=== PATIENT | female | born 1955 | race Caucasian/White ===

== ENCOUNTER 2017-07-15 08:37 | Day surgery (SDC) | payer OTHER, SELFPAY ==
[2017-07-15] VITALS (7 sets, daily range): BP systolic 91–105; BP diastolic 48–87; PULSE 56–84; RESP 14–16; TEMP 35.9–36.3; O2SAT 100; BMI 25.7
--- NOTE | 2017-07-15 | IMM_PTH ---
PATIENT: KRYS CANCINO LOC: EN U#:[id number] AGE/SX: 62/F ROOM: RE07/15/[address]: Dr. Sylvie Mireles MD : 1955 BED: DIS: 07/15/2017 SPEC #: [id number] RECD: 07/17/17 10:19 STATUS: TEAGAN REDemetris #: [id number] OPHELIA: 07/15/17 00:[address]: Sylvie Mireles DEPT: IMMUNOHISTOCHEMISTRY RECD BY: Quynh Talbert ENTERED: 07/17/17 10:20 SP TYPE: IMMUNO OTHR DR: Dr. Steven Rojas, Tissues: A - Stomach, NOS Procedures: H Pylori (initial) PHYSICIAN & INSTITUTION [place] [id number] SPECIMEN INFORMATION: Tissue Source: A ? Antral biopsy Clinical Info: GERD Specimen Number: [id number] CPT code: 47673 METHODOLOGY: Deparaffinized sections of prefer/formalin-fixed tissue or PAP/DQ stained slides are incubated with monoclonal/polyclonal antibodies/oligonucleotide probes. Localization is made via biotin free immunoperoxidase method. Appropriate controls are performed and reacted as expected. Results on target cell population are indicated in the following table: RESULTS: ANTIBODY / CLONE RESULT Block A H Pylori (polyclonal) negative These tests were developed and their performance characteristics determined by [facility]. They may not have been cleared or approved by the U.S. Food and Drug Administration. The FDA has determined that such clearance or approval is not necessary. INTERPRETATION: A. Antral biopsy: Negative for Helicobacter pylori organisms. SJ:alyssa 07/17/17
--- NOTE | 2017-07-15 10:23 | EGD_PTH ---
PATIENT: KRYS CANCINO LOC: EN U#:[id number] AGE/SX: 62/F ROOM: RE07/15/[address]: Dr. Sylvie Mireles MD : 1955 BED: DIS: 07/15/2017 SPEC #: [id number] RECD: 07/15/17 15:18 STATUS: TEAGAN UMANG #: [id number] OPHELIA: 07/15/17 10:[address]: Sylvie Mireles DEPT: SURGICAL PATHOLOGY RECD BY: Clarke Lai ENTERED: 07/16/17 09:26 SP TYPE: EGD BIOPSY KAY DR: Dr. Steven Rojas DO Tissues: A - Gastric mucous membrane B - Gastric mucous membrane Procedures: Special Stain Group II Surgery Specimen Level IV Alcian Blue/PAS (control) HEADER OPERATION: EGD PRE-OP DIAGNOSIS: GERD TISSUE SUBMITTED: A ? Antral biopsy for path and H. pylori, B ? GE junction biopsy MICROSCOPIC DIAGNOSIS A. Antral biopsy: Mild gastritis. B. GE junction, biopsy: Fragments of gastroesophageal mucosa with mild chronic inflammation. Intestinal metaplasia (goblet cell metaplasia) is not identified. SJ:rg 07/17/17 COMMENT A. The results of immunohistochemistry for Helicobacter pylori will be reported separately ([id number]). B. Alcian blue/PAS stain with matched control is used in the evaluation of the specimen. MICROSCOPIC DESCRIPTION Slides are reviewed. A. The specimen shows fragments of gastric mucosa with chronic inflammatory cell infiltrates in the lamina propria consisting of lymphocytes and plasma cells, consistent with mild chronic gastritis. GROSS DESCRIPTION A - Received in fixative is one container labeled with the patient's name and designated antral biopsy for path and H. pylori. The specimen consists of two irregular fragments of light haskins soft tissue that in aggregate measure 0.3 x 0.2 x 0.1 cm. The specimen is totally submitted in one cassette. B - Received in fixative is one container labeled with the patient's name and designated GE junction biopsy. The specimen consists of multiple irregular fragments of light haskins soft tissue that in aggregate measure 0.8 x 0.2 x 0.1 cm. The specimen is totally submitted in one cassette. / MADINA:alyssa 07/16/17 TC:3 CPT: 48218 x2, 70061
--- NOTE | 2017-07-15 13:05 | PCM.OPRPT ---
Report of Operation Date of Procedure: 07/15/17 Pre-Operative Diagnosis: GERD, screening for colon cancer Post-Operative Diagnosis: GERD, small hiatal hernia, normal colon Surgery/Procedure Performed:: EGD with cold forceps biopsy, colonoscopy Type of Anesthesia:: MAC Anesthesiologist: Dimitrios Guerrero Specimen's removed: 1. Antral biopsy, 2. GE junction biopsy Estimated Blood Loss (mL): Minimal Description of Procedure: Procedure: EGD with biopsy After obtaining informed consent, the endoscope was passed under direct visualization. Throughout the procedure, patient's blood pressure, pulse, oxygen saturations were monitored continuously by anesthesia. The endoscope was introduced through the mouth and advanced to the 2nd part of the duodenum. The upper GI endoscopy was accomplished without difficulty. Patient tolerated procedure well. Findings: Small hiatal hernia was present. Minimal erythematous mucosa found gastric antrum and change of mucosa was noted at the GE junction. Biopsies were taken with cold biopsy for histology. Estimated blood loss was minimal. The duodenum was normal. Impression: 1. Small hiatal hernia 2. Erythematous mucosa in the antrum and GE junction. Biopsied. 3. Normal examined duodenum Recommendations: Continue PPI and raniditine Await biopsies Procedure: Colonoscopy After reviewing the risks benefits, the patient was deemed in satisfactory condition to undergo procedure. After obtaining informed consent, the scope was passed under direct visualization. Throughout the procedure, the patient's blood pressure pulse and position saturations were monitored continuously anesthesia. The colonoscope was introduced through the anus and advanced to the cecum, identified by the appendiceal orifice, IC valve and transillumination. The colonoscopy was performed without difficulty. The patient tolerated procedure well. Quality of bowel prep was good. Findings: The perianal and digital rectal exam were normal. The colon (entire examined portion) appeared normal. Retroflexed view of the distal rectum and anal verge was normal and showed no anal or rectal abnormalities Impression: 1. The entire colon is normal. 2. The distal rectal and anal verge were normal on retroflexed view. Recommendations: Repeat colonoscopy in 10 years for screening purposes - Complications none
== END 2017-07-15 12:29 | disposition home or self-care (01) ==
LOC: EN 08:37 → AC 08:39
PROVIDERS: Family Provider Family Medicine; PCP Family Medicine; Visit Provider Surgery
PROC: 0DJD8ZZ Inspection of Lower Intestinal Tract, Via Natural or Artificial Opening Endoscopic (ICD-10-PCS; CPT 45378; principal; 2017-07-15 09:55)
DX: Z12.11 Encounter for screening for malignant neoplasm of colon (principal); K21.9 Gastro-esophageal reflux disease without esophagitis; K44.9 Diaphragmatic hernia without obstruction or gangrene; K29.70 Gastritis, unspecified, without bleeding; Z87.891 Personal history of nicotine dependence; Z79.899 Other long term (current) drug therapy; E78.00 Pure hypercholesterolemia, unspecified; E03.9 Hypothyroidism, unspecified; K58.1 Irritable bowel syndrome with constipation
CPT/HCPCS: 43239; 45378; 88305; 88313; 88342; J7120

== ENCOUNTER → 2017-10-18 06:19 | Outpatient (CLI) | payer OTHER, SELFPAY ==
[2017-10-18 09:27] LABS: Cholesterol 171 mg/dL (200); High Density Lipoprotein 66 mg/dL; Thyroid Stim Hormone (TSH) 0.63 uIU/mL (0.358-3.74); Triglycerides 77 mg/dL; Very Low Density Lipoprotein 15 mg/dL (5-40)
== END ==
PROVIDERS: Family Provider Family Medicine; PCP Family Medicine; Visit Provider Family Medicine
DX: E03.9 Hypothyroidism, unspecified (principal); E78.5 Hyperlipidemia, unspecified
CPT/HCPCS: 36415; 80061; 84443

== ENCOUNTER → 2017-11-26 12:10 | Outpatient (CLI) | payer OTHER, SELFPAY ==
--- NOTE | 2017-11-26 12:20 | BD_ITS ---
STUDY: DUAL ENERGY X-RAY ABSORPTIOMETRY / DXA REASON FOR EXAM: Female, 62 years old. The patient is postmenopausal. Loss of height. TECHNIQUE: Bone Mineral Density (BMD) measurements of lumbar spine and bilateral hips were obtained. COMPARISON: Comparison is made with prior study dated May 17, 2015. FINDINGS: Lumbar Spine (L1-L4): g/cm2 (1.049) / T-score (-1.3) / Z-score (0.1) Findings are suggestive of osteopenia with a moderate fracture risk. Left Femur Total: g/cm2 (0.936) / T-score (-0.6) / Z-score (0.4) Left Femoral Neck: g/cm2 (0.838) / T-score (-1.4) / Z-score (-0.1) Right Femur Total: g/cm2 (0.889) / T-score (-0.9) / Z-score (0.1) Right Femoral Neck: g/cm2 (0.821) / T-score (-1.6) / Z-score (-0.2) The T-Scores on the most recent prior examination were: Lumbar Spine (L1-L4): There has been improvement of bone density since the previous examination. Left Femur Total: which represents an improvement of 1.3%. Right Femur Total: which represents a worsening of 3.2%. BD/Dexa Bone Density Study IMPRESSION: The patient is considered osteopenic as outlined below according to World Ken Organization (WHO) criteria with a moderate fracture risk. There has been improvement of bone density since the previous examination. Reference Information: The T-score is the number of standard deviations above or below the standard which is normal for young adults at their peak bone mineral density. The World Health Organization (WHO) interprets the T-scores as follows: Above -1 Normal bone density Between -1 and -2.5 Osteopenia Equal to / or below -2.5 Osteoporosis As a practical clinical guideline, osteopenia may be graded as follows: Mild -1 through -1.5 Moderate -1.6 through -2.0 Severe -2.1 through -2.4 The Z-score is the number of standard deviations above or below age-matched controls. A Z-score of less than -1.5 would be considered abnormal. References: 1. NIH Osteoporosis and Related Bone Diseases http://www.osteo.org 2. International Society for Clinical Densitometry http://www.iscd.org 3. National Osteoporosis Foundation http://www.nof.org Electronically Signed: Andrae Jonas MD at 8:40 EDT Tel [phone], Service support ,
== END ==
PROVIDERS: Family Provider Family Medicine; PCP Family Medicine; Visit Provider Family Medicine
DX: Z13.820 Encounter for screening for osteoporosis (principal)
CPT/HCPCS: 77080

== ENCOUNTER → 2017-12-13 10:09 | Outpatient (CLI) | payer OTHER, SELFPAY ==
[2017-12-13 12:28] LABS: Absolute Lymphocyte Count 1.32 X10^3/ul (0.83-4.51); Absolute Neutrophil Count 2.5 X10^3/uL (2.0-7.7); Basophil# 0.01 X10^3/uL; Basophil% 0.2 % (0-1); Eosinophil# 0.08 X10^3/uL; Eosinophils% 1.9 % (0-5); Hematocrit 42.3 % (37-47); Hemoglobin 13.9 g/dl (12.0-15.0); Lymphocyte # 1.32 X10^3/ul (4.0); Lymphocyte % 30.8 % (19-41); Mean Corp Hgb Conc 32.9 g/gl (32-36); Mean Corpuscular Hgb 28.8 pg (27.0-32.0); Mean Corpuscular Volume 87.8 fL (81-99); Mean Platelet Vol. 11.9 fl (6.2-12.0); Monocyte# 0.38 X10^3/uL; Monocyte% 8.9 % (0-10); Neutrophil # 2.49 X10^3/uL (2.7-7.7); Neutrophil % 58.2 % (47-70); Platelet Count 181 K/mm3 (150-450); RBC Distribution Width CV 13.4 % (11.6-14.6); RBC Distribution Width SD 42.7 fl (35.1-43.9); Red Blood Count 4.82 M/mm3 (4.2-5.4); White Blood Count 4.3 K/mm3 (4.4-11.0)
[2017-12-13 12:30] LABS: Erythrocyte Sedimentation Rate 8 mm/hr (0-30); POSITIVE COUNT NO; POSITIVE DIFFERENTIAL NO; POSITIVE MORPHOLOGY NO
[2017-12-13 12:43] LABS: ALB/GLOB Ratio 1.2 RATIO (0.9-2.4); AST(SGOT) 21 U/L (15-37); Alanine Aminotransfer ALT/SGPT 21 U/L (13-56); Albumin, Serum 4.1 g/dL (3.2-5.0); Alkaline Phosphatase 62 U/L (45-117); Anion Gap 7 (5-15); BUN 10 mg/dL (7-18); BUN/Creat Ratio 11.3 RATIO (10-20); Calcium,Total 8.9 mg/dL (8.5-10.1); Chloride 106 mmol/L (98-107); Cholesterol 203 mg/dL (200); Creatinine, Serum 0.89 mg/dL (0.55-1.02); EST Glomerular Filtration Rate 69 mL/min (>60); Est Glom Filt Rate - Afr Amer 83 mL/min (>60); Globulin 3.5 g/dL (2.2-4.2); Glucose 83 mg/dL (74-106); High Density Lipoprotein 63 mg/dL; Protein, Total 7.6 g/dL (6.4-8.2); Sodium Level 142 mmol/L (136-145); T4 Free Direct 1.28 ng/dL (0.76-1.46); Thyroid Stim Hormone (TSH) 1.57 uIU/mL (0.358-3.74); Triglycerides 100 mg/dL; Very Low Density Lipoprotein 20 mg/dL (5-40)
== END ==
PROVIDERS: Family Provider Family Medicine; PCP Family Medicine; Visit Provider Family Medicine
DX: Z00.00 Encounter for general adult medical examination without abnormal findings (principal); R51 Headache; R42 Dizziness and giddiness; E78.5 Hyperlipidemia, unspecified; E03.9 Hypothyroidism, unspecified
CPT/HCPCS: 36415; 80053; 80061; 84439; 84443; 85025; 85652

== ENCOUNTER → 2017-12-25 16:42 | Outpatient (CLI) | payer OTHER, SELFPAY ==
--- NOTE | 2017-12-25 16:56 | MRI_ITS ---
STUDY: MRI BRAIN WITH AND WITHOUT CONTRAST REASON FOR EXAM: Female, 62 years old. Headache with intermittent vertigo. TECHNIQUE: Standardized multiplanar fat and water weighted pulse sequences were obtained. 7 ml of Gadavist contrast material was administered intravenously for the contrast portion of the examination. COMPARISON: None. FINDINGS: Normal size of the ventricles and extra-axial spaces for the patient's age. There are multiple white matter hyperintensities, distributed throughout the deep white matter tracts of the cerebral hemispheres, consistent with moderate chronic white matter ischemic changes. There is no evidence for recent intracranial ischemia or other cause of cytotoxic edema on diffusion weighted imaging (DWI). Normal T2* images of the brain without demonstrated susceptibility artifact. There is no demonstrated hemosiderin stain. Normal bilateral basal ganglia. Normal thalami. There is no extra-axial fluid accumulation. Normal flow voids within the major intracranial circulation suggesting patency by spin echo criteria. Normal venous enhancement. There is no enhancing intra-axial or extra-axial abnormality. Normal sella turcica, pituitary gland, infundibular stalk, optic chiasm and hypothalamus. Normal tectal plate and pineal gland. Normal midbrain, raffi and medulla. Normal cerebellum. Normal basal cisterns. Normal bilateral temporal bones. Normal bilateral internal auditory canals. Right mastoid effusion is present. No demonstrated orbital abnormality, within the constraints of a routine brain study. Normal visualized paranasal sinuses. Normal calvarium and skull base. Normal visualized soft tissue structures. Normal visualized upper cervical spine. MRI/Brain W/WO Contrast IMPRESSION: 1. Senescent changes with no evidence of acute intracranial bleed, mass or ischemia. 2. Right mastoid effusion, clinically correlate for congestive versus inflammatory process. Electronically Signed: Rick Cesar DO at 21:32 EDT , Service support ,
== END ==
PROVIDERS: Family Provider Family Medicine; PCP Family Medicine; Visit Provider Family Medicine
DX: R51 Headache (principal); R42 Dizziness and giddiness
CPT/HCPCS: 70553; A9585

== ENCOUNTER → 2018-01-17 07:05 | Outpatient (CLI) | payer OTHER, SELFPAY ==
--- NOTE | 2018-01-17 07:08 | CT_ITS ---
STUDY: CT TEMPORAL BONES WITH AND WITHOUT CONTRAST - ATTN: I.A.C. S REASON FOR EXAM: Female, 63 years old. Right mastoid effusion on MRI with vertigo for 7 weeks RADIATION DOSAGE (If Supplied By Facility): CTDIvol = ( 82.28 ) mGy, DLP = ( 1736.98 ) mGycm TECHNIQUE: The patient was scanned in a multi detector CT scanner. Transaxial imaging was performed prior to and following the administration of 100 ml of Isovue 370 intravenous contrast material. Sagittal and coronal images were reconstructed. Individualized dose optimization techniques were used for this CT. COMPARISON: MRI brain 12/25/2017 FINDINGS: RIGHT TEMPORAL BONE Normal right internal auditory canal. There is no demonstrated enhancing abnormality. Normal visualized ossicles and tympanic cavity. Normal right cochlea and semicircular canals. Normal vestibular aqueduct. Normal right petrous carotid artery. Normal right jugular fossa. Mild inferior right-sided mastoiditis without coalescence. No extension into the aditus ad antrum. The adjacent transverse and sigmoid venous sinuses are patent. No Bezoldt abscess is seen. Normal right petrous apex. LEFT TEMPORAL BONE Normal left internal auditory canal. There is no demonstrated enhancing abnormality. Normal visualized ossicles and tympanic cavity. Normal left cochlea and semicircular canals. Normal vestibular aqueduct. Normal left petrous carotid artery. Normal right jugular fossa. Normal left mastoid air cells. Normal left petrous apex. CT/Orb Sella Post Fossa Ear W/WO IMPRESSION: Mild inferior right-sided mastoiditis without coalescence or adjacent complication. Electronically Signed: Ross Mcmahan MD at 6:23 EDT Tel , Service support ,
== END ==
PROVIDERS: Family Provider Family Medicine; PCP Family Medicine; Visit Provider Family Medicine
DX: H70.11 Chronic mastoiditis, right ear (principal); R51 Headache
CPT/HCPCS: 70482; Q9967

== ENCOUNTER → 2018-02-07 07:00 | Outpatient (CLI) | payer OTHER, SELFPAY | PROVIDERS: Family Provider Family Medicine; PCP Family Medicine; Visit Provider Obstetrics & Gynecology | DX: Z12.31 Encounter for screening mammogram for malignant neoplasm of breast (principal) | CPT/HCPCS: 77063; 77067 ==

== ENCOUNTER 2018-03-19 17:30 | Outpatient (RCR) | payer OTHER, SELFPAY ==
--- NOTE | 2018-02-21 09:00 | HP.PTEVAL_ITS ---
Patient's Visit Information KRYS CANCINO is a 63 year old F referred to Physical Therapy by Steven Rojas DO with a diagnosis of dizziness and giddiness. Date of Evaluation: 02/21/18 Physical Therapist: Fariba Gee - Visit Plan Frequency: 1-2x /Week Duration: 4 Weeks Plan: 1-2X/ week for re-testing positional vertigo, checking VOR, FGA, balance with HEP - Subjective Subjective: Pt reports that in her late 's she experienced positional vertigo that lasted a few years and then did not have it at all but lately at the end of November laying on Couch and rolled to R and got dizzy and then started to get dizziness. Her last dizzy spell was in the fall. MRI was done and read effusion in R mastoid. Her positional vertigo had gone away but she still had the motion sickness ( FERRO and nausea and funny feeling in eyes). If at grocery store she would feel awful almost like an overload but around her apartment she feels ok. They did a CATSCAN and all came back clear.... mild mastosis...nothing to treat. Positional vertigo comes back again and physician puts her on valium and made it worse and then she was on diazapam and that made her worse too and goes for a car ride and looks R and L and made her ill and nauseated. She takes the bonine and has felt better and able to get through the day. Looking up and down from the black board and down to the paper and would get dizzy. Sometimes putting make up on she will get dizzy. Sometimes getting onthe computer scrolling it makes her dizzy. Saw Dr Rojas because she is getting through the day but she is tired and wants to close her eyes. Sometimes still dizzy when roll to the R. No dizziness in morning when she gets up. Getting up out of a tanning bed is worse than getting out of bed. No falls. - Objective + R Hallpike for dizziness and upward torsional nystagmus that lasted about 20 seconds and stopped. Performed R Eply from the Hallpike position. Re-tested R Hallpike and pt had no dizziness and no nystagmus...went ahead and did the R Eply again - Goals Goal 1:: I HEP Goal Time Frame: 4-6 Weeks Goal 2:: Abolish dizziness with rolling in bed Goal Time Frame: 4-6 Weeks Goal 3:: Test FGA Goal Time Frame: 1 Week - Rehabilitation Potential Rehabilitation Potential: Good - Anticipated Interventions Patient/Client Instruction: Educate patient on: Condition, Plan of Care For the Purpose of:: To increase ROM, To improve muscle performance and motor function, To improve ability to perform ADL's, To increase tolerance to activity /condition/position, To improve performance and independence with ADL's, To improve balance Therapeutic Exercise to Include: Strength training, Balance training, Coordination, Gait and locomotor training, Passive ROM, Active ROM For the Purpose of:: To improve muscle performance and motor function, To improve ability to perform ADL's, To increase tolerance to activity/condition/ position, To improve performance and independence with ADL's, To improve ability of physical actions for home/community/work/leisure, To improve balance Manual Therapy Techniques to Include: Other Comment: EPLY For the Purpose of:: To improve muscle performance and motor function, To improve ability to perform ADL's, To increase tolerance to activity/condition/ position, To improve performance and independence with ADL's, To improve ability of physical actions for home/community/work/leisure Thank you for the opportunity to evaluate your patient. For Medicare and Medicare HMO plans, please review the plan of care and approve it. It will need to be FAXED BACK to us at [phone] for Medicare purposes. Please let me know if there are questions or concerns regarding this plan of care. Physician Signature: Date:
--- NOTE | 2018-03-19 18:51 | HP.PTDCSUM ---
HP - PT D/C Summary It has been my pleasure to treat KRYS CANCINO under orders from Steven Rojas DO, for the diagnosis of dizziness and giddiness for a total of 5 visit(s). Discharge Date: 03/19/18 Please see the following information for a summary of their discharge status. - Subjective Subjective: Pt reports that she slipped on spilled liquid in the cafeteria and hurt her L hip and back and she is probably going to see MD about it. Pt reports that she only gets a slight sign of any dizziness once in awhile and she is continuing to do her exercises. - Pain R hip and back Pain Intensity (Out of 10): Unrated - Overall Improvement % Improvement: 90 - Objective Objective/Function: No dizziness today with any dynamic VOR exercises - Goals Goal 1:: I HEP Goal Progress: Goal Met Goal 2:: Abolish dizziness with rolling in bed Goal Progress: Goal Met Goal 3:: Test FGA - Plan Plan: DC PT to HEP - D/C Information Discharge Comments: DC PT to HEP If there are questions or concerns regarding this patient's physical therapy, please feel free to call me at [phone]. Thank you for the referral of this patient. Sincerely, Fariba Gee
== END 2018-03-19 19:00 | disposition home or self-care (01) ==
LOC: PT 17:30
PROVIDERS: Family Provider Family Medicine; PCP Family Medicine; Visit Provider Family Medicine
DX: R42 Dizziness and giddiness (principal)
CPT/HCPCS: 97161; 97530

== ENCOUNTER → 2018-04-19 07:12 | Outpatient (CLI) | payer OTHER, SELFPAY ==
[2018-04-19 07:47] LABS: Absolute Lymphocyte Count 1.54 X10^3/ul (0.83-4.51); Absolute Neutrophil Count 1.5 X10^3/uL (2.0-7.7); Basophil# 0.03 X10^3/uL; Basophil% 0.9 % (0-1); Eosinophil# 0.14 X10^3/uL; Hematocrit 40.9 % (37-47); Hemoglobin 13.4 g/dl (12.0-15.0); Lymphocyte # 1.54 X10^3/ul (4.0); Lymphocyte % 44.1 % (19-41); Mean Corp Hgb Conc 32.8 g/gl (32-36); Mean Corpuscular Hgb 29.2 pg (27.0-32.0); Mean Corpuscular Volume 89.1 fL (81-99); Mean Platelet Vol. 11.3 fl (6.2-12.0); Monocyte# 0.29 X10^3/uL; Monocyte% 8.3 % (0-10); Neutrophil # 1.49 X10^3/uL (2.7-7.7); Neutrophil % 42.7 % (47-70); Platelet Count 194 K/mm3 (150-450); RBC Distribution Width CV 13.1 % (11.6-14.6); RBC Distribution Width SD 42.5 fl (35.1-43.9); Red Blood Count 4.59 M/mm3 (4.2-5.4); White Blood Count 3.5 K/mm3 (4.4-11.0)
[2018-04-19 07:48] LABS: POSITIVE COUNT NO; POSITIVE DIFFERENTIAL NO; POSITIVE MORPHOLOGY NO
[2018-04-19 08:21] LABS: AST(SGOT) 17 U/L (15-37); Alanine Aminotransfer ALT/SGPT 19 U/L (13-56); Albumin, Serum 3.6 g/dL (3.2-5.0); Alkaline Phosphatase 111 U/L (45-117); Anion Gap 5 (5-15); BUN 16 mg/dL (7-18); BUN/Creat Ratio 19.6 RATIO (10-20); Calcium,Total 8.5 mg/dL (8.5-10.1); Chloride 107 mmol/L (98-107); Cholesterol 160 mg/dL (200); Creatinine, Serum 0.82 mg/dL (0.55-1.02); EST Glomerular Filtration Rate 75 mL/min (>60); Est Glom Filt Rate - Afr Amer 91 mL/min (>60); Globulin 3.7 g/dL (2.2-4.2); Glucose 77 mg/dL (74-106); High Density Lipoprotein 65 mg/dL; Potassium 4.5 mmol/L (3.5-5.1); Protein, Total 7.3 g/dL (6.4-8.2); Sodium Level 142 mmol/L (136-145); T4 Free Direct 1.35 ng/dL (0.76-1.46); Thyroid Stim Hormone (TSH) 1.38 uIU/mL (0.358-3.74); Triglycerides 40 mg/dL; Very Low Density Lipoprotein 8 mg/dL (5-40)
[2018-04-19 12:54] LABS: Vitamin D,25 Hydroxy 54.5 ng/mL (29.95-100.01)
== END ==
PROVIDERS: Family Provider Family Medicine; PCP Family Medicine; Referring Provider Family Medicine; Visit Provider Family Medicine
DX: E78.5 Hyperlipidemia, unspecified (principal); E03.9 Hypothyroidism, unspecified; D72.819 Decreased white blood cell count, unspecified; E55.9 Vitamin D deficiency, unspecified
CPT/HCPCS: 36415; 80053; 80061; 82306; 84439; 84443; 85025

== ENCOUNTER → 2018-06-24 13:29 | Outpatient (CLI) | payer OTHER, SELFPAY ==
--- NOTE | 2018-06-24 | EMB_PTH ---
PATIENT: KRYS CANCINO LOC: ANA U#:[id number] AGE/SX: 70/F ROOM: RE06/24/[address]: ROLY Vega : 1955 BED: DIS: SPEC #: [id number] RECD: 06/24/18 13:37 STATUS: TEAGAN UMANG #: [id number] OPHELIA: 06/24/18 00:[address]: Juana Quintanilla NP DEPT: SURGICAL PATHOLOGY RECD BY: Quan Muir ENTERED: 06/24/18 13:37 SP TYPE: ENDOM BX/C KAY DR: Dr. Steven Rojas, Tissues: Endometrium, NOS Procedures: Surgery Specimen Level IV HEADER OPERATION: Endometrial biopsy PRE-OP DIAGNOSIS: Abnormal uterine bleeding TISSUE SUBMITTED: Endometrial lining MICROSCOPIC DIAGNOSIS Endometrial lining, biopsy: Scant fragments of superficial benign squamous and glandular epithelium. AM:alyssa 06/25/18 MICROSCOPIC DESCRIPTION Slides are reviewed. GROSS DESCRIPTION Received in fixative is one container labeled with the patient's name and designated endometrial lining. The specimen consists of scant fragments of mucoid tissue. The entire specimen is submitted for cell block preparation. / MADINA:alyssa 06/24/18 TC:5 CPT: 45835
[2018-06-24 11:21] VITALS: BMI 30.5
== END ==
PROVIDERS: Family Provider Family Medicine; PCP Family Medicine; Referring Provider Nurse Practitioner Women's Health; Visit Provider Nurse Practitioner Women's Health
DX: N93.9 Abnormal uterine and vaginal bleeding, unspecified (principal)
CPT/HCPCS: 88305

== ENCOUNTER → 2018-07-01 11:17 | Outpatient (CLI) | payer OTHER, SELFPAY ==
[2018-06-24 11:21] VITALS: BMI 30.5
--- NOTE | 2018-07-01 11:19 | US_ITS ---
HISTORY: POST MENOPAUSAL BLEEDING STARTED ESTROGEN CREAM TECHNIQUE: Transabdominal and transvaginal pelvic ultrasound was performed. Grayscale, spectral and color flow Doppler evaluation of the adnexa. COMPARISON: Pelvic MRI 10/28/2014 and pelvic ultrasound 10/04/2014 FINDINGS: The uterus is anteverted and mildly atrophic, consistent with the patient's age. The uterus measures 5.8 x 2.6 x 4.5 cm in longitudinal, AP, and transverse dimensions, respectively. The uterus shows mildly heterogenous echotexture without dominant or suspicious lesion. The endometrium is uniform and measures 2-3 mm in diameter which is normal. The right and left ovaries are not visualized. No free pelvic fluid. US/Pelvic (Non ) IMPRESSION: 1. Postmenopausal pelvis. No endometrial thickening, free fluid, or suspicious findings. 2. Nonvisualization of the ovaries. at 0635 Reported and signed by: Luís Becerra MD Electronically Signed: Luís Becerra, at 6:34 EST Tel , Service support ,
--- NOTE | 2018-07-01 11:19 | US_ITS ---
HISTORY: POST MENOPAUSAL BLEEDING STARTED ESTROGEN CREAM TECHNIQUE: Transabdominal and transvaginal pelvic ultrasound was performed. Grayscale, spectral and color flow Doppler evaluation of the adnexa. COMPARISON: Pelvic MRI 10/28/2014 and pelvic ultrasound 10/04/2014 FINDINGS: The uterus is anteverted and mildly atrophic, consistent with the patient's age. The uterus measures 5.8 x 2.6 x 4.5 cm in longitudinal, AP, and transverse dimensions, respectively. The uterus shows mildly heterogenous echotexture without dominant or suspicious lesion. The endometrium is uniform and measures 2-3 mm in diameter which is normal. The right and left ovaries are not visualized. No free pelvic fluid. US/Transvaginal Non- IMPRESSION: 1. Postmenopausal pelvis. No endometrial thickening, free fluid, or suspicious findings. 2. Nonvisualization of the ovaries. at 0635 Reported and signed by: Luís Becerra MD Electronically Signed: Luís Becerra, at 6:34 EST Tel , Service support ,
--- OUTSIDE RECORDS SUMMARY | 2018-09-02 15:06 | XMS RPT_ITS ---
:1955 Author Organization OHIP Support Name Relationship Address Phone NAVEEN HENDERSON Unavailable Unavailable + JONNA PIERCE Unavailable Unavailable + WOOCISCH Unavailable [address] + [place] [address] NAVEEN HENDERSON Unavailable Unavailable + JONNA PIERCE Unavailable Unavailable + [place] Unavailable [address] + [place] [address] NAVEEN HENDERSON Unavailable Unavailable + [place] [address] JONNA PIERCE Unavailable Unavailable + [place] [address] WO[place] Unavailable [address] + [place] [address] NAVEEN HENDERSON Unavailable 0 + [place] [address] JONNA PIERCE Unavailable 0 + [place] [address] WO[place] Unavailable [address] + [place] [address] SIMMAKNAVEEN BOB Unavailable 0 + [place] [address] JONNA PIERCE Unavailable 0 + [place] [address] WO[place] Unavailable [address] + [place] [address] SIMMAKKARLENE BOBIME Unavailable Unavailable + [place] [address] JONNA PIERCE Unavailable Unavailable + [place] [address] WO[place]ISCH Unavailable [address] + [place] [address] MELLISANAVEEN BOB Unavailable Unavailable + [place] [address] JONNA PIERCE Unavailable Unavailable + [place] [address] WO[place]ISCH Unavailable [address] + [place] [address] GLORIOSO, NAVEEN Unavailable Unavailable + [place] [address] [address]ONNA PIERCE Un[address] + [place] [address] WOOCISCH Unavailable [address] + [place] [address] GLORIOSO, NAVEEN Unavailable . + [place] [address] JONES PIERCEON Unavailable [address] + [place] [address] WOOCISCH Unavailable [address] + [place] [address] GLORIOSO, NAVEEN Unavailable Unavailable + MD STAN GARDUNOJONNA Unavailable [address] + [place] [address] WOOCISCH Unavailable [address] + [place] [address] JONES PIERCEON Unavailable [address] + [place] [address] WOOCISCH Unavailable [address] + [place] [address] JONES PIERCEON Unavailable [address] + [place] [address] WOOCISCH Unavailable [address] + [place] [address] GLORIOSO, NAVEEN Unavailable . + [place] [address] JONNA PIERCE Unavailable [address] + [place] [address] WOOCISCH Unavailable [address] + [place] [address] JONES PIERCEON Unavailable [address] + [place] [address] WOOCISCH Unavailable [address] + [place] [address] JONES PIERCEON Unavailable [address] + [place] [address] WOOCISCH Unavailable [address] + [place] [address] JONNA PIERCE Un[address] + [place] [address] WOOCISCH Unavailable [address] [address] + [place] [address] Care Team Providers Name Role Phone Juana Quintanilla Attending Unavailable Crystal, Steven Referring Unavailable Socorro, Juana Attending Unavailable Crystal, Steven Referring Unavailable Socorro, Juana Attending Unavailable Athelstane, Juana Referring Unavailable Crystal, Steven Primary Care Unavailable Socorro, Juana Attending Unavailable Socorro, Juana Referring Unavailable Crystal, Steven Primary Care Unavailable Crystal, Steven Attending Unavailable Crystal, Steven Primary Care Unavailable Crystal, Steven Referring Unavailable Robotham, Sylvie Attending Unavailable Robotham, Sylvie Referring Unavailable Crystal, Steven Primary Care Unavailable Robotham, Sylvie Attending Unavailable Robotham, Sylvie Referring Unavailable Crystal, Steven Primary Care Unavailable Robotham, Sylvie Consulting Unavailable Crystal, Steven Attending Unavailable Crystal, Steven Primary Care Unavailable Crystal, Steven Referring Unavailable Crystal, Steven Attending Unavailable Crystal, Steven Primary Care Unavailable Raegan Doshi Consulting Unavailable Crystal, Steven Consulting Unavailable Crystal, Steven Attending Unavailable Crystal, Steven Primary Care Unavailable Crystal, Steven Attending Unavailable Crystal, Steven Referring Unavailable Crystal, Steven Primary Care Unavailable Jacinta Jackson Attending Unavailable Jacinta Jackson Referring Unavailable Crystal, Steven Primary Care Unavailable Jonna Khan Attending Unavailable Crystal, Steven Referring Unavailable Crystal, Steven Primary Care Unavailable Jonna Khan Attending Unavailable Crystal, Steven Primary Care Unavailable CrystalSteven boyce Attending Unavailable Crystal, Steven Referring Unavailable Crystal, Steven Primary Care Unavailable Crystal, Steven Attending Unavailable Crystal, Steven Referring Unavailable Crystal, Steven Primary Care Unavailable PROBLEMS PROBLEMS DATE TYPE CONDITION / CODE ATTENDING STATUS SOURCE 07/02/2018 Unknown R42 - Dizziness and CrystalSteven pelaez Active [place] giddiness / Community R42(ICD-10) Hospital Repository 07/01/2018 Unknown N95.0 - Juana Quintanilla Active [facility] Postmenopausal Community bleeding / Hospital N95.0(ICD-10) Repository 06/12/2018 Unknown N95.2 - Athelstane, Juana Active [place] Postmenopausal Community atrophic vaginitis / Hospital N95.2(ICD-10) Repository 06/12/2018 Unknown N81.11 - Cystocele, Socorro Juana Active [facility] midline / Community N81.11(ICD-10) Hospital Repository 04/19/2018 Unknown E78.5 - Steven Rojas Active [place] Hyperlipidemia, Community unspecified / Hospital E78.5(ICD-10) Repository 04/19/2018 Unknown E03.9 - Steven Rojas Active [facility] Hypothyroidism, Community unspecified / Hospital E03.9(ICD-10) Repository 04/19/2018 Unknown D72.819 - Decreased Steven Rojas Active [facility] white blood cell Community count, unspecified / Hospital D72.819(ICD-10) Repository 04/19/2018 Unknown E55.9 - Vitamin D Steven Rojas Active [place] deficiency, Community unspecified / Hospital E55.9(ICD-10) Repository 01/21/2018 Unknown Z01.419 - Encounter Rai Khan for gynecological [facility] (general) (routine) Repository without abnormal findings / Z01.419(ICD-10) 01/21/2018 Unknown Z12.31 - Encounter Rai Khan [facility] for screening [facility] mammogram for [facility] malignant neoplasm Repository of breast / Z12.31(ICD-10) 01/21/2018 Unknown Z13.820 - Encounter Steven Rojas Active [facility] for screening for Community osteoporosis / Hospital Z13.820(ICD-10) Repository PROCEDURES PROCEDURES No Procedure Records FoundRESULTS RESULTS TRANSVAGINAL Observed: 07/01/2018 Status: F Source: [place] NON- 11:19 AM [facility] REPOSITORY [facility] Imaging Services [address] [place] [address] Transvaginal Non- MR#: [id number] Acct: [id number] Name: BARAKADRIANAKRYS Niranjan Rep #: [id number] : 1955 F 63 From: Luís Becerra MD PCP: Steven Rojas DO Status: REG CLI Study: Transvaginal Non- Date of Exam: 07/01/18 Exam# [id number] Ordering Dr: Juana Quintanilla PROJECT MANAGEMENT CONSULTANTJuan Diego HISTORY: POST MENOPAUSAL BLEEDING STARTED ESTROGEN CREAM TECHNIQUE: Transabdominal and transvaginal pelvic ultrasound was performed. Grayscale, spectral and color flow Doppler evaluation of the adnexa. COMPARISON: Pelvic MRI 10/28/2014 and pelvic ultrasound 10/04/2014 FINDINGS: The uterus is anteverted and mildly atrophic, consistent with the patient's age. The uterus measures 5.8 x 2.6 x 4.5 cm in longitudinal, AP, and transverse dimensions, respectively. The uterus shows mildly heterogenous echotexture without dominant or suspicious lesion. The endometrium is uniform and measures 2-3 mm in diameter which is normal. The right and left ovaries are not visualized. No free pelvic fluid. US/Transvaginal Non- IMPRESSION: 1. Postmenopausal pelvis. No endometrial thickening, free fluid, or suspicious findings. 2. Nonvisualization of the ovaries. at 0635 Reported and signed by: Luís Becerra MD Electronically Signed: Luís Becerra, at 6:34 EST Tel , Service support , CC: JELANI Quintanilla; Steven Rojas DO Fire Fighter: Signed PELVIC (NON ) Observed: 07/01/2018 Status: F Source: [place] 11:19 AM [facility] Imaging Services [address] [place] [address] Pelvic (Non ) MR#: [id number] Acct: [id number] Name: KRYS CANCINO Rep #: [id number] : 1955 F 63 From: Luís Becerra MD PCP: Steven Rojas DO Status: REG CLI Study: Pelvic (Non ) Date of Exam: 07/01/18 Exam# [id number] Ordering Dr: Juana Quintanilla PROJECT MANAGEMENT CONSULTANTJuan Diego HISTORY: POST MENOPAUSAL BLEEDING STARTED ESTROGEN CREAM TECHNIQUE: Transabdominal and transvaginal pelvic ultrasound was performed. Grayscale, spectral and color flow Doppler evaluation of the adnexa. COMPARISON: Pelvic MRI 10/28/2014 and pelvic ultrasound 10/04/2014 FINDINGS: The uterus is anteverted and mildly atrophic, consistent with the patient's age. The uterus measures 5.8 x 2.6 x 4.5 cm in longitudinal, AP, and transverse dimensions, respectively. The uterus shows mildly heterogenous echotexture without dominant or suspicious lesion. The endometrium is uniform and measures 2-3 mm in diameter which is normal. The right and left ovaries are not visualized. No free pelvic fluid. US/Pelvic (Non ) IMPRESSION: 1. Postmenopausal pelvis. No endometrial thickening, free fluid, or suspicious findings. 2. Nonvisualization of the ovaries. at 0635 Reported and signed by: Luís Becerra MD Electronically Signed: Luís Becerra, at 6:34 EST Tel , Service support , CC: JELANI Quintanilla; Steven Rojas DO Fire Fighter: Signed PLASTIC PRESS MOLDER OFFICE VISIT Observed: 06/24/2018 Status: F Source: [place] REPORT 1:15 PM [facility] REPOSITORY [facility] [address] [place] [address]. [address] [place] [address] OFFICE VISIT Date of Service: 06/24/18 MR#: [id number] Acct: [id number] Name: BARAKKRYS Niranjan Rep #: [id number] : 1955 Provider: JELANI Quintanilla Age/Sex: 63/F [place] [facility] [place]: Signed Intake Vital Signs06/24/18 Height 5 ft 3 in 06/24/18 Weight: 172 lb 6 oz 06/24/18 Body Mass Index (BMI) 30.5 06/24/18 Blood Pressure 138/84 H Intake Visit Reasons: EMB Fertilizing Machine Operator Required: No Is patient in pain?: No Allergies dextromethorphan [From Vicks NyQuil Cold/Flu Liquicap] Allergy (Mild, Verified 06/24/18 11:22) Unknown doxylamine [From Vicks NyQuil Cold/Flu Liquicap] Allergy (Mild, Verified 06/24/18 11:22) Unknown Medications cholecalciferol (vitamin D3) 1,000 unit capsule 1,000 unit PO ONCE 07/02/17 [History Confirmed 06/24/18] lactobacillus combination no.8 3 billion cell capsule 1 tab PO QDAY 07/02/17 [History Confirmed 06/24/18] levothyroxine 88 mcg tablet 88 mcg PO DAILY 07/02/17 [History Confirmed 06/24/18] pantoprazole 40 mg tablet,delayed release 40 mg PO QHS 07/02/17 [History Confirmed 06/24/18] simvastatin 10 mg tablet 10 mg PO QHS 07/02/17 [History Confirmed 06/24/18] Calcium Carbonate [Calcium] 600 mg PO DAILY 07/12/17 [History Confirmed 06/24/18] estradiol 0.01% (0.1 mg/gram) vaginal cream See Rx Instructions VAGINAL .COMPLEX #42.5 g 06/12/18 [Rx Confirmed 06/24/18] Is last menstrual period known: No Post menopausal: No Patient : No : No PFSH PFSH Medical History GERD (gastroesophageal reflux disease) (Acute) Hypercholesterolemia (Acute) Hypothyroid (Acute) Surgical History History of section (Acute) History of colonoscopy (Acute) History of esophagogastroduodenoscopy (EGD) (Acute) History of mandibular surgery (Acute) Family History Mother Diabetes Hypertension Thyroid disorder CAD (coronary artery disease) Father Heart disease CAD (coronary artery disease) Sister Breast cancer Hypertension Brother Hypertension CAD (coronary artery disease) Social History Smoking Status: Former smoker alcohol intake: never substance use type: does not use caffeine: Yes what type of physical activity do you participate in: walking frequency: 5-6 times per week seatbelt use: always do you feel safe at home: Yes additional social history: - [place] [employer] Pregancy History 2 Elective abortions Hx Para 2 Spontaneous abortions Past Pregnancies Del. DatName GA/WeeksOutcome Route [facility] LocaProviderFOB e ht en th ia tn Unknown 1981 Koby me Unknown 1986 Alfred sey HPI EMB: Details: KRYS CANCINO is a 63 year old who presents for endometrial biopsy. States start estrace cream 06/12/18(see OV) for atrophic vaginitis. Has light spotting 06/18 and 06/19. No pain or cramping. Stopped cream at that time. Exam Const General: cooperative Nutritional Appearance: well nourished External Female Exam: erythema (left inner labia, appears irritated. Denies itching. ) Speculum Exam - Vagina: atrophic vaginal mucosa (erythema inner left wall. ) Speculum Exam - Cervix: normal appearance of the cervix Bimanual Exam- Vagina AND Uterus: normal bimanual exam Bimanual Exam- Adnexa, other: normal adnexae Office Procedures Endometrial Biopsy Endometrial Biopsy Test: Yes Not Applicable Consent Signed: Yes Time out checklist: patient, procedure, site marked/identified, positioning of patient, supplies available, allergies confirmed, team agrees on procedure Time out time: 11:50 tenaculum used: Yes dilator used: No Details: Cervix prepped with betadine and pipelle inserted into uterus without complication 7cm. Minimal specimen obtained and sent to lab for analysis. All instruments removed from vagina without complications. Excellent hemostasis noted. Patient tolerated well Assessment AND Plan Problems 1. Postmenopausal bleeding N95.0 Plan Notify of EMB results Ultrasound If above normal may start back on estrogen cream Orders Orders: Coding Level of Care Code No Charge Diagnoses Postmenopausal bleeding N95.0 Additional Codes Endometrial Biopsy (15561) 06/24/18 1315 <Electronically signed by Juana DUNHAM> Date Juana DUNHAM Cosigner Signature: Date (if applicable) CC: ENDOMETRIAL BX/CURETTINGS Observed: 06/24/2018 Status: F Source: [place] 12:00 AM [facility] REPOSITORY Patient: KRYS CANCINO : 1955 (63/F) Acct Num: [id number] Phys: Juana Quintanilla NP Unit Num: [id number] Loc: LABSPEC Specimen: [id number] Received: 06/24/181336 Spec Type: ENDOM BX/C TISSUES 1 TISSUES: Endometrium, NOS GROSS DESCRIPTION Received in fixative is one container labeled with the patient's name and designated endometrial lining. The specimen consists of scant fragments of mucoid tissue. The entire specimen is submitted for cell block preparation. / SJ:alyssa 06/24/18 TC:5 CPT: 59411 HEADER OPERATION: Endometrial biopsy PRE-OP DIAGNOSIS: Abnormal uterine bleeding TISSUE SUBMITTED: Endometrial lining MICROSCOPIC DESCRIPTION Slides are reviewed. MICROSCOPIC DIAGNOSIS Endometrial lining, biopsy: Scant fragments of superficial benign squamous and glandular epithelium. AM:al[place] 06/25/18 Signed Rudy Lo DO 06/25/18 <signature on file> Performed By: #### PEMB #### [facility] [address] [place], [place], [address] PLASTIC PRESS MOLDER OFFICE VISIT Observed: 06/12/2018 Status: F Source: [place] REPORT 11:47 AM [facility] REPOSITORY [facility] [address] [place] [address] OFFICE VISIT Date of Service: 06/12/18 MR#: [id number] Acct: [id number] Name: KRYS CANCINO Rep #: [id number] : 1955 Provider: JELANI Quintanilla Age/Sex: 63/F [place] [facility] [place] Status: Signed Intake Vital Signs06/12/18 Body Mass Index (BMI) 25.7 06/12/18 Height 5 ft 3 in 06/12/18 Weight: 174 lb 2 oz 06/12/18 Body Mass Index (BMI) 30.8 06/12/18 Blood Pressure 128/84 H Intake Visit Reasons: Feels something in vagina Fertilizing Machine Operator Required: No Is patient in pain?: Yes Allergies dextromethorphan [From Vicks NyQuil Cold/Flu Liquicap] Allergy (Mild, Verified 01/21/18 10:30) Unknown doxylamine [From Vicks NyQuil Cold/Flu Liquicap] Allergy (Mild, Verified 01/21/18 10:30) Unknown Medications cholecalciferol (vitamin D3) 1,000 unit capsule 1,000 unit PO ONCE 07/02/17 [History Confirmed 06/12/18] lactobacillus combination no.8 3 billion cell capsule 1 tab PO QDAY 07/02/17 [History Confirmed 06/12/18] levothyroxine 88 mcg tablet 88 mcg PO DAILY 07/02/17 [History Confirmed 06/12/18] pantoprazole 40 mg tablet,delayed release 40 mg PO QHS 07/02/17 [History Confirmed 06/12/18] simvastatin 10 mg tablet 10 mg PO QHS 07/02/17 [History Confirmed 06/12/18] Calcium Carbonate [Calcium] 600 mg PO DAILY 07/12/17 [History Confirmed 06/12/18] estradiol 0.01% (0.1 mg/gram) vaginal cream See Rx Instructions VAGINAL .COMPLEX #42.5 g 06/12/18 [Rx Confirmed 06/12/18] Is last menstrual period known: No Post menopausal: No Patient : No : No Nurse's Note: Pt states she is not having pain, but is seeing something in her vagina and has been kind of achy [facility] Medical History GERD (gastroesophageal reflux disease) (Acute) Hypercholesterolemia (Acute) Hypothyroid (Acute) Surgical History History of section (Acute) History of colonoscopy (Acute) History of esophagogastroduodenoscopy (EGD) (Acute) History of mandibular surgery (Acute) Family History Mother Diabetes Hypertension Thyroid disorder CAD (coronary artery disease) Father Heart disease CAD (coronary artery disease) Sister Breast cancer Hypertension Brother Hypertension CAD (coronary artery disease) Social History Smoking Status: Former smoker alcohol intake: never substance use type: does not use caffeine: Yes what type of physical activity do you participate in: walking frequency: 5-6 times per week seatbelt use: always do you feel safe at home: Yes additional social history: - [place] [employer] HPI Feels something in vagina: Details: KRYS CANCINO is a 63 year old who presents for feels something in vaginal area and states something looks different when checked with mirror. Denies pain, irritation or bleeding. Pregancy History 2 Elective abortions Hx Para 2 Spontaneous abortions Past Pregnancies Del. DatName GA/WeeksOutcome Route Bth WeigInfant GLabor LgAnesthesDel LocaProviderFOB e ht en ia tn Unknown 1981 Koby me Unknown 1986 Alfred sey ROS Const Constitutional: Reports system reviewed and no additional complaints, except as docu GI GI: Denies abdominal pain or change in bowel habits Exam Const General: cooperative, no acute distress Nutritional Appearance: well nourished Orientation: oriented x3 External Female Exam: other (atrophic changes; urethra dilated- area of concern) Speculum Exam - Vagina: atrophic vaginal mucosa Speculum Exam - Cervix: normal appearance of the cervix (stenotic) Bimanual Exam- Vagina AND Uterus: uterine size normal, uterus non-tender Bimanual Exam- Adnexa, other: normal adnexae, cystocele Pelvic Support: cystocele mild Assessment AND Plan Problems 1. Atrophic vaginitis N95.2 2. Midline cystocele N81.11 Plan Area of concern is dilated urethra without caruncle due to atrophic changes. She does have mild cystocele with atrophic vaginal changes. Rx estrace cream as directed and also kegels encouraged RTO prn Medications New: estradiol 0.01%(0.1mg/gram) (Estrace) pea sized amount VAGINAL every other day X 4 weeks t hen twice a week; 42.5 grams 2RF Coding Level of Care Code Off vis,est,level 3 Diagnoses Atrophic vaginitis N95.2 Midline cystocele N81.11 Cystocele location: midline 06/12/18 1147 <Electronically signed by Juana DUNHAM> Date Juana DUNHAM Cosigner Signature: Date (if applicable) CC: INITAL EVALUATION (1) Observed: 04/22/2018 Status: F Source: [place] - PT 12:02 PM [facility] REPOSITORY [facility] [address] [place], [place] [address] Fax REHABILITATION SERVICES INITIAL EVALUATION MR#: [id number] Acct: [id number] Name: KRYS CANCINO Rep #: [id number] : 1955 63 From: Fariba Gee MPT Referring Dr.: Steven Rojas DO Status: REG RCR Insurance: [facility] SELF PAY INSURANCE Patient's Visit Information KRYS CANCINO is a 63 year old F referred to Physical Therapy by Steven Rojas DO with a diagnosis of vertigo. Date of Evaluation: 04/22/18 Physical Therapist: Fariba Gee - Visit Plan Frequency: 1x/Week Duration: 4 Weeks Plan: Pt to call in next week after increaseing the frequency of her VOR cx exercises while walking at home and see if that helps her balance and the occassional dizziness/nausea feeling that she is having. - Subjective Subjective: Pt reports that she is doing her VOR exercises and she was goos when she was in here last time. She had hurt her leg at her last visit at work...she could barely walk because the pain was so intense. When she was in a lot of pain and not doing her exercises standing but doing them sitting. 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 She was starting getting the nauseated feeling again. She is better but still there and she has resumed her standing exercises again. She does not feels that her eyes are jumping. She has been ok with taking notes from the board. She might hace some issue with scrolling onthe Ipad. No room spinning. Her eyes feel floating. She sees neurologist May 16. - Objective - B HALLPIKE B FOR DIZZINESS AND NYSTAGMUS. no dizziness with smooth pursuit, saccades, VOR cx in sitting or standing. no dizziness with picking ball up from the floor and up overhead X 15. Some unsteadiness with standing on foam with doing VOR Cx but she was able to correct her balance - Goals Goal 1:: I HEP Goal Time Frame: 1 Week Goal 2:: Abolish dizziness with ADL's both dynamic and static Goal Time Frame: 2-4 Weeks Goal 3:: Be able to perform dynamic balance and VOR exercises standing on foam without LOB Goal Time Frame: 2-4 Weeks - Rehabilitation Potential Rehabilitation Potential: Good - Anticipated Interventions Patient/Client Instruction: Educate patient on: Condition, Plan of Care For the Purpose of:: To improve muscle performance and motor function, To increase tolerance to activity/condition/position, To improve performance and independence with ADL's, To improve ability of physical actions for home/community/work/leisure, To improve gait and locomotor functions, To decrease soft tissue restriction Therapeutic Exercise to Include: Strength training, Balance training, Coordination, Gait and locomotor training For the Purpose of:: To improve nutrient delivery to tissue, To improve ability to perform ADL's, To increase tolerance to activity/condition/position, To improve gait and locomotor functions, To improve balance Thank you for the opportunity to evaluate your patient. For Medicare and Medicare HMO plans, please review the plan of care and approve it. It will need to be FAXED BACK to us at [phone] for Medicare purposes. Please let me know if there are questions or concerns regarding this plan of care. Physician Signature: Date: <Electronically signed by Fariba Gee MPT> 04/22/18 1202 CC: Steven Rojas DO Signed For Medicare only, by signing this I certify the plan of care. Physicians Signature Date CBC W/DIFF, AUTOMATED Collected: 04/19/2018 Status: F Source: [place] 7:19 AM [facility] REPOSITORY TYPE CODE TESTS RESULT OUT OF RANGE REFERENCE UNITS LAB L100.1000 4.4-11.0 K/mm3 Low WBC 3.5 LAB L100.1200 4.2-5.4 M/mm3 Normal RBC 4.59 LAB L100.1300 12.0-15.0 g/dl Normal HGB 13.4 LAB L100.1400 37-47 % Normal HCT 40.9 LAB L100.1500 81-99 fL Normal MCV 89.1 LAB L100.1600 27.0-32.0 pg Normal MCH 29.2 LAB L100.1700 32-36 g/gl Normal MCHC 32.8 LAB L100.1810 11.6-14.6 % Normal RDW CV 13.1 LAB L100.1820 35.1-43.9 fl Normal RDW SD 42.5 LAB L100.1900 150-450 K/mm3 Normal PLT 194 LAB L100.2000 6.2-12.0 fl Normal MPV 11.3 LAB L100.2100 47-70 % Low NEUT% 42.7 LAB L100.2200 19-41 % High LY% 44.1 LAB L100.2300 0-10 % Normal MONO% 8.3 LAB L100.2400 0-5 % Normal EO% 4.0 LAB L100.2500 0-1 % Normal BASO% 0.9 LAB L100.2550 0.0-0.9 % Normal IM GRAN % 0.000 Result Comment: IG% - Immature Granulocytes (promyelocytes, myelocytes and metamyelocytes) > 1% indicates that a LEFT SHIFT is Present. LAB L100.2620 2.0-7.7 X10 3/uL Low Absolute Neut 1.5 LAB L100.2720 0.83-4.51 X10 3/ul Normal Absolute Lymph 1.54 Performed By: #### L100.0100 #### [facility] [address] [place], [place], [id number] COMPREHENSIVE METABOLIC Collected: 04/19/2018 Status: F Source: [place] [facility] 7:19 AM [facility] REPOSITORY TYPE CODE TESTS RESULT OUT OF RANGE REFERENCE UNITS LAB L501.0100 74-106 mg/dL Normal GLU 77 Result Comment: Please note revised GLUCOSE reference range effective 2017. LAB L501.1000 7-18 mg/dL Normal BUN 16 LAB L501.1100 0.55-1.02 mg/dL Normal CREAT,SERUM 0.82 Result Comment: The validity of the calculated GFR AND GFRAA in patients over 70 years has not been determined. Clinical correlation is essential. LAB L501.1110 >60 mL/min Normal EST GFR 75 Result Comment: Non- GFR Calc LAB L501.1115 >60 mL/min Normal EST GFR - AA 91 Result Comment: GFR Calc LAB L501.1300 10-20 RATIO Normal BUN/CRE 19.6 LAB L501.1500 6.4-8.2 g/dL T Normal PROT 7.3 LAB L501.1800 3.2-5.0 g/dL Normal ALB 3.6 LAB L501.1950 2.2-4.2 g/dL Normal GLOB 3.7 LAB L501.2000 0.9-2.4 RATIO Normal A/G 1.0 LAB L501.2200 8.5-10.1 mg/dL CA Normal 8.5 LAB L501.4100 15-37 U/L Normal AST 17 LAB L501.4305 45-117 U/L Normal ALK P 111 LAB L501.4405 13-56 U/L Normal ALT 19 LAB L501.4600 0.20-1.00 mg/dL T Normal BILI 0.40 LAB L501.5300 136-145 mmol/L NA Normal 142 LAB L501.5600 3.5-5.1 mmol/L K Normal 4.5 LAB L501.5900 98-107 mmol/L CL Normal 107 LAB L501.6100 21.0-32.0 mmol/L Normal CO2 30.0 LAB L501.6200 5-15 Normal GAP 5 Performed By: #### L500.4050, L500.4100, L501.9520, L506.0400 #### [facility] [address] [place], [address] LIPID PROFILE Collected: 04/19/2018 Status: F Source: ALIS 7:19 AM [facility] REPOSITORY TYPE CODE TESTS RESULT OUT OF RANGE REFERENCE UNITS LAB L501.4900 200 mg/dL Normal CHOL 160 Result Comment: <200 mg/dL Desirable 200-240 mg/dL Borderline >240 mg/dL High Risk LAB L501.5000 mg/dL Normal TRIG 40 Result Comment: The drugs N-Acetylcysteine and Metamizole may falsely depress this assay. Serum Triglycerides Reference Interval Normal <150 mg/dL Borderline high 150 - 199 mg/dL High 200 - 499 mg/dL Very High > or = 500 mg/dL LAB L501.6400 mg/dL Normal HDL 65 Result Comment: The drugs N-Acetylcysteine and Metamizole may falsely depress this assay. Reference Range HDL <40 mg/dL Low HDL Cholesterol HDL >or= 60 mg/dL High HDL Cholesterol LAB L501.6500 0-130 mg/dL Normal LDL 87 LAB L501.6600 5-40 mg/dL Normal VLDL 8 Performed By: #### L500.4050, L500.4100, L501.9520, L506.0400 #### [facility] [address] [place], [address] THYROID STIM HORMONE Collected: 04/19/2018 Status: F Source: FOLCROFT (TSH) 7:19 AM [facility] REPOSITORY TYPE CODE TESTS RESULT OUT OF RANGE REFERENCE UNITS LAB L501.9520 0.358-3.74 uIU/mL Normal TSH 1.38 Performed By: #### L500.4050, L500.4100, L501.9520, L506.0400 #### [facility] [address] [place], [address] T4 FREE DIRECT Collected: 04/19/2018 Status: F Source: [place]FT 7:19 AM [facility] REPOSITORY TYPE CODE TESTS RESULT OUT OF RANGE REFERENCE UNITS LAB L506.0400 0.76-1.46 ng/dL Normal T4 FREE 1.35 DIRECT Performed By: #### L500.4050, L500.4100, L501.9520, L506.0400 #### [facility] [address] [place], [address] VITAMIN D,25 HYDROXY Collected: 04/19/2018 Status: F Source: [place] 7:19 AM [facility] REPOSITORY TYPE CODE TESTS RESULT OUT OF RANGE REFERENCE UNITS LAB L506.1000 29.95-100.01 ng/mL Normal Vitamin D 54.5 25-OH Result Comment: Vitamin D 25(OH) Status Range Deficiency <20 ng/mL (50nmol/L) Insuffciency 20 - 30 ng/mL (50 - 75 nmol/L) Sufficiency 30 - 100 ng/mL (75 - 250 nmol/L) Toxicity >100 ng/mL (>250 nmol/L) Performed By: #### L506.1000 #### [facility] [address] [place], [address] PT D/C SUMMARY (1) Observed: 03/19/2018 Status: F Source: [place] 6:57 PM [facility] REPOSITORY [facility] [address] [place] [address] Fax REHABILITATION SERVICES DISCHARGE SUMMARY MR#: [id number] Acct: [id number] Name: KRYS CANCINO Rep #: [id number] : 1955 63 From: Fariba Gee MPT Referring Dr.: Steven Rojas DO Status: REG RCR Insurance: [facility] SEL[employer] PAY INSURANCE HP - PT D/C Summary It has been my pleasure to treat KRYS CANCINO under orders from Steven Rojas DO, for the diagnosis of dizziness and giddiness for a total of 5 visit(s). Discharge Date: 03/19/18 Please see the following information for a summary of their discharge status. - Subjective Subjective: Pt reports that she slipped on spilled liquid in the cafeteria and hurt her L hip and back and she is probably going to see MD about it. Pt reports that she only gets a slight sign of any dizziness once in awhile and she is continuing to do her exercises. - Pain R hip and back Pain Intensity (Out of 10): Unrated - Overall Improvement % Improvement: 90 - Objective Objective/Function: No dizziness today with any dynamic VOR exercises - Goals Goal 1:: I HEP Goal Progress: Goal Met Goal 2:: Abolish dizziness with rolling in bed Goal Progress: Goal Met Goal 3:: Test FGA - Plan Plan: DC PT to HEP - D/C Information Discharge Comments: DC PT to HEP If there are questions or concerns regarding this patient's physical therapy, please feel free to call me at [phone]. Thank you for the referral of this patient. Sincerely, Fariba Gee <Electronically signed by Fariba FISHER> 03/19/18 1857 CC: Steven Rojas DO Signed INITAL EVALUATION (1) Observed: 02/21/2018 Status: F Source: ALIS - PT 1:54 PM [facility] REPOSITORY [facility] [address]. [address] [place] [address] Fax REHABILITATION SERVICES INITIAL EVALUATION MR#: [id number] Acct: [id number] Name: KRYS CANCINO Rep #: [id number] : 1955 63 From: Fariba FISHER Referring Dr.: Steven Rojas DO Status: REG RCR Insurance: [facility] [employer]EL[employer] PAY INSURANCE Patient's Visit Information KRYS CANCINO is a 63 year old F referred to Physical Therapy by Steven Rojas DO with a diagnosis of dizziness and giddiness. Date of Evaluation: 02/21/18 Physical Therapist: Fariba Gee - Visit Plan Frequency: 1-2x /Week Duration: 4 Weeks Plan: 1-2X/ week for re-testing positional vertigo, checking VOR, FGA, balance with HEP - Subjective Subjective: Pt reports that in her late 20's she experienced positional vertigo that lasted a few years and then did not have it at all but lately at the end of November laying on Couch and rolled to R and got dizzy and then started to get dizziness. Her last dizzy spell was in the fall. MRI was done and read effusion in R mastoid. Her positional vertigo had gone away but she still had the motion sickness ( FERRO and nausea and funny feeling in eyes). If at grocery store she would feel awful almost like an overload but around her apartment she feels ok. They did a CATSCAN and all came back clear.... mild mastosis...nothing to treat. Positional vertigo comes back again and physician puts her on valium and made it worse and then she was on diazapam and that made her worse too and goes for a car ride and looks R and L and made her ill and nauseated. She takes the bonine and has felt better and able to get through the day. Looking up and down from the black board and down to the paper and would get dizzy. Sometimes putting make up on she will get dizzy. Sometimes getting onthe computer scrolling it makes her dizzy. Saw Dr Rojas because she is getting through the day but she is tired and wants to close her eyes. Sometimes still dizzy when roll to the R. No dizziness in morning when she gets up. Getting up out of a tanning bed is worse than getting out of bed. No falls. - Objective + R Hallpike for dizziness and upward torsional nystagmus that lasted about 20 seconds and stopped. Performed R Eply from the Hallpike position. Re- tested R Hallpike and pt had no dizziness and no nystagmus...went ahead and did the R Eply again - Goals Goal 1:: I HEP Goal Time Frame: 4-6 Weeks Goal 2:: Abolish dizziness with rolling in bed Goal Time Frame: 4-6 Weeks Goal 3:: Test FGA Goal Time Frame: 1 Week - Rehabilitation Potential Rehabilitation Potential: Good - Anticipated Interventions Patient/Client Instruction: Educate patient on: Condition, Plan of Care For the Purpose of:: To increase ROM, To improve muscle performance and motor function, To improve ability to perform ADL's, To increase tolerance to activity/condition/position, To improve performance and independence with ADL's, To improve balance Therapeutic Exercise to Include: Strength training, Balance training, Coordination, Gait and locomotor training, Passive ROM, Active ROM For the Purpose of:: To improve muscle performance and motor function, To improve ability to perform ADL's, To increase tolerance to activity/condition/position, To improve performance and independence with ADL's, To improve ability of physical actions for home/community/work/leisure, To improve balance Manual Therapy Techniques to Include: Other Comment: EPLY For the Purpose of:: To improve muscle performance and motor function, To improve ability to perform ADL's, To increase tolerance to activity/condition/position, To improve performance and independence with ADL's, To improve ability of physical actions for home/community/work/leisure Thank you for the opportunity to evaluate your patient. For Medicare and Medicare HMO plans, please review the plan of care and approve it. It will need to be FAXED BACK to us at [phone] for Medicare purposes. Please let me know if there are questions or concerns regarding this plan of care. Physician Signature: Date: <Electronically signed by Fariba eGe MPT> 02/21/18 1354 CC: Steven Rojas DO Signed For Medicare only, by signing this I certify the plan of care. Physicians Signature Date SCREENING MAMM (CAD), Observed: 02/07/2018 Status: F Source: [facility] 6:57 AM [facility] REPOSITORY [facility] Imaging Services [address] [place] [address] SCREENING MAMM (CAD), BIL MR#: [id number] Acct: [id number] Name: KRYS CANCINO Rep #: [id number] : 1955 F 63 From: Andrae Jonas MD PCP: Steven Rojas DO Status: REG CLI Study: SCREENING MAMM (CAD), BILAT Date of Exam: 02/07/18 Exam# [id number] Ordering Dr: Jonna Khan MD MAMMOGRAPHY - BILATERAL SCREENING REASON FOR EXAM: Female, 63 years old. Routine annual screening examination. PERTINENT HISTORY: Sister with breast cancer. TECHNIQUE: Digital bilateral breast chetan (3D mammographic acquisition) in the CC and MLO projections. 2-D mediolateral oblique (MLO) and craniocaudad (CC) views of both breasts were obtained. CAD: Full Field Digital Mammography with Computer Added Detection was performed. COMPARISON: Comparison is made with prior examination dated October 24, 2016 and October 04, 2015. FINDINGS: Breast Composition: There are scattered areas of fibroglandular density. There are no dominant masses or suspicious calcifications. Stable benign-appearing bilateral axillary lymph nodes. No other significant abnormalities are identified. There has been no significant change since the prior study. BI/SCREENING MAMM (CAD), BILAT IMPRESSION: Stable bilateral screening mammogram. Yearly follow-up mammogram recommended. (A) ASSESSMENT CATEGORY: BIRADS Category 2: Benign. A letter regarding these results will be sent to the patient by the facility within 30 days. Approximately 10% of breast cancers are not detected by mammography. A normal mammogram should not delay biopsy of a clinically suspicious abnormality. 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 Is patient in pain?: No Allergies dextromethorphan [From [facility]icks NyQuil Cold/Flu Liquicap] Allergy (Mild, Verified 01/21/18 10:30) Unknown doxylamine [From [facility]icks NyQuil Cold/Flu Liquicap] Allergy (Mild, Verified 01/21/18 10:30) Unknown Medications cholecalciferol (vitamin D3) 1,000 unit capsule 1,000 unit PO ONCE 07/02/17 [History Confirmed 01/21/18] lactobacillus combination no.8 3 billion cell capsule 1 tab PO QDAY 07/02/17 [History Confirmed 01/21/18] levothyroxine 88 mcg tablet 88 mcg PO DAILY 07/02/17 [History Confirmed 01/21/18] pantoprazole 40 mg tablet,delayed release 40 mg PO QHS 07/02/17 [History Confirmed 01/21/18] simvastatin 10 mg tablet 10 mg PO QHS 07/02/17 [History Confirmed 01/21/18] Calcium Carbonate [Calcium] 600 mg PO DAILY 07/12/17 [History Confirmed 01/21/18] Is last menstrual period known: No Post menopausal: Yes Patient : No : No PFSH Medical History GERD (gastroesophageal reflux disease) (Acute) Hypercholesterolemia (Acute) Hypothyroid (Acute) Surgical History History of section (Acute) History of colonoscopy (Acute) History of esophagogastroduodenoscopy (EGD) (Acute) History of mandibular surgery (Acute) Family History Mother Diabetes Hypertension Thyroid disorder CAD (coronary artery disease) Father Heart disease CAD (coronary artery disease) Sister Breast cancer Hypertension Brother Hypertension CAD (coronary artery disease) Social History Smoking Status: Former smoker alcohol intake: never substance use type: does not use caffeine: Yes what type of physical activity do you participate in: walking frequency: 5-6 times per week seatbelt use: always do you feel safe at home: Yes additional social history: - [employer] Pregancy History 2 Elective abortions Hx Para 2 Spontaneous abortions Past Pregnancies Del. DatName KAREN/WeeksOutcome Route [facility] LgAnesthesDel LocaProviderFOB e ht en ia tn Unknown 1981 Koby me Unknown 1986 Alfred sey HPI ANNUAL: Details: KRYS CANCINO is a 63 year old who presents for annual exam. sees Steven Rojas. 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 Encounter for gynecological examination without abnormal finding Z01.419 2. Encounter for screening mammogram for malignant neoplasm of breast Z. Plan Cervical cancer screening: pap u pto date 2016 Breast cancer screening: mamm other health maintenance examination reviewed and orders placed if needed. Encouraged maintenance of a healthy weight and active lifestyle and handout given. Annual exam handout including recommendations for good health guidelines, Calcium/vitamin D recommendations, and basic screening information given. Problem list up to date, see problem list details for any additional plan information. Follow up in one year for annual health maintenance exam or sooner if needed. Orders Orders: Coding Level of Care Code Off vis,new,prev 40-64yrs Diagnoses Encounter for gynecological examination without abnormal finding Z01.419 Gynecological examination findings: abnormal findings ABSENT Encounter for screening mammogram for malignant neoplasm of breast Z12.31 01/21/18 1116 <Electronically signed by Jonna Khan MD> Date Jonna Khan MD Cosigner Signature: Date (if applicable) CC: ABA HERNANDEZ Observed: 01/17/2018 Status: F Source: ALIS FOSSA EAR W/WO 7:08 AM [facility] REPOSITORY [facility] Imaging Services [address] [place] [address] [place] [address] Orb Selltristen Post Fossa Ear W/WO MR#: [id number] Acct: [id number] Name: KRYS CANCINO Rep #: [id number] : 1955 F 63 From: Ross Mcmahan MD PCP: Steven Rojas DO Status: REG CLI Study: Orb Sella Post Fossa Ear W/WO Date of Exam: 01/17/18 Exam# [id number] Ordering Dr: Jacinta Jackson MD STUDY: CT TEMPORAL BONES WITH AND WITHOUT CONTRAST - ATTN: I.A.C. S REASON FOR EXAM: Female, 63 years old. Right mastoid effusion on MRI with vertigo for 7 weeks RADIATION DOSAGE (If Supplied By Facility): CTDIvol = ( 82.28 ) mGy, DLP = ( 1736.98 ) mGycm TECHNIQUE: The patient was scanned in a multi detector CT scanner. Transaxial imaging was performed prior to and following the administration of 100 ml of Isovue 370 intravenous contrast material. Sagittal and coronal images were reconstructed. Individualized dose optimization techniques were used for this CT. COMPARISON: MRI brain 12/25/2017 FINDINGS: RIGHT TEMPORAL BONE Normal right internal auditory canal. There is no demonstrated enhancing abnormality. Normal visualized ossicles and tympanic cavity. Normal right cochlea and semicircular canals. Normal vestibular aqueduct. Normal right petrous carotid artery. Normal right jugular fossa. Mild inferior right-sided mastoiditis without coalescence. No extension into the aditus ad antrum. The adjacent transverse and sigmoid venous sinuses are patent. No Bezoldt abscess is seen. Normal right petrous apex. LEFT TEMPORAL BONE Normal left internal auditory canal. There is no demonstrated enhancing abnormality. Normal visualized ossicles and tympanic cavity. Normal left cochlea and semicircular canals. Normal vestibular aqueduct. Normal left petrous carotid artery. Normal right jugular fossa. Normal left mastoid air cells. Normal left petrous apex. CT/Orb Sella Post Fossa Ear W/WO IMPRESSION: Mild inferior right-sided mastoiditis without coalescence or adjacent complication. Electronically Signed: Ross Mcmahan MD at 6:23 EDT Tel , Service support , CC: Jacinta Jackson MD; Steven Rojas DO Fire Fighter: Signed BRAIN W/WO CONTRAST Observed: 12/25/2017 Status: F Source: [place]OL[place]FT 4:57 PM [facility] REPOSITORY [facility] Imaging Services [address] [place] [address] Brain W/WO Contrast MR#: [id number] Acct: [id number] Name: KRYS CANCINO Rep #: [id number] : 1955 F 62 From: Rick Cesar DO PCP: Steven Rojas DO Status: REG CLI Study: Brain W/WO Contrast Date of Exam: 12/25/17 Exam# [id number] Ordering Dr: Steven Rojas DO STUDY: MRI BRAIN WITH AND WITHOUT CONTRAST REASON FOR EXAM: Female, 62 years old. Headache with intermittent vertigo. TECHNIQUE: Standardized multiplanar fat and water weighted pulse sequences were obtained. 7 ml of Gadavist contrast material was administered intravenously for the contrast portion of the examination. COMPARISON: None. FINDINGS: Normal size of the ventricles and extra-axial spaces for the patient's age. There are multiple white matter hyperintensities, distributed throughout the deep white matter tracts of the cerebral hemispheres, consistent with moderate chronic white matter ischemic changes. There is no evidence for recent intracranial ischemia or other cause of cytotoxic edema on diffusion weighted imaging (DWI). Normal T2* images of the brain without demonstrated susceptibility artifact. There is no demonstrated hemosiderin stain. Normal bilateral basal ganglia. Normal thalami. There is no extra-axial fluid accumulation. Normal flow voids within the major intracranial circulation suggesting patency by spin echo criteria. Normal venous enhancement. There is no enhancing intra-axial or extra-axial abnormality. Normal sella turcica, pituitary gland, infundibular stalk, optic chiasm and hypothalamus. Normal tectal plate and pineal gland. Normal midbrain, raffi and medulla. Normal cerebellum. Normal basal cisterns. Normal bilateral temporal bones. Normal bilateral internal auditory canals. Right mastoid effusion is present. No demonstrated orbital abnormality, within the constraints of a routine brain study. Normal visualized paranasal sinuses. Normal calvarium and skull base. Normal visualized soft tissue structures. Normal visualized upper cervical spine. MRI/Brain W/WO Contrast IMPRESSION: 1. Senescent changes with no evidence of acute intracranial bleed, mass or ischemia. 2. Right mastoid effusion, clinically correlate for congestive versus inflammatory process. Electronically Signed: Rick Cesar DO at 21:32 EDT , Service support , CC: Steven Rojas DO Fire Fighter: Signed CBC W/DIFF, AUTOMATED Collected: 12/13/2017 Status: F Source: ALIS 10:11 AM [facility] REPOSITORY TYPE CODE TESTS RESULT OUT OF RANGE REFERENCE UNITS LAB L100.1000 4.4-11.0 K/mm3 Low WBC 4.3 LAB L100.1200 4.2-5.4 M/mm3 Normal RBC 4.82 LAB L100.1300 12.0-15.0 g/dl Normal HGB 13.9 LAB L100.1400 37-47 % Normal HCT 42.3 LAB L100.1500 81-99 fL Normal MCV 87.8 LAB L100.1600 27.0-32.0 pg Normal MCH 28.8 LAB L100.1700 32-36 g/gl Normal MCHC 32.9 LAB L100.1810 11.6-14.6 % Normal RDW CV 13.4 LAB L100.1820 35.1-43.9 fl Normal RDW SD 42.7 LAB L100.1900 150-450 K/mm3 Normal PLT 181 LAB L100.2000 6.2-12.0 fl Normal MPV 11.9 LAB L100.2100 47-70 % Normal NEUT% 58.2 LAB L100.2200 19-41 % Normal LY% 30.8 LAB L100.2300 0-10 % Normal MONO% 8.9 LAB L100.2400 0-5 % Normal EO% 1.9 LAB L100.2500 0-1 % Normal BASO% 0.2 LAB L100.2550 0.0-0.9 % Normal IM GRAN % 0.000 Result Comment: IG% - Immature Granulocytes (promyelocytes, myelocytes and metamyelocytes) > 1% indicates that a LEFT SHIFT is Present. LAB L100.2620 2.0-7.7 X10 3/uL Normal Absolute Neut 2.5 LAB L100.2720 0.83-4.51 X10 3/ul Normal Absolute Lymph 1.32 Performed By: #### L100.0100, L101.9900 #### [facility] [address] [place], [place], [address] ERYTHROCYTE SED RATE Collected: 12/13/2017 Status: F Source: [place] 10:11 AM [facility] REPOSITORY TYPE CODE TESTS RESULT OUT OF RANGE REFERENCE UNITS LAB L102.0000 0-30 mm/hr Normal SED RATE 8 Performed By: #### L100.0100, L101.9900 #### [facility] [address] [facility] [address] [place], [place], [address] COMPREHENSIVE METABOLIC Collected: 12/13/2017 Status: F Source: [facility] 10:11 AM [facility] REPOSITORY TYPE CODE TESTS RESULT OUT OF RANGE REFERENCE UNITS LAB L501.0100 74-106 mg/dL Normal GLU 83 Result Comment: Please note revised GLUCOSE reference range effective 2017. LAB L501.1000 7-18 mg/dL Normal BUN 10 LAB L501.1100 0.55-1.02 mg/dL Normal CREAT,SERUM 0.89 Result Comment: The validity of the calculated GFR AND GFRAA in patients over 70 years has not been determined. Clinical correlation is essential. LAB L501.1110 >60 mL/min Normal EST GFR 69 Result Comment: Non- GFR Calc LAB L501.1115 >60 mL/min Normal EST GFR - AA 83 Result Comment: GFR Calc LAB L501.1300 10-20 RATIO Normal BUN/CRE 11.3 LAB L501.1500 6.4-8.2 g/dL T Normal PROT 7.6 LAB L501.1800 3.2-5.0 g/dL Normal ALB 4.1 LAB L501.1950 2.2-4.2 g/dL Normal GLOB 3.5 LAB L501.2000 0.9-2.4 RATIO Normal A/G 1.2 LAB L501.2200 8.5-10.1 mg/dL CA Normal 8.9 LAB L501.4100 15-37 U/L Normal AST 21 LAB L501.4305 45-117 U/L Normal ALK P 62 LAB L501.4405 13-56 U/L Normal ALT 21 LAB L501.4600 0.20-1.00 mg/dL T Normal BILI 0.80 LAB L501.5300 136-145 mmol/L NA Normal 142 LAB L501.5600 3.5-5.1 mmol/L K Normal 4.0 LAB L501.5900 98-107 mmol/L CL Normal 106 LAB L501.6100 21.0-32.0 mmol/L Normal CO2 29.0 LAB L501.6200 5-15 Normal GAP 7 Performed By: #### L500.4050, L500.4100, L501.9520, L506.0400 #### [facility] [address] [place], [address] LIPID PROFILE Collected: 12/13/2017 Status: F Source: [facility] 10:11 AM [facility] REPOSITORY TYPE CODE TESTS RESULT OUT OF RANGE REFERENCE UNITS LAB L501.4900 200 mg/dL High CHOL 203 Result Comment: <200 mg/dL Desirable 200-240 mg/dL Borderline >240 mg/dL High Risk LAB L501.5000 mg/dL Normal TRIG 100 Result Comment: The drugs N-Acetylcysteine and Metamizole may falsely depress this assay. Serum Triglycerides Reference Interval Normal <150 mg/dL Borderline high 150 - 199 mg/dL High 200 - 499 mg/dL Very High > or = 500 mg/dL LAB L501.6400 mg/dL Normal HDL 63 Result Comment: The drugs N-Acetylcysteine and Metamizole may falsely depress this assay. Reference Range HDL <40 mg/dL Low HDL Cholesterol HDL >or= 60 mg/dL High HDL Cholesterol LAB L501.6500 0-130 mg/dL Normal LDL 120 LAB L501.6600 5-40 mg/dL Normal VLDL 20 Performed By: #### L500.4050, L500.4100, L501.9520, L506.0400 #### [facility] [address] [place], [address] THYROID STIM HORMONE Collected: 12/13/2017 Status: F Source: ALIS (TSH) 10:11 AM [facility] REPOSITORY TYPE CODE TESTS RESULT OUT OF RANGE REFERENCE UNITS LAB L501.9520 0.358-3.74 uIU/mL Normal TSH 1.57 Performed By: #### L500.4050, L500.4100, L501.9520, L506.0400 #### [facility] [address] [place], [address] T4 FREE DIRECT Collected: 12/13/2017 Status: F Source: ALIS 10:11 AM [facility] REPOSITORY TYPE CODE TESTS RESULT OUT OF RANGE REFERENCE UNITS LAB L506.0400 0.76-1.46 ng/dL Normal T4 FREE 1.28 DIRECT Performed By: #### L500.4050, L500.4100, L501.9520, L506.0400 #### [facility] [address] [place], [address] DEXA BONE DENSITY Observed: 11/26/2017 Status: F Source: ALIS STUDY 12:13 PM [facility] REPOSITORY [facility] Imaging Services [address] [place] [address] Dexa Bone Density Study MR#: [id number] Acct: [id number] Name: KRYS CANCINO Rep #: [id number] : 1955 F 62 From: Andrae Jonas MD PCP: Steven Rojas DO Status: REG CLI Study: Dexa Bone Density Study Date of Exam: 11/26/17 Exam# [id number] Ordering Dr: Steven Rojas DO STUDY: DUAL ENERGY X-RAY ABSORPTIOMETRY / DXA REASON FOR EXAM: Female, 62 years old. The patient is postmenopausal. Loss of height. TECHNIQUE: Bone Mineral Density (BMD) measurements of lumbar spine and bilateral hips were obtained. COMPARISON: Comparison is made with prior study dated May 17, 2015. FINDINGS: Lumbar Spine (L1-L4): g/cm2 (1.049) / T-score (-1.3) / Z-score (0.1) Findings are suggestive of osteopenia with a moderate fracture risk. Left Femur Total: g/cm2 (0.936) / T-score (-0.6) / Z- score (0.4) Left Femoral Neck: g/cm2 (0.838) / T-score (-1.4) / Z- score (-0.1) Right Femur Total: g/cm2 (0.889) / T-score (-0.9) / Z- score (0.1) Right Femoral Neck: g/cm2 (0.821) / T-score (-1.6) / Z-score (-0.2) The T-Scores on the most recent prior examination were: Lumbar Spine (L1-L4): There has been improvement of bone density since the previous examination. Left Femur Total: which represents an improvement of 1.3%. Right Femur Total: which represents a worsening of 3.2%. BD/Dexa Bone Density Study IMPRESSION: The patient is considered osteopenic as outlined below according to World Ken Organization (WHO) criteria with a moderate fracture risk. There has been improvement of bone density since the previous examination. Reference Information: The T-score is the number of standard deviations above or below the standard which is normal for young adults at their peak bone mineral density. The World Health Organization (WHO) interprets the T-scores as follows: Above -1 Normal bone density Between -1 and -2.5 Osteopenia Equal to / or below -2.5 Osteoporosis As a practical clinical guideline, osteopenia may be graded as follows: Mild -1 through -1.5 Moderate -1.6 through -2.0 Severe -2.1 through -2.4 The Z-score is the number of standard deviations above or below age-matched controls. A Z-score of less than -1.5 would be considered abnormal. References: 1. NIH Osteoporosis and Related Bone Diseases http://www.osteo.org 2. International Society for Clinical Densitometry http://www.iscd.org 3. National Osteoporosis Foundation http://www.nof.org Electronically Signed: Andrae Jonas MD at 8:40 EDT Tel [phone], Service support , CC: Steven Rojas DO Fire Fighter: Signed LIPID PROFILE Collected: 10/18/2017 Status: F Source: ALIS 6:27 AM [facility] REPOSITORY TYPE CODE TESTS RESULT OUT OF RANGE REFERENCE UNITS LAB L501.4900 200 mg/dL Normal CHOL 171 Result Comment: <200 mg/dL Desirable 200-240 mg/dL Borderline >240 mg/dL High Risk LAB L501.5000 mg/dL Normal TRIG 77 Result Comment: The drugs N-Acetylcysteine and Metamizole may falsely depress this assay. Serum Triglycerides Reference Interval Normal <150 mg/dL Borderline high 150 - 199 mg/dL High 200 - 499 mg/dL Very High > or = 500 mg/dL LAB L501.6400 mg/dL Normal HDL 66 Result Comment: The drugs N-Acetylcysteine and Metamizole may falsely depress this assay. Reference Range HDL <40 mg/dL Low HDL Cholesterol HDL >or= 60 mg/dL High HDL Cholesterol LAB L501.6500 0-130 mg/dL Normal LDL 90 LAB L501.6600 5-40 mg/dL Normal VLDL 15 Performed By: #### L500.4100, L501.9520 #### [facility] [address] [place], [address] THYROID STIM HORMONE Collected: 10/18/2017 Status: F Source: ALIS (TSH) 6:27 AM [facility] REPOSITORY TYPE CODE TESTS RESULT OUT OF RANGE REFERENCE UNITS LAB L501.9520 0.358-3.74 uIU/mL Normal TSH 0.63 Performed By: #### L500.4100, L501.9520 #### [facility] [address] [place], [address] OPERATIVE REPORT Observed: 07/15/2017 Status: F Source: ALIS 1:08 PM [facility] REPOSITORY [facility] Medical Records Department [address] [place] [address] Operative Report 07/15/17 1305 MR#: [id number] Acct: [id number] Name: KRYS CANCINO Rep #: [id number] : 1955 62 From: Sylvie Mireles MD PCP: Steven Rojas DO Status: DEP [facility] Y Location: EN Report of Operation Date of Procedure: 07/15/17 Pre-Operative Diagnosis: GERD, screening for colon cancer Post-Operative Diagnosis: GERD, small hiatal hernia, normal colon Surgery/Procedure Performed:: EGD with cold forceps biopsy, colonoscopy Type of Anesthesia:: MAC Anesthesiologist: Dimitrios Guerrero Specimen's removed: 1. Antral biopsy, 2. GE junction biopsy Estimated Blood Loss (mL): Minimal Description of Procedure: Procedure: EGD with biopsy After obtaining informed consent, the endoscope was passed under direct visualization. Throughout the procedure, patient's blood pressure, pulse, oxygen saturations were monitored continuously by anesthesia. The endoscope was introduced through the mouth and advanced to the 2nd part of the duodenum. The upper GI endoscopy was accomplished without difficulty. Patient tolerated procedure well. Findings: Small hiatal hernia was present. Minimal erythematous mucosa found gastric antrum and change of mucosa was noted at the GE junction. Biopsies were taken with cold biopsy for histology. Estimated blood loss was minimal. The duodenum was normal. Impression: 1. Small hiatal hernia 2. Erythematous mucosa in the antrum and GE junction. Biopsied. 3. Normal examined duodenum Recommendations: Continue PPI and raniditine Await biopsies Procedure: Colonoscopy After reviewing the risks benefits, the patient was deemed in satisfactory condition to undergo procedure. After obtaining informed consent, the scope was passed under direct visualization. Throughout the procedure, the patient's blood pressure pulse and position saturations were monitored continuously anesthesia. The colonoscope was introduced through the anus and advanced to the cecum, identified by the appendiceal orifice, IC valve and transillumination. The colonoscopy was performed without difficulty. The patient tolerated procedure well. Quality of bowel prep was good. Findings: The perianal and digital rectal exam were normal. The colon (entire examined portion) appeared normal. Retroflexed view of the distal rectum and anal verge was normal and showed no anal or rectal abnormalities Impression: 1. The entire colon is normal. 2. The distal rectal and anal verge were normal on retroflexed view. Recommendations: Repeat colonoscopy in 10 years for screening purposes - Complications none 07/15/17 1308 <Electronically signed by Sylvie Mireles MD> Date Sylvie Mireles MD CC: Steven Rojas DO; Sylvie Mireles MD Signed EGD ([facility] SITE) Observed: 07/15/2017 Status: F Source: ALIS 10:23 AM [facility] REPOSITORY Patient: KRYS CANCINO : 1955 (62/F) Acct Num: [id number] Phys: Sylvie Mireles MD Unit Num: [id number] Loc: EN Specimen: [id number] Received: 07/15/171517 Spec Type: EGD BIOPSY TISSUES TISSUES: A. Gastric mucous membrane B. Gastric mucous membrane COMMENT A. The results of immunohistochemistry for Helicobacter pylori will be reported separately ([id number]). B. Alcian blue/PAS stain with matched control is used in the evaluation of the specimen. GROSS DESCRIPTION A - Received in fixative is one container labeled with the patient's name and designated antral biopsy for path and H. pylori. The specimen consists of two irregular fragments of light haskins soft tissue that in aggregate measure 0.3 x 0.2 x 0.1 cm. The specimen is totally submitted in one cassette. B - Received in fixative is one container labeled with the patient's name and designated GE junction biopsy. The specimen consists of multiple irregular fragments of light haskins soft tissue that in aggregate measure 0.8 x 0.2 x 0.1 cm. The specimen is totally submitted in one cassette. / SJ:alyssa 07/16/17 TC:3 CPT: 97101 x2, 83010 HEADER OPERATION: EGD PRE-OP DIAGNOSIS: GERD TISSUE SUBMITTED: A Antral biopsy for path and H. pylori, B GE junction biopsy MICROSCOPIC DESCRIPTION Slides are reviewed. A. The specimen shows fragments of gastric mucosa with chronic inflammatory cell infiltrates in the lamina propria consisting of lymphocytes and plasma cells, consistent with mild chronic gastritis. MICROSCOPIC DIAGNOSIS A. Antral biopsy: Mild gastritis. B. GE junction, biopsy: Fragments of gastroesophageal mucosa with mild chronic inflammation. Intestinal metaplasia (goblet cell metaplasia) is not identified. SJ:alyssa 07/17/17 Signed Terence Hernandez 07/17/17 <signature on file> Performed By: #### PEGD #### [facility] [address] [place] [address]. [place], [place], [address] IMMUNOHISTOCHEMISTRY Observed: 07/15/2017 Status: F Source: FOLCROFT 12:00 AM [facility] REPOSITORY Patient: KRYS CANCINO : 1955 (62/F) Acct Num: [id number] Phys: Chi AVINA,Sylvie Unit Num: [id number] Loc: EN Specimen: [id number] Received: 07/17/17 - 1019 Spec Type: IMMUNO TISSUES TISSUES: A. Stomach, NOS SPECIMEN INFORMATION: Tissue Source: A Antral biopsy Clinical Info: GERD Specimen Number: [id number] CPT code: 36164 METHODOLOGY: Deparaffinized sections of prefer/formalin-fixed tissue or PAP/DQ stained slides are incubated with monoclonal/polyclonal antibodies/oligonucleotide probes. Localization is made via biotin free immunoperoxidase method. Appropriate controls are performed and reacted as expected. Results on target cell population are indicated in the following table: RESULTS: ANTIBODY / CLONE RESULT Block A H Pylori (polyclonal) negative These tests were developed and their performance characteristics determined by [facility]. They may not have been cleared or approved by the U.S. Food and Drug Administration. The FDA has determined that such clearance or approval is not necessary. INTERPRETATION: A. Antral biopsy: Negative for Helicobacter pylori organisms. SJ:alyssa 07/17/17 PHYSICIAN AND INSTITUTION [address] [address] Signed Terence Hernandez 07/17/17 <signature on file> Performed By: #### PIMM #### [facility] [address], [address] ALLERGIES ALLERGIES DATE TYPE / CODE NAME / CODE REACTION SEVERITY SOURCE 06/24/2018 Drug dextromethor Unknown [facility] Allergy/4160 mas/[id number] Hospital 94371(SNOMED 427(RXNORM) Repository CT) 06/24/2018 Drug doxylamine/F Unknown [facility] Allergy/4160 [id number](RX Hospital 46392(SNOMED NORM) Repository CT) ENCOUNTERS ENCOUNTERS ADMIT/DISCHARGE ACCOUNT ADMITTING ENCOUNTER LOCATION SOURCE NUMBER CLASS 07/02/2018 [id number] Ambulatory [place] [address] [facility] ing:PT Repository 07/01/2018 [id number] Ambulatory [place] [address] [facility] ing:OPUS Repository 06/24/2018 [id number] [facility] [address] [facility] ing:LABSPEC Repository 06/24/2018/ [id number] Ambulatory BMSBuilding:B [place] 9 3 [facility] Repository 06/12/2018/ [id number] Ambulatory BMSBuilding:B [place] 9 4 [facility] Repository 04/19/2018 [id number] Ambulatory [place] [address] [facility] ing:LAB.FUTUR Repository E 03/19/2018/ [id number] Ambulatory [place] [address] [facility] ing:PT Repository 02/07/2018 [id number] Ambulatory [place] [address] [facility] ing:OPBI Repository 01/21/2018/ [id number] Ambulatory BMSBuilding:B [place] 8 8 [facility] Repository 01/17/2018 [id number] Amb[place] [address] [facility] ing:CT Repository 12/25/2017 [id number] Ambulatory [place] [address] [facility] ing:MRI Repository 12/13/2017 [id number] Ambulatory [place] [address] [facility] ing:BFHLAB Repository 11/26/2017 [id number] Ambulatory [place] [address] [facility] ing:OPBD Repository 10/18/2017 [id number] Ambulatory [place] [address] [facility] ing:LAB.FUTUR Repository E 07/15/2017/ [id number] Ambulatory Alis [place] [address] [facility] ing:ENRoom: Repository AC11 07/15/2017 [id number] Ambulatory BMSBuilding:B [place] 9 MS.[facility] Repository PAYERS PAYERS ENCOUNTER GUARANTOR PAYER SUBSCRIBER SOURCE 07/02/2018 KRYS Ureña Primary KRYS [id number] Insurance:MEDICAL STEVENSDOB: [id number] Number: Repository [place], [place] [id number]: (330) Date:8798-08-46UF [address] () [address], [place] [address]IO: 07/02/2018 Secondary NOT GIVENUNK [place] Insurance:SELF PAY [facility] Number: Effective Repository Date:2018-04-17 07/01/2018 KRYS Ureña Primary KRYS Snell [id number] Insurance:MEDICAL STEVENSDOB: [facility] [id number] Cross Hospital Number: Repository [place], [place] [id number]: (330) Date:3537-59-17FL [address] () [address], [place] [address]XM: 07/01/2018 Secondary NOT GIVENUNK [place] Insurance:SELF PAY [facility] Number: Effective Repository Date:2018-06-24 06/24/2018 KRYS Ureña Primary KRYS Snell [id number] Insurance:MEDICAL STEVENSDOB: [facility] [id number] Cross Hospital Number: Repository [place], [place] [id number]: (330) Date:3236-90-97VV [address] () [address], [place] [address]VU: 06/24/2018 Secondary NOT GIVENUNK [place] Insurance:SELF PAY [facility] Number: Effective Repository Date:2018-06-24 06/24/2018 KRYS J Primary KRYS J [place] [id number] Insurance:MEDICAL STEVENSDOB: [facility] [id number] Number: Repository [place] [id number]: (330) Date:4439-10-46SC [address] () [address] [place] [address]YP: 06/24/2018 Secondary NOT GIVENUNK [place] Insurance:SELF PAY [facility] Number: Effective Repository Date:2018-06-24 06/12/2018 KRYS J Primary KRYS J Al[place] [id number] Insurance:MEDICAL STEVENSDOB: [facility] [id number] Cross Hospital Number: Repository [place] [id number]: (330) Date:8333-19-48IO [address] () [address] [place] [address]UI: 06/12/2018 Secondary NOT GIVENUNK [place] Insurance:SELF PAY [facility] Number: Effective Repository Date:2018-06-12 04/19/2018 KRYS J Primary KRYS J Al[place] [id number] Insurance:MEDICAL STEVENSDOB: [facility] [id number] Cross Hospital Number: Repository [place] [id number]: ([phone]) Date:0089-23-70AN [address] (HP) [address], [place] [address]GZ: 04/19/2018 Secondary NOT GIVENUNK [place] Insurance:SELF PAY [facility] Number: Effective Repository Date:2017-10-25 03/19/2018 KRYS J Primary KRYS J Alis [id number] Insurance:MEDICAL STEVENSDOB: [facility] [id number] Cross Hospital Number: Repository [place] [id number]: (330) Date:3840-12-66RN [address] () [address] [phone]: 03/19/2018 Secondary NOT GIVENUNK [place] Insurance:SELF PAY [facility] Number: Effective Repository Date:2018-02-11 02/07/2018 KRYS J Primary KRYS J Alis [id number] Insurance:MEDICAL STEVENSDOB: [facility] [id number] Hospital of Southern [facility] MexicoPT Number: Repository [place] [id number]: (330) Date:5132-26-07XT [address] () [address] [phone]: 02/07/2018 Secondary NOT GIVENUNK [place] Insurance:SELF PAY [facility] Number: Effective Repository Date:2018-01-21 01/21/2018 KRYS J Primary KRYS J Alis [id number] Insurance:MEDICAL STEVENSDOB: [facility] [id number] Hospital of Southern New MexicoPT Number: Repository [place] [id number]: (330) Date:3605-29-21JZ [address] () [address], [place] [address]VC: 01/21/2018 Secondary NOT GIVENUNK [place] Insurance:SELF PAY [facility] Number: Effective Repository Date:2018-01-21 01/17/2018 KRYS J Primary KRYS J [place] [id number] Insurance:MEDICAL STEVENSDOB: [facility] [id number] Hospital of Southern New MexicoPT Number: Repository [place] [id number]: (330) Date:2472-04-38XW [address] () [address], [place] [address]XH: 01/17/2018 Secondary NOT GIVENUNK [place] Insurance:SELF PAY [facility] Number: Effective Repository Date:2018-01-08 12/25/2017 KRYS J Primary KRYS J [place] [id number] Insurance:MEDICAL STEVENSDOB: [facility] [id number] Hospital of Southern New MexicoPT Number: Repository [place] [id number]: (330) Date:8063-42-47[address] () [address] [place] [address]PF: 12/25/2017 Secondary NOT GIVENUNK [place] Insurance:SELF PAY [facility] Number: Effective Repository Date:2017-12-20 12/13/2017 KRYS J Primary KRYS J Alis [id number] Insurance:MEDICAL STEVENSDOB: [facility] 1541-07-47UIPRehabilitation Hospital of Southern New MexicoPT Number: Repository [place] [id number]: (330) Date:4817-81-23SE [address] () [address] [place] [address]MJ: 12/13/2017 Secondary NOT GIVENUNK [place] Insurance:SELF PAY [facility] Number: Effective Repository Date:2017-12-13 11/26/2017 KRYS J Primary KRYS J Alis [id number] Insurance:MEDICAL STEVENSDOB: [facility] [id number] Hospital of Southern New MexicoPT Number: Repository [place] [id number]: (330) Date:1293-96-76DC [address] (HP) [address], [place] [address]CP: 11/26/2017 Secondary NOT GIVENUNK [place] Insurance:SELF PAY [facility] Number: Effective Repository Date:2017-10-28 10/18/2017 KRYS Ureña Primary KRYS [id number] Insurance:MEDICAL STEVENSDOB: [facility] 2016-39-30LEKHoly Cross Hospital Number: Repository [place] [id number]: (330) Date:0556-83-04NR [address] () [address], [place] [address]WK: 10/18/2017 Secondary NOT GIVENUNK [place] Insurance:SELF PAY [facility] Number: Effective Repository Date:2017-04-26 07/15/2017 KRYS Ureña Primary KRYS [id number] Insurance:MEDICAL STEVENSDOB: [facility] [id number] Cross Hospital Number: Repository [place] [id number]: (330) Date:3169-55-03FU [address] (HP) [address] [phone]: 07/15/2017 Secondary NOT GIVENUNK [place] Insurance:SELF PAY [facility] Number: Effective Repository Date:2017-07-02 07/15/2017 KRYS Ureña Primary KRYS [id number] Insurance:MEDICAL STEVENSDOB: [facility] [id number] Cross Hospital Number: [place] [id number]: (330) Date:5283-19-59HB [address] (HP) [address], [place] [address]HD: 07/15/2017 Secondary NOT GIVENUNK [place] Insurance:SELF PAY [facility] Number: Effective Repository Date:2017-07-15
== END ==
PROVIDERS: Family Provider Family Medicine; PCP Family Medicine; Referring Provider Nurse Practitioner Women's Health; Visit Provider Nurse Practitioner Women's Health
DX: N95.0 Postmenopausal bleeding (principal)
CPT/HCPCS: 76830; 76856

== ENCOUNTER 2018-07-16 17:30 | Outpatient (RCR) | payer OTHER, SELFPAY ==
--- NOTE | 2018-04-22 11:54 | HP.PTEVAL_ITS ---
Patient's Visit Information KRYS CANCINO is a 63 year old F referred to Physical Therapy by Steven Rojas DO with a diagnosis of vertigo. Date of Evaluation: 04/22/18 Physical Therapist: Fariba Gee - Visit Plan Frequency: 1x/Week Duration: 4 Weeks Plan: Pt to call in next week after increaseing the frequency of her VOR cx exercises while walking at home and see if that helps her balance and the occassional dizziness/nausea feeling that she is having. - Subjective Subjective: Pt reports that she is doing her VOR exercises and she was goos when she was in here last time. She had hurt her leg at her last visit at work...she could barely walk because the pain was so intense. When she was in a lot of pain and not doing her exercises standing but doing them sitting. 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 She was starting getting the nauseated feeling again. She is better but still there and she has resumed her standing exercises again. She does not feels that her eyes are jumping. She has been ok with taking notes from the board. She might hace some issue with scrolling [employer] Ipad. No room spinning. Her eyes feel floating. She sees neurologist May 16. - Objective - B HALLPIKE B FOR DIZZINESS AND NYSTAGMUS. no dizziness with smooth pursuit, saccades, VOR cx in sitting or standing. no dizziness with picking ball up from the floor and up overhead X 15. Some unsteadiness with standing on foam with doing VOR Cx but she was able to correct her balance - Goals Goal 1:: I HEP Goal Time Frame: 1 Week Goal 2:: Abolish dizziness with ADL's both dynamic and static Goal Time Frame: 2-4 Weeks Goal 3:: Be able to perform dynamic balance and VOR exercises standing on foam without LOB Goal Time Frame: 2-4 Weeks - Rehabilitation Potential Rehabilitation Potential: Good - Anticipated Interventions Patient/Client Instruction: Educate patient on: Condition, Plan of Care For the Purpose of:: To improve muscle performance and motor function, To increase tolerance to activity/condition/position, To improve performance and independence with ADL's, To improve ability of physical actions for home/community/work/leisure, To improve gait and locomotor functions, To decrease soft tissue restriction Therapeutic Exercise to Include: Strength training, Balance training, Coordination, Gait and locomotor training For the Purpose of:: To improve nutrient delivery to tissue, To improve ability to perform ADL's, To increase tolerance to activity/condition/position, To improve gait and locomotor functions, To improve balance Thank you for the opportunity to evaluate your patient. For Medicare and Medicare HMO plans, please review the plan of care and approve it. It will need to be FAXED BACK to us at [phone] for Medicare purposes. Please let me know if there are questions or concerns regarding this plan of care. Physician Signature: Date:
--- NOTE | 2018-09-15 09:49 | HP.PTDCNRP_ITS ---
HP - Discharge Summary (1) - Patient Information KRYS CANCINO was seen in my office for initial evaluation on 04/22/18. The following Plan of Care was established for this patient: Initial Frequency: 1x/Week Initial Duration: 4 Weeks - Anticipated Interventions Patient/Client Instruction: Educate patient on: Condition, Plan of Care For the Purpose of:: To improve muscle performance and motor function, To incre ase tolerance to activity/condition/position, To improve performance and independence with ADL's, To improve ability of physical actions for home/community/work/leisure, To improve gait and locomotor functions, To decrease soft tissue restriction Therapeutic Exercise to Include: Strength training, Balance training, Coordination, Gait and locomotor training For the Purpose of:: To improve nutrient delivery to tissue, To improve ability to perform ADL's, To increase tolerance to activity/condition/position, To improve gait and locomotor functions, To improve balance This patient was last seen in our office 07/16/18. Pertinent comments regarding their Physical therapy will appear below: DC PT per neurologist. At this point I will be discontinuing this patient from physical therapy. I would be happy to see this patient again in the future if found appropriate by the physician. Thank you! Fariba Gee, MPT
== END 2018-07-16 19:00 | disposition home or self-care (01) ==
LOC: PT 17:30
PROVIDERS: Family Provider Family Medicine; PCP Family Medicine; Referring Provider Family Medicine; Visit Provider Family Medicine
DX: R42 Dizziness and giddiness (principal)
CPT/HCPCS: 97161; 97530

== ENCOUNTER → 2018-11-21 06:03 | Outpatient (CLI) | payer OTHER, SELFPAY ==
[2018-05-28 10:29] VITALS: BMI 25.7
[2018-06-24 11:21] VITALS: BMI 30.5
[2018-11-21 06:52] LABS: Absolute Lymphocyte Count 1.43 X10^3/ul (0.83-4.51); Absolute Neutrophil Count 1.2 X10^3/uL (2.0-7.7); Basophil# 0.02 X10^3/uL; Basophil% 0.7 % (0-1); Eosinophil# 0.09 X10^3/uL; Hemoglobin 13.4 g/dl (12.0-15.0); Lymphocyte # 1.43 X10^3/ul (4.0); Lymphocyte % 46.9 % (19-41); Mean Corp Hgb Conc 33.5 g/gl (32-36); Mean Corpuscular Hgb 29.3 pg (27.0-32.0); Mean Corpuscular Volume 87.5 fL (81-99); Monocyte# 0.29 X10^3/uL; Monocyte% 9.5 % (0-10); Neutrophil # 1.22 X10^3/uL (2.7-7.7); Neutrophil % 39.9 % (47-70); Platelet Count 187 K/mm3 (150-450); RBC Distribution Width CV 13.4 % (11.6-14.6); RBC Distribution Width SD 42.5 fl (35.1-43.9); Red Blood Count 4.57 M/mm3 (4.2-5.4); White Blood Count 3.1 K/mm3 (4.4-11.0)
[2018-11-21 06:55] LABS: POSITIVE COUNT NO; POSITIVE DIFFERENTIAL NO; POSITIVE MORPHOLOGY NO
[2018-11-21 07:05] LABS: ALB/GLOB Ratio 0.9 RATIO (0.9-2.4); AST(SGOT) 17 U/L (15-37); Alanine Aminotransfer ALT/SGPT 19 U/L (13-56); Albumin, Serum 3.5 g/dL (3.2-5.0); Alkaline Phosphatase 80 U/L (45-117); Anion Gap 5 (5-15); BUN 12 mg/dL (7-18); BUN/Creat Ratio 14.5 RATIO (10-20); Calcium,Total 8.4 mg/dL (8.5-10.1); Chloride 108 mmol/L (98-107); Cholesterol 178 mg/dL (200); Creatinine, Serum 0.83 mg/dL (0.55-1.02); EST Glomerular Filtration Rate 74 mL/min (>60); Est Glom Filt Rate - Afr Amer 90 mL/min (>60); Globulin 3.8 g/dL (2.2-4.2); Glucose 84 mg/dL (74-106); High Density Lipoprotein 68 mg/dL; Potassium 4.3 mmol/L (3.5-5.1); Protein, Total 7.3 g/dL (6.4-8.2); Sodium Level 143 mmol/L (136-145); T4 Free Direct 1.19 ng/dL (0.76-1.46); Thyroid Stim Hormone (TSH) 1.53 uIU/mL (0.358-3.74); Triglycerides 71 mg/dL; Very Low Density Lipoprotein 14 mg/dL (5-40)
== END ==
PROVIDERS: Family Provider Family Medicine; PCP Family Medicine; Referring Provider Family Medicine; Visit Provider Family Medicine
DX: E03.9 Hypothyroidism, unspecified (principal); E78.5 Hyperlipidemia, unspecified; D72.819 Decreased white blood cell count, unspecified
CPT/HCPCS: 36415; 80053; 80061; 84439; 84443; 85025

== ENCOUNTER → 2019-01-20 | Outpatient (CLI) | payer OTHER, SELFPAY ==
[2019-01-08 11:44] VITALS: BMI 30.5
== END | disposition home or self-care (01) ==
LOC: LABSPEC 14:04
PROVIDERS: Family Provider Family Medicine; PCP Family Medicine; Visit Provider Family Medicine
DX: R35.0 Frequency of micturition (principal)
CPT/HCPCS: 87086; 87088

== ENCOUNTER → 2019-02-06 | Outpatient (CLI) | payer OTHER, SELFPAY ==
[2019-02-06 15:16] VITALS: BMI 30.5
== END | disposition home or self-care (01) ==
LOC: LABSPEC 16:59
PROVIDERS: Family Provider Family Medicine; PCP Family Medicine; Referring Provider Nurse Practitioner Women's Health; Visit Provider Nurse Practitioner Women's Health
DX: N89.8 Other specified noninflammatory disorders of vagina (principal)
CPT/HCPCS: 87070; 87205

== ENCOUNTER → 2019-02-12 07:46 | Outpatient (CLI) | payer OTHER, SELFPAY ==
[2019-02-06 15:16] VITALS: BMI 30.5
--- NOTE | 2019-02-12 07:49 | BI_ITS ---
MAMMOGRAPHY - BILATERAL SCREENING REASON FOR EXAM: Female, 64 years old. Routine annual screening examination. PERTINENT HISTORY: Sister with breast cancer. TECHNIQUE: Digital bilateral breast kristine (3D mammographic acquisition) in the CC and MLO projections. 2-D mediolateral oblique (MLO) and craniocaudad (CC) views of both breasts were obtained. CAD: Full Field Digital Mammography with Computer Added Detection was performed. COMPARISON: Comparison is made with prior examination dated February 07, 2018 and October 24, 2016. FINDINGS: Breast Composition: There are scattered areas of fibroglandular density. There are no dominant masses or suspicious calcifications. Stable benign-appearing bilateral axillary lymph nodes. No other significant abnormalities are identified. There has been no significant change since the prior study. BI/SCREEN MAMM (CAD) W/KRISTINE BILAT IMPRESSION: Stable bilateral screening mammogram. Yearly follow-up mammogram recommended. (A) ASSESSMENT CATEGORY: BIRADS Category 2: Benign. A letter regarding these results will be sent to the patient by the facility within 30 days. Approximately 10% of breast cancers are not detected by mammography. A normal mammogram should not delay biopsy of a clinically suspicious abnormality. [id number] Electronically Signed: Andrae Jonas, at 10:26 EDT , Service support ,
== END ==
PROVIDERS: Family Provider Family Medicine; PCP Family Medicine; Referring Provider Nurse Practitioner Women's Health; Visit Provider Nurse Practitioner Women's Health
DX: Z12.31 Encounter for screening mammogram for malignant neoplasm of breast (principal)
CPT/HCPCS: 77063; 77067

== ENCOUNTER → 2019-06-05 11:40 | Outpatient (CLI) | payer OTHER, SELFPAY ==
[2019-04-08 08:18] VITALS: BMI 30.5
[2019-06-05 15:39] LABS: Absolute Lymphocyte Count 1.34 X10^3/uL (0.83-4.51); Absolute Neutrophil Count 2.6 X10^3/uL (2.0-7.7); Basophil# 0.03 X10^3/uL; Basophil% 0.7 % (0-1); Eosinophil# 0.06 X10^3/uL; Eosinophils% 1.3 % (0-5); Hematocrit 42.5 % (37-47); Hemoglobin 13.7 g/dL (12.0-15.0); Lymphocyte # 1.34 X10^3/ul (4.0); Mean Corp Hgb Conc 32.2 g/dL (32-36); Mean Corpuscular Hgb 28.6 pg (27.0-32.0); Mean Corpuscular Volume 88.7 fL (81-99); Mean Platelet Vol. 11.7 fl (6.2-12.0); Monocyte# 0.39 X10^3/uL; Monocyte% 8.7 % (0-10); NRBC Flagged by Analyzer 0 % (0-5); Neutrophil # 2.63 X10^3/uL (2.7-7.7); Neutrophil % 59.1 % (47-70); Platelet Count 213 K/mm3 (150-450); RBC Distribution Width CV 13.1 % (11.6-14.6); RBC Distribution Width SD 42.8 fl (35.1-43.9); Red Blood Count 4.79 M/mm3 (4.2-5.4); White Blood Count 4.5 K/mm3 (4.4-11.0)
[2019-06-05 16:32] LABS: Vitamin B12 458 pg/mL (211-911); Vitamin D,25 Hydroxy 50.2 ng/mL (29.95-100.01)
[2019-06-05 16:59] LABS: ALB/GLOB Ratio 1.1 RATIO (0.9-2.4); AST(SGOT) 26 U/L (15-37); Alanine Aminotransfer ALT/SGPT 28 U/L (13-56); Alkaline Phosphatase 72 U/L (45-117); BUN 11 mg/dL (7-18); BUN/Creat Ratio 12.8 RATIO (10-20); Calcium,Total 8.8 mg/dL (8.5-10.1); Cholesterol 190 mg/dL (200); Creatinine, Serum 0.86 mg/dL (0.55-1.02); EST Glomerular Filtration Rate 71 mL/min (>60); Est Glom Filt Rate - Afr Amer 86 mL/min (>60); Globulin 3.8 g/dL (2.2-4.2); Glucose 72 mg/dL (74-106); Protein, Total 7.8 g/dL (6.4-8.2); Triglycerides 78 mg/dL
[2019-06-05 17:00] LABS: Anion Gap 6 (5-15); Chloride 106 mmol/L (98-107); High Density Lipoprotein 61 mg/dL; Potassium 3.8 mmol/L (3.5-5.1); Sodium Level 141 mmol/L (136-145); Thyroid Stim Hormone (TSH) 1.29 uIU/mL (0.358-3.74); Very Low Density Lipoprotein 16 mg/dL (5-40)
== END ==
PROVIDERS: Family Provider Family Medicine; PCP Family Medicine; Visit Provider Family Medicine
DX: Z00.00 Encounter for general adult medical examination without abnormal findings (principal); E03.9 Hypothyroidism, unspecified; M85.80 Other specified disorders of bone density and structure, unspecified site; Z51.81 Encounter for therapeutic drug level monitoring
CPT/HCPCS: 36415; 80053; 80061; 82306; 82607; 84439; 84443; 85025

== ENCOUNTER → 2019-07-29 15:12 | Outpatient (CLI) | payer OTHER, SELFPAY ==
[2019-04-08 08:18] VITALS: BMI 30.5
== END ==
PROVIDERS: PCP Family Medicine; Visit Provider Family Medicine
DX: R68.83 Chills (without fever) (principal); N99.89 Other postprocedural complications and disorders of genitourinary system; D72.819 Decreased white blood cell count, unspecified
CPT/HCPCS: 87086; 87088

== ENCOUNTER 2019-12-22 07:49 | Day surgery (SDC) | payer OTHER, SELFPAY ==
[2019-04-08 08:18] VITALS: BMI 30.5
[2019-12-09 12:54] VITALS: BMI 30.5
--- NOTE | 2019-12-09 13:28 | EKG12_ITS ---
Test Reason : PRE-OP Blood Pressure : / mmHG Vent. Rate : 078 BPM Atrial Rate : 078 BPM P-R Int : 166 ms QRS Dur : 072 ms QT Int : 384 ms P-R-T Axes : 052 -21 070 degrees QTc Int : 437 ms Normal sinus rhythm with sinus arrhythmia Low voltage QRS Borderline ECG Confirmed by BEBO VERONICA ([id number]), art editor TALAT LIN ([id number]) on 12/10/2019 11:37:10 AM Referred By: Jonna Khan Confirmed By:BEBO VERONICA
[2019-12-09 14:46] LABS: Thyroid Stim Hormone (TSH) 0.53 uIU/mL (0.358-3.74)
--- NOTE | 2019-12-21 03:40 | PCM.HPOB.BLA ---
- Problem List (1) Atrophic vaginitis Status: Acute (2) Cystocele with incomplete uterovaginal prolapse Status: Acute Comment: discussed options and plan for lavh bso, combo case with Amol for prolapse repair. 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: No Is patient in pain?: No Allergies dextromethorphan [From Vicks NyQuil Cold/Flu Liquicap] Allergy (Mild, Verified 12/09/19 12:53) Unknown doxylamine [From Vicks NyQuil Cold/Flu Liquicap] Allergy (Mild, Verified 12/09/19 12:53) Unknown Medications levothyroxine 88 mcg tablet 88 mcg PO DAILY 07/02/17 [History Confirmed 12/09/19] pantoprazole 40 mg tablet,delayed release 40 mg PO QHS 07/02/17 [History Confirmed 12/09/19] simvastatin 10 mg tablet 10 mg PO QHS 07/02/17 [History Confirmed 12/09/19] Estradiol 1 g VAGINAL .3XWEEKLY 12/08/19 [History Confirmed 12/09/19] Is last menstrual period known: No Post menopausal: No Patient : No : No [facility] Medical History GERD (gastroesophageal reflux disease) (Acute) Hypercholesterolemia (Acute) Hypothyroid (Acute) Surgical History History of section (Acute) History of colonoscopy (Acute) History of esophagogastroduodenoscopy (EGD) (Acute) History of mandibular surgery (Acute) Family History Mother Diabetes Hypertension Thyroid disorder CAD (coronary artery disease) Father Heart disease CAD (coronary artery disease) Sister Breast cancer Hypertension Brother Hypertension CAD (coronary artery disease) Social History (Updated 12/09/19 @ 13:[address] Jonna Khan MD) Smoking Status: Former smoker alcohol intake: never substance use type: does not use caffeine: Yes what type of physical activity do you participate in: walking frequency: 5-6 times per week seatbelt use: always do you feel safe at home: Yes additional social history: - Alis [facility] [place] [employer] HPI pre op [facility] BSO: Details: KRYS CANCINO is a 64 year old who presents for preop visit. she has prolapse and she is having a combo case with amol. Pregancy History 2 Elective abortions Hx Para 2 Spontaneous abortions Hx # Term Pregnancies Ectopic pregnancies Hx # Pregnancies Multiple births # of living children Past Pregnancies Del. Date Name GA/Weeks Outcome Route Bth Weight Gen Labor Lgth Anesthesia Del Locatn Provider FOB Unknown 1981 Best Unknown 1986 [place] MÉNDEZ Const Constitutional: Denies fatigue, fever(s), headache(s), increased appetite, poor appetite, weight gain or weight loss ENT ENT: Denies dizziness or dry mouth Cardio Card: Denies chest pain Resp Resp: Denies cough or dyspnea GI GI: Reports as per HPI; denies abdominal pain, constipation, nausea or vomiting Musc Musc: Denies joint pain, back pain or muscle weakness Skin Skin/Breast: Denies hair loss, change in hair, dry skin, breast lump, breast pain or breast skin changes Neuro Neuro: Denies dizziness Psych Psych: Denies anxiety or depression Endo Endo: Denies cold intolerance, excessive sweating, heat intolerance or increased thirst Joey/Lymph Hematologic/Lymphatic: Denies easy bleeding, Denies easy bruising, Denies enlarged lymph nodes Exam Const General: cooperative, healthy appearing, comfortable, no acute distress, well developed Nutritional Appearance: average body habitus Orientation: alert [facility] Head: normal to inspection, normocephalic Ears: hearing grossly normal bilaterally, external ears normal Nose: external nose normal, nares normal Face and sinus: normal facial exam Neck Neck: normal visual inspection, trachea midline Thyroid: thyroid normal Chest Chest palpation & inspection: normal inspection of the chest Resp Effort & Inspection: normal respiratory effort Auscultation: clear to auscultation bilaterally Cardio Rate: regular rate Rhythm: regular rhythm Heart Sounds: S1 normal, S2 normal GI Inspection: normal to inspection, non-distended Palpation: soft, no hepatosplenomegaly General: bladder normal to palpation External Female Exam: normal external appearance, normal appearance of the urethra Urethra: normal appearance of the urethra Speculum Exam - Vagina: normal appearance of the vagina, normal vaginal discharge Speculum Exam - Cervix: normal appearance of the cervix, nontender Bimanual Exam- Vagina & Uterus: bladder normal to palpation, No cervical tenderness Bimanual Exam- Adnexa, other: normal adnexae, adnexae mobile, no adnexal masses, rectocele, cystocele, vaginal apex descent Pelvic Support: cystocele, rectocele, vaginal apex descent Musc Cervical Spine: other Other: gross motor intact no deficits, full bilateral strength Skin General: no rashes or lesions noted Neuro General: alert, awake, moves all extremities, no focal motor deficits Motor: muscle tone normal throughout Extrem General: normal to inspection, no pedal edema Psych Appearance: grossly normal Mental Status: mental status grossly normal Affect: normal affect Speech and Movement: speech and movement normal Assessment & Plan Problems 1. Cystocele with incomplete uterovaginal prolapse N81.2 discussed options and plan for lavh bso, combo case with Amol for prolapse repair. 2. Atrophic vaginitis N95.2 Plan After discussing the patient's diagnosis and treatment plan options, patient wishes to proceed with surgical management. I have discussed with the patient the risks, benefits, and alternatives of the procedure which include but are not limited to risks of anesthesia, bleeding, infection, possible damage to bowel, bladder, or surrounding vasculature which could lead to additional surgery to evaluate any complications. Patient agrees to procedure and wishes to proceed. ACOG/uptodate references given for additional information regarding procedure. Coding Level of Care Code No Charge Diagnoses Cystocele with incomplete uterovaginal prolapse N81.2 Atrophic vaginitis N95.2 UPDATE- I have seen the patient and performed any clinically relevant updates to the history and physical exam. Jonna Khan MD
[2019-12-22] VITALS (11 sets, daily range): BP systolic 111–132; BP diastolic 60–80; PULSE 68–82; RESP 12–18; TEMP 36–37.1; O2SAT 97–100; BMI 30.3
--- NOTE | 2019-12-22 07:47 | OP.PCM_ITS ---
Problem List (1) Atrophic vaginitis Status: Acute (2) Cystocele with incomplete uterovaginal prolapse Status: Acute Comment: discussed options and plan for lavh bso, combo case with Amol for prolapse repair. 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 Patient was taken back to the operating room and placed in the dorsal lithotomy position. General anesthesia was induced and patient was prepped and draped in normal sterile fashion. Uterine manipulator was placed inside the uterus and Caba catheter placed in the bladder. The umbilicus was grasped with towel clamps and an intraumbilical incision was made after injecting with quarter percent Marcaine and a Veress needle entered into the abdomen confirmed to be intra-abdominal with a low opening pressure. Abdomen was insufflated with CO2 gas and the Veress needle removed and the 5 mm trocar was placed under direct visualization without complication. Right and left lower quadrants were trans illuminated and injected with quarter percent Marcaine and 5 mm ports placed under direct visualization. Pelvis was well visualized see operative findings for additional information. Bilateral fallopian tubes and ovaries were identified and transected with the LigaSure device across the IP ligament and then to the level of the utero-ovarian ligament which was also transected with the LigaSure device. The broad ligament was opened up by transecting the round ligament bilaterally and skeletonizing the uterine vessels bilaterally and creating a bladder flap using the LigaSure device. The uterine arteries were transected bilaterally with good visualization of the bladder and the ureters were seen to be inferior lateral to the operative area. Attention was then paid to the vaginal portion of the procedure and the cervix was grasped with Shannon clamps and circumferentially injected with dilute vasopressin. A circumferential incision was made and the vaginal mucosa was mobilized off post eriorly and the cul-de-sac entered into sharply and a longneck speculum placed. The anterior cul-de-sac was then identified and entered into sharply. The uterosacral ligaments were clamped cut and suture ligated with 0 Monocryl bilaterally followed by the cardinal ligaments which were clamped cut and suture ligated bilaterally with 0 Monocryl. The uterus serially descended and was removed without difficulty. Pelvic sidewall pedicles were checked and noted to have excellent hemostasis. The vaginal mucosa was reapproximated incorporating the posterior peritoneum. This was reapproximated using 0 Vicryl [id number] sutures. Excellent hemostasis was noted. The pelvis and cul-de-sac was well visualized and no significant active bleeding noted but some raw areas were seen on the peritoneum and therefore Ade was applied. Pressure was taken down and the areas visualized and noted of excellent hemostasis. All ports were removed under direct visualization without complication and the abdomen was desufflated of air. The instruments removed from the abdomen and the vagina vaginal sweep was negative. Port sites on the abdomen were closed with 4-0 Monocryl interrupted sutures and Steri's and windows were applied. She was awoken and taken recovery in stable condition. Grafts/Implants Used: see urogyn - Complications none - Admit VTE Documentation VTE Present on Admission: No VTE Mechan Device Prophylaxis: SCD's Multi Select Codes - Urinary/Genital Urinary/Genital CPT Codes: 94512 LAVH+BS/O <250gr Uterus
--- NOTE | 2019-12-22 08:29 | PCM.HP.STD ---
Problem List (1) Cystocele with incomplete uterovaginal prolapse Status: Acute Comment: discussed options and plan for lavh bso, combo case with Amol for prolapse repair. (2) Atrophic vaginitis Status: Acute (3) Urethral hypermobility Status: Acute History of Present Illness Date of Admission: 12/22/19 Chief Complaint: pelvic organ prolapse The patient is a 64 year old F with significant uterovaginal prolapse who presents for definitive management after undergoing office cystoscopy, urodynamics and pessary. Risks were discussed including that of COVID-19 and she desires to proceed. Past Medical History Medical History: Medical History (Last Reviewed 12/22/19 @ 08:[address] Sharon Carmichael MD) GERD (gastroesophageal reflux disease) K21.9 Hypercholesterolemia E78.00 Hypothyroid E03.9 Allergies dextromethorphan [From Vicks NyQuil Cold/Flu Liquicap] Allergy (Mild, Verified 12/22/19 08:26) Unknown doxylamine [From Vicks NyQuil Cold/Flu Liquicap] Allergy (Mild, Verified 12/22/19 08:26) Unknown Home Medications: Ambulatory Orders Medication Instructions Recorded levothyroxine 88 mcg tablet 88 mcg PO DAILY 07/02/17 pantoprazole 40 mg tablet,delayed 40 mg PO QHS 07/02/17 release simvastatin 10 mg tablet 10 mg PO QHS 07/02/17 Estradiol 1 g VAGINAL .3XWEEKLY 12/08/19 Naproxen [Naprosyn] 250 - 500 mg PO Q8H PRN PRN #30 tab 12/22/19 Oxycodone HCl/Acetaminophen 1 - 2 tab PO Q6H PRN PRN 7 Days 12/22/19 [Percocet 5-325] #15 tab Surgical History: Surgical History (Last Reviewed 12/22/19 @ 08:[address] Sharon Carmichael MD) History of section Z98.891 History of colonoscopy Z98.890 History of esophagogastroduodenoscopy (EGD) Z98.890 History of mandibular surgery Z98.890 Smoking Status: Former smoker Tobacco Use: Non-smoker Review of Systems Constitutional: Denies: Anorexia, Chills, Fever Eyes: Denies: Vision Change HEENT: Denies: Difficulty Swallowing, Visual Changes Cardiovascular: Denies: Chest Pain Respiratory: Denies: Cough, Shortness of Breath Gastrointestinal: Denies: Abdominal Pain, Nausea, Vomiting Genitourinary: Reports: Urgency. Denies: Dysuria, Hematuria, Hesitancy, Retention Gynecological: Denies: Vaginal itching Musculoskeletal: Denies: Muscle pain Skin: Denies: Wounds Neurological: Denies: Difficulty swallowing VTE Information - Inpt Only VTE Present on Admission: Yes VTE Mechan Device Prophylaxis: SCD's VTE Pharm Prophylaxis ordered?: Yes Patient Problems: Active and Suspected Problems (Last Reviewed 12/22/19 @ 08:[address] Sharon Carmichael MD) Urethral hypermobility (Acute) - Physical Exam Vitals/I&O's: Body Mass Index (BMI) 30.5 General: Alert, Oriented x3, Cooperative, No apparent distress HEENT: Atraumatic, Normocephalic Oral: Moist Mucosa Neck: Supple, Trachea Midline Lungs: Normal air movement Cardiovascular: Regular rate, Regular Rhythm Abdomen: Soft, Non Tender, Non-Distended Extremities: No clubbing Skin: No rashes Musculoskeletal: No Muscle Wasting Neurological: Cranial nerves II-XII grossly intact, Neuro grossly intact Psych/Mental Status: Normal Affect, Alert and oriented to time, place, person, mood and affect Laboratory Results 12/22/19 06:00: Urine Test Negative Current Medications Acetaminophen (Tylenol) 1,000 mg PO PREOP ONE Stop: 12/22/19 10:01 Celecoxib (Celebrex) 400 mg PO X1 ONE Stop: 12/22/19 10:01 Dexamethasone Sodium Phosphate (Decadron) 8 mg IV X1 ONE Stop: 12/22/19 10:01 Enoxaparin Sodium (Lovenox) 40 mg SC X1 ONE Stop: 12/22/19 10:01 Gabapentin (Neurontin) 600 mg PO PREOP ONE Stop: 12/22/19 10:01 Lactated Ringer's () 1,000 mls @ 40 mls/hr IV .Q25H WILLARD Cefazolin Sodium 2 gm/ Sodium (Chloride) 110 mls @ 150 mls/hr IV PREOP ONE Stop: 12/22/19 10:43 Lactated Ringer's () 1,000 mls @ 70 mls/hr IV .[id number] WILLARD Magnesium Sulfate 2.25 gm/ (Sodium Chloride) 104.5 mls @ 209 mls/hr IV X1 ONE Stop: 12/22/19 08:59 Insulin Human Lispro (Humalog Kwikpen (Bkc)) 0 unit SC Q4H PRN PRN; Protocol PRN Reason: BG >/= 180, SEE PROTOCOL Ondansetron HCl (Zofran) 4 mg IV X1 ONE Stop: 12/22/19 10:01 Scopolamine HBr (Transderm-Scop) 1 patch TRANSDERM. X1 ONE Stop: 12/22/19 10:01 Assessment/Plan All Active Problems (Last Reviewed 12/22/19 @ 08:[address] Sharon Carmichael MD) Urethral hypermobility (Acute) Cystocele with incomplete uterovaginal prolapse (Acute) Atrophic vaginitis (Acute) UTI (urinary tract infection) (Acute) anterior repair with dermis, bilateral sacrospinous ligament fixation, sling and cystoscopy Procedure Criteria Procedure Type: Elective COVID Risk Discussion: The surgeon/proceduralist and patient have discussed in detail the risk of exposure to and/or potential harm posed by the COVID-19 virus with having a surgery/procedure at this time versus the risk of delaying the surgery/procedure. It is not possible to know either the risk of delaying the surgery or procedure or chance of getting an infection with perfect accuracy, but a joint decision was made between the patient and the surgeon/proceduralist to proceed at this time with the scheduled surgery/procedure as indicated on the consent form.
[2019-12-22 08:35] LABS: Hematocrit 41.4 % (37-47); Hemoglobin 14.1 g/dL (12.0-15.0); Mean Corp Hgb Conc 34.1 g/dL (32-36); Mean Corpuscular Hgb 29.7 pg (27.0-32.0); Mean Corpuscular Volume 87.2 fL (81-99); Mean Platelet Vol. 11.6 fl (6.2-12.0); Platelet Count 206 K/mm3 (150-450); RBC Distribution Width CV 12.6 % (11.6-14.6); RBC Distribution Width SD 40.2 fl (35.1-43.9); Red Blood Count 4.75 M/mm3 (4.2-5.4); White Blood Count 3.3 K/mm3 (4.4-11.0)
[2019-12-22] MEDS: Scopolamine 1mg/72hr Patch 1 PATCH TRANSDERM. (08:41)
[2019-12-22] MEDS: Gabapentin 600 MG Tablet PO (08:41)
[2019-12-22] MEDS: Celecoxib 200 MG Capsule 400 MG PO (08:41)
[2019-12-22 08:42] LABS: Magnesium 2.1 mg/dL (1.6-2.6)
[2019-12-22] MEDS: Enoxaparin 40 MG/0.4 ML Syringe SC (08:42)
[2019-12-22] MEDS: Lactated Ringers 1,000 ML 40 ML IV ×2 (08:42→11:15)
[2019-12-22] MEDS: Acetaminophen 500 MG Tablet 1000 MG PO ×3 (08:42→23:57)
--- NOTE | 2019-12-22 08:52 | PCM.DC.VHY ---
Discharge Diet: No Restrictions Discharge Activity: Return to Normal Activity, May Not Drive, May Shower May resume sexual activity in: 6-8 weeks Call your doctor if your incision/area has: Continuous Slow Oozing, Sudden Increased Bleeding, Increased Pain/ Swelling, Increased Redness, Foul Smelling Discharge Call your doctor if you observe: Fever of 101 or Higher, Inability to urinate, Inability to have a bowel movement, Using more than one pad per hour Allergies/Adverse Reactions: Allergies dextromethorphan [From Vicks NyQuil Cold/Flu Liquicap] Allergy (Mild, Verified 12/22/19 08:26) Unknown doxylamine [From Vicks NyQuil Cold/Flu Liquicap] Allergy (Mild, Verified 12/22/19 08:26) Unknown Medications to take at Discharge levothyroxine 88 mcg tablet 88 mcg PO DAILY 07/02/17 pantoprazole 40 mg tablet,delayed release 40 mg PO QHS 07/02/17 simvastatin 10 mg tablet 10 mg PO QHS 07/02/17 Estradiol 1 g VAGINAL .3XWEEKLY 12/08/19 Naproxen [Naprosyn] 250 - 500 mg PO Q8H PRN PRN #30 tab 12/22/19 Oxycodone HCl/Acetaminophen [Percocet 5-325] 1 - 2 tab PO Q6H PRN PRN 7 Days #15 tab 12/22/19 The following prescriptions were given: Naproxen [Naprosyn] 250 - 500 mg PO Q8H PRN PRN #30 tab PRN Reason: MILD PAIN Transmission Status: Received by [facility] Oxycodone HCl/Acetaminophen [Percocet 5-325] 1 - 2 tab PO Q6H PRN PRN 7 Days #15 tab PRN Reason: Pain Transmission Status: Received by [facility] Orders to be completed after discharge: Type & Screen - PAT ONLY Time Frame: 12/22/19, Facility: [facility], Location: [facility] Primary Care Physician: Steven Rojas DO [Primary Care Provider] - Test Results: Test results from this visit will be discussed in further detail at your follow-up appointment, if applicable. Please Follow Up With: Jonna Khan MD - [phone]
[2019-12-22] MEDS: dexAMETHasone 10 MG/ML Vial 8 MG IV (08:56)
--- NOTE | 2019-12-22 10:00 | HYST_PTH ---
PATIENT: KRYS CANCINO LOC: [facility] [place] U#:[id number] AGE/SX: 64/F ROOM: RE12/22/[address]: Dr. Jonna Khan MD : [id number] BED: DIS: 12/23/2019 SPEC #: [id number] RECD: 12/22/19 14:32 STATUS: TEAGAN REDemetris #: [id number] OPHELIA: 12/22/19 10:[address]: Jonna Khan DEPT: SURGICAL PATHOLOGY RECD BY: Tommy Hallman ENTERED: 12/23/19 11:09 SP TYPE: HYSTERECT OTHR DR: MD Dr. Steven Smith, DO Tissues: Uterus, NOS Procedures: Surgery Specimen Level V HEADER OPERATION: ERAS, hysterectomy, LAVH, salpingo-oophorectomy PRE-OP DIAGNOSIS: Cystocele with incomplete uterovaginal prolapse TISSUE SUBMITTED: Uterus, cervix, bilateral fallopian tubes and ovaries MICROSCOPIC DIAGNOSIS Uterus, cervix, bilateral fallopian tubes and ovaries, vaginal hysterectomy and salpingo-oophorectomy: Cervix - mild chronic cystic cervicitis. Endometrium - weakly proliferative endometrium. Myometrium - diffuse adenomyosis. Bilateral fallopian tubes - no pathologic diagnosis. Right ovary - simple serous cyst (1 cm in greatest dimension). Left ovary - no pathologic diagnosis. MADINA:alyssa 12/24/19 MICROSCOPIC DESCRIPTION Slides are reviewed. GROSS DESCRIPTION Received in fixative is one container labeled with the patient's name and designated uterus, cervix, bilateral fallopian tubes and bilateral ovaries. The specimen consists of a hysterectomy specimen consisting of uterus with cervix with attached bilateral fallopian tubes and ovaries. The uterus with cervix weighs 51 gm and measures 6.5 x 6 x 3 cm. The serosal surface is haskins, glistening. The ectocervical mucosa is focally eroded. The external os is slit-like in contour. The endocervical canal measures 2.5 cm in length and the endocervical mucosa is haskins, glistening and unremarkable. The triangular endometrial cavity measures 3 cm in length and 1.5 cm in width. The endometrium is haskins, glistening without any mass lesion and measures 0.1 cm in thickness. Sections of the uterine wall do not reveal any mass lesion and measures up to 1.5 cm in thickness. The right fallopian tube measures 4 cm in length and 0.5 cm in diameter. The fimbrial end is identified. No tubo-ovarian adhesions are noted. Sections reveal unremarkable cut surfaces. The right ovary measures 3.5 x 1 x 1 cm. Sections reveal a cyst filled with clear fluid measuring 1 cm in greatest dimension. The cyst wall is smooth without any papillation. The left fallopian tube is similar appearance to right and measures 4.5 cm in length and 0.5 cm in diameter. The left ovary measures 2 x 1 x 0.7 cm. Sections reveal unremarkable cut surfaces. [employer] sections are submitted in nine cassettes as follows: 1 - anterior cervix, 2 - posterior cervix, 3 & 4 - anterior uterine wall, 5 & 6 - posterior uterine wall, 7 - right fallopian tube and ovary, 8 - more section right ovary, 9 - left fallopian tube and ovary. / MADINA:alyssa 12/23/19 TC:5 CPT: 26347
[2019-12-22] MEDS: Cefazolin 2 GM in 0.9% Normal Saline 100 ML IV (10:19)
[2019-12-22] MEDS: Lubricating Jelly 60 GM Tube 30 GM TOPICAL (11:00)
[2019-12-22] MEDS: Bupivacaine 0.25% 30 ML Vial (11:00)
[2019-12-22] MEDS: Vasopressin 20 UNITS/ML Vial (13:00)
[2019-12-22] MEDS: Estrogens,Conj. 1 Tube 1 DOSE (13:41)
--- NOTE | 2019-12-22 13:46 | PCM.OPRPT ---
Problem List (1) Cystocele with incomplete uterovaginal prolapse Status: Acute Comment: discussed options and plan for lavh bso, combo case with Amol for prolapse repair. (2) Atrophic vaginitis Status: Acute (3) Urethral hypermobility Status: Acute Report of Operation Date of Procedure: 12/22/19 Pre-Operative Diagnosis: Uterovaginal prolapse, urethral hypermobility, vaginal atrophy Post-Operative Diagnosis: Same Surgery/Procedure Performed:: Anterior repair, posterior repair with dermis, bilateral sacrospinous ligament fixation, mid urethral sling, cystourethroscopy with bilateral ureteral catheterization Type of Anesthesia:: General Estimated Blood Loss (mL): 50cc Description of Procedure: The patient is a 64-year-old female with pelvic organ prolapse who underwent urodynamics and cystoscopy as well as a trial with pessary and has decided to proceed with definitive surgical intervention. Risk benefits and alternatives were discussed including that of COVID-19 complication and contraction of the disease. She understands and agrees to proceed. The patient was taken to the operating room and placed on the operating room table. Anesthesia monitored the head, neck, airway, IV access and vital signs throughout the case. Once anesthesia was appropriately administered the patient was prepped and draped in usual sterile fashion. Dr. Khan performed her portion of the case and closed the vaginal cuff. At this time it was clear that the anterior defect was less then the posterior defect and there is significant apical loss of support as well. It was also apparent that her vaginal mucosa was very thin and friable with tendency to tear throughout the dissection. The anterior vaginal wall was injected submucosally with vasopressin for hydrostatic dissection and hemostatic control. A vertical midline incision approximately 1.5 cm in length was then made. Sharp and blunt dissection was performed on either side until the pubocervical fascia was identified. This was brought together in a 2 layer interrupted repair with 2-0 Vicryl. The vaginal mucosa was then closed with 2-0 Vicryl, running interlocking. Attention was then turned toward the posterior vaginal wall with the greater defect. The submucosa was once again injected for hydrostatic dissection and hemostatic control. A midline incision was made. Sharp and blunt dissection was performed bilaterally until the white line was identified and the ischial spines were located and freed from surrounding tissues. The sacrospinous ligaments were freed and dissected as well bilaterally. The ureter was palpable in this area more specifically on the patient's left side and care was taken to avoid involvement of this tissue. Ethibond sutures were then passed through the sacrospinous ligaments using the Capio device. Was done bilaterally. The sutures were then brought through the apex of the dermis which was trimmed to length with. The sutures were then brought out through the vaginal apex through the vaginal mucosa. A midline 2-0 Vicryl was used to tack the dermis in the midline to the apex. Care was taken to avoid involvement of the rectum. The dermis then lay flat against the posterior defect and was sutured into place with 2-0 Vicryl to the white line bilaterally and then to the tissues just proximal to the perineal body. Very carefully the vaginal mucosa was closed over the dermis. The mucosa was very thin and delicate. At this time a cystourethroscopy was performed revealing no entry into the urethra or urinary bladder. There were no masses lesions or abnormalities identified. Bilateral ureteral orifices were identified and intubated with a 5 Vietnamese whistle-tip catheter to 20 cm without difficulty and without blood. The Carvajal catheter was replaced the mid urethral sling was then inserted following submucosal injection of vasopressin followed by a midline incision and sharp and blunt dissection on either side of the urethra. The trochars were then used to insert the Altis into the trans-obturator complex bilaterally with care being taken to avoid involvement of the urethra or bladder. The sling lay flat against the urethra without tension the tensioning suture was then cut and the vaginal mucosa was closed over the sling. Once again the vaginal mucosa was thin and delicate. A cystourethroscopy confirmed no involvement of the bladder or the urethra with foreign object. The Carvajal catheter was replaced. The vagina was packed with Premarin cream and vaginal packing. The patient was awakened and taken to the recovery room in good condition. There were no complications during this procedure. Grafts/Implants Used: Altis midurethral sling, Tutwiler dermis - Complications none - Admit VTE Documentation VTE Present on Admission: Yes VTE Mechan Device Prophylaxis: SCD's VTE Pharm Prophylaxis ordered?: Yes
[2019-12-22] MEDS: Lactated Ringers 1,000 ML 70 ML IV (15:49)
[2019-12-22] MEDS: Ketorolac 30 MG/ML Syringe IV ×2 (15:50→21:48)
[2019-12-22] MEDS: Cefazolin 1 GM/50 ML BAG IV (17:18)
[2019-12-22] MEDS: Pantoprazole Sodium 40 MG Tablet PO (21:49)
[2019-12-22] MEDS: Docusate Sodium 100 MG Capsule PO (21:49)
[2019-12-22] MEDS: 0.9% Saline Lock 10 ML Syringe IV (21:49)
[2019-12-22] MEDS: Atorvastatin Calcium 10 MG Tablet 5 MG PO (21:50)
[2019-12-23] MEDS: 0.9% Normal Saline 1,000 ML 999 ML IV (00:44)
[2019-12-23 01:59] VITALS: BP 109/60; PULSE 68; RESP 16; TEMP 37; O2SAT 98
[2019-12-23] MEDS: Cefazolin 1 GM/50 ML BAG IV (01:59)
[2019-12-23] MEDS: Levothyroxine 88 MCG Tablet PO (04:59)
[2019-12-23] MEDS: Lactated Ringers 1,000 ML 70 ML IV (04:59)
[2019-12-23] MEDS: Ketorolac 30 MG/ML Syringe IV ×2 (04:59→09:19)
[2019-12-23] MEDS: Acetaminophen 500 MG Tablet 1000 MG PO ×2 (04:59→11:53)
[2019-12-23] MEDS: 0.9% Saline Lock 10 ML Syringe IV (05:01)
[2019-12-23 06:05] LABS: Hematocrit 32.1 % (37-47); Hemoglobin 10.7 g/dL (12.0-15.0); Mean Corp Hgb Conc 33.3 g/dL (32-36); Mean Corpuscular Hgb 29.7 pg (27.0-32.0); Mean Corpuscular Volume 89.2 fL (81-99); Mean Platelet Vol. 11.9 fl (6.2-12.0); Platelet Count 157 K/mm3 (150-450); RBC Distribution Width CV 12.9 % (11.6-14.6); RBC Distribution Width SD 42.2 fl (35.1-43.9); White Blood Count 5.7 K/mm3 (4.4-11.0)
[2019-12-23 06:34] LABS: Anion Gap 3 (5-15); BUN 5 mg/dL (7-18); BUN/Creat Ratio 6.8 RATIO (10-20); Calcium,Total 7.6 mg/dL (8.5-10.1); Chloride 105 mmol/L (98-107); Creatinine, Serum 0.73 mg/dL (0.55-1.02); EST Glomerular Filtration Rate 85 mL/min (>60); Est Glom Filt Rate - Afr Amer 103 mL/min (>60); Estimated Creatinine Clearance 65.25 ml/min; Glucose 87 mg/dL (74-106); Potassium 4.1 mmol/L (3.5-5.1); Sodium Level 136 mmol/L (136-145)
--- NOTE | 2019-12-23 06:45 | NURSING ---
walking in lund with ehr trainer, gait steady
--- NOTE | 2019-12-23 07:50 | PCM.PN.OB ---
Patient Problems: Active and Suspected Problems (Last Reviewed 12/22/19 @ 08:[address] Sharon Carmichael MD) Urethral hypermobility (Acute) Subjective: Up in chair, taking PO. Denies SOB, CP. Pain controlled. - Physical Exam Vitals/I&O's: Vital Signs Temp Pulse Resp BP Pulse Ox 98.6 F 68 16 109/60 98 12/23/19 01:59 12/23/19 01:59 12/23/19 01:59 12/23/19 01:59 12/23/19 01:59 Oxygen Flow Rate (L/min) 6 Oxygen Delivery Method Room Air Weight: 171 lb 1.259 oz Body Mass Index (BMI) 30.3 Intake and Output for Last 24 Hours 12/21/19 12/22/19 12/23/19 23:59 23:59 23:59 Intake Total 1743.66 / 1743.66 2726.66 / 2726.66 Output Total 500 / 500 525 / 525 Balance 1243.66 / 1243.66 2201.66 / 2201.66 General: Alert, Oriented x3 Abdomen: Soft, Non-Distended - Dressings dry and intact Laboratory Results 12/22/19 06:00: Urine Test Cancelled 12/22/19 08:25: Magnesium 2.1 12/22/19 08:25: WBC 3.3 L, RBC 4.75, Hgb 14.1, Hct 41.4, MCV 87.2, MCH 29.7, MCHC 34.1, RDW Std Deviation 40.2, RDW Coeff of Elsa 12.6, Plt Count 206, MPV 11.6 12/22/19 08:25: Blood Type O POSITIVE, Antibody Screen NEGATIVE 12/23/19 06:00: WBC 5.7, RBC 3.60 L, Hgb 10.7 L, Hct 32.1 L, MCV 89.2, MCH 29.7, MCHC 33.3, RDW Std Deviation 42.2, RDW Coeff of Elsa 12.9, Plt Count 157, MPV 11.9 12/23/19 06:00: Sodium 136, Potassium 4.1, Chloride 105, Carbon Dioxide 28.0, Anion Gap 3 L, BUN 5 L, Creatinine 0.73, Estim Creat Clear Calc 65.25, Est GFR (MDRD) Af Amer 103, Est GFR (MDRD) Non-Af 85, BUN/Creatinine Ratio 6.8 L, Glucose 87, Calcium 7.6 L Current Medications Acetaminophen (Tylenol) 1,000 mg PO Q6 [facility] Last Admin: 12/23/19 04:59 Dose: 1,000 mg Documented by: Atorvastatin Calcium (Lipitor) 5 mg PO QHS [facility] Last Admin: 12/22/19 21:50 Dose: 5 mg Documented by: Docusate Sodium (Colace) 100 mg PO BID [facility] Last Admin: 12/22/19 21:49 Dose: 100 mg Documented by: Enoxaparin Sodium (Lovenox) 40 mg SC DAILY [facility] Lactated Ringer's () 1,000 mls @ 70 mls/hr IV .[id number] [facility] Stop: 12/23/19 15:16 Last Admin: 12/23/19 04:59 Dose: 70 mls/hr Documented by: Ketorolac Tromethamine (Toradol (Bkc)) 30 mg IV Q6H [facility] Stop: 12/23/19 22:01 Last Admin: 12/23/19 04:59 Dose: 30 mg Documented by: Levothyroxine Sodium (Synthroid) 88 mcg PO DAILY@0600 [facility] Last Admin: 12/23/19 04:59 Dose: 88 mcg Documented by: Magnesium Oxide (Mag-Ox 400) 400 mg PO DAILY PRN PRN PRN Reason: Constipation Nutritional Formula (Lactose Free) (Ensure Enlive) 120 ml PO TIDCM [facility] Ondansetron HCl (Zofran Odt) 4 mg PO Q6H PRN PRN PRN Reason: NAUSEA Oxycodone HCl (Oxyir) 5 - 10 mg PO Q4H PRN PRN PRN Reason: Pain Score 4-10/10 Pantoprazole Sodium (Protonix) 40 mg PO QHS [facility] Last Admin: 12/22/19 21:49 Dose: 40 mg Documented by: Sodium Chloride () 10 - 40 ml IV UD PRN PRN Reason: SALINE FLUSH Last Admin: 12/23/19 05:01 Dose: 10 ml Documented by: Medical Necessity - Tobacco Use Smoking Status: Former smoker Tobacco Use: Non-smoker Assessment/Plan All Active Problems (Last Reviewed 12/22/19 @ 08:[address] Sharon Carmichael MD) Urethral hypermobility (Acute) Cystocele with incomplete uterovaginal prolapse (Acute) Atrophic vaginitis (Acute) UTI (urinary tract infection) (Acute) LAVH BSO A&P repair, cysto, sling combination case Candy Khan and Amol Post op day #1 See orders/progress note per Dr. Carmichael for routine postop care.
[2019-12-23 08:37] VITALS: BP 97/54; PULSE 62; RESP 18; TEMP 36.8; O2SAT 100
[2019-12-23] MEDS: Docusate Sodium 100 MG Capsule PO (09:19)
[2019-12-23] MEDS: Enoxaparin 40 MG/0.4 ML Syringe SC (09:19)
--- NOTE | 2019-12-23 14:08 | DCINST_ITS ---
Discharge Diet: No Restrictions Discharge Activity: May Not Drive, May Shower May resume sexual activity in: 6-8 weeks Additional Activity Instructions:: no lifting over 5 pounds, no swimming, hot tub or tub bathing. nothing in the vagina except estrogen cream. no heavy doors, strenuous activity or exercise. Call your doctor if your incision/area has: Continuous Slow Oozing, Sudden Increased Bleeding, Increased Pain/ Swelling, Increased Redness, Foul Smelling Discharge Call your doctor if you observe: Fever of 101 or Higher, Inability to urinate, Inability to have a bowel movement, Using more than one pad per hour Allergies/Adverse Reactions: Allergies dextromethorphan [From Vicks NyQuil Cold/Flu Liquicap] Allergy (Mild, Verified 12/22/19 08:26) Unknown doxylamine [From Vicks NyQuil Cold/Flu Liquicap] Allergy (Mild, Verified 12/22/19 08:26) Unknown Medications to take at Discharge levothyroxine 88 mcg tablet 88 mcg PO DAILY 07/02/17 pantoprazole 40 mg tablet,delayed release 40 mg PO QHS 07/02/17 simvastatin 10 mg tablet 10 mg PO QHS 07/02/17 Estradiol 1 g VAGINAL .3XWEEKLY 12/08/19 Naproxen [Naprosyn] 250 - 500 mg PO Q8H PRN PRN #30 tab 12/22/19 Oxycodone HCl/Acetaminophen [Percocet 5-325] 1 - 2 tab PO Q6H PRN PRN 7 Days #15 tab 12/22/19 Cephalexin [Keflex] 500 mg PO Q12 3 Days #6 cap 12/23/19 The following prescriptions were given: Cephalexin [Keflex] 500 mg PO Q12 3 Days #6 cap Transmission Status: Pending to [id number] Naproxen [Naprosyn] 250 - 500 mg PO Q8H PRN PRN #30 tab PRN Reason: MILD PAIN Transmission Status: Received by [facility] Oxycodone HCl/Acetaminophen [Percocet 5-325] 1 - 2 tab PO Q6H PRN PRN 7 Days #15 tab PRN Reason: Pain Transmission Status: Received by [facility] Primary Care Physician: Steven Rojas DO [Primary Care Provider] - Test Results: Test results from this visit will be discussed in further detail at your follow- up appointment, if applicable. Please Follow Up With: Sharon Carmichael MD When: in 2 weeks, call for appt
[2019-12-23 14:59] VITALS: BP 126/61; PULSE 60; RESP 18; TEMP 36.8; O2SAT 99
== END 2019-12-23 15:07 | disposition home or self-care (01) ==
LOC: SDC 07:50 → AC 07:50 → MS3 15:02
PROVIDERS: Anesthesiology; Urology; PCP Family Medicine; Referring Provider Obstetrics & Gynecology; Visit Provider Obstetrics & Gynecology
PROC: 0UT9FZZ Resection of Uterus, Via Natural or Artificial Opening With Percutaneous Endoscopic Assistance (ICD-10-PCS; CPT 58262; principal; 2019-12-22 09:35)
PROC: (CPT 57260; 2019-12-22 09:35)
DX: N81.2 Incomplete uterovaginal prolapse (principal); N80.0 Endometriosis of uterus; N83.201 Unspecified ovarian cyst, right side; N95.2 Postmenopausal atrophic vaginitis; N36.41 Hypermobility of urethra; N39.0 Urinary tract infection, site not specified; Z11.59 Encounter for screening for other viral diseases; E03.9 Hypothyroidism, unspecified; K21.9 Gastro-esophageal reflux disease without esophagitis; E78.00 Pure hypercholesterolemia, unspecified; K58.9 Irritable bowel syndrome, unspecified; Z78.0 Asymptomatic menopausal state; Z79.899 Other long term (current) drug therapy; Z87.891 Personal history of nicotine dependence
CPT/HCPCS: 57260; 57282; 57288; 58262; 36415; 80048; 83735; 84443; 85027; 86850; 86900; 86901; 87635; 88307; 93005; 99251; G2023; J7030; J7120; A4216; C1758; G0463; J2405; U0003

== ENCOUNTER 2020-01-07 11:31 | Day surgery (SDC) | payer OTHER, SELFPAY ==
[2020-01-04 11:05] VITALS: BMI 30.3
[2020-01-07] VITALS (7 sets, daily range): BP systolic 103–124; BP diastolic 53–88; PULSE 62–67; RESP 16–18; TEMP 36.5–36.9; O2SAT 98–100; BMI 30.4
[2020-01-07] MEDS: Lactated Ringers 1,000 ML 100 ML IV (12:08)
--- NOTE | 2020-01-07 14:45 | HP.PCM_ITS ---
- Problem List (1) Vaginal bleeding Status: Acute (2) Cystocele with incomplete uterovaginal prolapse Status: Acute Comment: discussed options and plan for lavh bso, combo case with Amol for prolapse repair. History and Physical Date of Admission: 01/07/20 interval h and p update: HPI: 65 yo presents 2 weeks postop with persistent bleeding. open part of vaginal cuff seen and hematuria on exam in dr cabezas's office. A/P: recommend proceeding with PEUA and vaginal cuff repair, cystoscopy. I have discussed with the patient the risks, benefits, and alternatives of the procedure which include but are not limited to risks of anesthesia, bleeding, infection, possible damage to bowel, bladder, or surrounding vasculature which could lead to additional surgery to evaluate any complications. Patient agrees to procedure and wishes to proceed. [facility] H&P - OBGYN (Blank) Patient Name: KRYS CANCINO Date of : 1955 Patient Status: Surgical Day Care Attending Provider: Jonna Khan Date: 12/21/19 03:40 Initialization Date: 12/21/19 03:40 - Problem List (1) Atrophic vaginitis Status: Acute (2) Cystocele with incomplete uterovaginal prolapse Status: Acute Comment: discussed options and plan for lavh bso, combo case with Amol for prolapse repair. 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 Required: No Is patient in pain?: No Allergies dextromethorphan [From Vicks NyQuil Cold/Flu Liquicap] Allergy (Mild, Verified 12/09/19 12:53) Unknown doxylamine [From Vicks NyQuil Cold/Flu Liquicap] Allergy (Mild, Verified 12/09/19 12:53) Unknown Medications levothyroxine 88 mcg tablet 88 mcg PO DAILY 07/02/17 [History Confirmed 12/09/19] pantoprazole 40 mg tablet,delayed release 40 mg PO QHS 07/02/17 [History Confirmed 12/09/19] simvastatin 10 mg tablet 10 mg PO QHS 07/02/17 [History Confirmed 12/09/19] Estradiol 1 g VAGINAL .3XWEEKLY 12/08/19 [History Confirmed 12/09/19] Is last menstrual period known: No Post menopausal: No Patient : No : No PFSH Medical History GERD (gastroesophageal reflux disease) (Acute) Hypercholesterolemia (Acute) Hypothyroid (Acute) Surgical History History of section (Acute) History of colonoscopy (Acute) History of esophagogastroduodenoscopy (EGD) (Acute) History of mandibular surgery (Acute) Family History Mother Diabetes Hypertension Thyroid disorder CAD (coronary artery disease) Father Heart disease CAD (coronary artery disease) Sister Breast cancer Hypertension Brother Hypertension CAD (coronary artery disease) Social History (Updated 12/09/19 @ 13:[address] Jonna Khan MD) Smoking Status: Former smoker alcohol intake: never substance use type: does not use caffeine: Yes what type of physical activity do you participate in: walking frequency: 5-6 times per week seatbelt use: always do you feel safe at home: Yes additional social history: - [facility] [employer] pre op [facility] BSO: Details: KRYS CANCINO is a 64 year old who presents for preop visit. she has prolapse and she is having a combo case with amol. Pregancy History 2 Elective abortions Hx Para 2 Spontaneous abortions Hx # Term Pregnancies Ectopic pregnancies Hx # Pregnancies Multiple births # of living children Past Pregnancies Del. Date Name GA/Weeks Outcome Route Bth Weight Gen Labor Lgth Anesthesia Del Locatn Provider FOB Unknown 1981 Best Unknown 1986 [place] Constitutional: Denies fatigue, fever(s), headache(s), increased appetite, poor appetite, weight gain or weight loss ENT ENT: Denies dizziness or dry mouth Cardio Card: Denies chest pain Resp Resp: Denies cough or dyspnea GI GI: Reports as per HPI; denies abdominal pain, constipation, nausea or vomiting Musc Musc: Denies joint pain, back pain or muscle weakness Skin Skin/Breast: Denies hair loss, change in hair, dry skin, breast lump, breast pain or breast skin changes Neuro Neuro: Denies dizziness Psych Psych: Denies anxiety or depression Endo Endo: Denies cold intolerance, excessive sweating, heat intolerance or increased thirst Joey/Lymph Hematologic/Lymphatic: Denies easy bleeding, Denies easy bruising, Denies enlarged lymph nodes Exam Const General: cooperative, healthy appearing, comfortable, no acute distress, well developed Nutritional Appearance: average body habitus Orientation: alert [facility] Head: normal to inspection, normocephalic Ears: hearing grossly normal bilaterally, external ears normal Nose: external nose normal, nares normal Face and sinus: normal facial exam Neck Neck: normal visual inspection, trachea midline Thyroid: thyroid normal Chest Chest palpation & inspection: normal inspection of the chest Resp Effort & Inspection: normal respiratory effort Auscultation: clear to auscultation bilaterally Cardio Rate: regular rate Rhythm: regular rhythm Heart Sounds: S1 normal, S2 normal GI Inspection: normal to inspection, non-distended Palpation: soft, no hepatosplenomegaly General: bladder normal to palpation External Female Exam: normal external appearance, normal appearance of the urethra Urethra: normal appearance of the urethra Speculum Exam - Vagina: normal appearance of the vagina, normal vaginal discharge Speculum Exam - Cervix: normal appearance of the cervix, nontender Bimanual Exam- Vagina & Uterus: bladder normal to palpation, No cervical tenderness Bimanual Exam- Adnexa, other: normal adnexae, adnexae mobile, no adnexal masses, rectocele, cystocele, vaginal apex descent Pelvic Support: cystocele, rectocele, vaginal apex descent Musc Cervical Spine: other Other: gross motor intact no deficits, full bilateral strength Skin General: no rashes or lesions noted Neuro General: alert, awake, moves all extremities, no focal motor deficits Motor: muscle tone normal throughout Extrem General: normal to inspection, no pedal edema Psych Appearance: grossly normal Mental Status: mental status grossly normal Affect: normal affect Speech and Movement: speech and movement normal Assessment & Plan Problems 1. Cystocele with incomplete uterovaginal prolapse N81.2 discussed options and plan for [facility] bso, combo case with Amol for prolapse repair. 2. Atrophic vaginitis N95.2 Plan After discussing the patient's diagnosis and treatment plan options, patient wishes to proceed with surgical management. I have discussed with the patient the risks, benefits, and alternatives of the procedure which include but are not limited to risks of anesthesia, bleeding, infection, possible damage to bowel, bladder, or surrounding vasculature which could lead to additional surgery to evaluate any complications. Patient agrees to procedure and wishes to proceed. ACOG/uptodate references given for additional information regarding procedure. Coding Level of Care Code No Charge Diagnoses Cystocele with incomplete uterovaginal prolapse N81.2 Atrophic vaginitis N95.2 UPDATE- I have seen the patient and performed any clinically relevant updates to the history and physical exam. Jonna Khan MD
--- NOTE | 2020-01-07 15:34 | PCM.OPRPT ---
Problem List (1) Vaginal bleeding Status: Acute (2) Cystocele with incomplete uterovaginal prolapse Status: Acute Comment: discussed options and plan for lavh bso, combo case with Amol for prolapse repair. Report of Operation Date of Procedure: 01/07/20 Pre-Operative Diagnosis: vaginal bleeding Post-Operative Diagnosis: posterior vaginal wall dehiscence Surgery/Procedure Performed:: repair of posterior vaginal wall Description of Surgical Findings:: see Dr Carmichael's note for full operation and details.
--- NOTE | 2020-01-07 15:37 | DCINST_ITS ---
Discharge Diet: No Restrictions Discharge Activity: Return to Normal Activity, May Not Drive, May Shower May resume sexual activity in: 6-8 weeks Call your doctor if your incision/area has: Continuous Slow Oozing, Sudden Increased Bleeding, Increased Pain/ Swelling, Increased Redness, Foul Smelling Discharge Call your doctor if you observe: Fever of 101 or Higher, Inability to urinate, Inability to have a bowel movement, Using more than one pad per hour Allergies/Adverse Reactions: Allergies dextromethorphan [From Vicks NyQuil Cold/Flu Liquicap] Allergy (Mild, Verified 01/07/20 11:56) Unknown doxylamine [From Vicks NyQuil Cold/Flu Liquicap] Allergy (Mild, Verified 01/07/20 11:56) Unknown Medications to take at Discharge levothyroxine 88 mcg tablet 88 mcg PO DAILY 07/02/17 pantoprazole 40 mg tablet,delayed release 40 mg PO QHS 07/02/17 simvastatin 10 mg tablet 10 mg PO QHS 07/02/17 Estradiol 1 g VAGINAL .3XWEEKLY 12/08/19 Docusate Sodium [Colace] 100 mg PO BID 01/07/20 Primary Care Physician: Steven Rojas DO [Primary Care Provider] - Test Results: Test results from this visit will be discussed in further detail at your follow- up appointment, if applicable. Please Follow Up With: Jonna Khan MD - [phone]
--- NOTE | 2020-01-07 16:28 | SUR.PHASEI ---
RANGEL CATHETER REMOVED PER DR SALAS ORDER, OCTOBER D/C HOME WITHOUT VOIDING [WHEN CRITERIA MET.]
--- NOTE | 2020-01-07 16:33 | PCM.OPRPT ---
Problem List (1) Vaginal bleeding Status: Acute (2) Atrophic vaginitis Status: Acute Report of Operation Date of Procedure: 01/07/20 Pre-Operative Diagnosis: Postoperative vaginal bleeding Post-Operative Diagnosis: Same, posterior vaginal wall dehiscence Surgery/Procedure Performed:: Pelvic exam under anesthesia, closure posterior vaginal wall Type of Anesthesia:: MAC Specimen's removed: None Estimated Blood Loss (mL): 5cc Description of Procedure: The patient is a 65-year-old female who had a pelvic reconstruction with hysterectomy approximately 2 weeks ago. She was seen in the office today and described intermittent vaginal bleeding with bright red blood in addition to some intermittent blood that came out with voiding. She also reported having passed a stool where she felt a twinge at the top of her vagina approximately 1 week ago. She is wondering if this is when something happened. On pelvic exam there is an obvious defect in the vaginal wall consistent with a dehiscence. And there was blood. Risks were discussed and the patient agreed to proceed with intervention. Once again COVID-19 was discussed as well. The patient was taken to the operating room and placed on the operating room table. Anesthesia monitored the head, neck, airway, IV access and vital signs throughout the case. Once anesthesia was appropriate ministered the patient was placed into dorsal lithotomy position and was prepped and draped in usual sterile fashion. Carvajal catheter was inserted at this time and the urine was clear yellow. Upon examination of the vagina with a Garcia retractor, it was clear that the posterior repair closure had dehisced for a total of about 2 cm. The area was profusely irrigated with sterile saline and was closed with several [id number] sutures, with 2-0 Vicryl. Hemostasis was achieved and there were no remaining defects in the posterior vaginal wall. Rectal examination was performed prior to closure of the vaginal mucosa and following. There is no involvement of the rectum. There was no blood in the rectum. Following closure the vagina was once again irrigated. Remaining suture lines were intact including the vaginal cuff, anterior repair and sling. The patient was then awakened and taken to the recovery room in good condition. Grafts/Implants Used: None - Complications No complications during this procedure which was done to close the complication of dehiscence. - Admit VTE Documentation VTE Present on Admission: Yes VTE Mechan Device Prophylaxis: SCD's VTE Pharm Prophylaxis ordered?: No Reason prophylaxis not ordered:: Treatment Not Indicated
--- NOTE | 2020-01-07 16:40 | DCINST_ITS ---
Discharge Diet: No Restrictions Discharge Activity: May not drive while taking narcotic pain medications., May Shower May resume sexual activity in: 6-8 weeks Additional Activity Instructions:: continue with lifting restriction 5 pounds, no exercise, no strenuous activity Call your doctor if your incision/area has: Continuous Slow Oozing, Sudden Increased Bleeding, Increased Pain/ Swelling, Increased Redness, Foul Smelling Discharge Call your doctor if you observe: Fever of 101 or Higher, Inability to urinate, Inability to have a bowel movement, Using more than one pad per hour Additional Instructions: miralax 1 cap every morning in 8oz fluid Allergies/Adverse Reactions: Allergies dextromethorphan [From Vicks NyQuil Cold/Flu Liquicap] Allergy (Mild, Verified 01/07/20 11:56) Unknown doxylamine [From Vicks NyQuil Cold/Flu Liquicap] Allergy (Mild, Verified 01/07/20 11:56) Unknown Medications to take at Discharge levothyroxine 88 mcg tablet 88 mcg PO DAILY 07/02/17 pantoprazole 40 mg tablet,delayed release 40 mg PO QHS 07/02/17 simvastatin 10 mg tablet 10 mg PO QHS 07/02/17 Estradiol 1 g VAGINAL .3XWEEKLY 12/08/19 Cephalexin [Keflex] 500 mg PO Q12 5 Days #10 cap 01/07/20 Docusate Sodium [Colace] 100 mg PO BID 01/07/20 The following prescriptions were given: Cephalexin [Keflex] 500 mg PO Q12 5 Days #10 cap Transmission Status: Pending to [facility] Primary Care Physician: Steven Rojas DO [Primary Care Provider] - Test Results: Test results from this visit will be discussed in further detail at your follow- up appointment, if applicable.
== END 2020-01-07 17:45 | disposition home or self-care (01) ==
LOC: SDC 11:33 → AC 11:34
PROVIDERS: PCP Family Medicine; Referring Provider Urology; Visit Provider Obstetrics & Gynecology
PROC: (CPT 58260; principal; 2020-01-07 14:40)
DX: T81.32XA Disruption of internal operation (surgical) wound, not elsewhere classified, initial encounter (principal); N81.2 Incomplete uterovaginal prolapse; N95.2 Postmenopausal atrophic vaginitis; Z11.59 Encounter for screening for other viral diseases; K21.9 Gastro-esophageal reflux disease without esophagitis; E03.9 Hypothyroidism, unspecified; K58.9 Irritable bowel syndrome, unspecified; E78.00 Pure hypercholesterolemia, unspecified; Z78.0 Asymptomatic menopausal state; Z79.899 Other long term (current) drug therapy; Z87.891 Personal history of nicotine dependence
CPT/HCPCS: 57410; 58999; 87635; 94799; J7120; J2405; U0003

== ENCOUNTER → 2020-02-16 07:00 | Outpatient (CLI) | payer OTHER, SELFPAY ==
[2020-01-07 12:01] VITALS: BMI 30.4
--- NOTE | 2020-02-16 07:00 | BI_ITS ---
MAMMOGRAPHY - BILATERAL SCREENING REASON FOR EXAM: Female, 65 years old. Routine annual screening examination. PERTINENT HISTORY: Sister with breast cancer. TECHNIQUE: Digital bilateral breast kristine (3D mammographic acquisition) in the CC and MLO projections. 2-D mediolateral oblique (MLO) and craniocaudad (CC) views of both breasts were obtained. CAD: Full Field Digital Mammography with Computer Added Detection was performed. COMPARISON: Comparison is made with prior study 02/12/2019 and 02/07/2018. FINDINGS: Breast Composition: There are scattered areas of fibroglandular density. There are no dominant masses or suspicious calcifications. Stable small benign-appearing bilateral axillary lymph nodes. No other significant abnormalities are identified. There has been no significant change since the prior study. BI/SCREEN MAMM (CAD) W/KRISTINE BILAT IMPRESSION: Stable bilateral screening mammogram. Yearly follow-up mammogram recommended. (A) ASSESSMENT CATEGORY: BIRADS Category 2: Benign. A letter regarding these results will be sent to the patient by the facility within 30 days. Approximately 10% of breast cancers are not detected by mammography. A normal mammogram should not delay biopsy of a clinically suspicious abnormality. [id number] Electronically Signed: Andrae Jonas, at 9:18 EDT , Service support ,
== END ==
PROVIDERS: PCP Family Medicine; Referring Provider Obstetrics & Gynecology; Visit Provider Obstetrics & Gynecology
DX: Z12.31 Encounter for screening mammogram for malignant neoplasm of breast (principal)
CPT/HCPCS: 77063; 77067

== ENCOUNTER → 2020-06-06 08:52 | Outpatient (CLI) | payer OTHER, SELFPAY ==
[2020-01-07 12:01] VITALS: BMI 30.4
[2020-06-06 12:18] LABS: Absolute Lymphocyte Count 1.24 X10^3/uL (0.83-4.51); Absolute Neutrophil Count 2.5 X10^3/uL (2.0-7.7); Basophil# 0.03 X10^3/uL; Basophil% 0.7 % (0-1); Eosinophil# 0.07 X10^3/uL; Eosinophils% 1.7 % (0-5); Hematocrit 43.9 % (37-47); Hemoglobin 14.1 g/dL (12.0-15.0); Lymphocyte # 1.24 X10^3/ul (4.0); Lymphocyte % 29.3 % (19-41); Mean Corp Hgb Conc 32.1 g/dL (32-36); Mean Corpuscular Hgb 28.7 pg (27.0-32.0); Mean Corpuscular Volume 89.4 fL (81-99); Mean Platelet Vol. 11.8 fl (6.2-12.0); Monocyte# 0.35 X10^3/uL; Monocyte% 8.3 % (0-10); NRBC Flagged by Analyzer 0 % (0-5); Neutrophil # 2.53 X10^3/uL (2.7-7.7); Neutrophil % 59.8 % (47-70); Platelet Count 202 K/mm3 (150-450); RBC Distribution Width CV 13.3 % (11.6-14.6); RBC Distribution Width SD 43.9 fl (35.1-43.9); Red Blood Count 4.91 M/mm3 (4.2-5.4); White Blood Count 4.2 K/mm3 (4.4-11.0)
[2020-06-06 12:39] LABS: ALB/GLOB Ratio 1.1 RATIO (0.9-2.4); AST(SGOT) 30 U/L (15-37); Alanine Aminotransfer ALT/SGPT 32 U/L (13-56); Albumin, Serum 4.1 g/dL (3.2-5.0); Alkaline Phosphatase 81 U/L (45-117); Anion Gap 3 (5-15); BUN 13 mg/dL (7-18); BUN/Creat Ratio 14.5 RATIO (10-20); Calcium,Total 8.9 mg/dL (8.5-10.1); Chloride 107 mmol/L (98-107); Cholesterol 191 mg/dL (200); EST Glomerular Filtration Rate 67 mL/min (>60); Est Glom Filt Rate - Afr Amer 82 mL/min (>60); Globulin 3.6 g/dL (2.2-4.2); Glucose 82 mg/dL (74-106); High Density Lipoprotein 62 mg/dL; Potassium 4.9 mmol/L (3.5-5.1); Protein, Total 7.7 g/dL (6.4-8.2); Sodium Level 140 mmol/L (136-145); T4 Free Direct 1.34 ng/dL (0.76-1.46); Triglycerides 97 mg/dL; Very Low Density Lipoprotein 19 mg/dL (5-40)
== END ==
PROVIDERS: PCP Family Medicine; Visit Provider Family Medicine
DX: Z00.00 Encounter for general adult medical examination without abnormal findings (principal); E03.9 Hypothyroidism, unspecified
CPT/HCPCS: 36415; 80053; 80061; 84439; 84443; 85025

== ENCOUNTER → 2021-01-12 | Outpatient (CLI) | payer OTHER, SELFPAY ==
[2021-01-12 14:41] VITALS: BMI 30.4
== END | disposition home or self-care (01) ==
LOC: LABSPEC 16:57
PROVIDERS: PCP Family Medicine; Visit Provider Nurse Practitioner Women's Health
DX: R10.2 Pelvic and perineal pain (principal)
CPT/HCPCS: 87070; 87205

== ENCOUNTER → 2021-03-01 07:03 | Outpatient (CLI) | payer OTHER, SELFPAY ==
[2021-01-05 13:07] VITALS: BMI 30.4
--- NOTE | 2021-03-01 07:04 | BI_ITS ---
MAMMOGRAPHY - BILATERAL SCREENING REASON FOR EXAM: Female, 66 years old. Routine annual screening examination. PERTINENT HISTORY: Sister with breast cancer. TECHNIQUE: Digital bilateral breast kristine (3D mammographic acquisition) in the CC and MLO projections. 2-D mediolateral oblique (MLO) and craniocaudad (CC) views of both breasts were obtained. CAD: Full Field Digital Mammography with Computer Added Detection was performed. COMPARISON: Comparison is made with prior study dated 02/16/2020 and 02/12/2019. FINDINGS: Breast Composition: There are scattered areas of fibroglandular density. There are no dominant masses or suspicious calcifications. No other significant abnormalities are identified. There has been no significant change since the prior study. BI/SCRN MAMM (CAD)W/KRISTINE BILAT IMPRESSION: Stable bilateral screening mammogram. Yearly follow-up mammogram recommended. (A) ASSESSMENT CATEGORY: BIRADS Category 1: Negative. A letter regarding these results will be sent to the patient by the facility within 30 days. Approximately 10% of breast cancers are not detected by mammography. A normal mammogram should not delay biopsy of a clinically suspicious abnormality. [id number] Electronically Signed: Andrae Jonas MD at 8:40 EDT , Service support ,
== END ==
PROVIDERS: PCP Family Medicine; Referring Provider Obstetrics & Gynecology; Visit Provider Obstetrics & Gynecology
DX: Z12.31 Encounter for screening mammogram for malignant neoplasm of breast (principal)
CPT/HCPCS: 77063; 77067

== ENCOUNTER → 2021-06-08 09:33 | Outpatient (CLI) | payer OTHER, SELFPAY ==
[2021-06-08 12:24] LABS: Absolute Lymphocyte Count 1.43 X10^3/uL (0.83-4.51); Absolute Neutrophil Count 2.4 X10^3/uL (2.0-7.7); Basophil# 0.03 X10^3/uL; Basophil% 0.7 % (0-1); Eosinophil# 0.07 X10^3/uL; Eosinophils% 1.6 % (0-5); Hematocrit 40.7 % (37-47); Hemoglobin 13.6 g/dL (12.0-15.0); Lymphocyte # 1.43 X10^3/ul (0.83-4.51); Lymphocyte % 33.6 % (19-41); Mean Corp Hgb Conc 33.4 g/dL (32-36); Mean Corpuscular Volume 89.6 fL (81-99); Mean Platelet Vol. 12.5 fl (6.2-12.0); Monocyte# 0.36 X10^3/uL; Monocyte% 8.5 % (0-10); NRBC Flagged by Analyzer 0 % (0-5); Neutrophil # 2.36 X10^3/uL (2.7-7.7); Neutrophil % 55.4 % (47-70); Platelet Count 207 K/mm3 (150-450); RBC Distribution Width CV 13.1 % (11.6-14.6); RBC Distribution Width SD 43.1 fl (35.1-43.9); Red Blood Count 4.54 M/mm3 (4.2-5.4); White Blood Count 4.3 K/mm3 (4.4-11.0)
[2021-06-08 14:00] LABS: AST(SGOT) 14 U/L (15-37); Alanine Aminotransfer ALT/SGPT 24 U/L (13-56); Albumin, Serum 3.9 g/dL (3.2-5.0); Alkaline Phosphatase 69 U/L (45-117); Anion Gap 7 (5-15); BUN 11 mg/dL (7-18); BUN/Creat Ratio 13.8 RATIO (10-20); Calcium,Total 8.9 mg/dL (8.5-10.1); Chloride 106 mmol/L (98-107); Cholesterol 162 mg/dL (200); EST Glomerular Filtration Rate 77 mL/min (>60); Est Glom Filt Rate - Afr Amer 93 mL/min (>60); Globulin 3.8 g/dL (2.2-4.2); Glucose 78 mg/dL (74-106); High Density Lipoprotein 59 mg/dL; Potassium 3.7 mmol/L (3.5-5.1); Protein, Total 7.7 g/dL (6.4-8.2); Sodium Level 141 mmol/L (136-145); T4 Free Direct 1.65 ng/dL (0.76-1.46); Thyroid Stim Hormone (TSH) 0.64 uIU/mL (0.358-3.74); Triglycerides 87 mg/dL; Very Low Density Lipoprotein 17 mg/dL (5-40)
== END ==
PROVIDERS: PCP Family Medicine; Referring Provider Family Medicine; Visit Provider Family Medicine
DX: D72.819 Decreased white blood cell count, unspecified (principal); E78.5 Hyperlipidemia, unspecified; E03.9 Hypothyroidism, unspecified; Z51.81 Encounter for therapeutic drug level monitoring
CPT/HCPCS: 36415; 80053; 80061; 84439; 84443; 85025

== ENCOUNTER → 2022-03-02 | Outpatient (CLI) | payer OTHER, SELFPAY ==
--- NOTE | 2022-03-02 14:39 | BI_ITS ---
MAMMOGRAPHY - BILATERAL SCREENING 3-D TOMOSYNTHESIS REASON FOR EXAM: Female, 67 years old. cancer screening PERTINENT HISTORY: No significant family history. TECHNIQUE: 2-D mammograms and 3-D Tomosynthesis of the breast (s) were performed. CAD was performed. COMPARISON: 03/01/2021 FINDINGS: The breast composition is composed of scattered fibroglandular density. Scattered benign calcifications are seen. No dense spiculated masses or suspicious microcalcifications are identified. No architectural distortion is identified. There is no skin thickening or retraction. There has been no significant change since the prior study. BI/SCRN MAMM (CAD)W/KRISTINE BILAT IMPRESSION: No mammographic signs of malignancy. Routine yearly mammograms recommended. ASSESSMENT CATEGORY: BIRADS Category 1: Negative. A letter regarding these results will be sent to the patient by the facility within 30 days. FOLLOW UP RECOMMENDATION: Yearly follow up mammogram recommended. (A) Approximately 10% of breast cancers are not detected by mammography. A normal mammogram should not delay biopsy of a clinically suspicious abnormality. Electronically Signed: Himanshu Marsh MD at 8:57 EDT ,
== END | disposition home or self-care (01) ==
LOC: OPBI 14:39
PROVIDERS: PCP Family Medicine; Visit Provider Obstetrics & Gynecology
DX: Z12.31 Encounter for screening mammogram for malignant neoplasm of breast (principal)
CPT/HCPCS: 77063; 77067

== ENCOUNTER 2022-04-26 08:25 | Outpatient (CLI) | payer OTHER, SELFPAY ==
--- NOTE | 2022-04-26 08:33 | BD_ITS ---
STUDY: DUAL ENERGY X-RAY ABSORPTIOMETRY / DXA REASON FOR EXAM: Female, 67 years old. Bone density screening -- last done in 2018 TECHNIQUE: Bone Mineral Density (BMD) measurements of lumbar spine and bilateral hips were obtained. COMPARISON: Comparison is made with prior study dated 11/26/2017. FINDINGS: Lumbar Spine (L1-L4): g/cm2 (0.961) / T-score (-1.1) / Z-score (0.8) Findings are suggestive of osteopenia with a low fracture risk. Left Femur Total: g/cm2 (0.868) / T-score (-0.6) / Z-score (0.7) Left Femoral Neck: g/cm2 (0.664) / T-score (-1.7) / Z-score (-0.1) Right Femur Total: g/cm2 (0.833) / T-score (-0.9) / Z-score (0.4) Right Femoral Neck: g/cm2 (0.658) / T-score (-1.7) / Z-score (-0.1) The T-Scores on the most recent prior examination were: Lumbar Spine (L1-L4): There has been worsening of bone density since the previous examination. Left Femur Total: which represents a worsening of 0.4%. Right Femur Total: which represents an improvement of 0.8%. BD/Dexa Bone Density Study IMPRESSION: The patient is considered osteopenic as outlined below according to World Ken Organization (WHO) criteria with a moderate fracture risk. There has been worsening of bone density since the previous examination. Reference Information: The T-score is the number of standard deviations above or below the standard which is normal for young adults at their peak bone mineral density. The World Health Organization (WHO) interprets the T-scores as follows: Above -1 Normal bone density Between -1 and -2.5 Osteopenia Equal to / or below -2.5 Osteoporosis As a practical clinical guideline, osteopenia may be graded as follows: Mild -1 through -1.5 Moderate -1.6 through -2.0 Severe -2.1 through -2.4 The Z-score is the number of standard deviations above or below age-matched controls. A Z-score of less than -1.5 would be considered abnormal. References: 1. NIH Osteoporosis and Related Bone Diseases www osteo.org 2. International Society for Clinical Densitometry www iscd.org 3. National Osteoporosis Foundation www nof.org Electronically Signed: Andrae Jonas MD at 13:03 EST ,
== END 2022-04-26 23:59 | disposition home or self-care (01) ==
LOC: OPBD 08:26
PROVIDERS: PCP Family Medicine; Referring Provider Nurse Practitioner Women's Health; Visit Provider Nurse Practitioner Women's Health
DX: Z13.820 Encounter for screening for osteoporosis (principal); Z78.0 Asymptomatic menopausal state
CPT/HCPCS: 77080

== ENCOUNTER → 2022-06-12 | Outpatient (CLI) | payer OTHER, SELFPAY ==
[2022-06-12 07:19] LABS: Absolute Lymphocyte Count 1.81 X10^3/uL (0.83-4.51); Absolute Neutrophil Count 1.6 X10^3/uL (2.0-7.7); Basophil# 0.02 X10^3/uL; Basophil% 0.5 % (0-1); Eosinophil# 0.13 X10^3/uL; Eosinophils% 3.3 % (0-5); Hematocrit 40.5 % (37-47); Hemoglobin 12.9 g/dL (12.0-15.0); Lymphocyte # 1.81 X10^3/ul (0.83-4.51); Lymphocyte % 45.4 % (19-41); Mean Corp Hgb Conc 31.9 g/dL (32-36); Mean Corpuscular Hgb 28.7 pg (27.0-32.0); Mean Corpuscular Volume 90.2 fL (81-99); Mean Platelet Vol. 11.8 fl (6.2-12.0); Monocyte# 0.42 X10^3/uL; Monocyte% 10.5 % (0-10); NRBC Flagged by Analyzer 0 % (0-5); Platelet Count 219 K/mm3 (150-450); RBC Distribution Width CV 13.5 % (11.6-14.6); RBC Distribution Width SD 44.9 fl (35.1-43.9); Red Blood Count 4.49 M/mm3 (4.2-5.4)
[2022-06-12 07:57] LABS: AST(SGOT) 12 U/L (15-37); Alanine Aminotransfer ALT/SGPT 20 U/L (13-56); Albumin, Serum 3.7 g/dL (3.2-5.0); Alkaline Phosphatase 70 U/L (45-117); Anion Gap 7 (5-15); BUN 15 mg/dL (7-18); BUN/Creat Ratio 16.6 RATIO (10-20); Calcium,Total 8.7 mg/dL (8.5-10.1); Chloride 106 mmol/L (98-107); Cholesterol 169 mg/dL (200); EST Glomerular Filtration Rate 66 mL/min (>60); Est Glom Filt Rate - Afr Amer 80 mL/min (>60); Globulin 3.7 g/dL (2.2-4.2); Glucose 84 mg/dL (74-106); High Density Lipoprotein 70 mg/dL; Potassium 4.1 mmol/L (3.5-5.1); Protein, Total 7.4 g/dL (6.4-8.2); Sodium Level 143 mmol/L (136-145); Thyroid Stim Hormone (TSH) 0.92 uIU/mL (0.358-3.74); Triglycerides 51 mg/dL; Very Low Density Lipoprotein 10 mg/dL (5-40)
== END | disposition home or self-care (01) ==
LOC: LAB 05:58
PROVIDERS: PCP Family Medicine; Referring Provider Family Medicine; Visit Provider Family Medicine
DX: Z00.00 Encounter for general adult medical examination without abnormal findings (principal); E03.9 Hypothyroidism, unspecified
CPT/HCPCS: 36415; 80053; 80061; 84443; 85025

== ENCOUNTER → 2023-03-04 | Outpatient (CLI) | payer OTHER, SELFPAY ==
--- NOTE | 2023-03-04 07:23 | BI_ITS ---
MAMMOGRAPHY - BILATERAL SCREENING REASON FOR EXAM: Female, 68 years old. Routine annual screening examination. PERTINENT HISTORY: Sister with breast cancer. TECHNIQUE: Digital bilateral breast kristine (3D mammographic acquisition) in the CC and MLO projections. 2-D mediolateral oblique (MLO) and craniocaudad (CC) views of both breasts were obtained. CAD: Full Field Digital Mammography with Computer Added Detection was performed. COMPARISON: Comparison is made with prior study dated March 02, 2022 and March 01, 2021. FINDINGS: Breast Composition: There are scattered areas of fibroglandular density. There are no dominant masses or suspicious calcifications. Stable small benign-appearing bilateral axillary lymph nodes. No other significant abnormalities are identified. There has been no significant change since the prior study. BI/SCRN MAMM (CAD)W/KRISTINE BILAT IMPRESSION: Stable bilateral screening mammogram. Yearly follow-up mammogram recommended. (A) ASSESSMENT CATEGORY: BIRADS Category 2: Benign. A letter regarding these results will be sent to the patient by the facility within 30 days. Approximately 10% of breast cancers are not detected by mammography. A normal mammogram should not delay biopsy of a clinically suspicious abnormality. [id number] Electronically Signed: Andrae Jonas MD at 8:50 EDT ,
== END | disposition home or self-care (01) ==
LOC: OPBI 07:22
PROVIDERS: PCP Family Medicine; Referring Provider Obstetrics & Gynecology; Visit Provider Obstetrics & Gynecology
DX: Z12.31 Encounter for screening mammogram for malignant neoplasm of breast (principal); Z80.3 Family history of malignant neoplasm of breast
CPT/HCPCS: 77063; 77067

== ENCOUNTER 2023-04-16 01:08 | Emergency (ER) | payer OTHER, SELFPAY ==
[2023-04-16 01:11] VITALS: BP 184/74; PULSE 73; RESP 13; TEMP 36.6; O2SAT 98; BMI 31.1
--- NOTE | 2023-04-16 01:25 | EDS_ITS ---
HPI History of Present Illness Chief Complaint: Hypertension Informant: patient Narrative Narrative: Presenting recurrent vertigo symptoms this evening at 7 PM. Symptoms worse when she looks down. Nausea without vomiting. No ear pain or ringing. Reports had persistent symptoms with laying down she checked her blood pressure 200/100. No headache. No chest pains. Stable blood pressure systolic 120s over 80s in the doctor's office. Prior similar symptoms: Yes PFSH PFSH Medical History GERD (gastroesophageal reflux disease) Hypercholesterolemia Hypothyroid Home Medications levothyroxine 88 mcg tablet (Synthroid) 88 mcg PO DAILY 07/02/17 [History Last Taken 01/07/20 06:30] pantoprazole 40 mg tablet,delayed release 40 mg PO QHS REFLUX 07/02/17 [History Last Taken Unknown] simvastatin 10 mg tablet 10 mg PO QHS 07/02/17 [History Last Taken Unknown] loratadine 10 mg tablet (Claritin) 10 mg PO DAILY 01/05/21 [History Last Taken Unknown] estradiol 0.01% (0.1 mg/gram) vaginal cream See Rx Instructions vaginal .COMPLEX #42.5 grams 01/23/22 [Rx Last Taken Unknown] famotidine 20 mg tablet 20 mg PO DAILY 02/26/22 [History Last Taken Unknown] meclizine 25 mg tablet 25 mg PO 4X/DAY PRN PRN Dizziness #20 tabs 04/16/23 [Rx Last Taken Unknown] Allergy/AdvReac Type Severity Reaction Status Date / Time dextromethorphan Allergy Mild Other Verified 04/16/23 01:11 [From Vicks NyQuil Cold/Flu Liquicap] doxylamine Allergy Mild Unknown Verified 04/16/23 01:11 [From Vicks NyQuil Cold/Flu Liquicap] Family History Mother Diabetes Hypertension Thyroid disorder CAD (coronary artery disease) Father Heart disease CAD (coronary artery disease) Sister Breast cancer Hypertension Brother Hypertension CAD (coronary artery disease) Surgical History bilateral sacrospinous ligament cystourethroscopy History of section History of colonoscopy History of esophagogastroduodenoscopy (EGD) History of [facility] History of mandibular surgery Hx of BSO (bilateral salpingo-oophorectomy) mid urethral sling Social History Smoking Status: Never smoker alcohol intake: never substance use type: does not use caffeine: Yes what type of physical activity do you participate in: walking and bicycling frequency: 5-6 times per week seatbelt use: always do you feel safe at home: Yes additional social history: - [employer] ROS ROS ED Constitutional Constitutional ED: Denies chills, fever(s) or sweats Eyes Eyes: Denies change in vision ENT ENT ED: Denies dysphagia or sore throat Cardiovascular Cardiovascular: Denies chest pain, leg edema, palpitations or racing heartbeat Respiratory/Chest Respiratory/Chest: Denies cough, dyspnea or dyspnea on exertion Gastrointestinal Gastrointestinal: Reports nausea; Denies abdominal pain, diarrhea or vomiting Genitourinary Genitourinary ED: Denies dysuria, hematuria or urinary frequency Musculoskeletal Musculoskeletal: Denies back pain, extremity pain or neck pain Integumentary Denies rash or wounds Neurologic Neurologic: Reports other Details: Dizzy ; Denies headache(s), paresthesias or weakness EXAM Physical Exam Const Vital Signs: 04/16/23 01:11 04/16/23 01:15 Temperature 97.8 F Temperature Source Oral Pulse Rate 73 Respiratory Rate 13 Respiratory Effort Normal Non-Labored Respiratory Pattern Normal Blood Pressure 184/74 H Blood Pressure Mean 110 Pulse Ox 98 Oxygen Delivery Method Room Air Positive well nourished and well developed General Appearance ED: well developed and NAD HEENT Reports TM's clear and moist mucous membranes HEENT Narrative: Normal TM lateral. normocephalic and atraumatic Tympanic Membrane ED: Yes TM's clear Eyes PERRL, EOMs intact bilaterally and conjunctivae normal Eyes Narrative: No resting nystagmus. General Eye ED: Yes normal appearance of both eyes Neck no lymphadenopathy and supple General: Negative for tenderness Chest Wall Chest: Negative for tenderness Resp normal respiratory effort and normal air movement Effort and Inspection: symmetric chest movement; Negative for respiratory distress Cardio regular rate, regular rhythm and no murmurs Peripheral Pulses: pulses 2+ throughout GI normal to inspection, nondistended, normoactive bowel sounds and non-tender Palpation: Negative for guarding or rebound tenderness present Back/Spine no CVA tenderness and no thoracic nor lumbar tenderness Extremity normal to inspection General Extremety ED: Negative for edema or tenderness General Extremity: Negative for edema Neuro oriented x3, CN's II-XII intact bilaterally and no sensory deficits noted Neuro Narrative: [place] positive to the left. Sensorium / Orientation: awake and alert Skin no rashes or lesions noted and no wounds MDM MDM MDM Narrative Medical decision making narrative: Interventions / MDM: Differential diagnosis: Diagnosis considered but do not suspect: N/A My EKG interpretation: N/A Imaging independently reviewed and interpreted by myself: N/A External documents reviewed: N/A Test considered but not ordered:N/A ED course: Presenting reproducible peripheral vertigo symptoms on the left. Blood pressure 184/74 on arrival. Will monitor, Víctor maneuver initiated. Víctor maneuver performed with improvement of symptoms. Blood pressure also improved in the 150/77 on reevaluation. Clinically feeling better. Meds to bed prescription with meclizine to use as needed. Outpatient follow-up with her doctor. Return precautions. All questions were answered. Re-evaluation: stable Disposition discussed with patient/family/significant other: Patient Case discussed with consulting clinician: N/A This note was generated with [employer] dictation software. It may contain incorrect words, spelling, and punctuation that were not noted in checking the note before signing. Discharge Plan Triage Chief Complaint: Hypertension Other Complaint: Dizziness ED Provider: Dhaval Garcia Dx/Rx/DC Orders Clinical Impression: Benign paroxysmal positional vertigo, Elevated blood pressure reading Instructions: ED BPV Vertigo Prescriptions: New meclizine 25 mg tablet 25 mg PO 4X/DAY PRN PRN (Reason: Dizziness) Qty: 20 0RF No Action pantoprazole 40 mg tablet,delayed release (DR/EC) 40 mg PO QHS levothyroxine [Synthroid] 88 mcg tablet 88 mcg PO DAILY simvastatin 10 mg tablet 10 mg PO QHS loratadine [Claritin] 10 mg tablet 10 mg PO DAILY famotidine 20 mg tablet 20 mg PO DAILY estradiol 0.01 % (0.1 mg/gram) cream See Rx Instructions vaginal .COMPLEX Qty: 42.5 2RF Rx Instructions: small amount as directed vaginal twice a week; Primary Care Provider: Steven Rojas Referrals: Steven Rojas, [Primary Care Provider] - 1 Week if not improving Activity Restrictions/Additional Instructions: Use Víctor maneuver as shown. Take medication as needed. Follow-up with your doctor. Symptoms worsens, return to the ED for reevaluation. Disposition Disposition: Home, Self Care
[2023-04-16 02:10] VITALS: BP 138/71; PULSE 85; RESP 21; O2SAT 98
== END 2023-04-16 02:29 | disposition home or self-care (01) ==
PROVIDERS: Emergency Provider Emergency Medicine; PCP Family Medicine; Visit Provider Emergency Medicine
DX: H81.10 Benign paroxysmal vertigo, unspecified ear (principal); R03.0 Elevated blood-pressure reading, without diagnosis of hypertension; E78.00 Pure hypercholesterolemia, unspecified; E03.9 Hypothyroidism, unspecified; K21.9 Gastro-esophageal reflux disease without esophagitis; Z79.899 Other long term (current) drug therapy
CPT/HCPCS: 99283

== ENCOUNTER → 2023-06-24 | Outpatient (CLI) | payer OTHER, SELFPAY ==
--- OUTSIDE RECORDS SUMMARY | 2023-06-24 10:26 | XMS RPT_ITS | CCD ---
Author Name Unknown Address [address] [place] [address] Organization [facility] Care Team Providers Care Tattoo Technician Name Role Phone KENJI SELF (BONNY) Unavailable Unavai lable Allergies Allergy Classification Reported Allergen(s) Allergy Type Date of Onset Reaction(s) Facility (1 source) [id number] -ACETAMINOPHEN; Translations: [[id number] M-ACETAMINOPHEN] Propensity to adverse reactions to drug (disorder) 5 [facility] Repository Results Test Name Value Interpretation Reference Range Facil ity Encounters Encounter Date Encounter Type Care Provider Facility Start: 12-28-2016 End: 12-28-2016 Ambulatory KENJI (BONNY) CLAIR [facility] Summary Purpose Family History No Family History Records Found Advance Directives No Advanced Directives Records Found Additional Source Comments INFORMATION SOURCE (unrecogn ized section and content) FOR RECORDS PERTAINING TO PATIENTS WHO ARE OR HAVE BEEN ENROLLED IN A CHEMICAL DEPENDENCY/SUBSTANCEABUSE PROGRAM, SOME INFORMATION MAY BE OMITTED. This clinical summary was aggregated from multiple sources. Caution should be exercised in using it in the provision of clinical care. This summary normalizes information from multiple sources, and as a consequence, information in this document may materially change the coding, format and clinical context of patient data. In addition, data may be omitted in some cases. CLINICAL DECISIONS SHOULD BE BASED ON THE PRIMARY CLINICAL RECORDS. [employer] provides no warranty or guarantee of the accuracy or completeness of information in this document.
== END | disposition home or self-care (01) ==
LOC: LABSPEC 09:58
PROVIDERS: PCP Family Medicine; Referring Provider Physician Assistant; Visit Provider Physician Assistant
DX: R35.0 Frequency of micturition (principal)
CPT/HCPCS: 87077; 87086; 87088; 87186

== ENCOUNTER → 2023-07-04 | Outpatient (CLI) | payer OTHER, SELFPAY ==
--- OUTSIDE RECORDS SUMMARY | 2023-07-04 10:22 | XMS RPT_ITS | CCD ---
Author Name Unknown Address [address] [place] [address] Organization [facility] Care Team Providers Care Die Filer Name Role Phone KENJI SELF (BONNY) Unavailable Unavai lable Allergies Allergy Classification Reported Allergen(s) Allergy Type Date of Onset Reaction(s) Facility (1 source) [id number] -ACETAMINOPHEN; Translations: [[id number] M-ACETAMINOPHEN] Propensity to adverse reactions to drug (disorder) 5 [facility] Repository Results Test Name Value Interpretation Reference Range Facil ity Encounters Encounter Date Encounter Type Care Provider Facility Start: 12-28-2016 End: 12-28-2016 Ambulatory KENJI (BONNY) CLAIR [facility] Summary Purpose Family History No Family [...] BE BASED ON THE PRIMARY CLINICAL RECORDS. [employer] provides no warranty or guarantee of the accuracy or completeness of information in this document.
[2023-07-04 12:40] LABS: Absolute Neutrophil Count 1.7 X10^3/uL (2.0-7.7); Basophil# 0.02 X10^3/uL; Basophil% 0.5 % (0-1); Eosinophil# 0.06 X10^3/uL; Eosinophils% 1.6 % (0-5); Hematocrit 38.1 % (37-47); Hemoglobin 12.4 g/dL (12.0-15.0); Lymphocyte % 41.1 % (19-41); Mean Corp Hgb Conc 32.5 g/dL (32-36); Mean Corpuscular Volume 89.2 fL (81-99); Monocyte# 0.35 X10^3/uL; Monocyte% 9.6 % (0-10); NRBC Flagged by Analyzer 0 % (0-5); Neutrophil # 1.72 X10^3/uL (2.7-7.7); Neutrophil % 47.2 % (47-70); Platelet Count 205 K/mm3 (150-450); RBC Distribution Width CV 13.2 % (11.6-14.6); RBC Distribution Width SD 43.4 fl (35.1-43.9); Red Blood Count 4.27 M/mm3 (4.2-5.4); White Blood Count 3.7 K/mm3 (4.4-11.0)
[2023-07-04 13:21] LABS: ALB/GLOB Ratio 1.1 RATIO (0.9-2.4); AST(SGOT) 15 U/L (15-37); Alanine Aminotransfer ALT/SGPT 20 U/L (13-56); Alkaline Phosphatase 78 U/L (45-117); Anion Gap 6 (5-15); BUN 14 mg/dL (7-18); BUN/Creat Ratio 16.9 RATIO (10-20); Calcium,Total 8.9 mg/dL (8.5-10.1); Chloride 106 mmol/L (98-107); Cholesterol 168 mg/dL (200); Creatinine, Serum 0.83 mg/dL (0.55-1.02); EST Glomerular Filtration Rate 73 mL/min (>60); Est Glom Filt Rate - Afr Amer 88 mL/min (>60); Globulin 3.5 g/dL (2.2-4.2); Glucose 87 mg/dL (74-106); High Density Lipoprotein 67 mg/dL; Potassium 4.2 mmol/L (3.5-5.1); Protein, Total 7.5 g/dL (6.4-8.2); Sodium Level 138 mmol/L (136-145); T4 Free Direct 1.72 ng/dL (0.76-1.46); Thyroid Stim Hormone (TSH) 0.28 uIU/mL (0.358-3.74); Triglycerides 51 mg/dL; Very Low Density Lipoprotein 10 mg/dL (5-40)
== END | disposition home or self-care (01) ==
LOC: BFHLAB 09:55
PROVIDERS: PCP Family Medicine; Visit Provider Family Medicine
DX: I10 Essential (primary) hypertension (principal); E78.5 Hyperlipidemia, unspecified; E03.9 Hypothyroidism, unspecified
CPT/HCPCS: 36415; 80053; 80061; 84439; 84443; 85025

== ENCOUNTER → 2023-09-16 | Outpatient (CLI) | payer OTHER, SELFPAY ==
[2023-09-16 08:50] LABS: T4 Free Direct 1.26 ng/dL (0.76-1.46); Thyroid Stim Hormone (TSH) 0.68 uIU/mL (0.358-3.74)
== END | disposition home or self-care (01) ==
LOC: LAB 07:50
PROVIDERS: PCP Family Medicine; Visit Provider Family Medicine
DX: E03.9 Hypothyroidism, unspecified (principal)
CPT/HCPCS: 36415; 84439; 84443

== ENCOUNTER 2024-02-22 07:27 | Emergency (ER) | payer OTHER, SELFPAY ==
[2024-02-22 07:27] VITALS: BP 143/128; PULSE 98; RESP 18; TEMP 37.4; O2SAT 100; BMI 30.5
--- NOTE | 2024-02-22 07:51 | EDS_ITS ---
HPI History of Present Illness Chief Complaint: Cold Sx Informant: patient Narrative Narrative: 69-year-old female presenting to the emergency room with a chief complaint of continued cough. Patient states that about 2 weeks ago she developed runny nose scratchy throat and a cough. She states that she got better but not fully rid of the cough and that on Saturday her symptoms returned and she developed a fever myalgias arthralgias worsening cough and is now developed right ear pain. She notes crackling and popping in the ear. she notes that she has seen Dr. Velasquez in the past for right-sided sinus issues. She notes some occasional sputum 3-4 times per day. She denies any wheezing or known lung conditions. She went to urgent care on 18 February where she was placed on Medrol and benzoate. She states that she was told that she did not get better she should come to emergency. She spoke with her insurance company's nurse who advised her to come to emergency. Primary care does not know of her recent illness. The patient states that yesterday her temperature was around [id number]. [facility] Medical History Hypercholesterolemia Hypothyroid GERD (gastroesophageal reflux disease) Home Medications ?Medication ?Instructions ?Recorded ?Last Taken ?Type levothyroxine 88 mcg tablet 88 mcg PO DAILY 07/02/17 01/07/20 06:30 History (Synthroid) pantoprazole 40 mg tablet,delayed 40 mg PO QHS REFLUX 07/02/17 Unknown History release simvastatin 10 mg tablet 10 mg PO QHS 07/02/17 Unknown History loratadine 10 mg tablet (Claritin) 10 mg PO DAILY 01/05/21 Unknown History famotidine 20 mg tablet 20 mg PO DAILY 02/26/22 Unknown History meclizine 25 mg tablet 25 mg PO 4X/DAY PRN PRN Dizziness 04/16/23 Unknown Rx #20 tabs estradiol 0.01% (0.1 mg/gram) See Rx Instructions vaginal 05/20/23 Unknown Rx vaginal cream .COMPLEX #42.5 grams benzonatate 200 mg capsule 200 mg PO TID PRN cough #20 caps 02/19/24 Unknown Rx methylprednisolone 4 mg tablets in See Rx Instructions PO PER PKG DIR 02/19/24 Unknown Rx a dose pack (Medrol (Kevyn)) #21 tabs azithromycin 250 mg tablet See Rx Instructions PO .COMPLEX #6 02/22/24 Unknown Rx (Zithromax Z-Kevyn) tabs Allergy/AdvReac Type Severity Reaction Status Date / Time dextromethorphan (From Vicks Allergy Mild Other Verified 02/22/24 07:27 NyQuil Cold/Flu Liquicap) doxylamine (From Vicks Allergy Mild Unknown Verified 02/22/24 07:27 NyQuil Cold/Flu Liquicap) Family History Mother Diabetes Hypertension Thyroid disorder CAD (coronary artery disease) Father Heart disease CAD (coronary artery disease) Sister Breast cancer Hypertension Brother Hypertension CAD (coronary artery disease) Surgical History cystourethroscopy mid urethral sling bilateral sacrospinous ligament Hx of BSO (bilateral salpingo-oophorectomy) History of LAVH History of esophagogastroduodenoscopy (EGD) History of colonoscopy History of section History of mandibular surgery Social History Smoking Status: Never smoker alcohol intake: never substance use type: does not use caffeine: Yes what type of physical activity do you participate in: walking and bicycling frequency: 5-6 times per week seatbelt use: always do you feel safe at home: Yes additional social history: - [facility] ED Constitutional Constitutional ED: Reports chills and fever(s); Denies weight loss Eyes Eyes: Denies change in vision or diplopia ENT ENT ED: Reports ear pain, rhinorrhea and sore throat Cardiovascular Cardiovascular: Denies chest pain, orthopnea, palpitations or racing heartbeat Respiratory/Chest Respiratory/Chest: Reports cough and sputum; Denies dyspnea or orthopnea Gastrointestinal Gastrointestinal: Denies abdominal pain, diarrhea, nausea or vomiting Genitourinary Genitourinary ED: Denies dysuria, hematuria or urinary frequency Musculoskeletal Musculoskeletal: Reports arthralgias and myalgias Integumentary Denies abscess or rash Neurologic Neurologic: Denies headache(s) or weakness Psychiatric Psychiatric: Denies anxiety, depression, suicidal ideation or suicidal thoughts Endocrine Endocrinology: Denies polydipsia, polyphagia or polyuria Allergic/Immunologic Allergic/Immunologic ED: Denies mouth swelling, tongue swelling or urticaria EXAM Physical Exam Const Vital Signs: 02/22/24 07:27 Temperature 99.4 F H Temperature Source Oral Pulse Rate 98 Respiratory Rate 18 Blood Pressure 143/128 H Blood Pressure Mean 133 Pulse Ox 100 Oxygen Delivery Method Room Air Positive well nourished, well developed and obese General Appearance ED: well developed Nutritional Appearance: obese HEENT Reports normocephalic, head/scalp atraumatic and moist mucous membranes HEENT Narrative: mild turbinate edema No TM erythema or loss of landmarks Eyes PERRL and EOMs intact bilaterally Neck no lymphadenopathy, supple and no JVD Resp normal respiratory effort Resp Narrative: mild rhonchi RLL Cardio regular rate, regular rhythm and no murmurs GI normal to inspection, nondistended, normoactive bowel sounds and non-tender Palpation: soft Back/Spine no CVA tenderness and normal ROM Extremity normal to inspection General Extremety ED: Negative for edema General Extremity: Negative for edema Neuro oriented x3 and CN's II-XII intact bilaterally Sensorium / Orientation: alert Motor Exam: strength 5/5 throughout Psych mental status grossly normal Mood & Affect: Negative for depressed or tearful Skin no rashes or lesions noted and no wounds MDM MDM MDM Narrative Medical decision making narrative: Differential diagnosis includes but not limited to viral syndrome bronchitis pneumonia pleural effusion congestive heart failure otitis media sinusitis My independent interpretation of the chest x-ray is no acute process. Clinically the tympanic membrane is not erythematous and I see normal landmarks. She may have some eustachian tube dysfunction resulting in pain. As she has been ill for about 2 weeks I think it is reasonable to trial an antibiotic. Will use azithromycin is based on the physical exam she is more likely to have a bronchitis or atypical pneumonia. Would recommend nasal decongestions like Afrin or saline spray.. Follow-up with primary care if not improving History & Record Review Discussion w/independent historian: Patient Discharge Plan Triage Chief Complaint: Cold Sx ED Provider: Lyle Lyle Dx/Rx/DC Orders Clinical Impression: Acute bronchitis, Acute dysfunction of right eustachian tube Instructions: Acute Bronchitis Prescriptions: New azithromycin [Zithromax Z-Kevyn] 250 mg tablet See Rx Instructions .ROUTE .COMPLEX Qty: 6 0RF Rx Instructions: For 250 mg dose pack: take 500 mg today (day 1), then 250 mg for 4 days (days 2-5) No Action pantoprazole 40 mg tablet,delayed release (DR/EC) 40 mg PO QHS levothyroxine [Synthroid] 88 mcg tablet 88 mcg PO DAILY simvastatin 10 mg tablet 10 mg PO QHS loratadine [Claritin] 10 mg tablet 10 mg PO DAILY famotidine 20 mg tablet 20 mg PO DAILY benzonatate 200 mg capsule 200 mg PO TID PRN (Reason: cough) Qty: 20 0RF methylprednisolone [Medrol (Kevyn)] 4 mg tablets,dose pack See Rx Instructions PO PER PKG DIR Qty: 21 0RF Rx Instructions: PO PER PKG DIR meclizine 25 mg tablet 25 mg PO 4X/DAY PRN PRN (Reason: Dizziness) Qty: 20 0RF estradiol 0.01 % (0.1 mg/gram) cream See Rx Instructions vaginal .COMPLEX Qty: 42.5 2RF Rx Instructions: small amount as directed vaginal twice a week; Primary Care Provider: Steven Rojas Referrals: Steven Rojas DO [Primary Care Provider] - 1 Week if not improving Print Language: [place] Disposition Disposition: Home, Self Care
--- NOTE | 2024-02-22 07:55 | RAD_ITS ---
STUDY: X-RAY CHEST REASON FOR EXAM: Female, 69 years old. Cough TECHNIQUE: PA and lateral views of the chest. COMPARISON: None. FINDINGS: The lungs are clear and expanded. There is no demonstrated pleural abnormality. Normal size heart. Normal mediastinum and ramon. Normal visualized pulmonary arteries. Normal visualized aortic arch and descending thoracic aorta. There is scoliosis and degenerative change of the thoracolumbar spine. Normal visualized ribs, clavicles, and shoulders. There is no demonstrated abnormality of the visualized soft tissue structures of the upper abdomen. RAD/Chest PA and Lateral IMPRESSION: Degenerative changes, as described above. No demonstrated acute cardiopulmonary process. Electronically Signed: Buck Muñoz MD at 8:57 EDT ,
[2024-02-22 09:03] VITALS: BP 139/79; PULSE 78; RESP 19; TEMP 36.6; O2SAT 99
== END 2024-02-22 09:06 | disposition home or self-care (01) ==
PROVIDERS: Emergency Provider Emergency Medicine; PCP Family Medicine; Visit Provider Emergency Medicine
DX: J20.9 Acute bronchitis, unspecified (principal); H69.91 Unspecified Eustachian tube disorder, right ear; E78.00 Pure hypercholesterolemia, unspecified; E03.9 Hypothyroidism, unspecified; K21.9 Gastro-esophageal reflux disease without esophagitis; Z79.890 Hormone replacement therapy; Z79.899 Other long term (current) drug therapy
CPT/HCPCS: 71046; 99282

== ENCOUNTER → 2024-03-06 | Outpatient (CLI) | payer OTHER, SELFPAY ==
--- NOTE | 2024-03-06 07:02 | BI_ITS ---
MAMMOGRAPHY - BILATERAL SCREENING REASON FOR EXAM: Female, 69 years old. Routine annual screening examination. PERTINENT HISTORY: Sister with breast cancer. TECHNIQUE: Digital bilateral breast kristine (3D mammographic acquisition) in the CC and MLO projections. 2-D mediolateral oblique (MLO) and craniocaudad (CC) views of both breasts were obtained. CAD: Full Field Digital Mammography with Computer Added Detection was performed. COMPARISON: Comparison is made with prior study dated March 04, 2023 and March 02, 2022. FINDINGS: Breast Composition: There are scattered areas of fibroglandular density. There are no dominant masses or suspicious calcifications. Fat-containing bilateral axillary lymph nodes. No other significant abnormalities are identified. There has been no significant change since the prior study. BI/SCRN MAMM (CAD)W/KRISTINE BILAT IMPRESSION: Stable bilateral screening mammogram. Yearly follow-up mammogram recommended. (A) ASSESSMENT CATEGORY: BIRADS Category 2: Benign. A letter regarding these results will be sent to the patient by the facility within 30 days. Approximately 10% of breast cancers are not detected by mammography. A normal mammogram should not delay biopsy of a clinically suspicious abnormality. [id number] Electronically Signed: Andrae Jonas MD at 7:59 EDT ,
== END | disposition home or self-care (01) ==
LOC: OPBI 07:00
PROVIDERS: PCP Family Medicine; Referring Provider Obstetrics & Gynecology; Visit Provider Obstetrics & Gynecology
DX: Z12.31 Encounter for screening mammogram for malignant neoplasm of breast (principal)
CPT/HCPCS: 77063; 77067

== ENCOUNTER → 2024-07-06 | Outpatient (CLI) | payer OTHER, SELFPAY ==
[2024-07-06 12:12] LABS: Absolute Lymphocyte Count 1.21 X10^3/uL (0.83-4.51); Absolute Neutrophil Count 2.1 X10^3/uL (2.0-7.7); Basophil# 0.02 X10^3/uL; Basophil% 0.5 % (0-1); Eosinophil# 0.01 X10^3/uL; Eosinophils% 0.3 % (0-5); Hemoglobin 12.9 g/dL (12.0-15.0); Lymphocyte # 1.21 X10^3/ul (0.83-4.51); Lymphocyte % 32.3 % (19-41); Mean Corp Hgb Conc 33.1 g/dL (32-36); Mean Corpuscular Hgb 29.3 pg (27.0-32.0); Mean Corpuscular Volume 88.6 fL (81-99); Mean Platelet Vol. 11.9 fl (6.2-12.0); Monocyte# 0.36 X10^3/uL; Monocyte% 9.6 % (0-10); NRBC Flagged by Analyzer 0 % (0-5); Neutrophil # 2.14 X10^3/uL (2.7-7.7); POSITIVE COUNT YES; RBC Distribution Width CV 13.3 % (11.6-14.6); RBC Distribution Width SD 43.7 fl (35.1-43.9); White Blood Count 3.8 K/mm3 (4.4-11.0)
[2024-07-06 12:36] LABS: ALB/GLOB Ratio 1.1 RATIO (0.9-2.4); AST(SGOT) 19 U/L (15-37); Alanine Aminotransfer ALT/SGPT 20 U/L (13-56); Albumin, Serum 3.8 g/dL (3.2-5.0); Alkaline Phosphatase 72 U/L (45-117); Anion Gap 7 (5-15); BUN 11 mg/dL (7-18); BUN/Creat Ratio 13.8 RATIO (10-20); Calcium,Total 8.8 mg/dL (8.5-10.1); Chloride 106 mmol/L (98-107); Cholesterol 162 mg/dL (200); EST Glomerular Filtration Rate 76 mL/min (>60); Est Glom Filt Rate - Afr Amer 92 mL/min (>60); Globulin 3.5 g/dL (2.2-4.2); Glucose 80 mg/dL (74-106); High Density Lipoprotein 65 mg/dL; Protein, Total 7.3 g/dL (6.4-8.2); Sodium Level 140 mmol/L (136-145); T4 Free Direct 1.72 ng/dL (0.76-1.46); Thyroid Stim Hormone (TSH) 0.497 uIU/mL (0.358-3.740); Triglycerides 73 mg/dL; Very Low Density Lipoprotein 15 mg/dL (5-40)
[2024-07-06 12:42] LABS: Differential Indicated SCAN CRITERIA MET
[2024-07-06 12:53] LABS: Platelet Estimate ADEQUATE (ADEQ)
== END | disposition home or self-care (01) ==
PROVIDERS: PCP Family Medicine; Visit Provider Family Medicine
DX: Z00.00 Encounter for general adult medical examination without abnormal findings (principal); E03.9 Hypothyroidism, unspecified
CPT/HCPCS: 36415; 80053; 80061; 84439; 84443; 85025

== ENCOUNTER → 2024-11-30 | Outpatient (CLI) | payer OTHER, SELFPAY ==
--- OUTSIDE RECORDS SUMMARY | 2024-11-30 08:28 | XMS RPT_ITS | CCD ---
Author Organization [facility] Care Team Providers Care Tobacco Conditioner Name Role Phone EUNICE SELF (PA-Petra) Unavailable Lisbethvai Dr. Steven Felix Primary Care Provider Dr. Steven Rojas Referring Provider Dr. Jonna Khan Attending Provider Dr. Steven Rojsa Primary Care Provider Dr. Steven Rojas Referring Provider [phone] Dr. Jonna Khan Attending Provider Dr. Steven Rojas Primary Care Provider Dr. Steven Rojas Referring Provider KAREEN Sanchez Attending Provider Dr. Steven Rojas Primary Care Provider Dr. Steven Rojas Referring Provider KAREEN Sanchez Attending Provider Steven Rojas Attending Unavailable Steven Rojas Primary Care Unavailable Steven Rojas Primary Care Unavailable Steven Rojas Attending Unavailable Jonna Khan Attending Unavailable Jonna Kahn Referring Unavailable Steven Rojas Primary Care Unavailable Steven Rojas Primary Care Unavailable Lyle Lyle Attending Unavailable Juana Quintanilla NP Attending Unavailable Steven Rojas Referring Unavailable Steven Rojas Primary Care Unavailable Satya Genao Attending Unavailable Steven Rojas Referring Unavailable Steven Rojas Primary Care Unavailable Steven Rojas Primary Care Unavailable Cory Sanchez Attending Unavailable Steven Rojas Referring Unavailable Dr. Steven Rojas DO Primary Care Provider Dr. Steven Rojas DO Referring Provider [phone] Tony Carrera Attending Provider [phone] Allergies Allergy Classification Reported Allergen(s) Allergy Type Date of Onset Reaction(s) Facility (1 source) [id number] ETAMINOPHEN; Translations: [[id number] CETAMINOPHEN] Propensity to adverse reactions to drug (disorder) 05-23-20 [facility] Repository (5 sources) Dextromethorphan Drug Allergy 02-27-20 Unknown, Other [facility] Comment on above: Palpitations (5 sources) Doxylamine Drug Allergy 02-27-20 Unknown [facility] (1 source) Dextromethorphan Drug Allergy 03-19-20 [facility] Repository (1 source) Doxylamine Drug Allergy 03-19-20 [facility] Repository Medications Current Medications Medication Drug Class(es) Dates Sig (Normalized) Sig (Original) estradiol 0.1 mg/ml vaginal cream (20 sources) Estrogen Start: 03-14-2021 End: 07-17-2024 Estradiol 0.01 % (0.1 mg/gram) cream Active 0.25 NMA VAGINAL .COMPLEX 42.5 July 17, 2024 9:49am 0.25 appful vaginally twice a week; Start: 03-14-2021 End: 05-20-2023 Estradiol Discontinued 0 VAG INAL .COMPLEX 42.5 January 23, 2022 1:06pm May 20, 2023 12:32pm small amount as directed vaginal twice a week; Start: 11-10-2020 End: 03-14-2021 Estradiol 0.01 % (0.1 mg/gra m) cream Discontinued 0 VAGINAL .COMPLEX 42.5 November 10, 2020 12:00am March 14, 2021 7:59am small amount as directed vaginal every other day X 4 weeks then twice a week; Start: 11-10-2020 End: 03-14-2021 Estradiol Discontinued 0 VAG INAL .COMPLEX 42.5 November 10, 2020 12:00am March 14, 2021 7:59am small amount as directed vaginal every other day X 4 weeks then twice a week; Start: 12-08-2019 End: 11-10-2020 Estradiol 42.5 GM cream Disc ontinued 1 g VAGINAL .3XWEEKLY December 08, 2019 10:52am November 10, 2020 8:32am Start: 12-08-2019 End: 11-10-2020 Estradiol Discontinued 1 GM VAGINAL .3XWEEKLY December 08, 2019 10:52am November 10, 2020 8:32am Start: 02-06-2019 End: 12-08-2019 Estradiol (Estrace) 0.01 % ( 0.1 mg/gram) cream Discontinued 1 g VAGINAL TWICE A WEEK 42.5 August 10, 2019 9:33am December 08, 2019 10:53am Start: 06-12-2018 End: 01-08-2019 Estradiol (Estrace) 0.01 % ( 0.1 mg/gram) cream Discontinued 0 VAGINAL .COMPLEX 42.5 June 12, 2018 1:00am January 08, 2019 11:22am pea sized amount VAGINAL every other day X 4 weeks then twice a week; Start: 06-12-2018 End: 01-08-2019 Estradiol (Estrace) 0.01 % ( 0.1 mg/gram) cream Discontinued 0 VAGINAL .COMPLEX 42.5 June 12, 2018 1:00am January 08, 2019 11:22am pea sized amount VAGINAL every other day X 4 weeks then twice a week; famotidine 20 mg oral tablet (5 sources) Histamine-2 Receptor Antagonist Start: 02-26-2022 take 1 tablet by mouth once daily Famotidine 20 mg tablet Active 20 mg PO DAILY February 26, 2022 12:00am levocetirizine dihydrochloride 5 mg oral tablet (1 source) Histamine-1 Receptor Antagonist Start: 03-18-2024 take 1 tablet by mouth once daily Levocetirizine (Allergy Relief (Levocetirizin)) 5 mg tablet Active 5 mg PO DAILY March 18, 2024 12:00am levothyroxine sodium 0.088 mg oral tablet (5 sources) l-Thyroxine Start: 07-02-2017 take 1 tablet by mouth once daily Levothyroxine (Synthroid) 88 mcg tablet Active 88 ug PO DAILY July 02, 2017 1:00am pantoprazole 40 mg delayed release oral tablet (5 sources) Proton Pump Inhibitor Start: 07-02-2017 take 1 tablet by mouth at bedtime Pantoprazole 40 mg tablet,delayed release (DR/EC) Active 40 mg PO AT BEDTIME July 02, 2017 1:00am simvastatin 10 mg oral tablet (5 sources) HMG-CoA Reductase Inhibitor Start: 07-02-2017 take 1 tablet by mouth at bedtime Simvastatin 10 mg tablet Active 10 mg PO AT BEDTIME July 02, 2017 1:00am Completed/Discontinued Medications Medication Drug Class(es) Dates Sig (Normalized) Sig (Original) acetaminophen 325 mg / oxyCODONE hydrochloride 5 mg oral tablet (10 sources) Opioid Agonist Start: 2020 End: 01-09-2020 Oxycodone-Acetamino phen 1 TABLET tablet Discontinued 2 {tbl} PO EVERY 8 HOURS NEEDED as needed for Pain 6 2020 January 08, 2020 12:00am January 09, 2020 12:03am Start: 2020 End: 01-09-2020 take 2 tablets by mouth every eight hours as needed Oxycodone-Acetaminophen Discontinued 2 TABLET PO EVERY 8 HOURS NEEDED 6 2 2020 January 09, 2020 12:03am Start: 12-22-2019 End: 12-29-2019 Oxycodone-Acetaminophen 1 TA BLET tablet Discontinued 1 - 2 {tbl} PO EVERY 6 HOURS NEEDED as needed for Pain 15 December 22, 2019 December 28, 2019 12:00am December 29, 2019 12:02am Start: 12-22-2019 End: 12-29-2019 take 1 tablet by mouth every six hours as needed Oxycodone-Acetaminophen Discontinued 1 - 2 TABLET PO EVERY 6 HOURS NEEDED 15 December 22, 2019 December 29, 2019 12:02am azithromycin 250 mg oral tablet (1 source) Macrolide Antimicrobial Start: 02-22-2024 End: 03-18-2024 Azithromycin (Zithromax Z-Kevyn) 250 mg tablet Discontinued 0 PO .COMPLEX February 22, 2024 12:00am March 18, 2024 1:02pm For 250 mg dose pack: take 500 mg today (day 1), then 250 mg for 4 days (days 2-5) benzonatate 200 mg oral capsule (1 source) Non-narcotic Antitussive Start: 02-19-2024 End: 03-18-2024 take 1 capsule by mouth three times daily as needed for cough Benzonatate 200 mg capsule Discontinued 200 mg PO THREE TIMES A DAY as needed for cough February 19, 2024 12:00am March 18, 2024 1:02pm biotin 1 mg chewable tablet (5 sources) Start: 07-02-2017 End: 01-21-2018 take 1 tablet by mouth once daily Biotin 1,000 mcg tablet,chewable Discontinued 1000 ug PO DAILY July 02, 2017 1:00January 21, 2018 10:30am calcium carbonate 1500 mg oral tablet (5 sources) Start: 07-12-2017 End: 01-08-2019 take 1 tablet by mouth once daily Calcium Carbonate 600 MG tablet Discontinued 600 mg PO DAILY July 12, 2017 1:00am January 08, 2019 11:22am cephalexin 500 mg oral capsule (10 sources) Cephalosporin Antibacterial Start: 2020 End: 01-12-2020 take 1 capsule by mouth every twelve hours Cephalexin 500 MG capsule Discontinued 500 mg PO EVERY 12 HOURS 10 2020 12:00am January 11, 2020 12:00am January 12, 2020 12:02am Start: 12-23-2019 End: 12-26-2019 take 1 capsule by mouth every twelve hours Cephalexin 500 MG capsule Discontinued 500 mg PO EVERY 12 HOURS 6 December 23, 2019 12:00am December 25, 2019 12:00am December 26, 2019 12:03am cholecalciferol 0.025 mg oral capsule (5 sources) Vitamin D Start: 07-02-2017 End: 01-08-2019 take 1 capsule by mouth once Cholecalciferol (Vitamin D3) 1,000 unit capsule Discontinued 1000 U PO ONCE July 02, 2017 1:00am January 08, 2019 11:22am docusate sodium 100 mg oral capsule (5 sources) Start: 2020 End: 01-05-2021 take 1 capsule by mouth twice daily Docusate Sodium 100 MG capsule Discontinued 100 mg PO TWICE A DAY 2020 12:00am January 05, 2021 1:06pm oxyquinoline sulfate 0.77799 mg/mg / sodium dodecyl sulfate 0.0001 mg/mg vaginal gel (10 sources) Start: 06-15-2021 End: 02-26-2022 Oxyquinoline-Sod.[place] l Sulfat (Trimo-Angelo Jelly) 0.025-0.01 % gel Discontinued 1 NMA VAGINAL .COMPLEX 113.4 June 15, 2021 1:00am February 26, 2022 11:33am 1 ea vaginal prn dryness; Start: 06-15-2021 End: 02-26-2022 Oxyquinoline-Sod.Lauryl Sulf at (Trimo-Angelo Jelly) 0.025-0.01 % gel Discontinued 1 EACH VAGINAL .COMPLEX 113.4 June 15, 2021 1:00am February 26, 2022 11:33am 1 ea vaginal prn dryness; Start: 01-12-2021 End: 02-26-2022 Oxyquinoline-Sod.Lauryl Sulf at (Trimo-Angelo Jelly) 0.025-0.01 % gel Discontinued 0 VAGINAL .COMPLEX 113.4 January 12, 2021 12:00am February 26, 2022 11:33am 1 application VAGINAL once a week; Start: 01-12-2021 End: 02-26-2022 Oxyquinoline-Sod.Lauryl Sulf at (Trimo-Angelo Jelly) 0.025-0.01 % gel Discontinued 0 VAGINAL .COMPLEX 113.4 January 12, 2021 12:00am February 26, 2022 11:33am 1 application VAGINAL once a week; Lactobacillus Combination No.8 (Adult Probiotic) 3 billion cell capsule (5 sources) Start: 07-02-2017 End: 01-08-2019 take 3 capsules by mouth once daily Lactobacillus Combination No.8 (Adult Probiotic) 3 billion cell capsule Discontinued 1 {tbl} PO daily July 02, 2017 1:00am January 08, 2019 11:22am Start: 07-02-2017 End: 01-08-2019 Lactobacillus Combination No .8 (Adult Probiotic) 3 billion cell capsule Discontinued 1 TABLET PO daily July 02, 2017 1:00am January 08, 2019 11:22am Start: 07-02-2017 End: 01-08-2019 Lactobacillus Combination No .8 (Adult Probiotic) 3 billion cell capsule Discontinued 1 TABLET PO daily July 02, 2017 12:00am January 08, 2019 10:22am loratadine 10 mg oral tablet (5 sources) Start: 01-05-2021 End: 03-18-2024 take 1 tablet by mouth once daily Loratadine (Claritin) 10 mg tablet Discontinued 10 mg PO DAILY January 05, 2021 12:00am March 18, 2024 1:02pm meclizine hydrochloride 25 mg oral tablet (4 sources) Antiemetic Start: 04-16-2023 End: 03-18-2024 take 1 tablet by mouth four times daily as needed for dizziness Meclizine 25 mg tablet Discontinued 25 mg PO 4 TIMES DAILY NEEDED as needed for Dizziness April 16, 2023 1:00am March 18, 2024 1:02pm methylPREDNISolone 4 mg oral tablet (1 source) Corticosteroid Start: 02-19-2024 End: 03-18-2024 take 1 tablet by mouth once Methylprednisolone (Medrol (Kevyn)) 4 mg tablets,dose pack Discontinued 0 PO per package directions February 19, 2024 12:00am March 18, 2024 1:02pm PO PER PKG DIR metroNIDAZOLE 500 mg oral tablet (10 sources) Nitroimidazole Antimicrobial Start: 01-12-2021 End: 02-26-2022 take 1 tablet by mouth twice daily Metronidazole (Flagyl) 500 mg tablet Discontinued 500 mg PO TWICE A DAY January 12, 2021 12:00am February 26, 2022 11:33am Start: 12-28-2019 End: 01-04-2020 take 1 tablet by mouth twice daily Metronidazole (Flagyl) 500 mg tablet Discontinued 500 mg PO TWICE A DAY 21 12December 28, 2019 12:00am January 03, 2020 12:00am January 04, 2020 12:02am naproxen 250 mg oral tablet (5 sources) Nonsteroidal Anti-inflammatory Drug Start: 12-22-2019 End: 01-04-2020 take 250-500 mg by mouth every eight hours as needed for pain Naproxen 250 MG tablet Discontinued 250 - 500 mg PO EVERY 8 HOURS NEEDED as needed for MILD PAIN December 22, 2019 12:00am January 04, 2020 11:03am nitrofurantoin, macrocrystals 25 mg / nitrofurantoin, monohydrate 75 mg oral capsule (8 sources) Nitrofuran Antibacterial Start: 06-24-2023 End: 06-29-2023 take 1 capsule by mouth every twelve hours at mealtime Nitrofurantoin Monohyd/M-Cryst (Macrobid) 100 mg capsule Discontinued 100 mg PO Q12H 10 June 24, 2023 1:00am June 28, 2023 1:00am June 29, 2023 1:28am must administer with a meal/food Start: 01-08-2019 End: 02-06-2019 take 1 capsule by mouth twice daily at mealtime Nitrofurantoin Monohyd/M-Cryst 100 mg capsule Discontinued 100 mg PO TWICE A DAY January 08, 2019 12:00am February 06, 2019 3:16pm must administer with a meal/food phenazopyridine hydrochloride 200 mg oral tablet (5 sources) Start: 2020 End: 01-14-2020 take 1 tablet by mouth three times daily as needed for muscle spasms Phenazopyridine 200 MG tablet Discontinued 200 mg PO 3 TIMES DAILY NEEDED as needed for Bladder Spasms 06 01January 07, 2020 12:00am January 13, 2020 12:00am January 14, 2020 12:02am polymyxin b 83146 unt/ml / trimethoprim 1 mg/ml ophthalmic solution (1 source) Dihydrofolate Reductase Inhibitor Antibacterial, Polymyxin-class Antibacterial Start: 03-19-2024 End: 03-26-2024 Polymyxin B Sulf-Trimethoprim 10,000 unit- 1 mg/mL drops Discontinued 1 NMA OPHTHALMIC Q3H 10 March 19, 2024 12:00am March 25, 2024 12:00am March 26, 2024 12:09am while awake; do not exceed 6 doses in 24 hours raNITIdine 150 mg oral tablet (5 sources) Histamine-2 Receptor Antagonist Start: 07-02-2017 End: 01-21-2018 take 1 tablet by mouth twice daily Ranitidine Hcl (Acid Corporate Travel Agent (Ranitidine)) 150 mg tablet Discontinued 150 mg PO TWICE A DAY July 02, 2017 1:00am January 21, 2018 10:30am sulfacetamide sodium 100 mg/ml ophthalmic solution (5 sources) Sulfonamide Antibacterial Start: 10-10-2021 End: 10-17-2021 Sulfacetamide Sodium (Bleph-10) 10 % drops Discontinued 1 NMA OPHTHALMIC Q3H 15 October 10, 2021 12:00am October 16, 2021 12:00am October 17, 2021 12:04am Start: 10-10-2021 End: 10-17-2021 Sulfacetamide Sodium (Bleph- 10) 10 % drops Discontinued 1 DRP OPHTHALMIC Q3H 15 October 10, 2021 12:00am October 17, 2021 12:04am Problems Active Problems Problem Classification Problem Date Documented Da te Episodic/Chronic Acute bronchitis (1 source) Acute bronchitis; Translations: [Acute bronchitis, unspecified] 03-01-2024 Episodic Conditions associated with dizziness or vertigo (4 sources) Benign paroxysmal positional vertigo; Translations: [Benign paroxysmal vertigo, unspecified ear] 04-16-2023 Episodic Inflammation; infection of eye (except that caused by tuberculosis or sexually transmitteddisease) (6 sources) Acute infectious conjunctivitis; Translations: [Unspecified acute conjunctivitis, unspecified eye] 10-10-2021 Episodic Inflammatory diseases of female pelvic organs (5 sources) Bacterial vaginosis; Translations: [Acute vaginitis] 03-04-2023 Episodic Comment on above: trimosan gel weekly to prevent recurrence Menopausal disorders (7 sources) Atrophic vaginitis; Translations: [Postmenopausal atrophic vaginitis] Onset: 03-19-2024 03-04-2023 Chronic Comment on above: estrogen cream vagin ally Other circulatory disease (4 sources) Elevated blood pressure; Translations: [Elevated blood-pressure reading, without diagnosis of hypertension] 04-16-2023 Episodic Other congenital anomalies (1 source) Herniated urinary bladder 03-18-2024 Chronic Comment on above: s/p repair, pessary #4 ring w support/sees jocelynn Other diseases of bladder and urethra (5 sources) Urethral hypermobility; 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] 2020 Episodic Otitis media and related conditions (1 source) Dysfunction of eustachian tube; Translations: [Unspecified Eustachian tube disorder, right ear] 03-01-2024 Episodic Prolapse of female genital organs (1 source) Cystocele, midline; Translations: [Cystocele, midline] Onset: 03-19-2024 Chronic Thyroid disorders (1 source) Hypothyroidism, unspecified; Translations: [Hypothyroidism, unspecified] Onset: 09-19-2023 Chronic Unclassified (6 sources) Herniated urinary bladder; Translations: [Cystocele] Urinary tract infections (2 sources) Urinary tract infection, site not specified; Translations: [Urinary tract infection, site not specified] 06-24-2023 Episodic Past or Other Problems Problem Classification Problem Date Documented Date Episodic/Chronic Other screening for suspected conditions (not mental disorders or infectious disease) (1 source) Encounter for screening mammogram for malignant neoplasm of breast; Translations: [Encounter for screening mammogram for malignant neoplasm of breast] Onset: 04-03-2024 Episodic Other upper respiratory infections (1 source) Acute nasopharyngitis [common cold]; Translations: [Acute nasopharyngitis [common cold]] Onset: 03-15-2024 Episodic Unclassified (5 sources) bilateral sacrospinous ligament 12-28-2021 Unclassified (5 sources) cystourethroscopy 12-28-2021 Unclassified (5 sources) mid urethral sling 12-28-2021 Results Test Name Value Interpretation Reference Range Facility CBC W/Diff, Automatedon 06-11 PLT EST ADEQUATE Normal ADEQ [facility] Comment on above: Performed By: #### L 100.0100, L506.0400, L501.9520, L500.4050, L500.4100 #### [facility] [address] [place], [address] Comprehensive Metabolic Prof [facility] 07-06-2024 Albumin [Mass/Vol] 3.8 g/dL Normal 3.2-5.0 [facility] Comment on above: Performed By: #### L 100.0100, L506.0400, [id number], L500.4050, L500.4100 #### [facility] [address] [place], [address] Albumin/Globulin [Mass ratio] 1.1 {ratio} Normal 0.9-2.4 [facility] Comment on above: Performed By: #### L 100.0100, L506.0400, [id number], L500.4050, L500.4100 #### [facility] [address] [facility] [place], [address] ALK P 72 U/L Normal 45-117 [facility] Comment on above: Performed By: #### L 100.0100, L506.0400, [id number], L500.4050, L500.4100 #### [facility] [address] [place], [address] ALT [Catalytic activity/Vol] 20 U/L Normal 13-56 [facility] Comment on above: Performed By: #### L 100.0100, L506.0400, [id number], L500.4050, L500.4100 #### [facility] [address] [place], [address] AST [Catalytic activity/Vol] 19 U/L Normal 15-37 [facility] Comment on above: Performed By: #### L 100.0100, L506.0400, [id number], L500.4050, L500.4100 #### [facility] [address] [place], [address] Bilirubin [Mass/Vol] 0.70 mg/dL Normal 0.20-1.00 [facility] Comment on above: Result Comment: For patients on eltrombopag therapy, use of Dimension [place] TBIL is not recommended. Performed By: #### L 100.0100, L506.0400, [id number], L500.4050, L500.4100 #### [facility] [address] [place], [address] BUN/CRE 13.8 RATIO Normal 10-20 [facility] Comment on above: Performed By: #### L 100.0100, L506.0400, [id number], L500.4050, L500.4100 #### [facility] [address] [place], [address] CA,Total 8.8 mg/dL Normal 8.5-10.1 [facility] Comment on above: Performed By: #### L 100.0100, L506.0400, [id number], L500.4050, L500.4100 #### [facility] [address] [place], [address] Chloride [Moles/Vol] 106 mmol/L Normal 98-107 [facility] Comment on above: Performed By: #### L 100.0100, L506.0400, [id number], L500.4050, L500.4100 #### [facility] [address] [place], [address] CO2 [Moles/Vol] 27.0 mmol/L Normal 21.0-32.0 [facility] Comment on above: Performed By: #### L 100.0100, L506.0400, [id number], L500.4050, L500.4100 #### [facility] [address] [place], [address] Creatinine [Mass/Vol] 0.80 mg/dL Normal 0.55-1.02 [facility] Comment on above: Result Comment: The validity of the calculated GFR GFRAA in patients over 70 years has not been determined. Clinical correlation is essential. Performed By: #### L 100.0100, L506.0400, L501.9520, L500.4050, L500.4100 #### [facility] [address] [place], [address] EST GFR - AA 92 mL/min Normal >60 [facility] Comment on above: Result Comment: Afri can Norwegian GFR Calc Performed By: #### L 100.0100, L506.0400, [id number], L500.4050, L500.4100 #### [facility] [address] [place], [address] GAP 7 Normal 5-15 [facility] Comment on above: Performed By: #### L 100.0100, L506.0400, [id number], L500.4050, L500.4100 #### [facility] [address] [place], [address] GFR/1.73 sq M.predicted among non-blacks MDRD (S/P/Bld) [Vol rate/Area] 76 mL/min/{1.73_m2} Normal >60 [facility] Comment on above: Result Comment: Non- GFR Calc Performed By: #### L 100.0100, L506.0400, L501.9520, L500.4050, L500.4100 #### [facility] [address] [place], [address] Globulin (S) [Mass/Vol] 3.5 g/dL Normal 2.2-4.2 [facility] Comment on above: Performed By: #### L 100.0100, L506.0400, [id number], L500.4050, L500.4100 #### [facility] [address] [place], [address] Glucose [Mass/Vol] 80 mg/dL Normal 74-106 [facility] Comment on above: Performed By: #### L 100.0100, L506.0400, [id number], L500.4050, L500.4100 #### [facility] [address] [place], [address] Potassium [Moles/Vol] 4.0 mmol/L Normal 3.5-5.1 [facility] Comment on above: Performed By: #### L 100.0100, L506.0400, [id number], L500.4050, L500.4100 #### [facility] [address] [place], [address] Sodium [Moles/Vol] 140 mmol/L Normal 136-145 [facility] Comment on above: Performed By: #### L 100.0100, L506.0400, [id number], L500.4050, L500.4100 #### [facility] [address] [place], [address] T PROT 7.3 g/dL Normal 6.4-8.2 [facility] Comment on above: Performed By: #### L 100.0100, L506.0400, L501.9520, L500.4050, L500.4100 #### [facility] [address] [place], [address] Urea nitrogen [Mass/Vol] 11 mg/dL Normal 7-18 [facility] Comment on above: Performed By: #### L 100.0100, L506.0400, L501.9520, L500.4050, L500.4100 #### [facility] [address] [place], [address] Lipid Profileon 07-06-2024 Cholesterol [Mass/Vol] 162 mg/dL Normal 200 [facility] Comment on above: Result Comment: <200 mg/dL Desirable 200-240 mg/dL Borderline >240 mg/dL High Risk Performed By: #### L 100.0100, L506.0400, L501.9520, L500.4050, L500.4100 #### [facility] [address] [place], [address] Cholesterol in HDL [Mass/Vol] 65 mg/dL Normal [facility] Comment on above: Result Comment: The drugs N-Acetylcysteine and Metamizole may falsely depress this assay. Reference Range HDL <40 mg/dL Low HDL Cholesterol HDL >or= 60 mg/dL High HDL Cholesterol Performed By: #### L 100.0100, L506.0400, [id number], L500.4050, L500.4100 #### [facility] [address] [place], [address] Cholesterol in LDL [Mass/Vol] 82 mg/dL Normal 0-130 [facility] Comment on above: Performed By: #### L 100.0100, L506.0400, [id number], L500.4050, L500.4100 #### [facility] [address] [place], [address] Cholesterol in VLDL [Mass/Vol] 15 mg/dL Normal 5-40 [facility] Comment on above: Performed By: #### L 100.0100, L506.0400, L501.9520, L500.4050, L500.4100 #### [facility] [address], [address] Triglyceride [Mass/Vol] 73 mg/dL Normal [facility] Comment on above: Result Comment: The drugs N-Acetylcysteine and Metamizole may falsely depress this assay. Serum Triglycerides Reference Interval Normal <150 mg/dL Borderline high 150 - 199 mg/dL High 200 - 499 mg/dL Very High > or = 500 mg/dL Performed By: #### L 100.0100, L506.0400, L501.9520, L500.4050, L500.4100 #### [facility] [address] [place], [address] T4 Free Directon 07-06-2024 T4 FREE DIRECT 1.72 ng/dL High 0.76-1.46 [facility] Comment on above: Performed By: #### L 100.0100, L506.0400, L501.9520, L500.4050, L500.4100 #### [facility] [address] [place], [place], [id number] Thyroid Stim Hormone (TSH)on 07-06-2024 TSH 0.497 uIU/mL Normal 0.358-3.740 [facility] Comment on above: Performed By: #### L 100.0100, L506.0400, L501.9520, L500.4050, L500.4100 #### [facility] [address] [place], [address] Urgent Care Visit Reporton 1 Urgent Care Visit Report [facility] [address] , [address] [place], [place] [address] OFFICE VISIT Date of Service: 03/19/24 MR#: [id number] Acct: [id number] Name: KRYS CANCINO Rep #: [id number] : 1955 Provider: KAREEN Lao Age/Sex: 69/F Location: [facility] Status: Signed Intake Vital Signs 03/18/24 13:03 03/19/24 06:33 Height 5 ft 3 in BP 128/60 H Blood Pressure Location Lt brachial Position Sitting Respiration 16 Pulse 76 Pulse Source NIBP Temp 98.1 F Temp Source Oral Pulse Oximetry (%) 96 Oxygen Delivery Method room air Intake Visit Reasons: CONCERN FOR PINK EYE Chief Complaint: left eye redness/tearing/crusting Parking Worker Required: No Is patient in pain?: No Allergies dextromethorphan (From Vicks NyQuil Cold/Flu Liquicap) Allergy (Mild, Verified 03/19/24 06:35) Other doxylamine (From Vicks NyQuil Cold/Flu Liquicap) Allergy (Mild, Verified 03/19/24 06:35) Unknown Is last menstrual period known: No Post menopausal: Yes Patient : No Have you fallen in the past year?: No Nurse's Note: left eye redness/tearing/crusting/itc davide x 24 hours. concern for pink eye PFSH Medical History Hypercholesterolemia Hypothyroid GERD (gastroesophageal reflux disease) Surgical History cystourethroscopy mid urethral sling bilateral sacrospinous ligament Hx of BSO (bilateral salpingo-oophorectomy) History of LAVH History of esophagogastroduodenoscopy (EGD) History of colonoscopy History of section History of mandibular surgery Family History Mother Diabetes Hypertension Thyroid disorder CAD (coronary artery disease) Father Heart disease CAD (coronary artery disease) Sister Breast cancer Hypertension Brother Hypertension CAD (coronary artery disease) Social History Smoking Status: Never smoker alcohol intake: never substance use type: does not use caffeine: Yes what type of physical activity do you participate in: walking and bicycling frequency: 5-6 times per week seatbelt use: always do you feel safe at home: Yes additional social history: - [employer] [facility] [employer] [employer] HPI Chief Complaint: left eye redness/tearing/crusting Details: KRYS CANCINO, is a 69 F who presents to the office today for complaint of left eye redness and crusting starting yesterday. Patient states that her eye was crusted shut this morning. She denies vision change or eye pain. No other associated symptoms or alleviating/aggravating factors. ROS Const Constitutional: No other (6 system ROS completed with pertinent findings in the HPI otherwise normal.) Exam Const General: cooperative and healthy appearing HENTN Head: normocephalic and atraumatic Ears: hearing grossly normal bilaterally Face and sinus: face symmetric Eyes General: appearance normal, both eyes and all related structures Visual Em: normal visual em by confrontation Alignment and Position: alignment normal Periorbital: periorbital findings normal Eyelids: eyelids normal Conjunctivae: conjunctival abnormality left conjunctival injection and discharge Pupils: PERRL Skin General: no rashes or lesions noted Psych Appearance: grossly normal Coding Level of Care Code Off vis,est,level 3 Diagnoses Acute bacterial conjunctivitis H10.30 Assessment and Plan Assessment and Plan (1) Acute bacterial conjunctivitis: Status: Acute Plan: Polytrim as prescribed today. Encouraged to get plenty of rest, drink lots of clear liquids, and use warm compress for comfort. Patient also educated on other symptomatic management techniques. To be seen in 2 to 3 days with ophthalmology if no improvement; sooner if worsening of symptoms. Patient advised of potential red flags and when appropriate to report to the ED. Patient verbalized understanding and agreement with all the above. Medications: New polymyxin B sulf-trimethoprim 10,000 unit- 1 mg/mL while awake; do not exceed 6 doses in 24 hours 1 drp ophthalmic (eye) Q3H 10 mL 0RF 7 days Clinical Quality Measures Falls Risk Screening/Assistive Devices Have you fallen in the past year?: No 03/19/24 0651 Date Satya Noe PA PA Cosigner Signature: Date (if applicable) CC: Normal [facility] Irrigation District Manager Office Visit Reporton 03-18-2024 Irrigation District Manager Office Visit Report [facility] [address], [address] [place] [address] OFFICE VISIT Date of Service: 03/18/24 MR#: [id number] Acct: [id number] Name: KRYS CANCINO Rep #: [id number] : 1955 Provider: ROLY vaz Age/Sex: 69/F Location[place] [facility] Status: Signed Intake Vital Signs 03/04/23 08:44 02/22/24 07:27 03/18/24 12:55 03/18/24 13:03 Height 5 ft 2 in 5 ft 3 in 5 ft 3 in 5 ft 3 in Weight: 170 lb 8 oz BMI 30.2 BP 128/82 H 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) Chief Complaint: Annual Parking Worker Required: No Is patient in pain?: No Allergies dextromethorphan (From Vicks NyQuil Cold/Flu Liquicap) Allergy (Mild, Verified 03/18/24 12:55) Other doxylamine (From Vicks NyQuil Cold/Flu Liquicap) Allergy (Mild, Verified 03/18/24 12:55) Unknown Medications ???Medication ???Instructions ???Recorded ???Confirmed ???Type levothyroxine 88 mcg tablet 88 mcg PO DAILY 07/02/17 03/18/24 History (Synthroid) pantoprazole 40 mg tablet,delayed 40 mg PO QHS REFLUX 07/02/17 03/18/24 History release simvastatin 10 mg tablet 10 mg PO QHS 07/02/17 03/18/24 History famotidine 20 mg tablet 20 mg PO DAILY 02/26/22 03/18/24 History estradiol 0.01% (0.1 mg/gram) See Rx Instructions vaginal 05/20/23 03/18/24 Rx vaginal cream .COMPLEX #42.5 grams levocetirizine 5 mg tablet 5 mg PO DAILY Chronic hives 03/18/24 03/18/24 History (Allergy Relief (levocetirizine)) Is last menstrual period known: No Post menopausal: Yes Patient : No : No PFSH Medical History Hypercholesterolemia Hypothyroid GERD (gastroesophageal reflux disease) Surgical History cystourethroscopy mid urethral sling bilateral sacrospinous ligament Hx of BSO (bilateral salpingo-oophorectomy) History of LAVH History of esophagogastroduodenoscopy (EGD) History of colonoscopy History of section History of mandibular surgery Family History Mother Diabetes Hypertension Thyroid disorder CAD (coronary artery disease) Father Heart disease CAD (coronary artery disease) Sister Breast cancer Hypertension Brother Hypertension CAD (coronary artery disease) Social History Smoking Status: Never smoker alcohol intake: never substance use type: does not use caffeine: Yes what type of physical activity do you participate in: walking and bicycling frequency: 5-6 times per week seatbelt use: always do you feel safe at home: Yes additional social history: - [employer] History 2 Elective abortions Hx Para 2 Spontaneous abortions Hx # Term Pregnancies Ectopic pregnancies Hx # Pregnancies Multiple births # of living children Past Pregnancies Del. Date Name GA/Weeks Outcome Route Bth Weight Infant Gen Labor Lgth Anesthesia Del Locatn Provider FOB Unknown 1981 Best Unknown 1986 [facility] Encounter for routine gynecological examination Details: KRYS CANCINO is a 69 year old who presents for annual exam. Denies concerns. Has pessary that sees Dr Carmichael for every 3 months for maintenance except once a year when this office does it. Last PAP: na History of abnormal PAP: no Last mammogram: 02/2024 History of abnormal mammogram: no Colon cancer screenin Other preventative health care screenings: [facility] Female Reproductive History Questions: metorrhagia: No and sexually active: No Menopausal Treatment: Yes Vaginal Estrogen ROS Const Constitutional: Denies fatigue, weight gain or weight loss Cardio Card: Denies chest pain Resp Resp: Denies cough or dyspnea on exertion GI GI: Denies abdominal pain, bloating, change in stool character, constipation or vomiting : Reports as per HPI; Denies difficulty voiding, pelvic pain, urinary frequency, urinary incontinence, urinary urgency, vaginal discharge or vaginal pruritus Exam Const General: cooperative, healthy appearing, no acute distress and well developed Orientation: alert, oriented to person and oriented to place HENTN Head: normal to inspection Neck Neck: normal visual inspection Thyroid: thyroid normal Lymphatic: no lymphadenopathy noted Chest Breast inspection: normal inspection of the breasts and normal inspection of the axillae Breast palpation: normal palpation of the breasts, normal palpation of the axillae and no axillary lymphadenopathy Resp Effort Inspection: normal respiratory effort GI Palpation: soft, no masses and nontender Rectal Exam: deferred External Female Exam: normal external appearanc (more content not included)... Normal [facility] SCRN MAMM (CAD)W/KRISTINE BILATo n 03-06-2024 SCRN MAMM (CAD)W/KRISTINE BILAT [facility] Imaging Services [address] [place] [id number] SCRN MAMM (CAD)W/KRISTINE BILAT MR#: [id number] Acct: [id number] Name: KRYS CANCINO Rep #: [id number] : 1955 F 69 From: Andrae meyer MD PCP: Dr. Steven Rojas, Status: REG [facility] Study: SCRN MAMM (CAD)W/KRISTINE BILAT Date of Exam: 02/09 12/31 Exam# [id number] Ordering Dr: Jonna Khan :[id number] MAMMOGRAPHY - BILATERAL SCREENING REASON FOR EXAM: Female, 69 years old. Routine annual screening examination. PERTINENT HISTORY: Sister with breast cancer. TECHNIQUE: Digital bilateral breast kristine (3D mammographic acquisition) in the CC and MLO projections. 2-D mediolateral oblique (MLO) and craniocaudad (CC) views of both breasts were obtained. CAD: Full Field Digital Mammography with Computer Added Detection was performed. COMPARISON: Comparison is made with prior study dated March 04, 2023 and March 02, 2022. FINDINGS: Breast Composition: There are scattered areas of fibroglandular density. There are no dominant masses or suspicious calcifications. Fat-containing bilateral axillary lymph nodes. No other significant abnormalities are identified. There has been no significant change since the prior study. BI/SCRN MAMM (CAD)W/KRISTINE BILAT IMPRESSION: Stable bilateral screening mammogram. Yearly follow-up mammogram recommended. (A) ASSESSMENT CATEGORY: BIRADS Category 2: Benign. A letter regarding these results will be sent to the patient by the facility within 30 days. Approximately 10% of breast cancers are not detected by mammography. A normal mammogram should not delay biopsy of a clinically suspicious abnormality. [id number] Electronically Signed: Andrae Jonas MD at 7:59 EDT , CC: Dr. Steven Rojas DO; Dr. Jonna Khan MD Sap Integration Architect: Signed Normal [facility] Chest PA and Lateralon 02-21 Chest PA and Lateral [facility] Imaging Services [address] [place], [place] [address] Chest PA and Lateral MR#: [id number] Acct: [id number] Name: KRYS CANCINO Rep #: [id number] : 1955 F 69 From: Buck Muñoz MD PCP: Dr. Steven Rojas DO Status: [facility] Study: Chest PA and Lateral Date of Exam: 02/22/24 Exam# [id number] Ordering Dr: Lyle Lyle DO :[id number] STUDY: X-RAY CHEST REASON FOR EXAM: Female, 69 years old. Cough TECHNIQUE: PA and lateral views of the chest. COMPARISON: None. FINDINGS: The lungs are clear and expanded. There is no demonstrated pleural abnormality. Normal size heart. Normal mediastinum and ramon. Normal visualized pulmonary arteries. Normal visualized aortic arch and descending thoracic aorta. There is scoliosis and degenerative change of the thoracolumbar spine. Normal visualized ribs, clavicles, and shoulders. There is no demonstrated abnormality of the visualized soft tissue structures of the upper abdomen. RAD/Chest PA and Lateral IMPRESSION: Degenerative changes, as described above. No demonstrated acute cardiopulmonary process. Electronically Signed: Buck Muñoz MD at 8:57 EDT , CC: Dr. Lyle Lyle DO; Dr. Steven Rojas DO Sap Integration Architect: Signed Normal [facility] Emergency Department Summary on 02-22-2024 Emergency Department Summary [facility] Medical Records Department [address] [place] [address] Emergency Department Summary 02/22/24 MR#: [id number] Acct: [id number] Name: KRYS CANCINO Rep #: [id number] : 1955 69 From: Lyle Lyle DO PCP: Dr. Steven Rojas DO Status:DEP ER Location: ED HPI History of Present Illness Chief Complaint: Cold Sx Informant: patient Narrative Narrative: 69-year-old female presenting to the emergency room with a chief complaint of continued cough. Patient states that about 2 weeks ago she developed runny nose scratchy throat and a cough. She states that she got better but not fully rid of the cough and that on Gill her symptoms returned and she developed a fever myalgias arthralgias worsening cough and is now developed right ear pain. She notes crackling and popping in the ear. she notes that she has seen Dr. Velasquez in the past for right-sided sinus issues. She notes some occasional sputum 3-4 times per day. She denies any wheezing or known lung conditions. She went to urgent care on 18 February where she was placed on Medrol and benzoate. She states that she was told that she did not get better she should come to emergency. She spoke with her insurance company's nurse who advised her to come to emergency. Primary care does not know of her recent illness. The patient states that yesterday her temperature was around 9798. [facility] Medical History Hypercholesterolemia Hypothyroid GERD (gastroesophageal reflux disease) Home Medications ???Medication ???Instructions ???Recorded ???Last Taken ???Type levothyroxine 88 mcg tablet 88 mcg PO DAILY 07/02/17 01/07/20 06:30 History (Synthroid) pantoprazole 40 mg tablet,delayed 40 mg PO QHS REFLUX 07/02/17 Unknown History release simvastatin 10 mg tablet 10 mg PO QHS 07/02/17 Unknown History loratadine 10 mg tablet (Claritin) 10 mg PO DAILY 01/05/21 Unknown History famotidine 20 mg tablet 20 mg PO DAILY 02/26/22 Unknown History meclizine 25 mg tablet 25 mg PO 4X/DAY PRN PRN Dizziness 04/16/23 Unknown Rx #20 tabs estradiol 0.01% (0.1 mg/gram) See Rx Instructions vaginal 05/20/23 Unknown Rx vaginal cream .COMPLEX #42.5 grams benzonatate 200 mg capsule 200 mg PO TID PRN cough #20 caps 02/19/24 Unknown Rx methylprednisolone 4 mg tablets in See Rx Instructions PO PER PKG DIR 02/19/24 Unknown Rx a dose pack (Medrol (Kevyn)) #21 tabs azithromycin 250 mg tablet See Rx Instructions PO .COMPLEX #6 02/22/24 Unknown Rx (Zithromax Z-Kevyn) tabs Allergy/AdvReac Type Severity Reaction Status Date / Time dextromethorphan (From [employer] Allergy Mild Other Verified 02/22/24 07:27 NyQuil Cold/Flu Liquicap) doxylamine (From Vicks Allergy Mild Unknown Verified 02/22/24 07:27 NyQuil Cold/Flu Liquicap) Family History Mother Diabetes Hypertension Thyroid disorder CAD (coronary artery disease) Father Heart disease CAD (coronary artery disease) Sister Breast cancer Hypertension Brother Hypertension CAD (coronary artery disease) Surgical History cystourethroscopy mid urethral sling bilateral sacrospinous ligament Hx of BSO (bilateral salpingo-oophorectomy) History of LAVH History of esophagogastroduodenoscopy (EGD) History of colonoscopy History of section History of mandibular surgery Social History Smoking Status: Never smoker alcohol intake: never substance use type: does not use caffeine: Yes what type of physical activity do you participate in: walking and bicycling frequency: 5-6 times per week seatbelt use: always do you feel safe at home: Yes additional social history: - [employer] [facility] ED Constitutional Constitutional ED: Reports chills and fever(s); Denies weight loss Eyes Eyes: Denies change in vision or diplopia ENT ENT ED: Reports ear pain, rhinorrhea and sore throat Cardiovascular Cardiovascular: Denies chest pain, orthopnea, palpitations or racing heartbeat Respiratory/Chest Respiratory/Chest: Reports cough and sputum; Denies dyspnea or orthopnea Gastrointestinal Gastrointestinal: Denies abdominal pain, diarrhea, nausea or vomiting Genitourinary Genitourinary ED: Denies dysuria, hematuria or urinary frequency Musculoskeletal Musculoskeletal: Reports arthralgias and myalgias Integumentary Denies abscess or rash Neurologic Neurologic: Denies headache(s) or weakness Psychiatric Psychiatric: Denies anxiety, depression, suicidal ideation or suicidal thoughts Endocrine Endocrinology: Denies polydipsia, polyphagia or polyuria Allergic/Immunologic Allergic/Immunologic ED: Denie (more content not included)... Normal [facility] Urgent Care Visit Reporton 0 02-19-2024 Urgent Care Visit Report [facility] [address], [address] [place] [address] OFFICE VISIT Date of Service: 02/19/24 MR#: [id number] Acct: [id number] Name: KRYS CANCINO Rep #: [id number] : 1955 Provider: KAREEN Cavanaugh Age/Sex: 69/F Location: [facility] Status: Signed Intake Vital Signs 04/16/23 01:11 02/19/24 06:22 Height 5 ft 3 in BP 130/82 H Blood Pressure Location Lt brachial Position Sitting Respiration 16 Pulse 74 Pulse Source NIBP Temp 98.6 F Temp Source Temporal Pulse Oximetry (%) 100 Oxygen Delivery Method room air Intake Visit Reasons: COUGH/BA/FEVER Chief Complaint: cough, FERRO, BA, fatigue, fever Parking Worker Required: No Is patient in pain?: No Allergies dextromethorphan (From Vicks NyQuil Cold/Flu Liquicap) Allergy (Mild, Verified 02/19/24 06:22) Other doxylamine (From Vicks NyQuil Cold/Flu Liquicap) Allergy (Mild, Verified 06/24/23 08:33) Unknown Is last menstrual period known: No Post menopausal: Yes Patient : No Have you fallen in the past year?: No Nurse's Note: cough, FERRO, BA, fatigue, fever x 1 week. exposed to covid at work. PFSH Medical History GERD (gastroesophageal reflux disease) Hypercholesterolemia Hypothyroid Surgical History bilateral sacrospinous ligament cystourethroscopy History of section History of colonoscopy History of esophagogastroduodenoscopy (EGD) History of [facility] History of mandibular surgery Hx of BSO (bilateral salpingo-oophorectomy) mid urethral sling Family History Mother Diabetes Hypertension Thyroid disorder CAD (coronary artery disease) Father Heart disease CAD (coronary artery disease) Sister Breast cancer Hypertension Brother Hypertension CAD (coronary artery disease) Social History Smoking Status: Never smoker alcohol intake: never substance use type: does not use caffeine: Yes what type of physical activity do you participate in: walking and bicycling frequency: 5-6 times per week seatbelt use: always do you feel safe at home: Yes additional social history: - [employer] HPI HPI Chief Complaint: cough, FERRO, BA, fatigue, fever Details: KRYS CANCINO, is a 69 F who presents to the office today for initial evaluation in the [facility] for initial evaluation in the [facility] for approximately 7-8 day history of persistent cough, FERRO, fatigue, congestion/ runny nose - with new onset fever, chills (? Tmax) over last 24-48 hours. Patient notes no complaints of chest pain or shortness of breath or dyspnea on exertion. Several close contacts recently dx???d w/ similar URI complaints. Non-smoker. No tmow-lph-ewsklpa taken to assist. No other associated symptoms and no other alleviating/aggravating factors. ROS Const Constitutional: No other (As above) Exam Const General: cooperative, healthy appearing and no acute distress Orientation: alert, awake and oriented x3 HENMT Head: normal to inspection Ears: hearing grossly normal bilaterally, external ears normal, TM's normal bilaterally and EAC's normal Nose: external nose normal, nares normal, septum normal and clear nasal discharge Face and sinus: normal facial exam, sinuses nontender and face symmetric Mouth: oral mucosae normal, lip normal, tongue normal and oropharynx normal Throat: posterior oropharynx normal, tonsils normal, uvula midline and no postnasal drainage Eyes General: appearance normal, both eyes and all related structures Neck Neck: normal visual inspection, full ROM, no lymphadenopathy, no meningeal signs and supple Neck mass: No Thyroid: thyroid normal Lymphatic: no lymphadenopathy noted Chest Chest palpation inspection: normal inspection of the chest Resp Effort Inspection: normal respiratory effort, able to speak in complete sentences and cough Quality of cough: wet (nonproductive in office today) Auscultation: Bilateral: Clear to Auscultation Cardio Palpation: normal PMI Rate: regular Rhythm: regular rhythm Heart Sounds: S1 normal, S2 normal, no gallops, no murmurs and no rubs Pulses: radial pulses present Skin General: no rashes or lesions noted Neuro General: patient alert, patient awake and patient oriented x3 Cognition: normal cognition Speech: speech normal Psych Appearance: grossly normal Mental Status: mental status grossly normal Mood: congruent mood Affect: normal affect Speech and Movement: speech and movement normal Attitude: cooperative Diagnoses Contact with or exposure to other viral diseases Z20.828 URI (upper respiratory infection) J06.9 Assessment and Plan Assess (more content not included)... Normal [facility] Serum or plasma thyroid stim ulating hormone (TSH) measurement (units/volume)Ordered By: Steven Rojas on 09-16-2023 TSH Qn 0.68 uIU/mL 0.358-3.74 [facility] T4 Free Directon 09-16-2023 T4 FREE DIRECT 1.26 ng/dL Normal 0.76-1.46 [facility] Comment on above: Performed By: #### L 501.9520, L506.0400 ####[facility] [address] [place], [place], [address] Thin prep Papanicolaou smear with manual screeningOrdered By: Steven Rojas on 09-16-2023 Thin prep Papanicolaou smear with manual screening 1.26 ng/dL 0.76-1.46 [facility] Thyroid Stim Hormone (TSH)on 09-16-2023 TSH 0.68 uIU/mL Normal 0.358-3.74 [facility] Comment on above: Performed By: #### L 501.9520, L506.0400 ####[facility] [address] [place], [place], [id number] Absolute lymphocyte countOrd ered By: Steven Rojas on 07-04-2023 Lymphocytes Auto (Unsp spec) [#/Vol] 1.50 10*3/uL 0.83-4.51 [facility] Automated lymphocyte count a s percentage of total leukocytesOrdered By: Steven Rojas on 07-04-2023 Lymphocytes/100 WBC Auto (Unsp spec) 41.1 % 19-41 [facility] Basophil percentageOrdered B y: Steven Rojas on 07-04-2023 Basophils/100 WBC (Bld) 0.5 % 0-1 [facility] Bilirubin [Mass/Vol] 0.70 mg/dL 0.20-1.00 [facility] Comment on above: For patients on eltr ombopag therapy, use of Dimension [place] TBIL is not recommended. Chloride [Moles/Vol] 106 mmol/L 98-107 [facility] Cholesterol [Mass/Vol] 168 mg/dL <200 [facility] Comment on above: <200 mg/dL Desirable 200-240 mg/dL Borderline >240 mg/dL High Risk Eosinophils/100 WBC (Bld) 1.6 % 0-5 [facility] Glucose [Mass/Vol] 87 mg/dL 74-106 [facility] Hemoglobin (Bld) [Mass/Vol] 12.4 g/dL 12.0-15.0 [facility] Monocytes/100 WBC (Bld) 9.6 % 0-10 [facility] Neutrophils (Bld) [#/Vol] 1.7 10*3/uL 2.0-7.7 [facility] Neutrophils/100 WBC (Bld) 47.2 % 47-70 [facility] Potassium [Moles/Vol] 4.2 mmol/L 3.5-5.1 [facility] Protein [Mass/Vol] 7.5 g/dL 6.4-8.2 [facility] Sodium [Moles/Vol] 138 mmol/L 136-145 [facility] Triglyceride [Mass/Vol] 51 mg/dL <199 [facility] Comment on above: The drugs N-Acetylcy steine and Metamizole may falsely depress this assay.Serum Triglycerides Reference Interval Normal <150 mg/dL Borderline high 150 - 199 mg/dL High 200 - 499 mg/dL Very High > or = 500 mg/dL WBC (Bld) [#/Vol] 3.7 10*3/uL 4.4-11.0 [facility] Determination of erythrocyte mean corpuscular volume (MCV)Ordered By: Steven Rojas on 07-04-2023 MCV (RBC) [Entitic vol] 89.2 fL 81-99 [facility] Erythrocyte distribution wid th ratioOrdered By: Steven Rojas on 07-04-2023 Erythrocyte distribution width (RBC) [Ratio] 13.2 % 11.6-14.6 [facility] Erythrocyte distribution wid th standard deviationOrdered By: Steven Rojas on 01-25-2024 Erythrocyte distribution width (RBC) [Entitic vol] 43.4 fL 35.1-43.9 [facility] Hematocrit Auto (Bld) [Volum e fraction]Ordered By: Steven Rojas on 07-04-2023 Hematocrit (Bld) [Volume fraction] 38.1 % 37-47 [facility] High density lipoprotein (HD L) measurementOrdered By: Steven Rojas on 07-04-2023 Cholesterol in HDL (Body fld) [Mass/Vol] 67 mg/dL >40 [facility] Comment on above: The drugs N-Acetylcy steine and Metamizole may falsely depress this assay. Reference Range HDL <40 mg/dL Low HDL Cholesterol HDL >or= 60 mg/dL High HDL Cholesterol Immature granulocytes/100 WB C Auto (Bld)Ordered By: Steven Rojas on 07-04-2023 Immature granulocytes/100 WBC (Bld) 0.000 % 0.0-0.9 [facility] Comment on above: IG% - Immature Granu locytes (promyelocytes, myelocytes and metamyelocytes) > 1% indicates that a LEFT SHIFT is Present. Laboratory - Chemistry and C hemistry - challengeOrdered By: Steven Rojas on 07-04-2023 Albumin/Globulin [Mass ratio] 1.1 {ratio} 0.9-2.4 [facility] ALP [Catalytic activity/Vol] 78 U/L 45-117 [facility] ALT [Catalytic activity/Vol] 20 U/L 13-56 [facility] CO2 [Moles/Vol] 26.0 mmol/L 21.0-32.0 [facility] Globulin (S) [Mass/Vol] 3.5 g/dL 2.2-4.2 [facility] Urea nitrogen/Creatinine [Mass ratio] 16.9 mg/mg 10-20 [facility] Laboratory - Hematology and Cell countsOrdered By: Steven Rojas on 07-04-2023 MCH (RBC) [Entitic mass] 29.0 pg 27.0-32.0 [facility] MCHC (RBC) [Mass/Vol] 32.5 g/dL 32-36 [facility] Nucleated RBC/100 WBC (Bld) [Ratio] 0 % 0-5 [facility] Platelets (Bld) [#/Vol] 205 10*3/uL 150-450 [facility] Low density lipoprotein (LDL ) cholesterol measurementOrdered By: Steven Rojas on 07-04-2023 Cholesterol in LDL (Body fld) [Moles/Vol] 91 mg/dL 0-130 [facility] No Panel InformationOrdered By: Steven Rojas on 07-04-2023 Estimated GFR (MDRD) Amer 88 mL/min >60 [facility] Comment on above: GFR Calc Estimated GFR (MDRD) Non-Af Amer 73 mL/min >60 [facility] Comment on above: Non- GFR Calc Platelet mean volume Jimmy-Ec ker (Bld) [Entitic vol]Ordered By: Steven Rojas on 07-04-2023 Platelet mean volume (Bld) [Entitic vol] 12.0 fL 6.2-12.0 [facility] RBC Auto (Bld) [#/Vol]Ordere d By: Steven Rojas on 07-04-2023 RBC (Bld) [#/Vol] 4.27 10*6/uL 4.2-5.4 [facility] Serum or plasma calcium padmini urement (mass/volume)Ordered By: Steven Rojas on 07-04-2023 Calcium [Mass/Vol] 8.9 mg/dL 8.5-10.1 [facility] Serum or plasma creatinine m easurement (mass/volume)Ordered By: Steven Rojas on 07-04-2023 Creatinine [Mass/Vol] 0.83 mg/dL 0.55-1.02 [facility] Comment on above: The validity of the calculated GFR & GFRAA in patients over 70 years has not been determined. Clinical correlation is essential. Serum or plasma thyroid stim ulating hormone (TSH) measurement (units/volume)Ordered By: Steven Rojas on 07-04-2023 TSH Qn 0.28 uIU/mL 0.358-3.74 [facility] Serum or plasma urea nitroge n measurement (mass/volume)Ordered By: Steven Rojas on 07-04-2023 Urea nitrogen [Mass/Vol] 14 mg/dL 7-18 [facility] Thin prep Papanicolaou smear with manual screeningOrdered By: Steven Rojas on 07-04-2023 Thin prep Papanicolaou smear with manual screening 4.0 g/dL 3.2-5.0 [facility] Thin prep Papanicolaou smear with manual screening 15 U/L 15-37 [facility] Thin prep Papanicolaou smear with manual screening 6 5-15 [facility] Thin prep Papanicolaou smear with manual screening 1.72 ng/dL 0.76-1.46 [facility] Very low density lipoprotein (VLDL) cholesterol measurementOrdered By: Steven Rojas on 07-04-2023 Cholesterol in VLDL Calc [Moles/Vol] 10 mg/dL -40 [facility] Culture, urineOrdered By: [facility] ghulam Ash[facility] on 06-24-2023 Bacteria identified Cx Nom (U) Escherichia coli [facility] Bacteria identified Cx Nom (U) Escherichia coli [facility] Laboratory - Chemistry and C hemistry - challengeon 06-24-2023 Bilirubin Ql (U) Negative [facility] Glucose Ql (U) Negative [facility] Ketones Ql (U) Negative [facility] pH (U) 5.0 [pH] [facility] Specific gravity (U) [Rel density] 1.015 [facility] Urobilinogen (U) [Mass/Vol] Negative [facility] Laboratory - Hematology and Cell countson 06-24-2023 Hemoglobin Ql (U) Trace [facility] Laboratory - Specimen inform ationon 06-24-2023 Clarity (U) Clear [facility] Color (U) YELLOW [facility] Laboratory - Urinalysison Nitrite Ql (U) Negative [facility] Protein Ql (U) Negative [facility] No Panel Informationon 06-24 Urine Leukocytes Positive [facility] Urine Non-Hemolyzed Blood Non-Hemolyzed [facility] CNOVon 12-28-2016 CNOV Office Visit ([facility]) ----KRYS CANCINO ([id number]) 1955 FDate Time Provider Department12/28/16 8:00 AM EUNICE SELF) [facility] During your visit today, we recorded the following information about you: Temperature Pulse Respiration Blood pressure 97.2 degrees 60/minute 16/minute 100/60 Weight 70 kgEunice BONNY Self 12/28/2016 11:06 AM Signed12/28/2016Patient presents with:Rash: x1 monthSUBJECTIVE: This is a 61 year old that is here today for Complaint(s) ofirritation of scalp x 1 month. Reports worse with sweating/irritation.Describe s as an itchy/burning sensation. She did use a hair color spray on herroots, but had this prior to using as well.PAST MEDICAL HISTORYDiagnosis Date- Acute gastritis without mention of hemorrhage- Diaphragmatic hernia without mention of obstruction or gangrene- Esophageal reflux- Esophagitis, unspecified- Hemorrhage of gastrointestinal tract, unspecified- Unspecified hypothyroidismALLERGIES Nyquil [Txvfrkjpx-Qgr-Lp-Acetaminop hen]MEDICATIONSCurrent Outpatient Prescriptions:cholecalcifero l (VITAMIN D3) 1,000 unit tab Take 1 tablet by mouth once daily.chlordiazePOXIDE-clidi nium (LIBRAX) 5-2.5 mg per capsule Take 1-2 capsules bymouth with meals and at bedtime. TAKE 3-4 TIMES DAILYsimvastatin (ZOCOR) 10 mg tablet Take 10 mg by mouth daily at bedtime.Indications: HYPERCHOLESTEROLEMIA, MIXED HYPERLIPIDEMIApantoprazole sodium(PROTONIX 40 MG TAB) Take one(1) tablet two(2) times daily.levothyroxine (SYNTHROID) 88 mcg ORAL Tab Take one(1) tablet daily.Calcium Citrate-Vitamin D3 (CITRACAL + D) 250-200 mg-unit ORAL TabDAILY MULTIVITAMIN TAB take one dailyNo current facility-administered medications for this visit.SOCIAL HISTORYSocial History Marital status: Spouse name: NIDIA Years of education: 16 Number of children: 2Occupational HistoryOccupation Employer Comment[employer]*Social History Main Topics Smoking status: Former Smoker Packs/day: 0.00 Years: 0.00 Comment: quit around 1979 Alcohol use: Yes Comment: SOCIALLY Drug use: No Sexual activity: Yes Partners with: Male Comment: SPOUSE WITH VASECTOMY FOR CONTRACEPTIONREVIEW OF SYSTEMSMerit [facility] other reviewed and negative other than HPI.OBJECTIVE:BP 100/60 Pulse 60 Temp 36.2 ?C (97.2 ?F) (Tympanic) Resp 16 Wt 70 kg(154 lb 6.4 oz) LMP 10/26/2007 BMI 26.92 kg/s8TIMETMTGYJ Well appearing, alert, in no acute distress, well-hydrated, wellnourished.SKIN scalp normal without erythema or lesions. No hair loss or broken hairfollicles noted. No nits.ASSESSMENT/PLAN:1. Scalp irritation - ICD9: 709.9, ICD10: R23.8Trial of selsun blue/dandruff shampooAvoid new productsF/u prnThe patient indicates understanding of these issues and agrees with the plan.KAREEN Denton-12/28/2016Referring Provider: SELF [[id number]]Allergies As of Date: 12/28/2016 Noted Allergy ReactionNYQUIL ([id number]*1 07/24/2004Date Reviewed: 12/28/2016Reviewed by: Gemma Sher Ma - Fully AssessedReason for Visit: Rash [1087] Cmt: x1 monthReason For Visit History RecordedPrimary Visit Diagnosis:Scalp irritation [R23.8]Prescriptions as of 12/28/2016 Sig: CHOLECALCIFEROL (VITAMIN D3) * Take 1 tablet by mouth once d* CHLORDIAZEPOXIDE-CLIDINIUM 5 * Take 1-2 capsules by mouth wi* SIMVASTATIN 10 MG TABLET Take 10 mg by mouth daily at * * PROTONIX 40 MG TABLET,DELAYED* Take one(1) tablet two(2) luis* * SYNTHROID 88 MCG TABLET Take one(1) tablet daily. * CITRACAL PLUS D 250 MG CALCIU* * DAILY MULTIVITAMIN TABLET take one dailyProblem List As Of Date 12/28/2016 Noted Resolved HYPOTHYROIDISM NOS [E03.9] INVALID FOR* DYSMETABOLIC SYNDROME X [E88.81] INVALID FOR* ESOPHAGEAL REFLUX [K21.9] INVALID FOR* Status:Closed by EUNICE SELF PA-C on 12/28/16 Normal [facility] PROGRESSon 12-28-2016 PROGRESS HNO ID: [id number] thor: Eunice Smithice: (none)Author Type: Physician AssistantType: Progress NotesFiled: 12/28/2016 11:06 AMNote Text:12/28/2016Patient presents with:Rash: x1 monthSUBJECTIVE: This is a 61 year old that is here today for Complaint(s) ofirritation of scalp x 1 month. Reports worse with sweating/irritation.Describe s as an itchy/burning sensation. She did use a hair color sprayon her roots, but had this prior to using as well.PAST MEDICAL HISTORYDiagnosis Date- Acute gastritis without mention of hemorrhage- Diaphragmatic hernia without mention of obstruction or gangrene- Esophageal reflux- Esophagitis, unspecified- Hemorrhage of gastrointestinal tract, unspecified- Unspecified hypothyroidismALLERGIES Nyquil [Ngstxfswx-Ktn-Cl-Acetaminop hen]MEDICATIONSCurrent Outpatient Prescriptions:cholecalcifero l (VITAMIN D3) 1,000 unit tab Take 1 tablet by mouth oncedaily.chlordiazePOXIDE-c lidinium (LIBRAX) 5-2.5 mg per capsule Take 1-2 capsulesby mouth with meals and at bedtime. TAKE 3-4 TIMES DAILYsimvastatin (ZOCOR) 10 mg tablet Take 10 mg by mouth daily at bedtime.Indications: HYPERCHOLESTEROLEMIA, MIXED HYPERLIPIDEMIApantoprazole sodium(PROTONIX 40 MG TAB) Take one(1) tablet two(2) timesdaily.levothyroxine (SYNTHROID) 88 mcg ORAL Tab Take one(1) tablet daily.Calcium Citrate-Vitamin D3 (CITRACAL + D) 250-200 mg-unit ORAL TabDAILY MULTIVITAMIN TAB take one dailyNo current facility-administered medications for this visit.SOCIAL HISTORYSocial History Marital status: Spouse name: NIDIA Years of education: 16 Number of children: 2Occupational HistoryOccupation Employer Comment[employer]*Social History Main Topics Smoking status: Former Smoker Packs/day: 0.00 Years: 0.00 Comment: quit around 1979 Alcohol use: Yes Comment: SOCIALLY Drug use: No Sexual activity: Yes Partners with: Male Comment: SPOUSE WITH VASECTOMY FOR CONTRACEPTIONREVIEW OF SYSTEMSAll other reviewed and negative other than HPI.OBJECTIVE:BP 100/60 Pulse 60 Temp 36.2 ?C (97.2 ?F) (Tympanic) Resp 16 Wt 70kg (154 lb 6.4 oz) LMP 10/26/2007 BMI 26.92 kg/l0KUPLDVJGLZ Well appearing, alert, in no acute distress, well-hydrated,well nourished.SKIN scalp normal without erythema or lesions. No hair loss or brokenhair follicles noted. No nits.ASSESSMENT/PLAN:1. Scalp irritation - ICD9: 709.9, ICD10: R23.8Trial of selsun blue/dandruff shampooAvoid new productsF/u prnThe patient indicates understanding of these issues and agrees with theplan.KAREEN Denton-C7/ Normal [facility] Vital Signs Date Time Vital Sign Value Performing Clinician Faci lity 11-28-2024 11:03-0400 Diastolic blood pressure 74 mm[Hg] Dr. Steven Rojas DO Work Phone: [facility] 11-28-2024 11:03-0400 Heart rate 74 /min Dr. Steven Rojas DO Work Phone: [facility] 11-28-2024 11:03-0400 Respiratory rate 15 /min Dr. Steven Rojas DO Work Phone: [facility] 11-28-2024 11:03-0400 SaO2% (BldA) [Mass fraction] 98 % Dr. Steven Rojas DO Work Phone: [facility] 11-28-2024 11:03-0400 Systolic blood pressure 110 mm[Hg] Dr. Steven Rojas DO Work Phone: [facility] 06-24-2023 08:32-0500 Body temperature 97.5 [degF] Dr. Steven Rojas Work Phone: [facility] 06-24-2023 08:32-0500 Diastolic blood pressure 92 mm[Hg] Dr. Steven Rojas Work Phone: [facility] 06-24-2023 08:32-0500 Heart rate 60 /min Dr. Steven Rojas Work Phone: [facility] 06-24-2023 08:32-0500 Respiratory rate 12 /min Dr. Steven Rojas Work Phone: [facility] 06-24-2023 08:32-0500 SaO2% (BldA) [Mass fraction] 99 % Dr. Steven Rojas Work Phone: [facility] 06-24-2023 08:32-0500 Systolic blood pressure 156 mm[Hg] Dr. Steven Rojas Work Phone: [facility] 04-16-2023 02:10-0500 Diastolic blood pressure 71 mm[Hg] Dr. Steven Rojas Work Phone: [facility] 04-16-2023 02:10-0500 Heart rate 85 /min Dr. Steven Rojas Work Phone: [facility] 04-16-2023 02:10-0500 Respiratory rate 21 /min Dr. Steven Rojas Work Phone: [facility] 04-16-2023 02:10-0500 SaO2% (BldA) [Mass fraction] 98 % Dr. Steven Rojas Work Phone: [facility] 04-16-2023 02:10-0500 Systolic blood pressure 138 mm[Hg] Dr. Steven Rojas Work Phone: [facility] 04-16-2023 01:11-0500 Body height 160.[address] Steven Rojas Work Phone: [facility] 04-16-2023 01:11-0500 Body mass index (BMI) [Ratio] 31.1 kg/m2 Dr. Steven Rojas Work Phone: [facility] 04-16-2023 01:11-0500 Body temperature 97.8 [degF] Dr. Steven Rojas Work Phone: [facility] 04-16-2023 01:11-0500 Body weight 79.[address] Steven Rojas Work Phone: [facility] 03-04-2023 08:42-0400 Body mass index (BMI) [Ratio] 30.9 kg/m2 Dr. Steven Rojas Work Phone: [facility] 03-04-2023 08:42-0400 Body weight 76.[address] Steven Rojas Work Phone: [facility] 03-04-2023 08:42-0400 Diastolic blood pressure 82 mm[Hg] Dr. Steven Rojas Work Phone: [facility] 03-04-2023 08:42-0400 Systolic blood pressure 138 mm[Hg] Dr. Steven Rojas Work Phone: [facility] 04-26-2022 08:28-0500 Body height 157.[address] Steven Rojas Work Phone: [facility] Work Phone: 02-26-2022 11:34-0400 Body mass index (BMI) [Ratio] 30.4 kg/m2 Dr. Steven Rojas Work Phone: [facility] Work Phone: 02-26-2022 11:34-0400 Body weight 75.[address] Steven Rojas Work Phone: [facility] Work Phone: 02-26-2022 11:34-0400 Diastolic blood pressure 80 mm[Hg] Dr. Steven Rojas Work Phone: [facility] Work Phone: 02-26-2022 11:34-0400 Systolic blood pressure 123 mm[Hg] Dr. Steven Rojas Work Phone: [facility] Work Phone: Encounters Encounter Date Encounter Type Care Provider Facility Start: 11-28-2024 End: 11-28-[address] Steven Rojas DO Work Phone: [facility] Work Phone: Start: 11-28-2024 End: 11-28-2024 Patient encounter procedure [facility] Cotton [facility] Work Phone: Start: 07-22-2024 Encounter for genera l adult medical examination without abnormal findings Steven Rojas [facility] Start: 07-06-2024 End: 07-06-2024 ambulatory Steven Rojas Facility:[facility] Start: 03-19-2024 Encounter for gynecological examination (general) (routine) without abnormal findings Juana Quintanilla NP [facility] Start: 03-19-2024 End: 03-19-2024 ambulatory Satya MATHUR [place] [place]: 03-18-2024 End: 03-18-2024 ambulatory Juana Quintanilla NP [facility] Start: 03-06-2024 End: 03-06-2024 ambulatory Jonna Khan Facility:[facility] Start: 02-22-2024 End: 02-22-2024 Emergency department patient visit Steven Rojas Facility:[facility] Start: 02-19-2024 End: 02-19-2024 ambulatory Steven Rojas [facility] Start: 09-16-2023 End: 09-16-[address] Steven Rojas Work Phone: [facility] Work Phone: Start: 09-16-2023 End: 09-16-[address] Steven Rojas Work Phone: [facility]-Laboratory Work Phone: Start: 09-16-2023 End: 09-16-2023 ambulatory Steven Rojas Facility:[facility] Start: 07-04-2023 End: 07-04-[address] Steven Rojas Work Phone: [facility] Work Phone: Start: 07-04-2023 End: 07-04-[address] Steven Rojas Work Phone: [facility]-Laboratory, Bridgette Gillespie [facility] Start: 06-24-2023 End: 06-24-[address] Steven Rojas Work Phone: [facility]-Laboratory, Specimen Work Phone: Start: 06-24-2023 End: 06-24-[address] Steven Rojas Work Phone: [facility] Work Phone: Start: 04-16-2023 End: 04-16-2023 Emergency department patient visit Dr. Steven Rojas Work Phone: [facility]-Emergency Department Work Phone: Start: 03-04-2023 End: 03-04-[address] Steven Rojas Work Phone: [facility] Work Phone: Start: 03-04-2023 End: 03-04-[address] Steven Rojas Work Phone: [facility]-Outpatient Breast Imaging Work Phone: Start: 04-26-2022 End: 04-26-[address] Steven Rojas Work Phone: [facility] Work Phone: Start: 04-26-2022 End: 04-26-[address] Steven Rojas Work Phone: [facility]-Outpatient Bone Densitometry Start: 03-02-2022 End: 03-02-[address] Steven Rojas Work Phone: [facility]-Outpatient Breast Imaging Start: 02-26-2022 End: 02-26-[address] Steven Rojas Work Phone: [facility] Start: 12-28-2016 End: 12-28-2016 Amb[facility] Procedures Date Procedure Procedure Detail Performing Clinician Start: 06-24-[address] Steven Rojas Work Phone: Start: 03-04-2023 Screening mammography Ling Rojas Work Phone: Start: 04-26-2022 Dual energy X-ray absorptiometry Dr. Steven Rojas Work Phone: Start: 03-02-2022 Screening mammography Ling Rojas Work Phone: Plan of Treatment Date Care Activity Detail Author Start: 04-16-2023 [facility] DXA Bone [Mass/Area] Bone density [facility] Work Phone: Patient Education ED BPV Vertigo [facility] Work Phone: Patient referral [facility] Work Phone: [facility] Payers Date Payer Category Payer Self-pay [id number] 2012 Unknown [id number] Private Health Insurance [employer] SR SUPPLEM ENT INS [id number] Unknown [id number] Unknown [id number] Unknown [id number] Unknown [id number] Unknown [id number] Unknown [id number] Unknown [id number] Social History Date Type Detail Facility Start: 02-26-2022 End: 06-24-2023 Tobacco smoking status NHIS Unknown if ever smoked [facility] Start: 12-08-2019 Non-smoker [facility] Start: 1955 Sex Assigned At Female W [facility] Start: 02-22-2024 Tobacco smoking stat us ORIS Never smoked tobacco (finding) [facility] Medical Equipment Procedure Code Equipment Code Equipment Origin al Text Equipment Identifier Dates Laparoscopy with vaginal hysterectomy PILAR 3GRM HEMOSTAT ABS FDA Start: 12-22-2019 Laparoscopy with vaginal hysterectomy MESH, AXIS DERMIS FDA Start: 12-22-2019 Laparoscopy with vaginal hysterectomy SLING, ALTIS VAGINAL FDA Start: 12-22-2019 Laparoscopy with vaginal hysterectomy PILAR 3GRM HEMOSTAT ABS FDA Start: 12-22-2019 Laparoscopy with vaginal hysterectomy MESH, AXIS DERMIS FDA Start: 12-22-2019 Laparoscopy with vaginal hysterectomy SLING, ALTIS VAGINAL FDA Start: 12-22-2019 Laparoscopy with vaginal hysterectomy PILAR 3GRM HEMOSTAT ABS FDA Start: 12-22-2019 Laparoscopy with vaginal hysterectomy MESH, AXIS DERMIS FDA Start: 12-22-2019 Laparoscopy with vaginal hysterectomy SLING, ALTIS VAGINAL FDA Start: 12-22-2019 Laparoscopy with vaginal hysterectomy PILAR 3GRM HEMOSTAT ABS FDA Start: 12-22-2019 Laparoscopy with vaginal hysterectomy MESH, AXIS DERMIS FDA Start: 12-22-2019 Laparoscopy with vaginal hysterectomy SLING, ALTIS VAGINAL FDA Start: 12-22-2019 Laparoscopy with vaginal hysterectomy PILAR 3GRM HEMOSTAT ABS FDA Start: 12-22-2019 Laparoscopy with vaginal hysterectomy MESH, AXIS DERMIS FDA Start: 12-22-2019 Laparoscopy with vaginal hysterectomy SLING, ALTIS VAGINAL FDA Start: 12-22-2019 Mental Status Date Assessment Result Facility 04-16-2023 Cognitive function Level Of Cons ciousness Awake;Alert;Appropriate;Follow s Commands [facility] Work Phone: Discharge summary Note Date & Type Note Facility Discharge summary Note Date/Time April 16, 2023 1:27am [facility] Medical Records Department [address] [place] [address] Emergency Department Summary 04/16/23 MR#: [id number] Acct: [id number] Name: KRYS CANCINO Rep #:[id number] : [id number] 68 From: Dhaval Sears PCP: Dr. Steven Rojas DO Status:REG ER Location: ED HPI History of Present Illness Chief Complaint: Hypertension Informant: patient Narrative Narrative: Presenting recurrent vertigo symptoms this evening at 7 PM. Symptoms worse whenshe looks down. Nausea without vomiting. No ear pain or ringing. Reports had persistent symptoms with laying down she checked her blood pressure 200/100. Noheadache. No chest pains. Stable blood pressure systolic 120s over 80s in the doctor's office. Prior similar symptoms: Yes PFSH PFSH Medical History GERD (gastroesophageal reflux disease) Hypercholesterolemia Hypothyroid Home Medications levothyroxine 88 mcg tablet (Synthroid) 88 mcg PO DAILY 07/02/17 [History Last Taken 01/07/20 06:30] pantoprazole 40 mg tablet,delayed release 40 mg PO QHS REFLUX 07/02/17 [History Last Taken Unknown] simvastatin 10 mg tablet 10 mg PO QHS 07/02/17 [History Last Taken Unknown] loratadine 10 mg tablet (Claritin) 10 mg PO DAILY 01/05/21 [History Last Taken Unknown] estradiol 0.01% (0.1 mg/gram) vaginal cream See Rx Instructions vaginal .COMPLEX#42.5 grams 01/23/22 [Rx Last Taken Unknown] famotidine 20 mg tablet 20 mg PO DAILY 02/26/22 [History Last Taken Unknown] meclizine 25 mg tablet 25 mg PO 4X/DAY PRN PRN Dizziness #20 tabs 04/16/23 [Rx Last Taken Unknown] Allergy/AdvReac Type Severity Reaction Status Date / Time dextromethorphan Allergy Mild Other Verified 04/16/23 01:11 [From [facility] NyQuil Cold/Flu Liquicap] doxylamine Allergy Mild Unknown Verified 04/16/23 01:11 [From [facility] NyQuil Cold/Flu Liquicap] Family History Mother Diabetes Hypertension Thyroid disorder CAD (coronary artery disease) Father Heart disease CAD (coronary artery disease) Sister Breast cancer Hypertension Brother Hypertension CAD (coronary artery disease) Surgical History bilateral sacrospinous ligament cystourethroscopy History of section History of colonoscopy History of esophagogastroduodenoscopy (EGD) History of LAVH History of mandibular surgery Hx of BSO (bilateral salpingo-oophorectomy) mid urethral sling Social History Smoking Status: Never smoker alcohol intake: never substance use type: does not use caffeine: Yes what type of physical activity do you participate in: walking and bicycling frequency: 5-6 times per week seatbelt use: always do you feel safe at home: Yes additional social history: - [facility] ROS ROS ED Constitutional Constitutional ED: Denies chills, fever(s) or sweats Eyes Eyes: Denies change in vision ENT ENT ED: Denies dysphagia or sore throat Cardiovascular Cardiovascular: Denies chest pain, leg edema, palpitations or racing heartbeat Respiratory/Chest Respiratory/Chest: Denies cough, dyspnea or dyspnea on exertion Gastrointestinal Gastrointestinal: Reports nausea; Denies abdominal pain, diarrhea or vomiting Genitourinary Genitourinary ED: Denies dysuria, hematuria or urinary frequency Musculoskeletal Musculoskeletal: Denies back pain, extremity pain or neck pain Integumentary Denies rash or wounds Neurologic Neurologic: Reports other Details: Dizzy ; Denies headache(s), paresthesias or weakness EXAM Physical Exam Const Vital Signs: 04/16/23 01:11 04/16/23 01:15 Temperature 97.8 F Temperature Source Oral Pulse Rate 73 Respiratory Rate 13 Respiratory Effort Normal Non-Labored Respiratory Pattern Normal Blood Pressure 184/74 H Blood Pressure Mean 110 Pulse Ox 98 Oxygen Delivery Method Room Air Positive well nourished and well developed General Appearance ED: well developed and NAD HEENT Reports TM's clear and moist mucous membranes HEENT Narrative: Normal TM lateral. normocephalic and atraumatic Tympanic Membrane ED: Yes TM's clear Eyes PERRL, EOMs intact bilaterally and conjunctivae normal Eyes Narrative: No resting nystagmus. General Eye ED: Yes normal appearance of both eyes Neck no lymphadenopathy and supple General: Negative for tenderness Chest Wall Chest: Negative for tenderness Resp normal respiratory effort and normal air movement Effort and Inspection: symmetric chest movement; Negative for respiratory distress Cardio regular rate, regular rhythm and no murmurs Peripheral Pulses: pulses 2+ throughout GI normal to inspection, nondistended, normoactive bowel sounds and non-tender Palpation: Negative for guarding or rebound tenderness present Back/Spine no CVA tenderness and no thoracic nor lumbar tenderness Extremity normal to inspection General Extremety ED: Negative for edema or tenderness General Extremity: Negative for edema Neuro oriented x3, CN's II-XII intact bilaterally and no sensory deficits noted Neuro Narrative: [place]-Hallpike positive to the left. Sensorium / Orientation: awake and alert Skin no rashes or lesions noted and no wounds MDM MDM MDM Narrative Medical decision making narrative: Interventions / MDM: Differential diagnosis: Diagnosis considered but do not suspect: N/A My EKG interpretation: N/A Imaging independently reviewed and interpreted by myself: N/A External documents reviewed: N/A Test considered but not ordered:N/A ED course: Presenting reproducible peripheral vertigo symptoms on the left. Blood pressure 184/74 on arrival. Will monitor, Víctor maneuver initiated. Víctor maneuver performed with improvement of symptoms. Blood pressure also improved in the 150/77 on reevaluation. Clinically feeling better. Meds to bedprescription with meclizine to use as needed. Outpatient follow-up with her doctor. Return precautions. All questions were answered. Re-evaluation: stable Disposition discussed with patient/family/significant other: Patient Case discussed with consulting clinician: N/A This note was generated with Mandic dictation software. It may contain incorrectwords, spelling, and punctuation that were not noted in checking the note beforesigning. Discharge Plan Triage Chief Complaint: Hypertension Other Complaint: Dizziness ED Provider: Dhaval Garcia Dx/Rx/DC Orders Clinical Impression: Benign paroxysmal positional vertigo, Elevated blood pressure reading Instructions: ED BPV Vertigo Prescriptions: New meclizine 25 mg tablet 25 mg PO 4X/DAY PRN PRN (Reason: Dizziness) Qty: 20 0RF No Action pantoprazole 40 mg tablet,delayed release (DR/EC) 40 mg PO QHS levothyroxine [Synthroid] 88 mcg tablet 88 mcg PO DAILY simvastatin 10 mg tablet 10 mg PO QHS loratadine [Claritin] 10 mg tablet 10 mg PO DAILY famotidine 20 mg tablet 20 mg PO DAILY estradiol 0.01 % (0.1 mg/gram) cream See Rx Instructions vaginal .COMPLEX Qty: 42.5 2RF Rx Instructions: small amount as directed vaginal twice a week; Primary Care Provider: Steven Rojas Referrals: Steven Rojas DO [Primary Care Provider] - 1 Week if not improving Activity Restrictions/Additional Instructions: Use Víctor maneuver as shown. Take medication as needed. Follow-up with your doctor. Symptoms worsens, return to the ED for reevaluation. Disposition Disposition: Home, Self Care What to do if you have Problems For any increased pain, shortness of breath, bleeding, nausea or vomiting, chestpain, or any unexpected problems, contact your Primary Care Provider. Call [facility] ([phone]) or report to the closest Emergency Room. Call 911 if necessary. 04/16/23 0209 <Electronically signed by Dhaval Sears> Cosigner Signature (if applicable): CC: Dr. Steven Rojas DO ~ Signed [facility] Work Phone: Evaluation note Note Date & Type Note Facility Evaluation note Diagnosis Onset Date Cystocele acute Encounter for routine gyneco logical examination noneactive [facility] Work Phone: Evaluation note Note Date & Type Note Facility Evaluation note Diagnosis Onset Date Atrophic vaginitis acute Cystocele acute Encounter for routine gyneco logical examination noneactive [facility] Work Phone: Evaluation note Note Date & Type Note Facility Evaluation note Diagnosis Onset Date Urinary tract infection none active [facility] Work Phone: Evaluation note Note Date & Type Note Facility Evaluation note No assessment information availa evelin [facility] Work Phone: Hospital Discharge instructions Note Date & Type Note Facility Hospital Discharge instructions Additional Instructions Use Víctor maneuver as shown. Take medication as needed. Follow-up with your doctor. Symptoms worsens, return to the ED for reevaluation. [facility] Work Phone: Reason for referral (narrative) Note Date & Type Note Facility Reason for referral (narrative) No reason for referral information available [facility] Work Phone: Summary Purpose Family History Relationship Condition Age at Onset Recorded Date/T sharyn mother Diabetes mellitus Unknown Hypertension Unknown Disorder of thyroid Unknown Coronary artery disease Unknown father Cardiac disease Unknown sister Malignant neoplasm of breast Unknown brother Hypertension Unknown Advance Directives Advance Directive Response Recorded Date/ Time Advance Directives No January 06 10:53am Living Will No 2020 10:53am Power of Quality Rep No January 06 10:53am Advance Directive Response Recorded Date/ Time Advance Directives No January 06 10:53am Living Will No April 16 1:15am Power of Quality Rep No April 16, 2023 1:15am Advance Directive Response Recorded Date/ Time Advance Directives No January 06 11:53am Living Will No April 16 2:15am Power of Quality Rep No April 16, 2023 2:15am Advance Directive Response Recorded Date/ Time Advance Directives No January 06 11:53am Chief Complaint and Reason for Visit Chief Complaint 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 Reason for Visit Cystocele Encounter for routine gynecological examination Chief Complaint SCREENING 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) dizziness and hypertension Reason for Visit Atrophic vaginitis Cystocele Encounter for routine gynecological examination Chief Complaint dizziness and hypert ension Urinary tract infection Reason for Visit Urinary tract infect ion Chief Complaint Urinary tract infect ion Reason for Visit Urinary tract infect ion Chief Complaint Admit Date CONCERN FOR UTI November 28, 2024 10:3 2am Additional Source Comments INFORMATION SOURCE (unrecogn ized section and content) DATE CREATED AUTHOR 12/04/2017 [facility] DATE CREATED AUTHOR AUTHOR'S ORGANIZ ATION 07/24/2024 [facility] Goals (unrecognized section and content) Goals may be documented in a n alternate sectionGoals may be documented in an alternate sectionGoals may be documented in an alternate sectionGoals may be documented in an alternate sectionGoals may be documented in an alternate section Care Teams (unrecognized sec tion and content) Team Status: Active Member Role Status Dates Dr. Steven Rojas DO Family Provider Active Dr. Steven Rojas DO Primary Care Provider Active Team Status: Inactive Member Role Status Dates Dr. Steven Rojas , Primary Care Provider, Raymond Provider Active Dr. Jonna Khan MD Attending Provider Active Team Status: Inactive Member Role Status Dates Dr. Steven Rojas , DO Primary Care Provider Active Dr. Jonna Khan MD Attending Provider, Referr ing Provider Active Team Status: Inactive Member Role Status Dates Dr. Steven Rojas DO Primary Care Provider Active Dr. Dhaval Garcia , DO Emergency Provider Active Team Status: Inactive Member Role Status Dates Dr. Steven Rojas DO Primary Care Provider, Referrin g Provider Active KAREEN Singh Attending Provider Active Team Status: Inactive Member Role Status Dates Dr. Steven Rojas DO Primary Care Provider, Attendin g Provider Active Team Status: Inactive Member Role Status Dates Dr. Steven Rojas DO Primary Care Provider Active Dr. Dhaval Garcia DO Attending Provider, Emergency Provide r Active Team Status: Inactive Member Role Status Dates Dr. Steven Rojas DO Primary Care Provider Active KAREEN Singh Attending Provider, Referring Pr ovider Active Team Status: Inactive Member Role Status Dates Dr. Steven Rojas DO Primary Care Provider Active Start: November 28, 2024 End: November 28, 2024 Dr. Steven Rojas DO Referring Provider Active Start: November 28, 2024 End: November 28, 2024 KAREEN Bojorquez Attending Provider Active Start: November 28, 2024 End: November 28, 2024 FOR RECORDS PERTAINING TO PATIENTS WHO ARE [...] BE BASED ON THE PRIMARY CLINICAL RECORDS. [employer] provides no warranty or guarantee of the accuracy or completeness of information in this document.
== END | disposition home or self-care (01) ==
LOC: LABSPEC 07:48
PROVIDERS: PCP Family Medicine; Visit Provider Physician Assistant
DX: R82.90 Unspecified abnormal findings in urine (principal)
CPT/HCPCS: 87077; 87086; 87088; 87186

== ENCOUNTER → 2025-02-25 | Outpatient (CLI) | payer MEDICARE, SELFPAY ==
--- NOTE | 2025-02-25 09:14 | RAD_ITS ---
PROCEDURE: L/S SPINE MIN 4 VIEWS 02/25/2025 REASON FOR EXAM: CHRONIC BACK PAIN TECHNIQUE: Procedure Code: RADSPLS Modality: DX Procedure: L/S SPINE MIN 4 VIEWS COMPARISON: None FINDINGS: Severe scoliosis of the lumbar spine concave to the right apex at L1. No compression fracture. Multilevel facet arthropathy and multilevel spondylosis worse at the thoracolumbar junction. Foraminal stenosis suspected on the right neural foramina extending from T12-L1 through L3-L4. Abnormal configuration of the L1 and L2 vertebra with suggestion of defect of the posterior spinal elements. This may be due to rotation. Large amount of stool in the colon. RAD/L/S Spine Min 4 Views IMPRESSION: Severe scoliosis of the lumbar spine concave to the right apex at L1 with multi level foraminal stenoses more so on the right than the left and multilevel facet arthropathy. Question congenital deformity at L1 -2. Reading Location: [id number]
== END | disposition home or self-care (01) ==
LOC: MTRAD 09:11
PROVIDERS: PCP Family Medicine; Referring Provider Family Medicine; Visit Provider Family Medicine
DX: M54.9 Dorsalgia, unspecified (principal); G89.29 Other chronic pain
CPT/HCPCS: 72110

== ENCOUNTER → 2025-03-08 | Outpatient (CLI) | payer MEDICARE, SELFPAY ==
--- NOTE | 2025-03-08 08:30 | BI_ITS ---
EXAM: SCRN MAMM (CAD)W/KRISTINE BILAT DATE: 03/08/2025 CLINICAL HISTORY: F, Age 70 y/o , SCREENING FOR BREAST CANCER TECHNIQUE: Procedure Code: [id number] Modality: MG Procedure: SCRN MAMM (CAD)W/KRISTINE BILAT COMPARISON: Prior exam(s) dated mammogram studies dated 03/06/2024, 03/04/2023, and 03/02/2022. FINDINGS: TISSUE DENSITY: The breasts are almost entirely fatty. Bilateral Breast Mammographic Findings: No significant masses, calcifications or other abnormalities are identified. Stable nodular densities are seen in both breasts. Benign round microcalcifications are seen in both breast. Benign vascular calcifications are seen in the right breast. A stable 4 mm partially obscured isodense mass is seen in the superior outer, middle 3rd aspect of the right breast. BI/SCRN MAMM (CAD)W/KRISTINE BILAT IMPRESSION: Benign screening mammogram OVERALL FINAL ASSESSMENT BI-RADS 2: BENIGN RECOMMENDATION: Routine annual follow-up in 1 Year Additional Recommendation none A letter with findings and recommendations will be mailed to the patient. Reading Location: [id number]
== END | disposition home or self-care (01) ==
PROVIDERS: PCP Family Medicine; Referring Provider Obstetrics & Gynecology; Visit Provider Obstetrics & Gynecology
DX: Z12.31 Encounter for screening mammogram for malignant neoplasm of breast (principal)
CPT/HCPCS: 77063; 77067

== ENCOUNTER → 2025-05-04 | Outpatient (CLI) | payer MEDICARE, SELFPAY ==
[2025-05-04 16:28] LABS: Hematocrit 36.7 % (37-47); Hemoglobin 11.3 g/dL (12.0-15.0); Immature Granulocytes Count 0.010 X10^3/uL (0.0-0.0); Mean Corp Hgb Conc 30.8 g/dL (32-36); Mean Corpuscular Volume 83.6 fL (81-99); Mean Platelet Vol. 11.3 fl (6.2-12.0); NRBC Flagged by Analyzer 0 % (0-5); Platelet Count 149 K/mm3 (150-450); RBC Distribution Width CV 15.9 % (11.6-14.6); RBC Distribution Width SD 48.4 fl (35.1-43.9); Red Blood Count 4.39 M/mm3 (4.2-5.4); White Blood Count 4.1 K/mm3 (4.4-11.0)
[2025-05-04 17:59] LABS: AST(SGOT) 24 U/L (<=31); Alanine Aminotransfer ALT/SGPT 18 U/L (<=34); Albumin, Serum 4.4 g/dL (3.4-4.8); Alkaline Phosphatase 74 U/L (35-104); Anion Gap 16 (5-15); BUN 10 mg/dL (4-19); BUN/Creat Ratio 12.1 RATIO (10-20); Calcium,Total 9.4 mg/dL (7.6-11.0); Carbon Dioxide 22.7 mmol/L (21.0-32.0); Chloride 100 mmol/L (98-108); Cholesterol 184 mg/dL (<=200); Globulin 3.1 g/dL (2.2-4.2); Glucose 76 mg/dL (70-99); Low Density Lipoprotein Calc. 112 mg/dL; Potassium 4.5 mmol/L (3.3-5.1); Triglycerides 96 mg/dL; Very Low Density Lipoprotein 19 mg/dL (5-40); cholesterol:hdl ratio screen 3.34
[2025-05-04 18:07] LABS: Pro- Brain NATRIURETIC PEPTIDE 40 pg/mL (<=900); Troponin T High Sensitivity 13 ng/L (<=14)
[2025-05-06 09:08] LABS: CRP, High Sensitivity 1.21 mg/L (0.00-3.00)
== END | disposition home or self-care (01) ==
LOC: BFHLAB 11:17
PROVIDERS: PCP Family Medicine; Visit Provider Nurse Practitioner Family
DX: R07.9 Chest pain, unspecified (principal); I50.9 Heart failure, unspecified; I11.0 Hypertensive heart disease with heart failure; E78.5 Hyperlipidemia, unspecified; E03.9 Hypothyroidism, unspecified
CPT/HCPCS: 36415; 80053; 80061; 83880; 84439; 84443; 84484; 85025; 86141

== ENCOUNTER 2025-05-12 08:30 | Outpatient (RCR) | payer MEDICARE, SELFPAY ==
--- NOTE | 2025-03-09 09:31 | HP.PTEVAL_ITS ---
Patient's Visit Information Visit Information Visit Information: KRYS CANCINO is a 70 year old F referred to Physical Therapy by Dr. Steven Rojas DO with a diagnosis of LOW BACK PAIN ,CHRONIC PAIN. Date of Evaluation: 03/09/25 Physical Therapist: Johan Robertson, PT, Cert MDT, OCS Visit Plan Frequency: 2x /Week Duration: 4 Weeks Plan: PT INTERVENTIONS DLS ,FLEXIBILITY ,FLEXION LUMBAR ,POSTURAL EX'S ,HIP STRENGTHENING AND ACTIVITY MODIFICATION Subjective Subjective: This 70 y/o female presents to physical therapy with lumbar pain. Patient pain worse ~ 1 years Patient seen x-rays showed Severe scoliosis of the lumbar spine concave to the right apex at L1 with multilevel foraminal stenosis more so on the right than the left and multilevel facet arthropathy. Question congenital deformity at L1- 2. No medication. Pain located left no leg symptoms. Aggravating factors sitting walking > 5min,standing ,sitting. Alleviating factors rest. Denies paresthesia/tingling -. Bowel/bladder-. Coughing/sneezing-. Sleeping good.Patient has no PT or prior tx .Patient condition affects QOL and function/job demands. SOCIAL: VOACTION:retired ,[employer] Pain Left: Pain Intensity (Out of 10): 0 Pain Intensity Range: 5 and 10 Objective Objective: POSTURE: mild forward posture ,mod thoracic kyphosis ,scoliosis severe ,pelvis asymmetries PALAPTION: tender LS NEURO: denies paresthesia/tingling ,reflexes L3-4,L4-5,L5-S1 1/3 MMT: quads/hams 4/5 ,hip flexion 4-/5 ,ankle 4/5 LUMBAR ROM: flexion WFL ,extension 25% loss ,side glides 25% loss FLEXABILITY: hamstrings min tight Special Tests L/S Slump test left side: Negative L/S Slump test right side: Negative L/S Left Straight Leg Raise: Negative L/S Right Straight Leg Raise: Negative Balance/Special Test Scores Oswestry Low Back Score: 20 Goals Goal 1:: Patient to be I with HEP for back Goal Time Frame: 4-6 Weeks Goal 2:: Patient to improve lumbar ROM for function of recovery for ADLS and housework tasks Goal Time Frame: 4-6 Weeks Goal 3:: Patient to demonstrate 70% improvement with less pain walking/standing and ADL Goal Time Frame: 4-6 Weeks Goal 4:: Patient to improve hip strength to good to improve gait Goal Time Frame: 4-6 Weeks Goal 5:: Patient to improve back oswestry score by 5 points to improve QOL Goal Time Frame: 4-6 Weeks Rehabilitation Potential Physical Therapy Diagnosis: This patient has lumbar pain with scoliosis with pain with walking/standing ,positioning impairs ADLS and housework tasks thus benefit from skilled PT Rehabilitation Potential: Good Anticipated Interventions Patient/Client Instruction: Educate patient on: Condition and Plan of Care For the Purpose of:: To decrease pain, To improve muscle performance and motor function, To improve ability to perform ADL's, To increase tolerance to activity/condition/position, To improve ability of physical actions for home/community/work/leisure, To improve health of tissue, To decrease soft tissue restriction, To prevent re-injury and To improve tolerance to ADL's Therapeutic Exercise to Include: Strength training, Postural training, Flexibilty training and Dynamic Lumbar Stabilization Comment: HIP For the Purpose of:: To decrease pain, To increase ROM, To improve muscle performance and motor function, To improve ability to perform ADL's, To increase tolerance to activity/condition/position, To improve ability of physical actions for home/community/work/leisure, To improve health of tissue, To decrease soft tissue restriction, To increase flexibility/ROM and To improve tolerance to ADL's Text: Thank you for the opportunity to evaluate your patient. For Medicare and Medicare HMO plans, please review the plan of care and approve it. It will need to be FAXED BACK to us at [phone] for Medicare purposes. For Medicare only, by signing this I certify the plan of care. Please let me know if there are questions or concerns regarding this plan of care. Physician Signature: Date:
--- NOTE | 2025-04-09 08:50 | HP.PTREVAL ---
Re-Evaluation Intro: Dr. Steven Rojas, DO, It has been my pleasure to treat KRYS CANCINO over the last 10 visits for LOW BACK PAIN, CHRONIC PAIN. Please see the progress note below for an update on the physical therapy plan of care! Subjective Subjective: End of day is worse Objective Objective/Function: POSTURE: mild forward posture ,mod thoracic kyphosis ,scoliosis severe ,pelvis asymmetries PALAPTION: tender LS NEURO: denies paresthesia/tingling ,reflexes L3-4,L4-5,L5-S1 1/3 MMT: quads/hams 4/5 ,hip flexion 4-/5 ,ankle 4/5 LUMBAR ROM: flexion WFL ,extension 25% loss ,side glides 25% loss FLEXABILITY: hamstrings min tight Plan Plan Plan: PT INTERVENTIONS: DLS, FLEXIBILITY, FLEXION LUMBAR, POSTURAL EX'S, HIP STRENGTHENING AND ACTIVITY MODIFICATION. Balance/Gait/Functional tests Balance/Special Test Scores Oswestry Low Back Score: 11 Goals Goals Goal 1:: Patient to be I with HEP for back Goal Time Frame: 4-6 Weeks Goal Progress: Progressing Goal 2:: Patient to improve lumbar ROM for function of recovery for ADLS and housework tasks Goal Time Frame: 4-6 Weeks Goal Progress: Progressing Goal 3:: Patient to demonstrate 70% improvement with less pain walking/standing and ADL Goal Time Frame: 4-6 Weeks Goal Progress: Progressing Goal 4:: Patient to improve hip strength to good to improve gait Goal Time Frame: 4-6 Weeks Goal Progress: Progressing Goal 5:: Patient to improve back oswestry score by 5 points to improve QOL Goal Time Frame: 4-6 Weeks Anticipated Interventions Anticipated Interventions Patient/Client Instruction: Educate patient on: Condition and Plan of Care For the Purpose of:: To decrease pain, To improve muscle performance and motor function, To improve ability to perform ADL's, To increase tolerance to activity/condition/position, To improve ability of physical actions for home/community/work/leisure, To improve health of tissue, To decrease soft tissue restriction, To prevent re-injury and To improve tolerance to ADL's Therapeutic Exercise to Include: Strength training, Postural training, Flexibilty training and Dynamic Lumbar Stabilization Comment: HIP For the Purpose of:: To decrease pain, To increase ROM, To improve muscle performance and motor function, To improve ability to perform ADL's, To increase tolerance to activity/condition/position, To improve ability of physical actions for home/community/work/leisure, To improve health of tissue, To decrease soft tissue restriction, To increase flexibility/ROM and To improve tolerance to ADL's Re-Evaluation Ending Re-evaluation ending: Please do not hesitate to contact me at [phone] by phone or if you have questions or concerns regarding this new plan of care! Sincerely, Johan Robertson, PT, Cert MDT, OCS
--- NOTE | 2025-05-12 09:06 | HP.PTDCSUM ---
Discharge Summary D/C summary: It has been my pleasure to treat KRYS CANCINO referred by Dr. Steven Rojas DO, with the diagnosis of LOW BACK PAIN, CHRONIC PAIN for a total of 14 visit(s). Discharge Date: 05/12/25 Please see the following information for a summary of their discharge status. Subjective Subjective: Ready to try ex's No appointment Vacuuming is most painful carrying up grocery better Pain Left: Pain Intensity (Out of 10): 1 Overall Improvement % Improvement: 80 Objective Objective/Function: POSTURE: mild forward posture ,mod thoracic kyphosis ,scoliosis severe ,pelvis asymmetries PALAPTION: tender LS NEURO: denies paresthesia/tingling ,reflexes L3-4,L4-5,L5-S1 1/3 MMT: quads/hams 4/5 ,hip flexion 4-/5 ,ankle 4/5 LUMBAR ROM: flexion WFL ,extension 25% loss ,side glides 25% loss FLEXABILITY: hamstrings min tight Goals Goal 1:: Patient to be I with HEP for back Goal Progress: Goal Met Goal 2:: Patient to improve lumbar ROM for function of recovery for ADLS and housework tasks Goal Progress: Goal Met Goal 3:: Patient to demonstrate 70% improvement with less pain walking/standing and ADL Goal Progress: Goal Met Goal 4:: Patient to improve hip strength to good to improve gait Goal Progress: Goal Met Goal 5:: Patient to improve back oswestry score by 5 points to improve QOL Goal Progress: Goal Met Plan Plan: D/C D/C Information Discharge Comments: HEP AND GYM PROGRAM d/c sentence: If there are questions or concerns regarding this patient's physical therapy, please feel free to call me at [phone]. Thank you for the referral of this patient. Sincerely, Johan Robertson, PT, Cert MDT, OCS Balance/Gait/Functional tests Balance/Special Test Scores Oswestry Low Back Score: 6 Improvement % Improvement: 80
== END 2025-05-12 12:56 | disposition home or self-care (01) ==
LOC: PT 08:30
PROVIDERS: PCP Family Medicine; Referring Provider Family Medicine; Visit Provider Family Medicine
DX: M54.50 Low back pain, unspecified (principal); M41.9 Scoliosis, unspecified; G89.29 Other chronic pain
CPT/HCPCS: 97110; 97162; 97530

== ENCOUNTER → 2025-05-20 | Outpatient (CLI) | payer MEDICARE, SELFPAY ==
[2025-05-20 15:11] LABS: Hematocrit 34.2 % (37-47); Hemoglobin 10.5 g/dL (12.0-15.0); Immature Granulocytes Count 0.000 X10^3/uL (0.0-0.0); Mean Corp Hgb Conc 30.7 g/dL (32-36); Mean Corpuscular Volume 83.4 fL (81-99); Mean Platelet Vol. 10.9 fl (6.2-12.0); NRBC Flagged by Analyzer 0 % (0-5); Platelet Count 123 K/mm3 (150-450); RBC Distribution Width CV 15.6 % (11.6-14.6); RBC Distribution Width SD 47.5 fl (35.1-43.9); Red Blood Count 4.10 M/mm3 (4.2-5.4); White Blood Count 4.1 K/mm3 (4.4-11.0)
[2025-05-20 15:42] LABS: Ferritin 15 ng/mL (22-378); Iron 41 ug/dL (50-170)
== END | disposition home or self-care (01) ==
LOC: BFHLAB 11:40
PROVIDERS: PCP Family Medicine; Visit Provider Family Medicine
DX: D64.9 Anemia, unspecified (principal)
CPT/HCPCS: 36415; 82728; 83540; 85025

== ENCOUNTER → 2025-05-26 | Outpatient (CLI) | payer MEDICARE, SELFPAY ==
--- NOTE | 2025-05-26 12:33 | STE_ITS ---
Reason For Study Reason For Study: Chest Pain Stress Results Protocol: Nestor Protocol Maximum Predicted HR: 151 bpm Target HR: 128 bpm % Maximum Predicted HR: 98 % DurationHeart Rate Stage (mm:ss) (bpm) BP Comment Baseline 72 122/84No Chest Pain Nestor Protocol Stage I 3:00 114 130/68No Chest Pain Nestor Protocol Stage II 3:00 136 134/70No Chest Pain; Mild Dyspnea Nestor Protocol Stage III 2:00 148 154/64No Chest Pain; Mild Dyspnea Recovery 80 130/64No Chest Pain; No Dyspnea Stress Duration: 8:00 mm:ss Maximum Stress HR: 148 bpm METS: 10 Baseline Echocardiogram Findings Normal baseline LV systolic function. Estimated LVEF 65%. Mild aortic valve regurgitation. Tricuspid aortic valve. Mild mitral valve regurgitation. Trivial tricuspid valve regurgitation. Stress Echo Wall motion Data Resting WM Intermediate WM Stress WM Resting Wall Motion Wall Motion Stress Normal resting LV wall motion. Estimated Post exercise stress, all wall segments LVEF at rest 65%. hyperdynamic except the inferior wall which does not augment as well. EKG Data Resting ECG normal sinus rhythm. Stress ECG without any ischemic changes. Mild flattening of the ST segments in inferior leads in recovery which did not reach diagnostic significance. Doppler Measurements & Calculations AI max naveen: 450.6 cm/sec TR max naveen: 270.6 cm/sec AI max P.2 mmHg TR max P.3 mmHg AI dec slope: 307.6 cm/sec2 AI P1/2t: 429.0 msec ECHO/Stress Test Echo w/o Contrast Interpretation Summary Normal resting LV wall function. Mild aortic valve regurgitation. Mild mitral v alve regurgitation. No ischemic ECG changes noted. 8 minutes of exercise with 98% of the maximum pr edicted heart rate achieved. No chest pain reported. Mild hypokinesis of the inferior wall post exercise stress. Ischemic inferior w all echo response to exercise. Ordering Physician: Yuridia Lehman Referring Physician: Yuridia Lehman Performed By: Brodwolf, Tevin, RCS
--- OUTSIDE RECORDS SUMMARY | 2025-05-26 19:44 | XMS RPT_ITS | CCD ---
Author Organization [facility] Care Team Providers Care Database Development Project Manager Name Role Phone EUNICE SELF (PA-C) Unavailable Unavai Dr. Steven Felix Primary Care Provider [phone] Dr. Steven Rojas Referring Provider [phone] Jonna Khan Attending Provider Dr. Steven Rojas Primary Care Provider [phone] Dr. Steven Rojas Referring Provider Dr. Jonna Khan Attending Provider [phone] Dr. Steven Rojas Primary Care Provider [phone] Dr. Steven Rojas Referring Provider KAREEN Sanchez Attending Provider Dr. Steven Rojas Primary Care Provider Dr. Steven Rojas Referring Provider KAREEN Sanchez Attending Provider Dr. Steven Rojas DO Primary Care Provider Dr. Steven Rojas DO Referring Provider Tony Carrera Attending Provider Tony Carrera Attending Provider Dr. Sharon Carmichael MD Attending Provider Dr. Steven Rojas DO Primary Care Physician Tony Carrera Attending Physician Tony Carrera Attending Physician Amol AVINA, Dr. Herrera Attending Physician Dr. Steven Rojas DO Attending Physician Dr. Jonna Khan MD Attending Physician Dr. Jonna Khan MD Referring Provider Crystal, Steven Attending Unavailable Crystal, Steven Referring Unavailable Crystal, Steven Primary Care Unavailable Crystal, Steven Attending Unavailable Crystal, Steven Primary Care Unavailable Crystal, Steven Referring Unavailable Crystal, Steven Primary Care Unavailable Crystal, Steven Attending Unavailable Amol, Sharon Attending Unavailable Crystal, Steven Referring Unavailable Crystal, Steven Primary Care Unavailable Crystal, Steven Referring Unavailable Crystal, Steven Primary Care Unavailable Socorro PALOMARES, Juana Attending Unavailable Yury, Tony Attending Unavailable Crystal, Steven Referring Unavailable Crystal, Steven Primary Care Unavailable Tony Cotton Attending Unavailable Crystal, Steven Primary Care Unavailable Jonna Khan Attending Unavailable Jonna Khan Referring Unavailable Crystal, Steven Primary Care Unavailable CrystalDr. Steven pelaez DO Primary Care Physician Dr. Steven Rojas DO Referring Provider Dr. Sharon Carmichael MD Attending Physician Dr. Steven Rojas DO Attending Physician Dr. Jonna Khan MD Attending Physician Dr. Jonna Khan MD Referring Provider Socorro PALOMARES-CJuana Attending Physician [phone] Allergies Allergy Classification Reported Allergen(s) Allergy Type Date of Onset Reaction(s) Facility (1 source) [id number] ETAMINOPHEN; Translations: [[id number] CETAMINOPHEN] Propensity to adverse reactions to drug (disorder) 05-23-20 [facility] Repository (10 sources) Dextromethorphan Drug Allergy 02-27-20 22 Unknown, Other Comment on above: Palpitations (10 sources) Doxylamine Drug Allergy 02-27-20 Unknown (1 source) Dextromethorphan Drug Allergy 03-31-20 Repository (1 source) Doxylamine Drug Allergy 03-31-20 Repository Medications Current Medications Medication Drug Class(es) Dates Sig (Normalized) Sig (Original) famotidine 20 mg oral tablet (10 sources) Histamine-2 Receptor Antagonist Start: 02-26-2022 take 1 tablet by mouth once daily levocetirizine dihydrochloride 5 mg oral tablet (6 sources) Histamine-1 Receptor Antagonist Start: 03-18-2024 take 1 tablet by mouth once daily levothyroxine sodium 0.088 mg oral tablet (10 sources) l-Thyroxine Start: 07-02-2017 take 1 tablet by mouth once daily pantoprazole 40 mg delayed release oral tablet (10 sources) Proton Pump Inhibitor Start: 07-02-2017 take 1 tablet by mouth at bedtime simvastatin 10 mg oral tablet (10 sources) HMG-CoA Reductase Inhibitor Start: 07-02-2017 take 1 tablet by mouth at bedtime Completed/Discontinued Medications Medication Drug Class(es) Dates Sig (Normalized) Sig (Original) acetaminophen 325 mg / oxyCODONE hydrochloride 5 mg oral tablet (20 sources) Opioid Agonist Start: 2020 End: 01-09-2020 Oxycodone-Acetamino phen 1 TABLET tablet Discontinued 2 {tbl} PO EVERY 8 HOURS NEEDED as needed for Pain 6 2 0 2020 2020 11:00pm January 08, 2020 11:03pm Vaginal bleeding Abnormal uterine and vaginal bleeding, unspecified Start: 2020 End: 01-09-2020 take 2 tablets by mouth every eight hours as needed Oxycodone-Acetaminophen Discontinued 2 TABLET PO EVERY 8 HOURS NEEDED 6 2 2020 January 09, 2020 12:03am Start: 12-22-2019 End: 12-29-2019 Oxycodone-Acetaminophen 1 TA BLET tablet Discontinued 1 - 2 {tbl} PO EVERY 6 HOURS NEEDED as needed for Pain 15 7 0 December 22, 2019 December 27, 2019 11:00pm December 28, 2019 11:02pm Other acute postprocedural pain Start: 12-22-2019 End: 12-29-2019 take 1 tablet by mouth every six hours as needed Oxycodone-Acetaminophen Discontinued 1 - 2 TABLET PO EVERY 6 HOURS NEEDED 15 7 December 22, 2019 December 29, 2019 12:02am azithromycin 250 mg oral tablet (6 sources) Macrolide Antimicrobial Start: 02-22-2024 End: 03-18-2024 Azithromycin (Zithromax Z-Kevyn) 250 mg tablet Discontinued 0 PO .COMPLEX 6 0 February 21, 2024 11:00pm March 18, 2024 12:02pm For 250 mg dose pack: take 500 mg today (day 1), then 250 mg for 4 days (days 2-5) benzonatate 200 mg oral capsule (6 sources) Non-narcotic Antitussive Start: 02-19-2024 End: 03-18-2024 take 1 capsule by mouth three times daily as needed for cough Benzonatate 200 mg capsule Discontinued 200 mg PO THREE TIMES A DAY as needed for cough 20 0 February 18, 2024 11:00pm March 18, 2024 12:02pm biotin 1 mg chewable tablet (10 sources) Start: 07-02-2017 End: 01-21-2018 take 1 tablet by mouth once daily Biotin 1,000 mcg tablet,chewable Discontinued 1000 ug PO DAILY 0 July 02, 2017 12:00am January 21, 2018 9:30am calcium carbonate 1500 mg oral tablet (10 sources) Start: 07-12-2017 End: 01-08-2019 take 1 tablet by mouth once daily Calcium Carbonate 600 MG tablet Discontinued 600 mg PO DAILY July 12, 2017 12:00am January 08, 2019 10:22am cephalexin 500 mg oral capsule (20 sources) Cephalosporin Antibacterial Start: 2020 End: 01-12-2020 take 1 capsule by mouth every twelve hours Cephalexin 500 MG capsule Discontinued 500 mg PO EVERY 12 HOURS 10 5 0 January 06, 2020 11:00pm January 10, 2020 11:00pm January 11, 2020 11:02pm post-operative Start: 12-23-2019 End: 12-26-2019 take 1 capsule by mouth every twelve hours Cephalexin 500 MG capsule Discontinued 500 mg PO EVERY 12 HOURS 6 3 0 December 22, 2019 11:00pm December 24, 2019 11:00pm December 25, 2019 11:03pm post-operative cholecalciferol 0.025 mg oral capsule (10 sources) Vitamin D Start: 07-02-2017 End: 01-08-2019 take 1 capsule by mouth once Cholecalciferol (Vitamin D3) 1,000 unit capsule Discontinued 1000 U PO ONCE July 02, 2017 12:00am January 08, 2019 10:22am docusate sodium 100 mg oral capsule (10 sources) Start: 2020 End: 01-05-2021 take 1 capsule by mouth twice daily Docusate Sodium 100 MG capsule Discontinued 100 mg PO TWICE A DAY January 06, 2020 11:00pm January 05, 2021 12:06pm oxyquinoline sulfate 0.22844 mg/mg / sodium dodecyl sulfate 0.0001 mg/mg vaginal gel (20 sources) Start: 06-15-2021 End: 02-26-2022 Oxyquinoline-Sod.[place] l Sulfat (Trimo-Angelo Jelly) 0.025-0.01 % gel Discontinued 1 NMA VAGINAL .COMPLEX 113.4 3 June 15, 2021 12:00am February 26, 2022 10:33am 1 ea vaginal prn dryness; Start: 06-15-2021 End: 02-26-2022 Oxyquinoline-Sod.Lauryl Sulf at (Trimo-Angelo Jelly) 0.025-0.01 % gel Discontinued 1 EACH VAGINAL .COMPLEX 113.4 June 15, 2021 1:00am February 26, 2022 11:33am 1 ea vaginal prn dryness; Start: 01-12-2021 End: 02-26-2022 Oxyquinoline-Sod.Lauryl Sulf at (Trimo-Angelo Jelly) 0.025-0.01 % gel Discontinued 0 VAGINAL .COMPLEX 113.4 3 January 11, 2021 11:00pm February 26, 2022 10:33am 1 application VAGINAL once a week; Start: 01-12-2021 End: 02-26-2022 Oxyquinoline-Sod.Lauryl Sulf at (Trimo-Angelo Jelly) 0.025-0.01 % gel Discontinued 0 VAGINAL .COMPLEX 113.4 January 12, 2021 12:00am February 26, 2022 11:33am 1 application VAGINAL once a week; estradiol 0.1 mg/ml vaginal cream (20 sources) Estrogen Start: 03-14-2021 End: 07-17-2024 Estradiol 0.01 % (0.1 mg/gram) cream Discontinued 0 VAGINAL .COMPLEX 42.5 2 July 13, 2024 2:32pm July 17, 2024 8:51am small amount as directed vaginal twice a week; Start: 03-14-2021 End: 05-20-2023 Estradiol Discontinued 0 VAG INAL .COMPLEX 42.5 January 23, 2022 1:06pm May 20, 2023 12:32pm small amount as directed vaginal twice a week; Start: 11-10-2020 End: 03-14-2021 Estradiol 0.01 % (0.1 mg/gra m) cream Discontinued 0 VAGINAL .COMPLEX 42.5 2 November 09, 2020 11:00pm March 14, 2021 6:59am small amount as directed vaginal every other [...] 1 g VAGINAL .3XWEEKLY December 08, 2019 9:52am November 10, 2020 7:32am Start: 12-08-2019 End: 11-10-2020 Estradiol Discontinued 1 GM VAGINAL .3XWEEKLY December 08, 2019 10:52am November 10, 2020 8:32am Start: 02-06-2019 End: 12-08-2019 Estradiol (Estrace) 0.01 % ( 0.1 mg/gram) cream Discontinued 1 g VAGINAL TWICE A WEEK 42.5 2 August 10, 2019 8:33am December 08, 2019 9:53am Start: 06-12-2018 End: 01-08-2019 Estradiol (Estrace) 0.01 % ( 0.1 mg/gram) cream Discontinued 0 VAGINAL .COMPLEX 42.5 2 June 12, 2018 12:00am January 08, 2019 10:22am pea sized amount VAGINAL every other day X 4 weeks then twice a week; Start: 06-12-2018 End: 01-08-2019 Estradiol (Estrace) 0.01 % ( 0.1 mg/gram) cream Discontinued 0 VAGINAL .COMPLEX 42.5 June 12, 2018 1:00am January 08, 2019 11:22am pea sized amount VAGINAL every other day X 4 weeks then twice a week; Lactobacillus Combination No.8 (Adult Probiotic) 3 billion cell capsule (10 sources) Start: 07-02-2017 End: 01-08-2019 take 3 capsules by mouth once daily Lactobacillus Combination No.8 (Adult Probiotic) 3 billion cell capsule Discontinued 1 {tbl} PO daily July 02, 2017 12:00am January 08, 2019 10:22am Start: 07-02-2017 End: 01-08-2019 take 3 capsules [...] 2019 10:22am loratadine 10 mg oral tablet (10 sources) Start: 01-05-2021 End: 03-18-2024 take 1 tablet by mouth once daily Loratadine (Claritin) 10 mg tablet Discontinued 10 mg PO DAILY January 04, 2021 11:00pm March 18, 2024 12:02pm meclizine hydrochloride 25 mg oral tablet (9 sources) Antiemetic Start: 04-16-2023 End: 03-18-2024 take 1 tablet by mouth four times daily as needed for dizziness Meclizine 25 mg tablet Discontinued 25 mg PO 4 TIMES DAILY NEEDED as needed for Dizziness 20 0 April 16, 2023 12:00am March 18, 2024 12:02pm methylPREDNISolone 4 mg oral tablet (6 sources) Corticosteroid Start: 02-19-2024 End: 03-18-2024 take 1 tablet by mouth once Methylprednisolone (Medrol (Kevyn)) 4 mg tablets,dose pack Discontinued 0 PO per package directions 21 February 18, 2024 11:00pm March 18, 2024 12:02pm PO PER PKG DIR metroNIDAZOLE 500 mg oral tablet (20 sources) Nitroimidazole Antimicrobial Start: 01-12-2021 End: 02-26-2022 take 1 tablet by mouth twice daily Metronidazole (Flagyl) 500 mg tablet Discontinued 500 mg PO TWICE A DAY 14 0 January 11, 2021 11:00pm February 26, 2022 10:33am Start: 12-28-2019 End: 01-04-2020 take 1 tablet by mouth twice daily Metronidazole (Flagyl) 500 mg tablet Discontinued 500 mg PO TWICE A DAY 14 7 0 December 27, 2019 11:00pm January 02, 2020 11:00pm January 03, 2020 11:02pm naproxen 250 mg oral tablet (10 sources) Nonsteroidal Anti-inflammatory Drug Start: 12-22-2019 End: 01-04-2020 take 250-500 mg by mouth every eight hours as needed for pain Naproxen 250 MG tablet Discontinued 250 - 500 mg PO EVERY 8 HOURS NEEDED as needed for MILD PAIN 30 1 December 21, 2019 11:00pm January 04, 2020 10:03am nitrofurantoin, macrocrystals 25 mg / nitrofurantoin, monohydrate 75 mg oral capsule (20 sources) Nitrofuran Antibacterial Start: 11-28-2024 End: 12-03-2024 take 1 capsule by mouth every twelve hours at mealtime Nitrofurantoin Monohyd/M-Cryst 100 mg capsule Discontinued 100 mg PO Q12H 10 5 0 November 27, 2024 11:00pm December 01, 2024 11:00pm December 02, 2024 11:07pm must administer with a meal/food Start: 06-24-2023 End: 06-29-2023 take 1 capsule by mouth every twelve hours at mealtime Nitrofurantoin Monohyd/M-Cryst (Macrobid) 100 mg capsule Discontinued 100 mg PO Q12H 10 5 0 June 24, 2023 12:00am June 28, 2023 12:00am June 29, 2023 12:28am must administer with a meal/food Start: 01-08-2019 End: 02-06-2019 take 1 capsule by mouth twice daily at mealtime Nitrofurantoin Monohyd/M-Cryst 100 mg capsule Discontinued 100 mg PO TWICE A DAY 10 0 2019 11:00pm February 06, 2019 2:16pm must administer with a meal/food phenazopyridine hydrochloride 200 mg oral tablet (10 sources) Start: 2020 End: 01-14-2020 take 1 tablet by mouth three times daily as needed for muscle spasms Phenazopyridine 200 MG tablet Discontinued 200 mg PO 3 TIMES DAILY NEEDED as needed for Bladder Spasms 30 7 0 January 06, 2020 11:00pm January 12, 2020 11:00pm January 13, 2020 11:02pm polymyxin b 94260 unt/ml / trimethoprim 1 mg/ml ophthalmic solution (6 sources) Dihydrofolate Reductase Inhibitor Antibacterial, Polymyxin-class Antibacterial Start: 03-19-2024 End: 03-26-2024 Polymyxin B Sulf-Trimethoprim 10,000 unit- 1 mg/mL drops Discontinued 1 NMA OPHTHALMIC Q3H 10 7 0 March 18, 2024 11:00pm March 24, 2024 11:00pm March 25, 2024 11:09pm while awake; do not exceed 6 doses in 24 hours raNITIdine 150 mg oral tablet (10 sources) Histamine-2 Receptor Antagonist Start: 07-02-2017 End: 01-21-2018 take 1 tablet by mouth twice daily Ranitidine Hcl (Acid Sole Skiver (Ranitidine)) 150 mg tablet Discontinued 150 mg PO TWICE A DAY July 02, 2017 12:00am January 21, 2018 9:30am sulfacetamide sodium 100 mg/ml ophthalmic solution (10 sources) Sulfonamide Antibacterial Start: 10-10-2021 End: 10-17-2021 Sulfacetamide Sodium (Bleph-10) 10 % drops Discontinued 1 NMA OPHTHALMIC Q3H 15 7 0 October 09, 2021 11:00pm October 15, 2021 11:00pm October 16, 2021 11:04pm Start: 10-10-2021 End: 10-17-2021 Sulfacetamide Sodium (Bleph- 10) 10 % drops Discontinued 1 DRP OPHTHALMIC Q3H 15 7 October 10, 2021 12:00am October 17, 2021 12:04am Problems Active Problems Problem Classification Problem Date Documented Da te Episodic/Chronic Acute bronchitis (6 sources) Acute bronchitis; Translations: [Acute bronchitis, unspecified] 03-01-2024 Episodic Conditions associated with dizziness or vertigo (9 sources) Benign paroxysmal positional vertigo; Translations: [Benign paroxysmal vertigo, unspecified ear] 04-16-2023 Episodic Genitourinary symptoms and ill-defined conditions (2 sources) Frequency of micturition; Translations: [Unspecified abnormal findings in urine] Onset: 02-12-2025 Episodic Inflammation; infection of eye (except that caused by tuberculosis or sexually transmitteddisease) (16 sources) Acute infectious conjunctivitis; Translations: [Unspecified acute conjunctivitis, unspecified eye] 10-10-2021 Episodic Inflammatory diseases of female pelvic organs (10 sources) Bacterial vaginosis; Translations: [Acute vaginitis] 03-04-2023 Episodic Comment on above: trimosan gel weekly to prevent recurrence Menopausal disorders (16 sources) Atrophic vaginitis; Translations: [Postmenopausal atrophic vaginitis] Onset: 01-28-2025 03-04-2023 Chronic Comment on above: estrogen cream vagin ally Other circulatory disease (9 sources) Elevated blood pressure; Translations: [Elevated blood-pressure reading, without diagnosis of hypertension] 04-16-2023 Episodic Other congenital anomalies (10 sources) Herniated urinary bladder 03-18-2024 Chronic Comment on above: s/p repair, pessary #4 ring w support/sees amol Other diseases of bladder and urethra (10 sources) Urethral hypermobility; 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] 2020 Episodic Other screening for suspected conditions (not mental disorders or infectious disease) (1 source) Encounter for screening mammogram for malignant neoplasm of breast; Translations: [Encounter for screening mammogram for malignant neoplasm of breast] Onset: 03-12-2025 Episodic Otitis media and related conditions (6 sources) Dysfunction of eustachian tube; Translations: [Unspecified Eustachian tube disorder, right ear] 03-01-2024 Episodic Prolapse of female genital organs (1 source) Cystocele, midline; Translations: [Cystocele, midline] Onset: 01-28-2025 Chronic Spondylosis; intervertebral disc disorders; other back problems (1 source) Dorsalgia, unspecified; Translations: [Dorsalgia, unspecified] Onset: 03-05-2025 Episodic Unclassified (6 sources) Herniated urinary bladder; Translations: [Cystocele] Urinary tract infections (15 sources) Urinary tract infection, site not specified; Translations: [Urinary tract infection, site not specified] Onset: 02-12-2025 06-24-2023 Episodic Past or Other Problems Problem Classification Problem Date Documented Da te Episodic/Chronic Unclassified (10 sources) bilateral sacrospinous ligament 12-28-2021 Unclassified (10 sources) cystourethroscopy 12-28-2021 Unclassified (10 sources) mid urethral sling 12-28-2021 Results Test Name Value Interpretation Reference Range Facility Re-Evaluation - PT (1)on Re-Evaluation - PT (1) Physical Therapy [facility] [address] [place] [address] / REEVALUATION / MEDICARE RECERTIFICATION PHYSICAL THERAPY MR#: [id number] Acct: [id number] Name: KRYS CANCINO Rep #: [id number] : 1955 70 From: Johan Robertson PT, Cert. MD [facility], OCS Referring Dr.: Dr. Steven Rojas DO Status:REG RCR Insurance: [facility] SELF PAY INSURANCE Re-Evaluation Intro: Dr. Steven Rojas DO, It has been my pleasure to treat KRYS CANCINO over the last 10 visits for LOW BACK PAIN, CHRONIC PAIN. Please see the progress note below for an update on the physical therapy plan of care! Subjective Subjective: End of day is worse Objective Objective/Function: POSTURE: mild forward posture ,mod thoracic kyphosis ,scoliosis severe ,pelvis asymmetries PALAPTION: tender LS NEURO: denies paresthesia/tingling ,reflexes L3-4,L4-5,L5-S1 1/3 MMT: quads/hams 4/5 ,hip flexion 4-/5 ,ankle 4/5 LUMBAR ROM: flexion WFL ,extension 25% loss ,side glides 25% loss FLEXABILITY: hamstrings min tight Plan Plan Plan: PT INTERVENTIONS: DLS, FLEXIBILITY, FLEXION LUMBAR, POSTURAL EX'S, HIP STRENGTHENING AND ACTIVITY MODIFICATION. Balance/Gait/Functional tests Balance/Special Test Scores Oswestry Low Back Score: 11 Goals Goals Goal 1:: Patient to be I with HEP for back Goal Time Frame: 4-6 Weeks Goal Progress: Progressing Goal 2:: Patient to improve lumbar ROM for function of recovery for ADLS and housework tasks Goal Time Frame: 4-6 Weeks Goal Progress: Progressing Goal 3:: Patient to demonstrate 70% improvement with less pain walking/standing and ADL Goal Time Frame: 4-6 Weeks Goal Progress: Progressing Goal 4:: Patient to improve hip strength to good to improve gait Goal Time Frame: 4-6 Weeks Goal Progress: Progressing Goal 5:: Patient to improve back oswestry score by 5 points to improve QOL Goal Time Frame: 4-6 Weeks Anticipated Interventions Anticipated Interventions Patient/Client Instruction: Educate patient on: Condition and Plan of Care For the Purpose of:: To decrease pain, To improve muscle performance and motor function, To improve ability to perform ADL's, To increase tolerance to activity/condition/position, To improve ability of physical actions for home/community/work/leisure, To improve health of tissue, To decrease soft tissue restriction, To prevent re-injury and To improve tolerance to ADL's Therapeutic Exercise to Include: Strength training, Postural training, Flexibilty training and Dynamic Lumbar Stabilization Comment: HIP For the Purpose of:: To decrease pain, To increase ROM, To improve muscle performance and motor function, To improve ability to perform ADL's, To increase tolerance to activity/condition/position, To improve ability of physical actions for home/community/work/leisure, To improve health of tissue, To decrease soft tissue restriction, To increase flexibility/ROM and To improve tolerance to ADL's Re-Evaluation Ending Re-evaluation ending: Please do not hesitate to contact me at [phone] by phone or if you have questions or concerns regarding this new plan of care! Sincerely, Johan Robertson PT, Cert MDT, [facility] 04/09/25 0850 CC: Dr. Steven Rojas, BLAYNE Signed For Medicare only, by signing this I certify the plan of care. Physicians Signature Date Normal Advanced Nursing Professor Office Visit Reporton 03-31-2025 Advanced Nursing Professor Office Visit Report [address], [address] [place] [address] OFFICE VISIT Date of Service: 03/31/25 MR#: [id number] Acct: [id number] Name: KRYS CANCINO Rep #: [id number] : 1955 Provider: ROLY vaz Age/Sex: 70/F Location: [facility] [place] Status: Signed Intake Vital Signs 03/18/24 13:03 03/31/25 10:32 03/31/25 10:37 Height 5 ft 3 in 5 ft 3 in 5 ft 3 in Weight: 168 lb 9 oz BMI 29.8 BP 130/84 H Intake Visit Reasons: Annual ([employer]) Cdl Instructor Required: No Is patient in pain?: No Allergies dextromethorphan (From [facility]icks NyQuil Cold/Flu Liquicap) Allergy (Mild, Verified 03/31/25 10:32) Other doxylamine (From [facility] NyQuil Cold/Flu Liquicap) Allergy (Mild, Verified 03/31/25 10:32) Unknown Medications ???Medication ???Instructions ???Recorded ???Confirmed ???Type levothyroxine 88 mcg tablet 88 mcg PO DAILY 07/02/17 03/31/25 History (Synthroid) pantoprazole 40 mg tablet,delayed 40 mg PO QHS REFLUX 07/02/1703/11 History release simvastatin 10 mg tablet 10 mg PO QHS 07/02/17 03/31/25 His tory famotidine 20 mg tablet 20 mg PO DAILY 02/26/22 03/31/25 H istory levocetirizine 5 mg tablet 5 mg PO DAILY Chronic hives 03/31/25 History (Allergy Relief (levocetirizine)) estradiol 0.01% (0.1 mg/gram) 0.25 appful vaginal .COMPLEX #42.5 07/17/24 03/31/25 Rx vaginal cream grams Is last menstrual period known: No Post [...] home: Yes additional social history: - Alis [employer] History 2 Elective abortions Hx Para 2 Spontaneous abortions Hx # Term Pregnancies Ectopic pregnancies Hx # Pregnancies Multiple births # of living children Past Pregnancies Del. Date Name GA/Weeks Outcome Route Bth Weight Infant Gen Labor Lgth Anesthesia Del Locatn Provider FOB Unknown 1981 Best Unknown 1986 [facility] Annual ([employer]) Details: KRYS CANCINO is a 70 year old who presents for annual exam. Has pessary, sees Dr Carmichael [facility] for cleaning. Not sexually active. Denies other concerns. Last PAP: hyst History of abnormal PAP: no Last mammogram: 02/2025 History of abnormal mammogram: no Colon cancer screenin Other preventative health care screenings: [facility] Const Constitutional: Denies fatigue, weight gain or [...] oriented to person and oriented to place HENWI Head: normal to inspection Neck Neck: normal [...] Exam: deferred External Female Exam: normal external appearance and normal appearance of the urethra Urethra: normal appearance of the urethra and normal palpation Speculum Exam - Vagina: normal appearance of the vagina and normal vaginal discharge Speculum Exam - Cervix: absent Bimanual Exam- Vagin (more content not included)... Normal Inital Evaluation (1) - PTon 03-09-2025 Inital Evaluation (1) - PT Physical Therapy [facility] [address] [place] [address] / REHABILITATION SERVICES INITIAL EVALUATION MR#: [id number] Acct: [id number] Name: KRYS CANCINO Rep #: [id number] : 1955 70 From: Johan Robertson PT Cert. MD [facility], OCS Referring Dr.: Dr. Steven Rojas DO Status: RE [facility] Insurance: [facility] SELF PAY INSURANCE Patient's Visit Information Visit Information Visit Information: KRYS CANCINO is a 70 year old F referred to Physical Therapy by Dr. Steven Rojas DO with a diagnosis of LOW BACK PAIN ,CHRONIC PAIN. Date of Evaluation: 03/09/25 Physical Therapist: Johan Robertson PT, Cert T, OCS Visit Plan Frequency: 2x /Week Duration: 4 Weeks Plan: PT INTERVENTIONS DLS ,FLEXIBILITY ,FLEXION LUMBAR ,POSTURAL EX'S ,HIP STRENGTHENING AND ACTIVITY MODIFICATION Subjective Subjective: This 70 y/o female presents to physical therapy with lumbar pain. Patient pain worse 1 years Patient seen x-rays showed Severe scoliosis of the lumbar spine concave to the right apex at L1 with multilevel foraminal stenosis more so on the right than the left and multilevel facet arthropathy. Question congenital deformity at L1-2. No medication. Pain located left no leg symptoms. Aggravating factors sitting walking > 5min,standing ,sitting. Alleviating factors rest. Denies paresthesia/tingling -. Bowel/bladder-. Coughing/sneezing-. Sleeping good.Patient has no PT or prior tx .Patient condition affects QOL and function/job demands. SOCIAL: VOACTION:retired ,[employer] Pain Left: Pain Intensity (Out of 10): 0 Pain Intensity Range: 5 and 10 Objective Objective: POSTURE: mild forward posture ,mod thoracic kyphosis ,scoliosis severe ,pelvis asymmetries PALAPTION: tender LS NEURO: denies paresthesia/tingling ,reflexes L3-4,L4-5,L5-S1 1/3 MMT: quads/hams 4/5 ,hip flexion 4-/5 ,ankle 4/5 LUMBAR ROM: flexion WFL ,extension 25% loss ,side glides 25% loss FLEXABILITY: hamstrings min tight Special Tests L/S Slump test left side: Negative L/S Slump test right side: Negative L/S Left Straight Leg Raise: Negative L/S Right Straight Leg Raise: Negative Balance/Special Test Scores Oswestry Low Back Score: 20 Goals Goal 1:: Patient to be I with HEP for back Goal Time Frame: 4-6 Weeks Goal 2:: Patient to improve lumbar ROM for function of recovery for ADLS and housework tasks Goal Time Frame: 4-6 Weeks Goal 3:: Patient to demonstrate 70% improvement with less pain walking/standing and ADL Goal Time Frame: 4-6 Weeks Goal 4:: Patient to improve hip strength to good to improve gait Goal Time Frame: 4-6 Weeks Goal 5:: Patient to improve back oswestry score by 5 points to improve QOL Goal Time Frame: 4-6 Weeks Rehabilitation Potential Physical Therapy Diagnosis: This patient has lumbar pain with scoliosis with pain with walking/standing ,positioning impairs ADLS and housework tasks thus benefit from skilled PT Rehabilitation Potential: Good Anticipated Interventions Patient/Client Instruction: Educate patient on: Condition and Plan of Care For the Purpose of:: To decrease pain, To improve muscle performance and motor function, To improve ability to perform ADL's, To increase tolerance to activity/condition/position, To improve ability of physical actions for home/community/work/leisure, To improve health of tissue, To decrease soft tissue restriction, To prevent re-injury and To improve tolerance to ADL's Therapeutic Exercise to Include: Strength training, Postural training, Flexibilty training and Dynamic Lumbar Stabilization Comment: HIP For the Purpose of:: To decrease pain, To increase ROM, To improve muscle performance and motor function, To improve ability to perform ADL's, To increase tolerance to activity/condition/position, To improve ability of physical actions for home/community/work/leisure, To improve health of tissue, To decrease soft tissue restriction, To increase flexibility/ROM and To improve tolerance to ADL's Text: Thank you for the opportunity to evaluate your patient. For Medicare and Medicare HMO plans, please review the plan of care and approve it. It will need to be FAXED BACK to us at [phone] for Medicare purposes. For Medicare only, by signing this I certify the plan of care. Please let me know if there are questions or concerns regarding this plan of care. Physician Signature: ___Date: 03/09/25 1317 CC: Dr. Steven Rojas DO BLAYNE Signed Normal Breast imaging reportOrdered By: Amparo Hunter on 03-08-2025 Study report [facility] Imaging Services [address] [place] [address] SCRN MAMM (CAD)W/KRISTINE BILAT MR#: [id number] Acct: [id number] Name: KRYS CANCINO Rep #: [id number] : 1955 F 70 From: Warren Hunter DO PCP: Dr. Steven Rojas, Status: REG CLI Study:SCRN MAMM (CAD)W/KRISTINE BILAT Date of Exa m: 03/08/25 Exam# [id number] Ordering Dr: Jonna Hi MD EXAM: SCRN MAMM (CAD)W/KRISTINE BILAT DATE: 03/08/2025 CLINICAL HISTORY: F, Age 70 y/o , SCREENING FOR BREAST CANCER TECHNIQUE: Procedure Code: BISMWCADBTOM Modality: MG Procedure: SCRN MAMM (CAD)W/KRISTINE BILAT COMPARISON: Prior exam(s) dated mammogram studies dated 03/06/2024, 03/04/2023, and 03/02/2022. FINDINGS: TISSUE DENSITY: The breasts are almost entirely fatty. Bilateral Breast Mammographic Findings: No significant masses, calcifications or other abnormalities are identified. Stable nodular densities are seen in both breasts. Benign round microcalcifications are seen in both breast. Benign vascular calcifications are seen in the right breast. A stable 4 mm partially obscured isodense mass is seen in the superior outer, middle 3rd aspect of the right breast. BI/SCRN MAMM (CAD)W/KRISTINE BILAT IMPRESSION: Benign screening mammogram OVERALL FINAL ASSESSMENT BI-RADS 2: BENIGN RECOMMENDATION: Routine annual follow-up in 1 Year Additional Recommendation none A letter with findings and recommendations will be mailed to the patient. Reading Location: [id number] CC: Dr. Steven Rojas DO; Dr. Jonna Khan MD ~ Acid Purification Equipment Operator: Signed SCRN MAMM (CAD)W/KRISTINE BILATo n 03-08-2025 SCRN MAMM (CAD)W/KRISTINE BILAT [facility] Imaging Services [address] [place] [id number] SCRN MAMM (CAD)W/KRISTINE BILAT MR#: [id number] Acct: [id number] Name: KRYS CANCINO Rep #: [id number] : 1955 F 70 From: Amparo Champion PCP: Dr. Steven Rojas DO Status: [facility] CLI Study: SCRN MAMM (CAD)W/KRISTINE BILAT Date of Exam: 02/09 03/04 Exam# [id number] Ordering Dr: Jonna Khan EXAM: SCRN MAMM (CAD)W/KRISTINE BILAT DATE: 03/08/2025 CLINICAL HISTORY: F, Age 70 y/o , SCREENING FOR BREAST CANCER TECHNIQUE: Procedure Code: BISMWCADBTOM Modality: MG Procedure: SCRN MAMM (CAD)W/KRISTINE BILAT COMPARISON: Prior exam(s) dated mammogram studies dated 03/06/2024, 03/04/2023, and 03/02/2022. FINDINGS: TISSUE DENSITY: The breasts are almost entirely fatty. Bilateral Breast Mammographic Findings: No significant masses, calcifications or other abnormalities are identified. Stable nodular densities are seen in both breasts. Benign round microcalcifications are seen in both breast. Benign vascular calcifications are seen in the right breast. A stable 4 mm partially obscured isodense mass is seen in the superior outer, middle 3rd aspect of the right breast. BI/SCRN MAMM (CAD)W/KRISTINE BILAT IMPRESSION: Benign screening mammogram OVERALL FINAL ASSESSMENT BI-RADS 2: BENIGN RECOMMENDATION: Routine annual follow-up in 1 Year Additional Recommendation none A letter with findings and recommendations will be mailed to the patient. Reading Location: [id number] CC: Dr. Steven Rojas DO; Dr. Jonna Khan MD Acid Purification Equipment Operator: Signed Normal L/S Spine Min 4 Viewson 02-08 L/S Spine Min 4 Views [facility] Imaging Services [address] [place] [address] [id number] L/S Spine Min 4 Views MR#: [id number] Acct: [id number] Name: KRYS CANCINO Rep #: [id number] : 1955 F 70 From: Brandon soliman MD PCP: Dr. Steven Rojas DO Status: REG CLI Study: L/S Spine Min 4 Views Date of Exam: 02/25/25 Exam# [id number] Ordering Dr: Steven Rojas DO PROCEDURE: L/S SPINE MIN 4 VIEWS 02/25/2025 REASON FOR EXAM: CHRONIC BACK PAIN TECHNIQUE: Procedure Code: RADSPLS Modality: DX Procedure: L/S SPINE MIN 4 VIEWS COMPARISON: None FINDINGS: Severe scoliosis of the lumbar spine concave to the right apex at L1. No compression fracture. Multilevel facet arthropathy and multilevel spondylosis worse at the thoracolumbar junction. Foraminal stenosis suspected on the right neural foramina extending from T12-L1 through L3-L4. Abnormal configuration of the L1 and L2 vertebra with suggestion of defect of the posterior spinal elements. This may be due to rotation. Large amount of stool in the colon. RAD/L/S Spine Min 4 Views IMPRESSION: Severe scoliosis of the lumbar spine concave to the right apex at L1 with multilevel foraminal stenoses more so on the right than the left and multilevel facet arthropathy. Question congenital deformity at L1-2. Reading Location: [facility] CC: Dr. Steven Rojas DO Acid Purification Equipment Operator: Signed Normal MR/Juanjo 01-11-2025 MR/BMSSHIVANI [facility] [address] [place] [address], [address] [place] [address] OFFICE VISIT Date of Service: 01/11/25 MR#: [id number] Acct: [id number] Name: KRYS CANCINO Rep #: [id number] : 1955 Provider: Dr. Sharon Adams i, MD Age/Sex: 70/F Location: [facility] [place] Status: Signed Intake Vital Signs 03/18/24 13:03 01/11/25 13:10 Height 5 ft 3 in Weight: 168 lb BP 118/80 Pulse 74 Temp 98.2 F Intake Visit Reasons: 3mo pessary cleaning Chief Complaint: Three month pessary cleaning Cdl Instructor Required: No Is patient in pain?: No Allergies dextromethorphan (From Vicks NyQuil Cold/Flu Liquicap) Allergy (Mild, Verified 03/19/24 06:35) Other doxylamine (From Vicks NyQuil Cold/Flu Liquicap) Allergy (Mild, Verified 03/19/24 06:35) Unknown Have you fallen in the past year?: No PFSH Medical History Hypercholesterolemia Hypothyroid GERD [...] at home: Yes additional social history: - [employer] [facility] HPI Urology Chief Complaint: Three month pessary cleaning Details: KRYS CANCINO, is a 70 F. She is not cleaning the pessary on her own. The pessary has stayed in placed since her last visit. There is no vaginal bleeding or excess vaginal discharge. She is able to urinate without straining and has no difficulties with bowel movements. She is satisfied with the pessary as treatment for her urologic issues. She is using estrogen cream as recommend. ROS Const Constitutional: No chills, fatigue, fever(s), headache(s), night sweats, weakness, weight change, abnormal sleep pattern or change in appetite Eyes Eyes: No change in vision ENT ENT: No headache(s) or dry mouth Resp Respiratory: No cough, chest congestion, shortness of breath or wheezing Cardio Cardiology: Positive for other (No chest pain.); No shortness of breath, irregular heart rhythm or lightheadedness Gastro GI: Positive for other (No nausea.); No abdominal pain, change in bowel habits, constipation, diarrhea or vomiting Musc Musculoskeletal: No abnormal gait Skin Skin: No yellowing of the eye, lesions, itchy eyes, rash or skin ulcer Neuro Neurology: No abnormal gait, confusion, dizziness, weakness, headache(s) or memory loss Psych Psychiatric: No abnormal sleep pattern, No change in appetite, No confusion and No memory loss Endo Endocrine: No fatigue, increased thirst/drinking or weight change Aller/Imm Allergy/Immunologic: No itchy eyes or wheezing Joey/Lymp Hematologic/Lymphatic: No easy bleeding, easy bruising or enlarged lymph nodes Exam Const General: cooperative, healthy appearing, comfortable and no acute distress HENWI Head: normocephalic and atraumatic Ears: hearing grossly normal bilaterally and external ears normal Nose: external nose normal Eyes General: appearance normal, both eyes and all related structures Neck Neck: normal visual inspection and trachea midline Chest Chest palpation inspection: normal inspection of the chest Resp Effort Inspection: normal respiratory effort, able to speak in complete sentences and symmetric chest movement Cardio Rate: regular rate GI Inspection: normal to inspection Palpation: soft and nontender General: No CVA tenderness Other: The pessary was removed without difficulty. There was minimal normal vaginal drainage present. The vaginal mucosa in its entirety was examined. There are no ulcerations, lacerations or breaks in the mucosa identified. There is no active bleeding. The pessary was cleaned and replaced without any issues. Skin General: no rashes or lesions noted Neuro General: patient alert, patient awake, patient oriented x3 and CN's II-XI intact bilaterally Extrem General: normal to inspection Psych Appearance: grossly normal and well k (more content not included)... Normal Urine Cultureon 12-03-2024 URC Urine Culture #1,2 Below infection level. Staphylococcus aureus [place] Count <1000 Mixed Gram Positive Organisms Mixed Gram Positive Organisms MIXC Mixed contaminants. Submit a new specimen if indicated. Staphylococcus aureus: REACTION cefOXitin Susc Islt Doxycycline Islt KELLI <=0.5 S Clindamycin.induced Susc Islt Gentamicin Islt KELLI <=0.5 S Linezolid Islt KELLI 2 S Moxifloxacin Islt KELLI <=0.25 S Nitrofurantoin Islt KELLI 32 S Oxacillin Susc Islt 0.5 S Tetracycline Islt KELLI <=1 S TMP SMX Islt KELLI <=10 S Vancomycin Islt KELLI <=0.5 S Normal Comment on above: Performed By: #### M 100.8970 #### Laboratory [address] [place] [address]. [place], [address] Urine cultureOrdered By: Jacob Cotton on 11-30-2024 Bacteria identified Cx Nom (U) Staphylococcus aureus Abnormal Bacteria identified Cx Nom (U) Positive Abnormal Laboratory - Chemistry and C hemistry - challengeOrdered By: Tony Cotton on 11-28-2024 Bilirubin Ql (U) Negative Glucose Ql (U) Negative Ketones Ql (U) Trace (5) pH (U) 5.0 [pH] Specific gravity (U) [Rel density] 1.010 Urobilinogen (U) [Mass/Vol] 0.0821143 mg/dL Laboratory - Hematology and Cell countsOrdered By: Tony Cotton on 11-28-2024 Hemoglobin Ql (U) Trace Laboratory - Specimen inform ationOrdered By: Tony Cotton on 11-28-2024 Clarity (U) Clear Color (U) Yellow Laboratory - UrinalysisOrder ed By: Tony Cotton on 11-28-2024 Nitrite Ql (U) Negative Protein Ql (U) Negative No Panel InformationOrdered By: Tony Cotton on 11-28-2024 Urine Leukocytes Positive Urgent Care Visit Reporton 0 11-28-2024 Urgent [facility] Visit [facility] [address], [address] [place] [address] OFFICE VISIT Date of Service: 11/28/24 MR#: [id number] Acct: [id number] Name: KRYS CANCINO Rep #: [id number] : 1955 Provider: KAREEN Bojorquez Age/Sex: 69/F Location: [facility] Status: Signed Intake Vital Signs 03/18/24 13:03 11/28/24 11:03 Height 5 ft 3 in BP 110/74 Blood Pressure Location Lt radial Position Sitting Respiration 15 Pulse 74 Pulse Source NIBP Temp Source Oral Pulse Oximetry (%) 98 Intake Visit Reasons: CONCERN FOR UTI Chief Complaint: Frequent urination Cdl Instructor Required: No Is patient in pain?: No Allergies dextromethorphan (From Vicks NyQuil Cold/Flu Liquicap) Allergy (Mild, Verified 03/19/24 06:35) Other doxylamine (From Vicks NyQuil Cold/Flu Liquicap) Allergy (Mild, Verified 03/19/24 06:35) Unknown Is last menstrual period known: No Post menopausal: No Patient : No Have you fallen in the past year?: No Nurse's Note: Frequent urination, no burning, abdomen pressure, and some left flank pain PFSH Medical History Hypercholesterolemia Hypothyroid GERD (gastroesophageal [...] at home: Yes additional social history: - [employer] [facility] HPI Chief Complaint: Frequent urination Details: KRYS CANCINO, is a 69 F who presents to the office today for evaluation of urinary tract symptoms. Patient admits to symptoms of nocturia and lower abdominal pressure that are similar to prior UTIs she has had in the past. She denies symptoms of fever, chills, nausea, vomiting, dysuria, hematuria, and back pain. Patient denies current treatment for this issue at this time. ROS Const Constitutional: No body ache, chills, fatigue or fever(s) Gastro GI: Positive for abdominal pain; No change in bowel habits, diarrhea or vomiting Genitourinary-Female: Positive for urinary frequency, urinary urgency, suprapubic fullness and other (nocturia ); No painful urination or blood in urine Endo Endocrine: No fatigue Exam Const General: healthy appearing and no acute distress GI Palpation: soft, no guarding and nontender Other: No CVA tenderness bilatearlly Results POC Urinalysis Dip (Clinic) Office Urine Color Yellow Last Edit by Delmer Sal on 11/28/24 11:10 Office Urine Clarity Clear Last Edit by Delmer Sal on 11/28/24 11:10 Office Urine Glucose Negative Last Edit by Delmer Sal on 11/28/24 11:10 Office Urine Ketones Trace (5) Last Edit by Delmer Sal on 11/28/24 11:10 Off Ur Spec Waterproof 1.010 Last Edit by Delmer Sal on 11/28/24 11:10 Office Urine pH 5.0 Last Edit by Delmer Sal on 11/28/24 11:10 Office Urine Bilirubin Negative Last Edit by Delmer Sal on 11/28/24 11:10 Office Urine Urobilinogen 0.2 mg/dL Last Edit by Delmer Sal on 11/28/24 11:10 Office Urine Blood Trace Last Edit by Delmer Sal on 11/28/24 11:10 Office Urine Blood Hemolyzed Last Edit by Delmer Sal on 11/28/24 11:10 Office Urine Protein Negative Last Edit by Delmer Sal on 11/28/24 11:10 Office Urine Nitrate Negative Last Edit by Delmer Sal on 11/28/24 11:10 Off Ur Leukocytes Positive Last Edit by Delmer Sal on 11/28/24 11:10 Coding Level of Care Code Established Pt Off vis,est,level 2 Patient Type Established History Expanded Problem Focused Exam Problem Focused Medical Decision Making Low Complexity Diagnoses Acute cystitis without hematuria N30.00 Urinary tract infection type: acute cystitis Hematuria presence: without hematuria Assessment and Plan Assessment and Plan (1) UTI (urinary tract infection): Status: Acute Qualifiers: Urinary tract infection type: acute cystitis Hematuria presence: without hematuria Quali (more content not included)... Normal CBC W/Diff, Automatedon 06-11 PLT EST ADEQUATE Normal ADEQ Comment on above: Performed By: #### L 100.0100, L506.0400, L501.9520, L500.4050, L500.4100 #### Laboratory [address] [place], [place], [id number] Comprehensive Metabolic Prof ilon 07-06-2024 Albumin [Mass/Vol] 3.8 g/dL Normal 3.2-5.0 [facility] Comment on above: Performed By: #### L 100.0100, L506.0400, L501.9520, L500.4050, L500.4100 #### Laboratory [address] [place], [address] Albumin/Globulin [Mass ratio] 1.1 {ratio} Normal 0.9-2.4 Comment on above: Performed By: #### L 100.0100, L506.0400, L501.9520, L500.4050, L500.4100 #### Laboratory [address] [place], [address] ALK P 72 U/L Normal 45-117 Comment on above: Performed By: #### L 100.0100, L506.0400, L501.9520, L500.4050, L500.4100 #### Laboratory [address] [place], [address] ALT [Catalytic activity/Vol] 20 U/L Normal 13-56 Comment on above: Performed By: #### L 100.0100, L506.0400, L501.9520, L500.4050, L500.4100 #### Laboratory [address] [place], [address] AST [Catalytic activity/Vol] 19 U/L Normal 15-37 Comment on above: Performed By: #### L 100.0100, L506.0400, L501.9520, L500.4050, L500.4100 #### Laboratory [address] [place], [address] Bilirubin [Mass/Vol] 0.70 mg/dL Normal 0.20-1.00 [facility] Comment on above: Result Comment: For patients on eltrombopag therapy, use of Dimension [place] TBIL is not recommended. Performed By: #### L 100.0100, L506.0400, L501.9520, L500.4050, L500.4100 #### Laboratory [address] [place], [address] BUN/CRE 13.8 RATIO Normal 10-20 Comment on above: Performed By: #### L 100.0100, L506.0400, L501.9520, L500.4050, L500.4100 #### Laboratory [address] [place], [address] CA,Total 8.8 mg/dL Normal 8.5-10.1 Comment on above: Performed By: #### L 100.0100, L506.0400, L501.9520, L500.4050, L500.4100 #### Laboratory [address] [place], [address] Chloride [Moles/Vol] 106 mmol/L Normal 98-107 [facility] Comment on above: Performed By: #### L 100.0100, L506.0400, L501.9520, L500.4050, L500.4100 #### Laboratory [address] [place], [address] CO2 [Moles/Vol] 27.0 mmol/L Normal 21.0-32.0 Comment on above: Performed By: #### L 100.0100, L506.0400, L501.9520, L500.4050, L500.4100 #### Laboratory [address] [place], [address] Creatinine [Mass/Vol] 0.80 mg/dL Normal 0.55-1.02 Comment on above: Result Comment: The validity of the calculated GFR GFRAA in patients over 70 years has not been determined. Clinical correlation is essential. Performed By: #### L 100.0100, L506.0400, L501.9520, L500.4050, L500.4100 #### Laboratory [address] [place], [address] EST GFR - AA 92 mL/min Normal >60 Comment on above: Result Comment: Afri can [place] GFR Calc Performed By: #### L 100.0100, L506.0400, L501.9520, L500.4050, L500.4100 #### Laboratory [address] [place], [address] GAP 7 Normal 5-15 Comment on above: Performed By: #### L 100.0100, L506.0400, L501.9520, L500.4050, L500.4100 #### Laboratory [address] [place], [address] GFR/1.73 sq M.predicted among non-blacks MDRD (S/P/Bld) [Vol rate/Area] 76 mL/min/{1.73_m2} Normal >60 Comment on above: Result Comment: Non- GFR Calc Performed By: #### L 100.0100, L506.0400, L501.9520, L500.4050, L500.4100 #### Laboratory [address] [place], [address] Globulin (S) [Mass/Vol] 3.5 g/dL Normal 2.2-4.2 Comment on above: Performed By: #### L 100.0100, L506.0400, L501.9520, L500.4050, L500.4100 #### Laboratory [address] [place], [address] Glucose [Mass/Vol] 80 mg/dL Normal 74-106 [facility] Comment on above: Performed By: #### L 100.0100, L506.0400, L501.9520, L500.4050, L500.4100 #### Laboratory [address] [place], [address] Potassium [Moles/Vol] 4.0 mmol/L Normal 3.5-5.1 Comment on above: Performed By: #### L 100.0100, L506.0400, L501.9520, L500.4050, L500.4100 #### Laboratory [address] [place], [address] Sodium [Moles/Vol] 140 mmol/L Normal 136-145 [facility] Comment on above: Performed By: #### L 100.0100, L506.0400, L501.9520, L500.4050, L500.4100 #### Laboratory [address] [place], [address] T PROT 7.3 g/dL Normal 6.4-8.2 Comment on above: Performed By: #### L 100.0100, L506.0400, L501.9520, L500.4050, L500.4100 #### Laboratory [address] [place], [address] Urea nitrogen [Mass/Vol] 11 mg/dL Normal 7-18 Comment on above: Performed By: #### L 100.0100, L506.0400, L501.9520, L500.4050, L500.4100 #### Laboratory [address] [place], [address] Lipid Profileon 07-06-2024 Cholesterol [Mass/Vol] 162 mg/dL Normal 200 Comment on above: Result Comment: <200 mg/dL Desirable 200-240 mg/dL Borderline >240 mg/dL High Risk Performed By: #### L 100.0100, L506.0400, L501.9520, L500.4050, L500.4100 #### Laboratory [address] [place], [address] Cholesterol in HDL [Mass/Vol] 65 mg/dL Normal Comment on above: Result Comment: The drugs N-Acetylcysteine and Metamizole may falsely depress this assay. Reference Range HDL <40 mg/dL Low HDL Cholesterol HDL >or= 60 mg/dL High HDL Cholesterol Performed By: #### L 100.0100, L506.0400, L501.9520, L500.4050, L500.4100 #### Laboratory [address] [place], [address] Cholesterol in LDL [Mass/Vol] 82 mg/dL Normal 0-130 Comment on above: Performed By: #### L 100.0100, L506.0400, L501.9520, L500.4050, L500.4100 #### Laboratory [address] [place], [address] Cholesterol in VLDL [Mass/Vol] 15 mg/dL Normal 5-40 Comment on above: Performed By: #### L 100.0100, L506.0400, L501.9520, L500.4050, L500.4100 #### Laboratory [address] [place], [address] Triglyceride [Mass/Vol] 73 mg/dL Normal Comment on above: Result Comment: The drugs N-Acetylcysteine and Metamizole may falsely depress this assay. Serum Triglycerides Reference Interval Normal <150 mg/dL Borderline high 150 - 199 mg/dL High 200 - 499 mg/dL Very High > or = 500 mg/dL Performed By: #### L 100.0100, L506.0400, L501.9520, L500.4050, L500.4100 #### Laboratory [address] [place], [address] T4 Free Directon 07-06-2024 T4 FREE DIRECT 1.72 ng/dL High 0.76-1.46 Comment on above: Performed By: #### L 100.0100, L506.0400, L501.9520, L500.4050, L500.4100 #### [id number] [place], [place], [address] Thyroid Stim Hormone (TSH)on 07-06-2024 TSH 0.497 uIU/mL Normal 0.358-3.740 Comment on above: Performed By: #### L 100.0100, L506.0400, L501.9520, L500.4050, L500.4100 #### Laboratory [address] [place], [place], [id number] Serum or plasma thyroid stim ulating hormone (TSH) measurement (units/volume)Ordered By: Steven Rojas on 09-16-2023 TSH Qn 0.68 uIU/mL 0.358-3.74 Thin prep Papanicolaou smear with manual screeningOrdered By: Steven Rojas on 09-16-2023 Thin prep Papanicolaou smear with manual screening 1.26 ng/dL 0.76-1.46 Absolute lymphocyte countOrd ered By: Steven Rojas on 07-04-2023 Lymphocytes Auto (Unsp spec) [#/Vol] 1.50 10*3/uL 0.83-4.51 Automated lymphocyte count a s percentage of total leukocytesOrdered By: Steven Rojas on 07-04-2023 Lymphocytes/100 WBC Auto (Unsp spec) 41.1 % 19-41 Basophil percentageOrdered B y: Steven Rojas on 07-04-2023 Basophils/100 WBC (Bld) 0.5 % 0-1 Bilirubin [Mass/Vol] 0.70 mg/dL 0.20-1.00 [facility] Comment on above: For patients on eltr ombopag therapy, use of Dimension [place] TBIL is not recommended. Chloride [Moles/Vol] 106 mmol/L 98-107 [facility] Cholesterol [Mass/Vol] 168 mg/dL <200 Comment on above: <200 mg/dL Desirable 200-240 mg/dL Borderline >240 mg/dL High Risk Eosinophils/100 WBC (Bld) 1.6 % 0-5 Glucose [Mass/Vol] 87 mg/dL 74-106 [facility] Hemoglobin (Bld) [Mass/Vol] 12.4 g/dL 12.0-15.0 Monocytes/100 WBC (Bld) 9.6 % 0-10 Neutrophils (Bld) [#/Vol] 1.7 10*3/uL 2.0-7.7 Neutrophils/100 WBC (Bld) 47.2 % 47-70 Potassium [Moles/Vol] 4.2 mmol/L 3.5-5.1 Protein [Mass/Vol] 7.5 g/dL 6.4-8.2 [facility] Sodium [Moles/Vol] 138 mmol/L 136-145 [facility] Triglyceride [Mass/Vol] 51 mg/dL <199 Comment on above: The drugs N-Acetylcy steine and Metamizole may falsely depress this assay.Serum Triglycerides Reference Interval Normal <150 mg/dL Borderline high 150 - 199 mg/dL High 200 - 499 mg/dL Very High > or = 500 mg/dL WBC (Bld) [#/Vol] 3.7 10*3/uL 4.4-11.0 [facility] Determination of erythrocyte mean corpuscular volume (MCV)Ordered By: Steven Rojas on 07-04-2023 MCV (RBC) [Entitic vol] 89.2 fL 81-99 Erythrocyte distribution wid th ratioOrdered By: Steven Rojas on 07-04-2023 Erythrocyte distribution width (RBC) [Ratio] 13.2 % 11.6-14.6 Erythrocyte distribution wid th standard deviationOrdered By: Steven Rojas on 07-04-2023 Erythrocyte distribution width (RBC) [Entitic vol] 43.4 fL 35.1-43.9 Hematocrit Auto (Bld) [Volum e fraction]Ordered By: Steven Rojas on 07-04-2023 Hematocrit (Bld) [Volume fraction] 38.1 % 37-47 High density lipoprotein (HD L) measurementOrdered By: Steven Rojas on 07-04-2023 Cholesterol in HDL (Body fld) [Mass/Vol] 67 mg/dL >40 Comment on above: The drugs N-Acetylcy steine and Metamizole may falsely depress this assay. Reference Range HDL <40 mg/dL Low HDL Cholesterol HDL >or= 60 mg/dL High HDL Cholesterol Immature granulocytes/100 WB C Auto (Bld)Ordered By: Steven Rojas on 07-04-2023 Immature granulocytes/100 WBC (Bld) 0.000 % 0.0-0.9 Comment on above: IG% - Immature Granu locytes (promyelocytes, myelocytes and metamyelocytes) > 1% indicates that a LEFT SHIFT is Present. Laboratory - Chemistry and C hemistry - challengeOrdered By: Steven Rojas on 07-04-2023 Albumin/Globulin [Mass ratio] 1.1 {ratio} 0.9-2.4 ALP [Catalytic activity/Vol] 78 U/L 45-117 ALT [Catalytic activity/Vol] 20 U/L 13-56 CO2 [Moles/Vol] 26.0 mmol/L 21.0-32.0 Globulin (S) [Mass/Vol] 3.5 g/dL 2.2-4.2 Urea nitrogen/Creatinine [Mass ratio] 16.9 mg/mg 10-20 Laboratory - Hematology and Cell countsOrdered By: Steven Rojas on 07-04-2023 MCH (RBC) [Entitic mass] 29.0 pg 27.0-32.0 MCHC (RBC) [Mass/Vol] 32.5 g/dL 32-36 Nucleated RBC/100 WBC (Bld) [Ratio] 0 % 0-5 Platelets (Bld) [#/Vol] 205 10*3/uL 150-450 Low density lipoprotein (LDL ) cholesterol measurementOrdered By: Steven Rojas on 07-04-2023 Cholesterol in LDL (Body fld) [Moles/Vol] 91 mg/dL 0-130 No Panel InformationOrdered By: Steven Rojas on 07-04-2023 Estimated GFR (MDRD) Amer 88 mL/min >60 Comment on above: GFR Calc Estimated GFR (MDRD) Non-Af Amer 73 mL/min >60 Comment on above: Non- GFR Calc Platelet mean volume Jimmy-Ec ker (Bld) [Entitic vol]Ordered By: Steven Rojas on 07-04-2023 Platelet mean volume (Bld) [Entitic vol] 12.0 fL 6.2-12.0 RBC Auto (Bld) [#/Vol]Ordere d By: Steven Rojas on 07-04-2023 RBC (Bld) [#/Vol] 4.27 10*6/uL 4.2-5.4 [facility] Serum or plasma calcium padmini urement (mass/volume)Ordered By: Steven Rojas on 07-04-2023 Calcium [Mass/Vol] 8.9 mg/dL 8.5-10.1 [facility] Serum or plasma creatinine m easurement (mass/volume)Ordered By: Steven Rojas on 07-04-2023 Creatinine [Mass/Vol] 0.83 mg/dL 0.55-1.02 Comment on above: The validity of the calculated GFR & GFRAA in patients over 70 years has not been determined. Clinical correlation is essential. Serum or plasma thyroid stim ulating hormone (TSH) measurement (units/volume)Ordered By: Steven Rojas on 07-04-2023 TSH Qn 0.28 uIU/mL 0.358-3.74 Serum or plasma urea nitroge n measurement (mass/volume)Ordered By: Steven Rojas on 07-04-2023 Urea nitrogen [Mass/Vol] 14 mg/dL 7-18 Thin prep Papanicolaou smear with manual screeningOrdered By: Steven Rojas on 07-04-2023 Thin prep Papanicolaou smear with manual screening 4.0 g/dL 3.2-5.0 Thin prep Papanicolaou smear with manual screening 15 U/L 15-37 Thin prep Papanicolaou smear with manual screening 6 5-15 Thin prep Papanicolaou smear with manual screening 1.72 ng/dL 0.76-1.46 Very low density lipoprotein (VLDL) cholesterol measurementOrdered By: Steven Rojas on 07-04-2023 Cholesterol in VLDL Calc [Moles/Vol] 10 mg/dL 5-40 Culture, urineOrdered By: St ghulam Ashford on 06-24-2023 Bacteria identified Cx Nom (U) Escherichia coli Bacteria identified Cx Nom (U) Escherichia coli Laboratory - Chemistry and C hemistry - challengeon 06-24-2023 Bilirubin Ql (U) Negative Glucose Ql (U) Negative Ketones Ql (U) Negative pH (U) 5.0 [pH] Specific gravity (U) [Rel density] 1.015 Urobilinogen (U) [Mass/Vol] Negative Laboratory - Hematology and Cell countson 06-24-2023 Hemoglobin Ql (U) Trace Laboratory - Specimen inform ationon 06-24-2023 Clarity (U) Clear Color (U) YELLOW Laboratory - Urinalysison Nitrite Ql (U) Negative Protein Ql (U) Negative No Panel Informationon 06-24 Urine Leukocytes Positive Urine Non-Hemolyzed Blood Non-Hemolyzed CNOVon 12-28-2016 CNOV Office Visit ([facility]) ----KRYS CANCINO ([id number]) 1955 FDate Time Provider Department12/28/16 8:00 AM EUNICE SELF) [facility] During your visit today, we recorded the following information about you: Temperature Pulse Respiration Blood pressure 97.2 degrees 60/minute 16/minute 100/60 Weight 70 kgEunice Self PA-C 12/28/2016 11:06 AM Signed12/28/2016Patient presents with:Rash: x1 [...] of gastrointestinal tract, unspecified- Unspecified hypothyroidismALLERGIES Nyquil [Fsuwrvezt-Pgr-Yl-Acetaminop hen]MEDICATIONSCurrent Outpatient Prescriptions:cholecalcifero l (VITAMIN D3) 1,000 [...] lb 6.4 oz) LMP 10/26/2007 BMI 26.92 kg/h7CLZZEDATMH Well appearing, alert, in no acute distress, well-hydrated, wellnourished.SKIN scalp normal without erythema or lesions. No hair loss or broken hairfollicles noted. No nits.ASSESSMENT/PLAN:1. Scalp irritation - ICD9: 709.9, ICD10: R23.8Trial of selsun blue/dandruff shampooAvoid new productsF/u prnThe patient indicates understanding of these issues and agrees with the plan.KAREEN Denton-12/28/2016Referring Provider: SELF [[id number]]Allergies As of Date: 12/28/2016 Noted Allergy ReactionNYQUIL (RZBEFBTMU-IZW-FI-ACETAMIN*1 07/24/2004Date Reviewed: 12/28/2016Reviewed by: Gemma Sher Ma [...] by EUNICE SELF PA-C on 12/28/16 Normal [facility] PROGRESSon 12-28-2016 PROGRESS HNO ID: [id number] thor: Eunice Moraervice: (none)Author Type: Physician AssistantType: Progress NotesFiled: 12/28/2016 [...] of gastrointestinal tract, unspecified- Unspecified hypothyroidismALLERGIES Nyquil [Uhpupofup-Nxr-Zn-Acetaminop hen]MEDICATIONSCurrent Outpatient Prescriptions:cholecalcifero l (VITAMIN D3) 1,000 [...] Number of children: 2Occupational HistoryOccupation Employer Comment[employer]ACH[employer]*Social History Main Topics Smoking status: Former Smoker Packs/day: 0.00 Years: 0.00 Comment: quit around 1979 Alcohol use: Yes Comment: SOCIALLY Drug use: No Sexual activity: Yes Partners with: Male Comment: SPOUSE WITH VASECTOMY FOR CONTRACEPTIONREVIEW OF [employer] other reviewed and negative other than HPI.OBJECTIVE:BP 100/60 Pulse 60 Temp 36.2 ?C (97.2 ?F) (Tympanic) Resp 16 Wt 70kg (154 lb 6.4 oz) LMP 10/26/2007 BMI 26.92 kg/p4LKUZOFZGWW Well appearing, alert, in no acute distress, well-hydrated,well nourished.SKIN scalp normal without erythema or lesions. No hair loss or brokenhair follicles noted. No nits.ASSESSMENT/PLAN:1. Scalp irritation - ICD9: 709.9, ICD10: R23.8Trial of selsun blue/dandruff shampooAvoid new productsF/u prnThe patient indicates understanding of these issues and agrees with theplan.KAREEN Denton-C7/ Normal [facility] Vital Signs Date Time Vital Sign Value Performing Clinician Faci lity 03-31-2025 10:37-0400 Body height 160.[address] Steven Rojas DO Work Phone: 03-31-2025 10:32-0400 Body mass index (BMI) [Ratio] 29.8 kg/m2 Dr. Steven Rojas DO Work Phone: 03-31-2025 10:32-0400 Body weight 76.[address] Steven Rojas DO Work Phone: 03-31-2025 10:32-0400 Diastolic blood pressure 84 mm[Hg] Dr. Steven Rojas DO Work Phone: 03-31-2025 10:32-0400 Systolic blood pressure 130 mm[Hg] Dr. Steven Rojas DO Work Phone: 01-11-2025 13:10-0400 Body temperature 98.2 [degF] Dr. Steven Rojas DO Work Phone: 01-11-2025 13:10-0400 Body weight 76.[address] Steven Rojas DO Work Phone: 01-11-2025 13:10-0400 Diastolic blood pressure 80 mm[Hg] Dr. Steven Rojas DO Work Phone: 01-11-2025 13:10-0400 Heart rate 74 /min Dr. Steven Rojas DO Work Phone: 01-11-2025 13:10-0400 Systolic blood pressure 118 mm[Hg] Dr. Steven Rojas DO Work Phone: 11-28-2024 11:03-0400 Diastolic blood pressure 74 mm[Hg] Dr. Steven Rojas DO Work Phone: 11-28-2024 11:03-0400 Heart rate 74 /min Dr. Steven Rojas DO Work Phone: 11-28-2024 11:03-0400 Respiratory rate 15 /min Dr. Steven Rojas DO Work Phone: 11-28-2024 11:03-0400 SaO2% (BldA) [Mass fraction] 98 % Dr. Steven Rojas DO Work Phone: 11-28-2024 11:03-0400 Systolic blood pressure 110 mm[Hg] Dr. Setven Rojas DO Work Phone: 06-24-2023 08:32-0500 Body temperature 97.5 [degF] Dr. Steven Rojas Work Phone: 06-24-2023 08:32-0500 Diastolic blood pressure 92 mm[Hg] Dr. Steven Rojas Work Phone: 06-24-2023 08:32-0500 Heart rate 60 /min Dr. Steven Rojas Work Phone: 06-24-2023 08:32-0500 Respiratory rate 12 /min Dr. Steven Rojas Work Phone: 06-24-2023 08:32-0500 SaO2% (BldA) [Mass fraction] 99 % Dr. Steven Rojas Work Phone: 06-24-2023 08:32-0500 Systolic blood pressure 156 mm[Hg] Dr. Steven Rojas Work Phone: 04-16-2023 02:10-0500 Diastolic blood pressure 71 mm[Hg] Dr. Steven Rojas Work Phone: 04-16-2023 02:10-0500 Heart rate 85 /min Dr. Steven Rojas Work Phone: 04-16-2023 02:10-0500 Respiratory rate 21 /min Dr. Steven Rojas Work Phone: 04-16-2023 02:10-0500 SaO2% (BldA) [Mass fraction] 98 % Dr. Steven Rojas Work Phone: 04-16-2023 02:10-0500 Systolic blood pressure 138 mm[Hg] Dr. Steven Rojas Work Phone: 04-16-2023 01:11-0500 Body height 160.[address] Steven Rojas Work Phone: 04-16-2023 01:11-0500 Body mass index (BMI) [Ratio] 31.1 kg/m2 Dr. Steven Rojas Work Phone: 04-16-2023 01:11-0500 Body temperature 97.8 [degF] Dr. Steven Rojas Work Phone: 04-16-2023 01:11-0500 Body weight 79.[address] Steven Rojas Work Phone: 03-04-2023 08:42-0400 Body mass index (BMI) [Ratio] 30.9 kg/m2 Dr. Steven Rojas Work Phone: 03-04-2023 08:42-0400 Body weight 76.[address] Steven Rojas Work Phone: 03-04-2023 08:42-0400 Diastolic blood pressure 82 mm[Hg] Dr. Steven Rojas Work Phone: 03-04-2023 08:42-0400 Systolic blood pressure 138 mm[Hg] Dr. Steven Rojas Work Phone: 04-26-2022 08:28-0500 Body height 157.[address] Steven Rojas Work Phone: Work Phone: 02-26-2022 11:34-0400 Body mass index (BMI) [Ratio] 30.4 kg/m2 Dr. Steven Rojas Work Phone: Work Phone: 02-26-2022 11:34-0400 Body weight 75.[address] Steven Rojas Work Phone: Work Phone: 02-26-2022 11:34-0400 Diastolic blood pressure 80 mm[Hg] Dr. Steven Rojas Work Phone: Work Phone: 02-26-2022 11:34-0400 Systolic blood pressure 123 mm[Hg] Dr. Steven Rojas Work Phone: Work Phone: Encounters Encounter Date Encounter Type Care Provider Facility Start: 04-21-[address] [facility] Facility: Start: 03-31-2025 End: 03-31-2025 Patient encounter procedure Juana DUNHAM -[facility] Work Phone: Start: 03-31-2025 End: 03-31-2025 Patient encounter status Juana Quintanilla NP-C Start: 03-31-2025 End: 03-31-2025 ambulatory Steven Rojas Facility:[facility] Start: 03-12-[address] Steven parker DO -Physical Therapy Work Phone: Start: 03-08-2025 End: 03-08-[address] Steven Rojas DO Work Phone: -Outpatient Breast Imaging Start: 03-08-2025 End: 03-08-[address] Jonna Khan MD -Outpatient Breast Imaging Work Phone: Start: 03-08-2025 End: 03-08-2025 ambulatory Jonna Khan Facility: Start: 02-25-2025 End: 02-25-[address] Steven Rojas DO Work Phone: -[facility] [place] Start: 02-25-2025 End: 02-25-[address] Steven Rojas DO -[facility] [place] Work Phone: Start: 02-25-2025 End: 02-25-2025 ambulatory Steven Rojas Facility: Start: 01-11-2025 End: 01-11-[address] Sharon Carmichael MD -[facility] Work Phone: Start: 01-11-2025 End: 01-11-[address] Steven Rojas DO Work Phone: -[facility] Start: 12-08-2024 Non-patient / Non-visit Dr. Sharon Carmichael MD -[facility] Work Phone: Start: 11-30-2024 End: 11-30-[address] Steven Rojas DO Work Phone: Work Phone: Start: 11-30-2024 End: 11-30-2024 Patient encounter procedure Tony MATHUR -Laboratory [facility] Work Phone: Start: 11-30-2024 End: 11-30-2024 ambulatory Tony Cotton Facility: Start: 11-28-2024 End: 11-28-2024 Patient encounter procedure Tony Cotton [place] [facility] Work Phone: Start: 11-28-2024 End: 11-28-[address] Steven Rojas DO Work Phone: [facility] Work Phone: Start: 07-22-2024 Encounter for genera l adult medical examination without abnormal findings Steven Rojas Start: 07-06-2024 End: 07-06-2024 ambulatory Steven Rojas Facility: Start: 09-16-2023 End: 09-16-[address] Steven Rojas Work Phone: Work Phone: Start: 09-16-2023 End: 09-16-[address] Steven Rojas Work Phone: -Laboratory Work Phone: Start: 07-04-2023 End: 07-04-[address] Steven Rojas Work Phone: Work Phone: Start: 07-04-2023 End: 07-04-[address] [facility] Start: 06-24-2023 End: 06-24-[address] [facility] Work Phone: Start: 06-24-2023 End: 06-24-[address] Steven Rojas Work Phone: [facility] Work Phone: Start: 04-16-2023 End: 04-16-2023 Emergency department patient visit Dr. Steven Rojas Work Phone: -Emergency Department Work Phone: Start: 03-04-2023 End: 03-04-[address] Steven Rojas Work Phone: [facility] Work Phone: Start: 03-04-2023 End: 03-04-[address] Steven Rojas Work Phone: -Outpatient Breast Imaging Work Phone: Start: 04-26-2022 End: 04-26-[address] Steven Rojas Work Phone: Work Phone: Start: 04-26-2022 End: 04-26-[address] Steven Rojas Work Phone: -Outpatient Bone Densitometry Start: 03-02-2022 End: 03-02-[address] Steven Rojas Work Phone: -Outpatient Breast Imaging Start: 02-26-2022 End: 02-26-[address] Steven Rojas Work Phone: [facility] Start: 12-28-2016 End: 12-28-2016 Ambulatory EUNICE (KAREEN-Petra) CLAIR [facility] Trevino Procedures Date Procedure Procedure Detail Performing Clinician Start: 03-08-2025 Screening mammography Ling Rojas DO Work Phone: Start: 02-25-2025 X-ray of lumbosacral spine Dr. Steven Rojas DO Work Phone: Start: 11-30-[address] Steven Rojas DO Work Phone: Start: 06-24-[address] Steven Rojas Work Phone: Start: 03-04-2023 Screening mammography Ling Rojas Work Phone: Start: 04-26-2022 Dual energy X-ray absorptiometry Dr. Steven Rojas Work Phone: Start: 03-02-2022 Screening mammography Ling Rojas Work Phone: Plan of Treatment Date Care Activity Detail Author Start: 04-21-2025 Registered Recurring Registered Recu rring -Physical Therapy Work Phone: Start: 03-09-2025 Registered Recurring Registered Recu rring -Physical Therapy Work Phone: Start: 03-08-2025 Screening mammography SCRN NERISSA M (CAD)W/KRISTINE BILAT Start: 03-08-2025 Patient encounter procedure Registered Clinical -Outpatient Breast Imaging Work Phone: Start: 04-16-2023 [facility] DXA Bone [Mass/Area] Bone density Work Phone: Patient Education ED [facility] [employer] Work Phone: Patient referral [facility] Work Phone: [facility] Payers Date Payer Category Payer Self-pay [id number] 2024 Private Health Insurance [id number] 2012 Unknown [id number] Private Health Insurance [id number] Unknown [id number] 2.16.8 [id number] Unknown [id number] 2.16.8 [id number] Unknown [id number] 2.16.8 [id number] Unknown [id number] 2.16.8 [id number] Unknown [id number] 2.16.8 [id number] Unknown [id number] 2.16.8 [id number] Unknown [id number] 2.16.8 [id number] Unknown [id number] 2.16.8 [id number] Social History Date Type Detail Facility Start: 02-26-2022 End: 06-24-2023 Tobacco smoking status OKIS Unknown if ever smoked Start: 12-08-2019 Non-smoker [facility] Start: 1955 Sex Assigned At Female W [facility] Start: 02-22-2024 End: 02-22-2024 Tobacco smoking status NHIS Never smoked tobacco (finding) Sex Female [facility] Medical Equipment Procedure Code Equipment Code Equipment [...] Level Of Cons ciousness Awake;Alert;Appropriate;Follow s Commands Work Phone: Clinical Notes 11-28-2024 to 03-31-2025 Note Date & Type Note Facility 03-31-2025 Progress note [facility] 02-27-2025 Radiology Diagnostic study note [facility] Imaging Services [address] [place] [address] L/S Spine Min 4 Views MR#: [id number] Acct: [id number] Name: KRYS CANCINO Rep #: [id number] : 1955 F 70 From: Joaquin Saha MD PCP: Dr. Steven Rojas DO Status: REG CLI Study:L/S Spine Min 4 Views Date of Exam: 02/25/25 Exam# [id number] Ordering Dr: Steven Rojas DO PROCEDURE: L/S SPINE MIN 4 VIEWS 02/25/2025 REASON FOR EXAM: CHRONIC BACK PAIN TECHNIQUE: Procedure Code: RADSPLS Modality: DX Procedure: L/S SPINE MIN 4 VIEWS COMPARISON: None FINDINGS: Severe scoliosis of the lumbar spine concave to the right apex at L1. No compression fracture. Multilevel facet arthropathy and multilevel spondylosis worse at the thoracolumbar junction. Foraminal stenosis suspected on the right neural foramina extending from T12-L1 through L3-L4. Abnormal configuration of the L1 and L2 vertebra with suggestion of defect of the posterior spinal elements. This may be due to rotation. Large amount of stool in the colon. RAD/L/S Spine Min 4 Views IMPRESSION: Severe scoliosis of the lumbar spine concave to the right apex at L1 with multilevel foraminal stenoses more so on the right than the left and multilevel facet arthropathy. Question congenital deformity at L1-2. Reading Location: [id number] CC: Dr. Steven Rojas, DO ~ Acid Purification Equipment Operator: Signed 01-11-2025 Evaluation note Diagnosis Onset Date Resolution Atrophic vaginitis acute January 11, 2025 12:59pm Cystocele acute January 11 12:59pm UTI (urinary tract infection) resolved January 11, 2025 12:59pm Atrophic vaginitis acute Octobe 2024 10:31am Cystocele acute March 31, 2025 10:31am Routine gynecological examination noneactive March 31 10:31am [facility] Work Phone: 1(765) 389-511406-21-2025 Evaluation note* Diagnosis Onset Date Resolution Status Admit Date UTI (urinary tract infection) acute November 28, 2024 10:32am Work Phone: 1(709) 344-804806-21-2025 Evaluation note* Diagnosis Onset Date Resolution Status Admit Date UTI (urinary tract infection) acute November 28, 2024 10:32am Atrophic vaginitis acute January 11, 2025 12:59pm Cystocele acute January 11 12:59pm UTI (urinary tract infection) acute January 11, 2025 12:59pm Work Phone: Discharge summary Author Dhaval Garcia April 16, 2023 2:09am Note Date/Time April 16, 2023 1 :27am [facility] Medical Records Department [address] [place] [address] Emergency Department Summary 04/16/23 MR#: [id number] Acct: [id number] Name: KRYS CANCINO Rep #:[id number] : [...] at home: Yes additional social history: - [employer] ED Constitutional Constitutional ED: Denies chills, fever(s) [...] and no sensory deficits noted Neuro Narrative: Shan-Hallpike positive to the left. Sensorium / Orientation: [...] clinician: N/A This note was generated with nVoq dictation software. It may contain incorrectwords, spelling, [...] your Primary Care Provider. Call [facility] ([phone]) or report to the closest Emergency Room. Call 911 if necessary. 04/16/23 0209 <Electronically signed by Dhaval Sears> Cosigner Signature (if applicable): CC: Dr. Steven Rojas DO ~ Signed Work Phone: Evaluation note* Diagnosis Onset Date Resolution Status Cystocele acute Encounter for routine gynecological examination noneactive Work Phone: Evaluation note* Diagnosis Onset Date Resolution Status Atrophic vaginitis acute Cystocele acute Encounter for routine gynecological examination noneactive Work Phone: Evaluation note* Diagnosis Onset Date Resolution Status Urinary tract infection none active Work Phone: Evaluation noteNo assessment information available [facility] Work Phone: Hospital Discharge instructions Additional Instructions Use Víctor maneuver as shown. Take medication as needed. Follow-up with your doctor. Symptoms worsens, return to the ED for reevaluation. Work Phone: Progress note Author Juana Quintanilla [facility] Note Date/Time March 31, 2025 1 1:51am [facility] [address] [place] [address], [address] [place] [address] OFFICE VISIT Date of Service: 03/31/25 MR#: [id number] Acct: [id number] Name: KRYS CANCINO Rep #: [id number] : 1955 Provider: ROLY Quintanilla Age/Sex: 70/F Location: [facility] Status: Signed Intake Vital Signs 03/18/24 13:03 03/31/25 10:32 03/31/25 10:37 Height 5 ft 3 in 5 ft 3 in 5 ft 3 in Weight: 168 lb 9 oz BMI 29.8 BP 130/84 H Intake Visit Reasons: Annual ([employer]) Cdl Instructor Required: No Is patient in pain?: No Allergies dextromethorphan (From Vicks NyQuil Cold/Flu Liquicap) Allergy (Mild, Verified 03/31/25 10:32) Other doxylamine (From Vicks NyQuil Cold/Flu Liquicap) Allergy (Mild, Verified 03/31/25 10:32) Unknown Medications ?Medication ?Instructions ?Recorded ?Confirmed ?Type levothyroxine 88 mcg tablet 88 mcg PO DAILY 07/02/17 1 History (Synthroid) pantoprazole 40 mg tablet,delayed 40 mg PO QHS REFLUX 07/02/17 03/31/25 History release simvastatin 10 mg tablet 10 mg PO QHS 07/02/17 History famotidine 20 mg tablet 20 mg PO DAILY 02/26/2203/11 History levocetirizine 5 mg tablet 5 mg PO DAILY Chronic hives 03/18/24 03/31/25 History (Allergy Relief (levocetirizine)) estradiol 0.01% (0.1 mg/gram) 0.25 Powered PLEX #42.5 07/17/24 03/31/25 Rx vaginal cream grams Is last menstrual period known: No Post [...] at home: Yes additional social history: - [employer] History 2 Elective abortions Hx Para 2 Spontaneous abortions Hx # Term Pregnancies Ectopic pregnancies Hx # Pregnancies Multiple births # of living children Past Pregnancies Del. Date Name GA/Weeks Outcome Route Bth Weight Gen Labor Lgth Anesthesia Del Locatn Provider FOB Unknown 1981 Best Unknown 1986 [facility] Annual ([employer]) Details: KRYS CANCINO is a 70 year old who presents for annual exam. Has pessary, sees Dr Carmichael [facility] for cleaning. Not sexually active. Denies other concerns. Last PAP: hyst History of abnormal PAP: no Last mammogram: 02/2025 History of abnormal mammogram: no Colon cancer screenin Other preventative health care screenings: [facility] Const Constitutional: Denies fatigue, weight gain or weight loss Cardio Card: Denies chest pain Resp Resp: Denies cough or dyspnea on exertion GI GI: Denies abdominal pain, bloating, change in stool character, constipation or vomiting : Reports as per HPI; Denies difficulty voiding, pelvic pain, urinary frequency, urinary incontinence,urinary urgency, vaginal discharge or vaginal pruritus Exam Const General: cooperative, healthy appearing, no acute distress and well developed Orientation: alert, oriented to person and oriented to place HENMT Head: normal to inspection Neck Neck: normal visual inspection Thyroid: thyroid normal Lymphatic: no lymphadenopathy noted Chest Breast inspection: normal inspection of the breasts and normal inspection of theaxillae Breast palpation: normal palpation of the breasts, normal palpation of the axillae and no axillary lymphadenopathy Resp Effort & Inspection: normal respiratory effort GI Palpation: soft, no masses and nontender Rectal Exam: deferred External Female Exam: normal external appearance and normal appearance of the urethra Urethra: normal appearance of the urethra and normal palpation Speculum Exam - Vagina: normal appearance of the vagina and normal vaginal discharge Speculum Exam - Cervix: absent Bimanual Exam- Vagina & Uterus: normal bimanual exam and uterus absent Bimanual Exam- Adnexa, other: normal adnexae, no masses, normal and non-tender Pelvic Support: normal Other: #4 pessary removed. No excoriations, bleeding or unusual discharge. Pessary cleaned and easily replaced with trimosan gel. Patient tolerated well. Neuro General: patient alert and patient oriented x3 Psych Affect: normal affect Coding Level of Care Code Pelvic/Breast Diagnoses Encounter for gynecological examination with abnormal finding Z01.411 Gynecological examination findings: abnormal findings PRESENT Atrophic vaginitis N95.2 Midline cystocele N81.11 Cystocele location: midline Assessment and Plan Assessment and Plan (1) Routine gynecological examination: Qualifiers: Gynecological examination findings: abnormal findings PRESENT QualifiedCode(s): Z01.411 - Encounter for gynecological examination (general) (routine) with abnormal findings (2) Atrophic vaginitis: Status: Acute Comment: estrogen cream vaginally (3) Cystocele: Status: Acute Qualifiers: Cystocele location: midline Qualified Code(s): N81.11 - Cystocele, midline Comment: s/p repair, pessary #4 ring w support/karens amol Plan Completed breast and pelvic exam Reviewed diet and exercise Pap NA Mammogram recent breast self exam encouraged monthly Colonoscopy 2017 RTO 1 year, prn with problems Juana Quintanilla SECURITY SYSTEMS TECHNICIAN 03/31/25 1059 <Electronically signed by Juana morales WET MACHINE OPERATOR WET MACHINE OPERATOR-C> Date _ Juana Quintanilla WET MACHINE OPERATOR WET MACHINE OPERATOR-C Cosigner Signature: Date (if applicable) CC: ~ [facility] Work Phone: Reason for referral (narrative)No reason for referral [facility] Work Phone: Summary Purpose Family History Relationship Condition Age at Onset Recorded Date/T sharyn mother Diabetes mellitus Unknown Hypertension Unknown Disorder of thyroid Unknown Coronary artery disease Unknown father Cardiac disease Unknown sister Malignant neoplasm of breast Unknown brother Hypertension Unknown Advance Directives Advance Directive Response Recorded Date/ Time Advance Directives No January 06 10:53am Living Will No 2020 10:53am Power of Marketing Project Manager No January 06 10:53am Advance Directive Response Recorded Date/ Time Advance Directives No January 06 10:53am Living Will No April 16 1:15am Power of Marketing Project Manager No April 16, 2023 1:15am Advance Directive Response Recorded Date/ Time Advance Directives No January 06 11:53am Living Will No April 16 2:15am Power of Marketing Project Manager No April 16, 2023 2:15am Advance Directive Response Recorded Date/ Time Advance Directives No January 06 11:53am Advance Directive Response Recorded Date/ Time Advance Directives No January 06 10:53am Chief Complaint and Reason for Visit Chief Complaint Admit Date CONCERN FOR UTI November 28, 2024 10:3 2am 3mo pessary cleaning January 11, 2025 12 :59pm Reason for Visit Admit Date UTI (urinary tract infection) November 28, 2024 10:32am Chief Complaint Annual (MARZIPAN MAKER) SCREENING POST MENOPAUSAL Reason for Visit Cystocele Encounter for routine gynecological examination Chief Complaint SCREENING Annual (MARZIPAN MAKER) dizziness and hypertension Reason for Visit Atrophic vaginitis Cystocele Encounter for routine gynecological examination Chief Complaint dizziness and hypert ension Urinary tract infection Reason for Visit Urinary tract infect ion Chief Complaint Urinary tract infect ion Reason for Visit Urinary tract infect ion Chief Complaint Admit Date CONCERN FOR UTI November 28, 2024 10:3 2am Chief Complaint Admit Date CONCERN FOR UTI November 28, 2024 10:3 2am 3mo pessary cleaning January 11, 2025 12 :59pm CHRONIC BACK PAIN February 25, 2025 9:08am SCREENING March 08, 2025 8:16am LBP RX HERE March 09, 2025 8:13am Reason for Visit Admit Date UTI (urinary tract infection) November 28, 2024 10:32am Atrophic vaginitis January 11, 2025 12: 59pm Cystocele January 11, 2025 12: 59pm UTI (urinary tract infection) January 12:59pm Chief Complaint Admit Date CONCERN FOR UTI November 28, 2024 10:3 2am 3mo pessary cleaning January 11, 2025 12 :59pm CHRONIC BACK PAIN February 25, 2025 9:08am SCREENING March 08, 2025 8:16am LBP RX HERE March 12, 2025 8: 00am Chief Complaint Admit Date 3mo pessary cleaning January 11, 2025 12 :59pm CHRONIC BACK PAIN February 25, 2025 9:08am SCREENING March 08, 2025 8:16am Annual (MARZIPAN MAKER) March 31, 2025 1 0:31am LBP RX HERE April 21, 2025 8:30am Reason for Visit Admit Date Atrophic vaginitis January 11, 2025 12: 59pm Cystocele January 11, 2025 12: 59pm UTI (urinary tract infection) January 12:59pm Atrophic vaginitis March 31, 2025 1 0:31am Cystocele March 31, 2025 1 0:31am Routine gynecological examination Octobe r 2024 10:31am Additional Source Comments INFORMATION SOURCE (unrecogn ized section and content) DATE CREATED AUTHOR 12/04/2017 [facility] DATE CREATED AUTHOR AUTHOR'S ORGANIZ ATION 04/22/2025 [facility] [facility] Goals (unrecognized section and content) Goals may [...] DO Family Provider Active Dr. Steven Rojas , DO Primary Care Provider Active Team Status: Inactive Member Role Status Dates Dr. Steven Rojas , DO Primary Care Provider, Referrin g Provider Active Dr. Jonna Khan MD Attending Provider Active Team Status: Inactive Member Role Status Dates Dr. Steven Rojas DO Primary Care Provider Active Dr. Jonna Khan MD Attending Provider, Referr ing Provider Active Team Status: Inactive Member Role Status Dates Dr. Steven Rojas DO Primary Care Provider Active Dr. Dhaval Garcia , DO Emergency Provider Active Team Status: Inactive Member Role Status Dates Dr. Steven Rojas DO Primary Care Provider, Referrin g Provider Active Cory MATHUR PA Attending Provider Active Team Status: Inactive Member Role Status Dates Dr. Steven Rojas DO Primary Care Provider, Attendin g Provider Active Team Status: Inactive Member Role Status Dates Dr. Steven Rojas DO Primary Care Provider Active Dr. Dhaval Garcia DO Attending Provider, Emergency Provide r Active Team Status: Inactive Member Role Status Dates Dr. Steven Rojas DO Primary Care Provider Active Cory MATHUR PA Attending Provider, Referring Pr ovider Active Team Status: Inactive Member Role Status Dates Dr. Steven Rojas DO Primary Care Provider Active Start: November 28, 2024 End: November 28, 2024 Dr. Steven Rojas DO Referring Provider Active Start: November 28, 2024 End: November 28, 2024 KAREEN Bojorquez Attending Provider Active Start: November 28, 2024 End: November 28, 2024 Team Status: Inactive Member Role Status Dates Dr. Steven Rojas DO Primary Care Provider Active Start: November 30, 2024 End: November 30, 2024 KAREEN Bojorquez Attending Provider Active Start: November 30, 2024 End: November 30, 2024 Team Status: Active Member Role/Relationship Status Dates Dr. Steven Rojas DO Family Provider Active Dr. Steven Rojas DO Primary Care Provider Active Team Status: Inactive Member Role/Relationship Status Dates Dr. Steven Rojas DO Primary Care Provider Active Start: November 28, 2024 End: November 28, 2024 Dr. Steven Rojas DO Referring Provider Active Start: November 28, 2024 End: November 28, 2024 KAREEN Bojorquez Attending Provider Active Start: November 28, 2024 End: November 28, 2024 Team Status: Inactive Member Role/Relationship Status Dates Dr. Steven Rojas DO Primary Care Provider Active Start: November 30, 2024 End: November 30, 2024 KAREEN Bojorquez Attending Provider Active Start: November 30, 2024 End: November 30, 2024 Team Status: Inactive Member Role/Relationship Status Dates Dr. Steven Rojas DO Primary Care Provider Active Start: December 08, 2024 Dr. Sharon Carmichael MD Attending Provider Active Start: December 08, 2024 Team Status: Inactive Member Role/Relationship Status Dates Dr. Steven Rojas DO Primary Care Provider Active Start: January 11, 2025 End: January 11, 2025 Dr. Steven Rojas DO Referring Provider Active Start: January 11, 2025 End: January 11, 2025 Dr. Sharon Carmichael MD Attending Provider Active Start: January 11, 2025 End: January 11, 2025 Team Status: Active Member Role/Relationship Status Dates Dr. Steven Rojas DO Primary care physician Active Team Status: Inactive Member Role/Relationship Status Dates Dr. Steven Rojas DO Primary care physician Active Start: November 28, 2024 End: November 28, 2024 Dr. Steven Rojas DO Referring Provider Active Start: November 28, 2024 End: November 28, 2024 KAREEN Bojorquez Attending physician Active Start: November 28, 2024 End: November 28, 2024 Team Status: Inactive Member Role/Relationship Status Dates Dr. Steven Rojas DO Primary care physician Active Start: November 30, 2024 End: November 30, 2024 KAREEN Bojorquez Attending physician Active Start: November 30, 2024 End: November 30, 2024 Team Status: Inactive Member Role/Relationship Status Dates Dr. Steven Rojas DO Primary care physician Active Start: December 08, 2024 Dr. Sharon Carmichael MD Attending physician Active Start: December 08, 2024 Team Status: Inactive Member Role/Relationship Status Dates Dr. Steven Rojas DO Primary care physician Active Start: January 11, 2025 End: January 11, 2025 Dr. Steven Rojas DO Referring Provider Active Start: January 11, 2025 End: January 11, 2025 Dr. Sharon Carmichael MD Attending physician Active Start: January 11, 2025 End: January 11, 2025 Team Status: Inactive Member Role/Relationship Status Dates Dr. Steven Rojas DO Primary care physician Active Start: February 25, 2025 End: February 25, 2025 Dr. Steven Rojas DO Attending physician Active Start: February 25, 2025 End: February 25, 2025 Dr. Steven Rojas DO Referring Provider Active Start: February 25, 2025 End: February 25, 2025 Team Status: Active Member Role/Relationship Status Dates Dr. Steven Rojas DO Primary care physician Active Start: March 08, 2025 Dr. Jonna Khan MD Attending physician Active Start: March 08, 2025 Dr. Jonna Khan MD Referring Provider Active Start: March 08, 2025 Team Status: Active Member Role/Relationship Status Dates Dr. Steven Rojas DO Primary care physician Active Start: March 09, 2025 Dr. Steven Rojas DO Attending physician Active Start: March 09, 2025 Dr. Steven Rojas DO Referring Provider Active Start: March 09, 2025 Team Status: Inactive Member Role/Relationship Status Dates Dr. Steven Rojas DO Primary care physician Active Start: March 08, 2025 End: March 08, 2025 Dr. Jonna Khan MD Attending physician Active Start: March 08, 2025 End: March 08, 2025 Dr. Jonna Khan MD Referring Provider Active Start: March 08, 2025 End: March 08, 2025 Team Status: Active Member Role/Relationship Status Dates Dr. Steven Rojas DO Primary care physician Active Start: March 12, 2025 Dr. Steven Rojas DO Attending physician Active Start: March 12, 2025 Dr. Steven Rojas DO Referring Provider Active Start: March 12, 2025 Team Status: Inactive Member Role/Relationship Status Dates Dr. Steven Rojas DO Primary care physician Active Start: January 11, 2025 End: January 11, 2025 Dr. Steven Rojas DO Referring Provider Active Start: January 11, 2025 End: January 11, 2025 Dr. Sharon Carmichael MD Attending physician Active Start: January 11, 2025 End: January 11, 2025 Team Status: Inactive Member Role/Relationship Status Dates Dr. Steven Rojas DO Primary care physician Active Start: February 25, 2025 End: February 25, 2025 Dr. Steven Rojas DO Attending physician Active Start: February 25, 2025 End: February 25, 2025 Dr. Steven Rojas DO Referring Provider Active Start: February 25, 2025 End: February 25, 2025 Team Status: Inactive Member Role/Relationship Status Dates Dr. Steven Rojas DO Primary care physician Active Start: March 08, 2025 End: March 08, 2025 Dr. Jonna Khan MD Attending physician Active Start: March 08, 2025 End: March 08, 2025 Dr. Jonna Khan MD Referring Provider Active Start: March 08, 2025 End: March 08, 2025 Team Status: Inactive Member Role/Relationship Status Dates Dr. Steven Rojas DO Primary care physician Active Start: March 31, 2025 End: March 31, 2025 Dr. Steven Rojas DO Referring Provider Active Start: March 31, 2025 End: March 31, 2025 Juana Quintanilla NP, WET MACHINE OPERATOR-C Attending physician Active Start: March 31, 2025 End: March 31, 2025 Team Status: Active Member Role/Relationship Status Dates Dr. Steven Rojas DO Primary care physician Active Start: April 21, 2025 Dr. Steven Rojas DO Attending physician Active Start: April 21, 2025 Dr. Stveen Rojas DO Referring Provider Active Start: April 21, 2025 FOR RECORDS PERTAINING TO PATIENTS WHO ARE [...] BE BASED ON THE PRIMARY CLINICAL RECORDS. [employer] provides no warranty or guarantee of the accuracy or completeness of information in this document.
== END | disposition home or self-care (01) ==
LOC: CVS 12:32
PROVIDERS: PCP Family Medicine; Referring Provider Nurse Practitioner Family; Visit Provider Nurse Practitioner Family
DX: R07.9 Chest pain, unspecified (principal); Z82.49 Family history of ischemic heart disease and other diseases of the circulatory system
CPT/HCPCS: 93017; 93350